=== PATIENT | female | born 1940 | race Caucasian/White ===

== ENCOUNTER 2019-05-15 09:34 | Outpatient (CLI) | payer MEDICARE, SELFPAY ==
[2019-05-15 10:51] LABS: Alanine Aminotransferase 31 U/L (4-35); Albumin Level 4.3 g/dL (3.5-5.1); Alkaline Phosphatase 85 U/L (38-126); Aspartate Amino Transferase 33 U/L (14-36); Blood Urea Nitrogen 16 mg/dL (7-17); Carbon Dioxide 28 mmol/L (22-30); Chloride 106 mmol/L (98-107); Cholesterol 105 mg/dL (0-200); Estimated Glomerular Filt Rate > 60; Glucose 110 mg/dL (65-105); HDL Direct 43 mg/dL; Sodium 141 mmol/L (137-145); Triglycerides 76 mg/dL (<150)
[2019-05-15 11:01] LABS: LDL Cholesterol Direct 61 mg/dL
[2019-05-15 11:15] LABS: Free T4 Free Thyroxine 1.18 ng/mL (0.78-2.19)
== END 2019-05-15 09:35 | disposition home or self-care (01) ==
PROVIDERS: PCP Internal Medicine; Visit Provider Nurse Practitioner
DX: E78.5 Hyperlipidemia, unspecified (principal); E03.9 Hypothyroidism, unspecified; I10 Essential (primary) hypertension
CPT/HCPCS: 36415; 80048; 80061; 80076; 84439; 84443

== ENCOUNTER 2019-07-09 12:51 | Emergency (ER) | payer MEDICARE, SELFPAY ==
[2019-07-09] VITALS (11 sets, daily range): BP systolic 158–187; BP diastolic 73–124; PULSE 56–75; RESP 12–19; TEMP 37.2; O2SAT 93–96
--- NOTE | ~2019-07-09 | XR_ITS ---
XR chest 2V 07/09/2019 14:10 Indication: Lower extremity edema. Procedure: AP and lateral views of the chest Comparison: Comparison to multiple prior studies sequentially, with oldest reviewed study dated 03/2015. Findings: Cardiomegaly. There are bibasilar atelectasis. No focal pneumonia, pleural effusion or pneu mothorax. No acute osseous abnormality. Impression: 1: Bibasilar atelectasis. 2: Cardiomegaly. Reviewed, dictated and finalized at location A. Impression: 1: Bibasilar atelectasis. 2: Cardiomegaly.
--- NOTE | 2019-07-09 13:45 | ECG_ITS ---
Measurements Intervals [place] Rate: 63 P: 43 KS: 217 QRS: 3 QRSD: 91 T: 52 QT: 394 QTc: 406 Interpretive Statements SINUS RHYTHM WITH FIRST DEGREE AV BLOCK EARLY PRECORDIAL R/S TRANSITION LOW QRS VOLTAGE IN PRECORDIAL LEADS ABNORMAL ECG Electronically Signed On 07-09-2019 14:10:30 CDT by Colt Escoto D.O.
[2019-07-09 14:07] LABS: Basophils Absolute Auto 0.1 K/mm3 (0.0-0.1); Eosinophils Absolute Auto 0.3 K/mm3 (0-0.3); Eosinophils Percent Auto 4.2 % (0-4.4); Hematocrit 43.5 % (37.0-47.0); Hemoglobin 14.6 g/dL (12.0-15.0); Immature Granulocyte Absolute 0.05 K/mm3 (0.00-0.031); Immature Granulocyte Percent A 0.8 % (0-0.5); Lymphocytes Percent Auto 27.7 % (18.3-44.2); Mean Corpuscular HGB Conc 33.6 g/dl (32-36); Mean Corpuscular Hemoglobin 31.5 pg (26-34); Mean Platelet Volume 11.4 fl (7.4-10.4); Monocytes Absolute Auto 0.6 K/mm3 (0.1-0.6); Monocytes Percent Auto 9.5 % (2.6-8.5); Neutrophils Absolute Auto 3.5 K/mm3 (1.3-6.7); Neutrophils Percent Auto 56.8 % (45.5-73.1); Platelet Count Result 191 k/mm3 (150-375); Red Blood Count 4.63 M/mm3 (4.2-5.4); Red Cell Distribution Width 13.6 % (11.5-14.5); White Blood Count 6.1 K/mm3 (4.5-10.0)
--- NOTE | 2019-07-09 14:12 | ED.GENADULT ---
HPI - General Adult General Chief complaint: Unspecified Stated complaint: LOWER LEG SWELLING Time Seen by Provider: 07/09/19 13:51 Source: patient Mode of arrival: ambulatory Limitations: no limitations History of Present Illness HPI narrative: This is a 78 year old female that presents to the ER for lower extremity edema x 2 weeks. Reports improvement after she sleeps and the legs are elevated at night. Also reports a rash to the bilateral ankles. Reports shortness of breath that is at baseline. Also reports intermittent sharp left sided chest pain for the last couple weeks. Denies fever, or cough. Related Data Home Medications Medication Instructions Recorded Confirmed Metamucil 2 tbsp PO HS 02/11/19 albuterol sulfate [ProAir HFA] 2 puff INHALATION Q4H PRN 02/11/19 02/11/19 aspirin 81 mg PO DAILY 02/11/19 budesonide-formoterol [Symbicort] 2 puff INHALATION BID 02/11/19 multivitamin DAILY 02/11/19 omeprazole magnesium [Prilosec OTC] 20 mg PO BID 02/11/19 potassium chloride 10 meq PO DAILY 02/11/19 vitamin E 400 unit PO DAILY 02/11/19 cholecalciferol (vitamin D3) 25 1,000 unit PO DAILY 02/17/19 mcg (1,000 unit) capsule Allergies Allergy/AdvReac Type Severity Reaction Status Date / Time adhesive tape Allergy Severe RASH Verified 07/09/19 13:15 levofloxacin AdvReac Mild Nausea and Verified 07/09/19 13:15 Vomiting Review of Systems Review of Systems: Narrative: CONSTITUTIONAL: Denies fever CARDIOVASCULAR: Reports chest pain and edema RESPIRATORY: Reports dyrpnea. Denies cough SKIN: Reports rash All systems reviewed & are unremarkable except as noted in HPI and below PMFSH Social History Social History (Updated 02/19/19 @ 21:37 by Oren Molina, UNDERTAKER HELPER) Smoking status: Never smoker Second hand tobacco smoke exposure: Yes (Many years of exposure. was heavy smoker. ) Alcohol intake: current Gender identity (if verbalized by the patient): Female Exam Narrative: Exam Narrative: GENERAL: Well-appearing, well-nourished, and in no acute distress. HEAD: Normocephalic, atraumatic. EYES: EOMI. NECK: Supple. No adenopathy or masses. No carotid bruits or JVD CHEST: Clear to auscultation. No respiratory distress. No wheezes rales or rhonchi HEART: Regular rate and rhythm. No murmur heard. Normal peripheral pulses. ABDOMEN: Soft, nontender, nondistended, normal active bowel sounds. EXTREMITIES: Normal range of motion. 2+ pitting edema to the bilateral lower extremities SKIN: Warm, dry. Bilateral ankles with red, papular rash consistent with stasis dermatitis NEURO: No focal deficits. Alert and oriented x3. PSYCH: Normal mood and affect Course Consultations Consultation #1: Spoke with Dr. Carter about patient and work-up. Would like Lasix to be increased to 40 in the morning and 20 in the afternoon. Will follow-up with patient. Date: 07/09/19 Time: 15:33 Vital Signs Vital signs: Vital Signs Temperature 99.0 F 07/09/19 13:09 Pulse Rate 75 07/09/19 13:09 Respiratory Rate 18 07/09/19 13:09 Blood Pressure 170/73 H 07/09/19 13:09 Pulse Oximetry 96 07/09/19 13:09 Temperature 99.0 F 07/09/19 13:09 Pulse Rate 60 07/09/19 15:03 Respiratory Rate 16 07/09/19 15:03 Blood Pressure 173/76 H 07/09/19 14:32 Pulse Oximetry 94 07/09/19 15:03 Medical Decision Making [facility] Narrative Medical decision making narrative: Patient presents the emergency department for increasing lower extremity edema over the last 2 weeks. Patient also has rash consistent with venous stasis dermatitis. No evidence of cellulitis. Also reports shortness of breath that is at her baseline. Patient is afebrile and nontoxic-appearing. Blood pressure elevated initially at 170/73, otherwise vitals are normal. CBC and metabolic panel without acute changes. Baseline troponin is negative. BNP is 466. Chest x-ray shows cardiomegaly, no vascular congestion. EKG is without concerning changes. Patient
[2019-07-09 14:18] LABS: Blood Urea Nitrogen 11 mg/dL (7-17); Calcium 9.4 mg/dL (8.4-10.2); Carbon Dioxide 25 mmol/L (22-30); Chloride 106 mmol/L (98-107); Estimated CRCL calculation 62 ml/min; Estimated Glomerular Filt Rate > 60; Glucose 121 mg/dL (65-105); Potassium 3.7 mmol/L (3.4-5.0); Sodium 140 mmol/L (137-145)
[2019-07-09 14:30] LABS: NT Pro B Type Natriuretic Pept 466 PG/ML (5-100); Troponin I < 0.012 ng/mL (0.000-0.034)
[2019-07-09] MEDS: FUROSEMIDE INJ 40 MG/4 ML VIAL IV PUSH (15:08)
== END 2019-07-09 15:55 | disposition home or self-care (01) ==
PROVIDERS: Physician Assistant; Emergency Provider Emergency Medicine; PCP Internal Medicine
DX: R60.0 Localized edema (principal); I87.2 Venous insufficiency (chronic) (peripheral); Z77.22 Contact with and (suspected) exposure to environmental tobacco smoke (acute) (chronic); R06.00 Dyspnea, unspecified; I44.0 Atrioventricular block, first degree; R94.31 Abnormal electrocardiogram [ECG] [EKG]
CPT/HCPCS: 36415; 71046; 80048; 83880; 84484; 85025; 93005; 96374; 99284; J1940

== ENCOUNTER 2019-07-17 08:11 | Outpatient (CLI) | payer MEDICARE, SELFPAY ==
[2019-07-17 09:02] LABS: Blood Urea Nitrogen 15 mg/dL (7-17); Calcium 9.4 mg/dL (8.4-10.2); Carbon Dioxide 25 mmol/L (22-30); Chloride 107 mmol/L (98-107); Estimated Glomerular Filt Rate > 60; Glucose 122 mg/dL (65-105); Potassium 3.6 mmol/L (3.4-5.0); Sodium 141 mmol/L (137-145)
== END 2019-07-17 08:12 | disposition home or self-care (01) ==
PROVIDERS: PCP Internal Medicine; Visit Provider Internal Medicine
DX: R60.0 Localized edema (principal)
CPT/HCPCS: 36415; 80048

== ENCOUNTER 2019-09-24 12:37 | Outpatient (CLI) | payer MEDICARE, SELFPAY ==
--- NOTE | 2019-09-24 13:12 | ECHO_ITS ---
Patient Info Name: Glenna Almendarez Age: 78 years : 1940 Gender: Female Ht: 62 in Wt: 227 lbs BSA: 2.18 m2 HR: 58 bpm BP: 163 / 85 mmHg Heart Rhythm: Sinus Rhythm Technical Quality: Good Exam Date: 09/24/2019 1:48 PM Exam Location: [facility] Patient Status: Outpatient Admit Date: 09/24/2019 Staff Ordering Physician: Gordy Flowers APRN Jewelry Setter: Jt Villalobos RDCS, RT Attending Provider: Gordy Flowers APRN Referring Physician: Lionel CASTRO; Exam Type: CA echo doppler color flow Study Info Indications R06.02 - Shortness of breath Complete two-dimensional, color flow and Doppler transthoracic echocardiogram is performed. Summary 1. Normal left ventricular size with moderate concentric left ventricular hypertrophy. Normal left ventricular systolic function with no segmental wall motion abnormalities. Measured ejection fraction is 70%. Global longitudinal strain is a-18.5%, normal, consistent with normal systolic function. Grade 2 diastolic dysfunction is present. 2. Trace aortic and tricuspid insufficiency. 3. Pulmonary pressures could not be evaluated on this study. 4. Mild aortic root calcification. 5. Normal sinus rhythm. Left Ventricle Left ventricular chamber dimension is normal. Left ventricular systolic function is normal, estimated at Empty. There is moderately increased left ventricular wall thickness. Left ventricular septal wall motion is normal. The left ventricular diastolic function is grade II diastolic dysfunction. Global longitudinal strain is normal at 19 %. Right Ventricle Right ventricular chamber dimension is normal. Right ventricular systolic function is normal. Left Atria Left atrial chamber dimension is mildly enlarged. Right Atria Right atrial chamber dimension is normal. Aortic Valve The aortic valve is trileaflet. There is moderate aortic valve sclerosis. There is no aortic valve stenosis. There is trace aortic valve regurgitation. Pulmonic Valve The pulmonic valve is normal. There is no pulmonic valve stenosis. There is no pulmonic regurgitation. Mitral Valve The mitral valve has normal leaflets. There is no mitral valve stenosis. There is no mitral valve regurgitation. Tricuspid Valve The tricuspid valve leaflets are normal. There is no significant tricuspid valve stenosis. There is trace tricuspid valve regurgitation. No pulmonary hypertension, estimated pulmonary arterial systolic pressure is Empty. Pericardium/Pleural The pericardium appears normal. There is no pericardial effusion. Inferior Vena Cava Normal inferior vena cava with >50% collapse upon inspiration consistent with Empty right atrial pressure, Empty. Aorta The aortic root size at the sinus of Valsalva is normal. The prox ascending aorta size is normal. Left Ventricular Outflow Tract Name Value Normal LVOT 2D LVOT Diameter 2.0 cm LVOT Doppler LVOT Peak Gradient 4 mmHg LVOT Mean Gradient 2 mmHg LVOT VTI 31 cm LVOT VTI/AV VTI Ratio
== END 2019-09-24 12:38 | disposition home or self-care (01) ==
PROVIDERS: PCP Internal Medicine; Visit Provider Nurse Practitioner Family
DX: R06.02 Shortness of breath (principal); R60.0 Localized edema
CPT/HCPCS: 93306

== ENCOUNTER 2019-11-19 09:09 | Outpatient (CLI) | payer MEDICARE, SELFPAY ==
[2019-11-19 09:34] LABS: Hemoglobin A1C 5.5 % (<5.7)
[2019-11-19 09:37] LABS: Alanine Aminotransferase 29 U/L (4-35); Albumin Level 4.1 g/dL (3.5-5.1); Alkaline Phosphatase 66 U/L (38-126); Anion Gap 10 mmol/L (8-16); Aspartate Amino Transferase 34 U/L (14-36); Bilirubin,Total 1.3 mg/dL (0.2-1.3); Blood Urea Nitrogen 18 mg/dL (7-17); Calcium 9.2 mg/dL (8.4-10.2); Carbon Dioxide 23 mmol/L (22-30); Chloride 107 mmol/L (98-107); Cholesterol 108 mg/dL (0-200); Estimated Glomerular Filt Rate > 60; Glucose 119 mg/dL (65-105); HDL Direct 33 mg/dL; Potassium 3.6 mmol/L (3.4-5.0); Sodium 140 mmol/L (137-145); Triglycerides 109 mg/dL (<150)
[2019-11-19 09:49] LABS: LDL Cholesterol Direct 57 mg/dL
== END 2019-11-19 09:10 | disposition home or self-care (01) ==
PROVIDERS: PCP Internal Medicine; Visit Provider Internal Medicine
DX: I10 Essential (primary) hypertension (principal); R73.02 Impaired glucose tolerance (oral); E78.5 Hyperlipidemia, unspecified; E03.9 Hypothyroidism, unspecified
CPT/HCPCS: 36415; 80053; 80061; 83036; 84443

== ENCOUNTER 2019-12-20 00:26 | Emergency (ER) | payer MEDICARE, SELFPAY ==
[2019-12-20] VITALS (7 sets, daily range): BP systolic 137–169; BP diastolic 67–99; PULSE 59–146; RESP 15–20; TEMP 36.2; O2SAT 63–100
--- NOTE | ~2019-12-20 | XR_ITS ---
XR chest 2V 12/20/2019 01:07 Indication: Chest pain. Hypertension. Procedure: PA and lateral views of the chest Comparison: Comparison to multiple prior studies sequentially, with oldest reviewed study dated 12/11. Findings: Heart size normal. Left basilar atelectasis. No focal pneumonia, edema, pleural effusion or pneumothorax. Impression: 1: Left basilar atelectasis. Reviewed, dictated and finalized at location A. Impression: 1: Left basilar atelectasis.
--- NOTE | 2019-12-20 00:36 | ECG_ITS ---
Measurements Intervals [place] Rate: 85 P: 81 [place]: 215 QRS: 4 QRSD: 93 T: 47 QT: 341 QTc: 406 Interpretive Statements SINUS RHYTHM WITH FIRST DEGREE AV BLOCK BASELINE ARTIFACT- I, II, III ABNORMAL ECG Electronically Signed On 12-20-2019 7:40:06 CDT by Colt Escoto D.O.
--- NOTE | 2019-12-20 00:41 | ED.CHESTPAIN ---
HPI - Chest Pain General Chief Complaint: Chest Pain Stated Complaint: chest pain Time Seen by Provider: 12/20/19 00:40 History of Present Illness HPI narrative: Tonight she went to let her dog inside and she suddenly got a funny feeling in her chest. It was not painful, but did not feel right. She also noted that her heart was racing. She went to check her BP and it was elevated and her heart rate was about 140. On my evaluation she reports her symptoms have mostly resolved, but she still has a funny feeling in her chest. Related Data Home Medications Medication Instructions Recorded Confirmed Metamucil 2 tbsp PO HS 02/11/19 11/25/19 albuterol sulfate [ProAir HFA] 2 puff INHALATION Q4H PRN 02/11/19 11/25/19 aspirin 81 mg PO DAILY 02/11/19 11/25/19 budesonide-formoterol [Symbicort] 2 puff INHALATION BID 02/11/19 11/25/19 multivitamin DAILY 02/11/19 11/25/19 omeprazole magnesium [Prilosec OTC] 20 mg PO BID 02/11/19 11/25/19 potassium chloride 10 meq PO DAILY 02/11/19 11/25/19 vitamin E 400 unit PO DAILY 02/11/19 11/25/19 cholecalciferol (vitamin D3) 25 1,000 unit PO DAILY 02/17/19 11/25/19 mcg (1,000 unit) capsule Allergies Allergy/AdvReac Type Severity Reaction Status Date / Time adhesive tape Allergy Severe RASH Verified 11/25/19 10:26 levofloxacin AdvReac Mild Nausea and Verified 11/25/19 10:26 Vomiting Review of Systems Review of Systems: All systems reviewed & are unremarkable except as noted in HPI and below Constitutional: Constitutional: Denies fever(s) Cardiovascular: Cardiovascular: Reports rapid heart rate Respiratory: Respiratory: Denies dyspnea Gastrointestinal: Gastrointestinal: Denies abdominal pain, Denies nausea and Denies vomiting Musculoskeletal: Musculoskeletal: Denies back pain Neurologic: Reports dizziness Psychiatric: Psychiatric: Reports anxiety [facility] Past Medical History Medical History (Updated 12/20/19 @ 04:20 by Dayday Pro MD) Anxiety Arthritis Cataract COPD (chronic obstructive pulmonary disease) CPAP (continuous positive airway pressure) dependence Diverticulosis Fatty liver GERD (gastroesophageal reflux disease) GI bleed Hiatal hernia HTN (hypertension) Hyperlipidemia Hypothyroid IBS (irritable bowel syndrome) Osteoporosis Pulmonary HTN Sarcoidosis Sinus problem Sleep apnea UTI (urinary tract infection) Surgical History Surgical History H/O arthroscopy of right knee H/O breast biopsy H/O cataract extraction H/O colonoscopy H/O dilation and curettage H/O sinus surgery H/O: hysterectomy History of appendectomy History of arthroplasty of left knee History of cardiac cath Hx of cholecystectomy Hx of tonsillectomy Family History Family History Mother Cerebrovascular accident, Onset Age: 86 Family history of cardiovascular disease, Onset Age: 86 Sibling Family history of cardiovascular disease Social History Social History Smoking status: Former smoker Second hand tobacco smoke exposure: Yes (Many years of exposure. was heavy smoker. ) Alcohol intake: current Gender identity (if verbalized by the patient): Female Exam Const: General: no acute distress and alert Nutritional Appearance: obese Orientation/consciousness: patient oriented x3 HENMT: Head: normal to inspection Neck: Neck: normal visual inspection Chest: Chest palpation & inspection: no tenderness Resp: Effort & Inspection: normal respiratory effort Auscultation: clear to auscultation bilaterally, no rales, no rhonchi and no wheezes Cardio: Jugular venous distension: no JVD Rate: regular rate Rhythm: regular rhythm Heart sounds: no murmurs GI: Inspection: non-distended GI Palp: Yes Soft to palpation and No Tenderness to palpation present (GI) Skin: General skin ex
--- NOTE | 2019-12-20 00:42 | PC.NURSE ---
Dr. Pro at bedside.
[2019-12-20 00:52] LABS: Basophils Absolute Auto 0.1 K/mm3 (0.0-0.1); Eosinophils Absolute Auto 0.3 K/mm3 (0-0.3); Eosinophils Percent Auto 3.3 % (0-4.4); Hematocrit 44.1 % (37.0-47.0); Hemoglobin 15.4 g/dL (12.0-15.0); Immature Granulocyte Absolute 0.02 K/mm3 (0.00-0.031); Immature Granulocyte Percent A 0.2 % (0-0.5); Lymphocytes Absolute Auto 3.78 K/mm3 (0.9-3.2); Lymphocytes Percent Auto 38.4 % (18.3-44.2); Mean Corpuscular HGB Conc 34.9 g/dl (32-36); Mean Corpuscular Volume 94.4 fl (80-100); Mean Platelet Volume 11.3 fl (7.4-10.4); Monocytes Absolute Auto 1.3 K/mm3 (0.1-0.6); Neutrophils Absolute Auto 4.3 K/mm3 (1.3-6.7); Neutrophils Percent Auto 44.1 % (45.5-73.1); Platelet Count Result 197 k/mm3 (150-375); Red Blood Count 4.67 M/mm3 (4.2-5.4); Red Cell Distribution Width 13.5 % (11.5-14.5); White Blood Count 9.8 K/mm3 (4.5-10.0)
[2019-12-20 01:03] LABS: Anion Gap 11 mmol/L (8-16); Blood Urea Nitrogen 12 mg/dL (7-17); Calcium 9.6 mg/dL (8.4-10.2); Carbon Dioxide 24 mmol/L (22-30); Chloride 107 mmol/L (98-107); Estimated CRCL calculation 61 ml/min; Estimated Glomerular Filt Rate > 60; Glucose 108 mg/dL (65-105); Potassium 3.5 mmol/L (3.4-5.0); Sodium 142 mmol/L (137-145)
[2019-12-20 01:11] LABS: INR 1.1; Prothrombin Time 13.5 Seconds (11.1-14.7)
[2019-12-20 01:12] LABS: Partial Thromboplastin Time 24.5 SECONDS (22.3-36.8)
[2019-12-20 01:14] LABS: Troponin I < 0.012 ng/mL (0.000-0.034)
[2019-12-20] MEDS: ASPIRIN 81 MG CHEWABLE TABLET 324 MG PO (02:06)
[2019-12-20 04:41] LABS: Troponin I < 0.012 ng/mL (0.000-0.034)
== END 2019-12-20 04:58 | disposition home or self-care (01) ==
PROVIDERS: Emergency Provider Emergency Medicine; PCP Internal Medicine
DX: R07.89 Other chest pain (principal); M19.90 Unspecified osteoarthritis, unspecified site; J44.9 Chronic obstructive pulmonary disease, unspecified; K21.9 Gastro-esophageal reflux disease without esophagitis; I10 Essential (primary) hypertension; E03.9 Hypothyroidism, unspecified; K58.9 Irritable bowel syndrome, unspecified; M81.0 Age-related osteoporosis without current pathological fracture; D86.9 Sarcoidosis, unspecified; Z87.440 Personal history of urinary (tract) infections; G47.30 Sleep apnea, unspecified; Z98.49 Cataract extraction status, unspecified eye; Z87.891 Personal history of nicotine dependence; Z79.82 Long term (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 of aspirin; I44.0 Atrioventricular block, first degree
CPT/HCPCS: 36415; 71046; 80048; 84484; 85025; 85610; 85730; 93005; 99284; A9270

== ENCOUNTER 2019-12-21 14:23 | Emergency (ER) | payer MEDICARE, SELFPAY ==
--- NOTE | ~2019-12-21 | XR_ITS ---
XR wrist LT min 3V DATE: 12/21/2019 15:54 INDICATION: Left wrist pain and swelling. IV taken one day ago TECHNIQUE: 4 views COMPARISON: 06/22/2009 left hand FINDINGS: There is severe osteoarthritic change at the first carpometacarpal joint. Moderately severe osteoarthritis at the first metacarpophalangeal joint. There is moderate osteopenia. No fracture or dislocation, periosteal reaction or bone destruction. IMPRESSION: Osteoarthritic changes at the first carpometacarpal and metacarpophalangeal joints Reviewed, dictated and finalized at location A. IMPRESSION: Osteoarthritic changes at the first carpometacarpal and metacarpoph alangeal joints
--- NOTE | ~2019-12-21 | US_ITS ---
US venous doppler UE LT DATE: 12/21/2019 15:51 INDICATION: Left arm pain and swelling TECHNIQUE: Real-time and color flow imaging and Doppler analysis COMPARISON: None FINDINGS: There is normal flow in left internal jugular, subclavian, axillary, brachial, basilic, cep halic, radial and ulnar veins. There is no evidence of deep venous thrombosis. IMPRESSION: Negative examination Reviewed, dictated and finalized at Location A. Reviewed, dictated and finalized at location A. IMPRESSION: Negative examination
[2019-12-21 14:38] VITALS: BP 180/75; PULSE 67; RESP 18; TEMP 36.1; O2SAT 100
--- NOTE | 2019-12-21 15:33 | ED.EXTPRO ---
HPI - Extremity Problem General Chief complaint: Extremity Problem,Nontraumatic Stated complaint: right arm pain Time Seen by Provider: 12/21/19 15:06 Source: patient Mode of arrival: ambulatory Limitations: no limitations History of Present Illness HPI Narrative: This is a 79 year old female that presents to the ER for left arm pain that started this morning. Reports swelling to the area as well. No known injury or trauma. Reports the pain starts in her wrist and radiates to the elbow. It is worse with movement and palpation and relieved with rest. Denies fever or erythema. Related Data Home Medications Medication Instructions Recorded Confirmed Metamucil 2 tbsp PO HS 02/11/19 11/25/19 albuterol sulfate [ProAir HFA] 2 puff INHALATION Q4H PRN 02/11/19 11/25/19 aspirin 81 mg PO DAILY 02/11/19 11/25/19 budesonide-formoterol [Symbicort] 2 puff INHALATION BID 02/11/19 11/25/19 multivitamin DAILY 02/11/19 11/25/19 omeprazole magnesium [Prilosec OTC] 20 mg PO BID 02/11/19 11/25/19 potassium chloride 10 meq PO DAILY 02/11/19 11/25/19 vitamin E 400 unit PO DAILY 02/11/19 11/25/19 cholecalciferol (vitamin D3) 25 1,000 unit PO DAILY 02/17/19 11/25/19 mcg (1,000 unit) capsule Allergies Allergy/AdvReac Type Severity Reaction Status Date / Time adhesive tape Allergy Severe RASH Verified 12/21/19 14:43 levofloxacin AdvReac Mild Nausea and Verified 12/21/19 14:43 Vomiting Review of Systems Review of Systems: Narrative: CONSTITUTIONAL: Denies fever SKIN: Denies rash MUSCULOSKELETAL: Reports joint pain, and myalgia. NEUROLOGIC: Denies numbness, or weakness. All systems reviewed & are unremarkable except as noted in HPI and below PMFSH Past Medical History Medical History (Updated 12/21/19 @ 17:05 by Nhi Austin PA-C) Anxiety Arthritis Cataract COPD (chronic obstructive pulmonary disease) CPAP (continuous positive airway pressure) dependence Diverticulosis Fatty liver GERD (gastroesophageal reflux disease) GI bleed Hiatal hernia HTN (hypertension) Hyperlipidemia Hypothyroid IBS (irritable bowel syndrome) Osteoporosis Pulmonary HTN Sarcoidosis Sinus problem Sleep apnea UTI (urinary tract infection) Surgical History Surgical History H/O arthroscopy of right knee H/O breast biopsy H/O cataract extraction H/O colonoscopy H/O dilation and curettage H/O sinus surgery H/O: hysterectomy History of appendectomy History of arthroplasty of left knee History of cardiac cath Hx of cholecystectomy Hx of tonsillectomy Family History Family History Mother Cerebrovascular accident, Onset Age: 86 Family history of cardiovascular disease, Onset Age: 86 Sibling Family history of cardiovascular disease Social History Social History Smoking status: Former smoker Second hand tobacco smoke exposure: Yes (Many years of exposure. was heavy smoker. ) Alcohol intake: current Gender identity (if verbalized by the patient): Female Exam Narrative: Exam Narrative: GENERAL: Well-appearing, obese, and in no acute distress. HEAD: Normocephalic, atraumatic. EYES: EOMI. CHEST: Clear to auscultation. No respiratory distress. No wheezes rales or rhonchi HEART: Regular rate and rhythm. No murmur heard. Normal peripheral pulses. ABDOMEN: Soft, nontender, nondistended, normal active bowel sounds. EXTREMITIES: Normal range of motion. Pain with active ROM in the left wrist. Mild edema to the left hand. Tender to palpation of the left wrist and hand around IV insertion site. Compartments are soft. Normal radial pulses. Normal sensation SKIN: Warm, dry, no rash. NEURO: No focal deficits. Alert and oriented x3. PSYCH: Normal mood and affect Course Vital Signs Vital signs: Vital Signs Temperature 96.9 F L 12/21/19 14:38 Pulse R
[2019-12-21] MEDS: HYDROcodone/acetaminophen (*CRX) 5-325 MG TABLET 1 TAB PO (16:08)
[2019-12-21 16:16] LABS: Basophils Absolute Auto 0.1 K/mm3 (0.0-0.1); Basophils Percent Auto 0.7 % (0.2-1.2); Eosinophils Absolute Auto 0.3 K/mm3 (0-0.3); Eosinophils Percent Auto 2.6 % (0-4.4); Hematocrit 42.7 % (37.0-47.0); Hemoglobin 14.6 g/dL (12.0-15.0); Immature Granulocyte Absolute 0.04 K/mm3 (0.00-0.031); Immature Granulocyte Percent A 0.3 % (0-0.5); Lymphocytes Absolute Auto 2.46 K/mm3 (0.9-3.2); Lymphocytes Percent Auto 20.3 % (18.3-44.2); Mean Corpuscular HGB Conc 34.2 g/dl (32-36); Mean Corpuscular Hemoglobin 32.7 pg (26-34); Mean Corpuscular Volume 95.7 fl (80-100); Mean Platelet Volume 11.3 fl (7.4-10.4); Monocytes Absolute Auto 1.2 K/mm3 (0.1-0.6); Monocytes Percent Auto 10.1 % (2.6-8.5); Platelet Count Result 194 k/mm3 (150-375); Red Blood Count 4.46 M/mm3 (4.2-5.4); Red Cell Distribution Width 13.5 % (11.5-14.5); White Blood Count 12.1 K/mm3 (4.5-10.0)
[2019-12-21 16:25] LABS: INR 1.1; Prothrombin Time 13.9 Seconds (11.1-14.7)
[2019-12-21 16:26] LABS: Anion Gap 11 mmol/L (8-16); Blood Urea Nitrogen 14 mg/dL (7-17); Calcium 9.6 mg/dL (8.4-10.2); Carbon Dioxide 25 mmol/L (22-30); Chloride 107 mmol/L (98-107); Estimated CRCL calculation 53 ml/min; Estimated Glomerular Filt Rate > 60; Glucose 103 mg/dL (65-105); Partial Thromboplastin Time 31.2 SECONDS (22.3-36.8); Potassium 3.8 mmol/L (3.4-5.0); Sodium 143 mmol/L (137-145)
[2019-12-21 17:19] VITALS: BP 165/70; PULSE 70; RESP 12; O2SAT 99
[2019-12-21] MEDS: IBUPROFEN 600 MG TABLET PO (17:19)
== END 2019-12-21 17:21 | disposition home or self-care (01) ==
PROVIDERS: Physician Assistant; Emergency Provider Family Medicine; PCP Internal Medicine
DX: I80.8 Phlebitis and thrombophlebitis of other sites (principal); J44.9 Chronic obstructive pulmonary disease, unspecified; K21.9 Gastro-esophageal reflux disease without esophagitis; I10 Essential (primary) hypertension; E78.5 Hyperlipidemia, unspecified; K58.9 Irritable bowel syndrome, unspecified; M81.0 Age-related osteoporosis without current pathological fracture; M19.90 Unspecified osteoarthritis, unspecified site; D86.9 Sarcoidosis, unspecified; Z87.440 Personal history of urinary (tract) infections; G47.30 Sleep apnea, unspecified; Z98.49 Cataract extraction status, unspecified eye; Z87.891 Personal history of nicotine dependence; Z79.82 Long term (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 of aspirin
CPT/HCPCS: 36415; 73110; 80048; 85025; 85610; 85730; 93971; 99284; A9270

== ENCOUNTER 2020-02-09 13:22 | Outpatient (CLI) | payer MEDICARE, SELFPAY ==
--- NOTE | 2020-02-13 15:24 | P.PCNHOL_ITS ---
Holter/Event Monitor Holter/Event Monitor Date of procedure: 02/13/20 Procedure Type: 48 hour Holter monitor Diagnosis: tachycardia, dizziness Indications: tachycardia, dizziness Image/Tracing Quality: acceptable Finding: this is a 48 hour Holter monitor which the underlying rhythm was sinus with an average heart rate is 60 beats per minute with a minimum of 47 beats per minute occurring at 5:59 a.m. and a maximum of 105 beats per minute occurring at 10:51 a.m.. There were rare premature ventricular contractions totaling 170 (0.1% burden). Rare supraventricular ectopy totaling 240 (0.1% burden) with one 4-beat atrial run, 35 atrial pairs, and 166 isolated premature atrial contracti ons. No atrial fibrillation and/or atrial flutter noted. No prolonged pauses and or high-grade AV blocks. There were no symptoms return in conjunction with this study. There was a first degree AV block and normal QRS duration during this study. Conclusion: Sinus rhythm with rare PVCs and PACs and 1 4 beat atrial run without atrial fibrillation, atrial flutter, prolonged pauses, or high-grade AV blocks. No symptoms returned in conjunction with this study.
== END 2020-02-09 13:23 | disposition home or self-care (01) ==
PROVIDERS: PCP Internal Medicine; Visit Provider Nurse Practitioner
DX: R00.0 Tachycardia, unspecified (principal)
CPT/HCPCS: 93225; 93226

== ENCOUNTER 2020-05-17 08:33 | Outpatient (CLI) | payer MEDICARE, SELFPAY ==
[2020-05-17 09:11] LABS: Hemoglobin A1C 5.8 % (<5.7)
[2020-05-17 09:24] LABS: Alanine Aminotransferase 28 U/L (4-35); Albumin Level 3.8 g/dL (3.5-5.1); Alkaline Phosphatase 95 U/L (38-126); Anion Gap 7 mmol/L (8-16); Aspartate Amino Transferase 32 U/L (14-36); Bilirubin,Total 0.7 mg/dL (0.2-1.3); Blood Urea Nitrogen 16 mg/dL (7-17); Calcium 9.3 mg/dL (8.4-10.2); Carbon Dioxide 27 mmol/L (22-30); Chloride 106 mmol/L (98-107); Cholesterol 102 mg/dL (0-200); Estimated Glomerular Filt Rate > 60; Glucose 125 mg/dL (65-105); HDL Direct 38 mg/dL; Potassium 3.8 mmol/L (3.4-5.0); Sodium 140 mmol/L (137-145); Triglycerides 109 mg/dL (<150)
[2020-05-17 09:35] LABS: LDL Cholesterol Direct 47 mg/dL
== END 2020-05-17 08:34 | disposition home or self-care (01) ==
PROVIDERS: PCP Internal Medicine; Referring Provider Internal Medicine Cardiovascular Disease; Visit Provider Nurse Practitioner
DX: E78.5 Hyperlipidemia, unspecified (principal); E03.9 Hypothyroidism, unspecified; R73.02 Impaired glucose tolerance (oral)
CPT/HCPCS: 36415; 80053; 80061; 83036; 84443

== ENCOUNTER 2020-06-02 13:06 | Outpatient (CLI) | payer MEDICARE, SELFPAY ==
--- NOTE | ~2020-06-02 | US_ITS ---
EXAMINATION:US venous doppler LE LT INDICATION:Left leg swelling TECHNIQUE: Multiple grayscale, color flow and Doppler images of the left lower extremity deep venous systems were obtained and reviewed. COMPARISON:01/08/2017 FINDINGS: The common femoral, superficial femoral and popliteal veins demonstrate normal respiratory variation, augmentation and compressibility. Color flow is also seen within the posterior tibial, pe roneal, greater saphenous and profunda veins. IMPRESSION: 1: No lower extremity deep venous thrombosis. Reviewed, dictated and finalized at location A.
--- NOTE | ~2020-06-02 | MR_ITS ---
EXAMINATION: MR humerus LT wo con DATE: 06/02/2020 14:18 INDICATION: Swelling and pain wrapping around from the anterior mid left upper arm. TECHNIQUE: Magnetic resonance imaging (MRI) of the left upper arm/humerus was performed without intra venous contrast. Sequences included axial, sagittal and coronal T1-weighted FSE and fluid sensitive F SE STIR . COMPARISON: None. FINDINGS: Bone alignment is normal with normal marrow signal throughout. No fracture or pathologic marrow repla cing process. Musculature at the left shoulder girdle and left upper arm appears normal with normal b ulk and signal. No abnormal masses identified. There is increased fluid in the long head biceps tendo n sheath which is disproportionate to the physiologic amount of fluid in the glenohumeral joint consi stent with bicipital tenosynovitis. The tendon appears grossly intact although assessment is more clements ited than on a standard smaller field of view MRI of the left shoulder. Neurovascular structures at t he left upper arm and axilla appear normal. No pathologically enlarged left axillary lymphadenopathy. IMPRESSION: 1. Bicipital tenosynovitis. Otherwise unremarkable MRI of the left upper arm. Reviewed, dictated and finalized at location A.
--- NOTE | ~2020-06-02 | US_ITS ---
EXAMINATION: US soft tissue head and neck DATE: 06/02/2020 14:38 INDICATION: Left parotid/facial swelling. TECHNIQUE: Multiple grayscale and Doppler ultrasound images of head and neck were obtained of the lef t side of the face centered at the parotid gland including the adjacent submandibular region and supe rior left neck. Corresponding contralateral right-sided images were also obtained for comparison. COMPARISON: None FINDINGS: The bilateral parotid and submandibular glands appear normal and symmetric. No abnormal masses, fluid collections or pathologically enlarged lymphadenopathy identified. IMPRESSION: 1. Normal study. Reviewed, dictated and finalized at location A. IMPRESSION: 1. Normal study.
== END 2020-06-02 13:07 | disposition home or self-care (01) ==
PROVIDERS: PCP Internal Medicine; Visit Provider Internal Medicine
DX: I87.302 Chronic venous hypertension (idiopathic) without complications of left lower extremity (principal); I10 Essential (primary) hypertension; R73.02 Impaired glucose tolerance (oral); R59.0 Localized enlarged lymph nodes; M75.22 Bicipital tendinitis, left shoulder
CPT/HCPCS: 73218; 76536; 93971

== ENCOUNTER 2020-07-06 09:45 | Outpatient (CLI) | payer MEDICARE, SELFPAY ==
--- NOTE | ~2020-07-06 | MM_ITS ---
EXAMINATION: MM screening jonathon BI w trey HISTORY: Screening mammogram TECHNIQUE: Craniocaudal and mediolateral oblique 3-D tomosynthesis images were obtained and synthetic 2-D images were generated. CAD analysis was submitted and interpreted. COMPARISON: 05/27/2018, 05/22/2017, 06/08/2016 bilateral digital screening mammogram examinations BREAST PARENCHYMAL COMPOSITION: There are scattered areas of fibroglandular density. FINDINGS: Biopsy markers on the right; history of prior benign bilateral breast biopsies. There is n o evidence of suspicious mass, calcification, or architectural distortion to suggest malignancy in ei ther breast. There has been no suspicious interval change. IMPRESSION: 1. No mammographic evidence of malignancy. 2. Recommend routine screening mammography in one year. BI-RADS Category 1: Negative Reviewed, dictated and finalized at location A.
== END 2020-07-06 09:46 | disposition home or self-care (01) ==
PROVIDERS: PCP Internal Medicine; Visit Provider Internal Medicine
DX: Z12.31 Encounter for screening mammogram for malignant neoplasm of breast (principal)
CPT/HCPCS: 77063; 77067

== ENCOUNTER 2020-07-14 13:59 | Outpatient (CLI) | payer MEDICARE, SELFPAY ==
--- NOTE | ~2020-07-14 | CT_ITS ---
EXAMINATION: CT soft tissue neck w con DATE: 07/14/2020 14:42 INDICATION: Sialoadenitis, unspecified. TECHNIQUE: Computed tomography (CT) of the neck was performed with 75 mL Omnipaque-350 intravenous co ntrast. Automated exposure control and iterative reconstruction technique were employed. The dose-carmen gth product was 534.07 mGy-cm. COMPARISON: None FINDINGS: There are changes of bilateral ocular lens replacement surgeries. A skin marker overlies th e left parotid gland, which is normal. There is no sialolith. Calcified mediastinal lymph nodes are c onsistent with old granulomatous disease. There is mild plaque in proximal left internal carotid soni ry with 0% stenosis relative to normal distal artery lumen diameter. There is severe cervical spondyl osis. IMPRESSION: 1. Normal major salivary glands. No sialolith. Reviewed, dictated and finalized at location A.
[2020-07-14 14:52] LABS: Estimated Glomerular Filt Rate > 60
== END 2020-07-14 14:00 | disposition home or self-care (01) ==
PROVIDERS: PCP Internal Medicine; Visit Provider Otolaryngology
DX: K11.20 Sialoadenitis, unspecified (principal); J32.9 Chronic sinusitis, unspecified; M26.609 Unspecified temporomandibular joint disorder, unspecified side; R44.8 Other symptoms and signs involving general sensations and perceptions
CPT/HCPCS: 70491; Q9967

== ENCOUNTER 2020-07-29 12:29 | Outpatient (CLI) | payer MEDICARE, SELFPAY ==
[2020-07-29 13:18] LABS: Rheumatoid Factor < 8.6 IU/ML (<12)
[2020-08-10 10:16] LABS: ANA Cascade Screen Negative (Negative)
== END 2020-07-29 12:30 | disposition home or self-care (01) ==
PROVIDERS: PCP Internal Medicine; Visit Provider Nurse Practitioner Family
DX: M25.40 Effusion, unspecified joint (principal); Z82.61 Family history of arthritis
CPT/HCPCS: 36415; 86038; 86430

== ENCOUNTER → 2020-11-04 03:30 | Outpatient (CLI) | payer MEDICARE, SELFPAY ==
[2020-11-04 20:01] LABS: SARS-CoV-2 RNA PCR Negative
== END ==
PROVIDERS: PCP Internal Medicine; Visit Provider Internal Medicine
DX: R68.89 Other general symptoms and signs (principal); Z20.822 Contact with and (suspected) exposure to COVID-19
CPT/HCPCS: C9803; U0003; U0005

== ENCOUNTER 2020-11-22 08:33 | Outpatient (CLI) | payer MEDICARE, SELFPAY ==
[2020-11-22 09:22] LABS: Alanine Aminotransferase 31 U/L (4-35); Albumin Level 4.2 g/dL (3.5-5.1); Alkaline Phosphatase 81 U/L (38-126); Anion Gap 11 mmol/L (8-16); Aspartate Amino Transferase 34 U/L (14-36); Bilirubin,Total 0.9 mg/dL (0.2-1.3); Blood Urea Nitrogen 11 mg/dL (7-17); Calcium 9.5 mg/dL (8.4-10.2); Carbon Dioxide 25 mmol/L (22-30); Chloride 106 mmol/L (98-107); Cholesterol 122 mg/dL (0-200); Estimated Glomerular Filt Rate > 60; Glucose 129 mg/dL (65-110); HDL Direct 41 mg/dL; Potassium 3.8 mmol/L (3.4-5.0); Sodium 142 mmol/L (137-145); Triglycerides 152 mg/dL (<150)
[2020-11-22 09:32] LABS: LDL Cholesterol Direct 62 mg/dL
[2020-11-22 10:16] LABS: Hemoglobin A1C 5.8 % (<5.7)
== END 2020-11-22 08:34 | disposition home or self-care (01) ==
LOC: ANHLAB 08:38
PROVIDERS: PCP Internal Medicine; Visit Provider Internal Medicine
DX: E03.9 Hypothyroidism, unspecified (principal); I10 Essential (primary) hypertension; R73.02 Impaired glucose tolerance (oral); E78.5 Hyperlipidemia, unspecified
CPT/HCPCS: 36415; 80053; 80061; 83036; 84443

== ENCOUNTER 2021-04-03 04:26 | Emergency (ER) | payer MEDICARE, SELFPAY ==
[2021-04-03] VITALS (14 sets, daily range): BP systolic 134–173; BP diastolic 52–75; PULSE 50–71; RESP 13–25; TEMP 36.1; O2SAT 91–99
--- NOTE | ~2021-04-03 | XR_ITS ---
XR chest 1V portable DATE: 04/03/2021 04:57 INDICATION: Mid chest pain TECHNIQUE: Portable AP chest on 04/03/2021 at 0454 hours COMPARISON: 12/20/2019 PA and lateral views FINDINGS: Heart size appears within normal limits. Is mild aortic calcification and tortuosity. There is pulmonary vascular redistribution which may indicate mild pulmonary venous hypertension. No pulmonary infiltrate or consolidation, pleural effusion or pneumothorax is noted otherwise. IMPRESSION: Pulmonary vascular redistribution which may indicate mild pulmonary venous hypertension Reviewed, dictated and finalized at location [facility]. B[employer]WER
--- NOTE | ~2021-04-03 | CT_ITS ---
EXAMINATION: CT brain wo con DATE: 04/03/2021 05:16 INDICATION: Left frontal headache, pain behind left thigh. TECHNIQUE: Computed tomography (CT) of the head was performed without intravenous contrast. The mA wa s adjusted according to patient size. Iterative reconstruction technique was employed. Exam dose: 60 5.33 mGy-cm total exam DLP. COMPARISON: 01/28/2017 CT brain FINDINGS: No intracranial mass lesion or hemorrhage or cerebrovascular accident. No midline shift or mass effect. Bilateral carotid siphon internal carotid artery calcification. No subdural or epidural hematoma. No orbital mass lesion. Included mastoid air cells and paranasal sinuses are unremarkable. No fracture or bone destruction of the cranial vault. Bilateral hyperostosis frontalis interna. IMPRESSION: Normal aging brain Reviewed, dictated and finalized at [facility]. Reviewed, dictated and finalized at location [facility]. Y RIDER IMPRESSION: Normal aging brain
--- NOTE | 2021-04-03 04:39 | ECG_ITS ---
Measurements Intervals [place] Rate: 61 P: 78 [place]: 209 QRS: 6 QRSD: 98 T: 37 QT: 419 QTc: 423 Interpretive Statements SINUS RHYTHM EARLY PRECORDIAL R/S TRANSITION CONSIDER INFERIOR INFARCT, AGE INDETERMINATE BASELINE ARTIFACT- I, II, III, AVR, AVL, AVF ABNORMAL ECG Electronically Signed On 04-03-2021 20:15:02 PROCEDURE ANALYST by Colt Escoto D.O.
[2021-04-03 05:04] LABS: Basophils Absolute Auto 0.1 K/mm3 (0.0-0.1); Basophils Percent Auto 1.2 % (0.2-1.2); Eosinophils Absolute Auto 0.2 K/mm3 (0-0.3); Eosinophils Percent Auto 3.4 % (0-4.4); Hematocrit 41.4 % (37.0-47.0); Hemoglobin 14.1 g/dL (12.0-15.0); Immature Granulocyte Absolute 0.01 K/mm3 (0.00-0.031); Immature Granulocyte Percent A 0.1 % (0-0.5); Lymphocytes Percent Auto 33.8 % (18.3-44.2); Mean Corpuscular HGB Conc 34.1 g/dl (32-36); Mean Corpuscular Hemoglobin 32.6 pg (26-34); Mean Corpuscular Volume 95.6 fl (80-100); Mean Platelet Volume 10.8 fl (7.4-10.4); Monocytes Absolute Auto 0.8 K/mm3 (0.1-0.6); Monocytes Percent Auto 12.1 % (2.6-8.5); Neutrophils Absolute Auto 3.4 K/mm3 (1.3-6.7); Neutrophils Percent Auto 49.4 % (45.5-73.1); Platelet Count Result 204 k/mm3 (150-375); Red Blood Count 4.33 M/mm3 (4.2-5.4); Red Cell Distribution Width 13.7 % (11.5-14.5); White Blood Count 6.8 K/mm3 (4.5-10.0)
[2021-04-03 05:10] LABS: INR 1.1
[2021-04-03 05:12] LABS: Alanine Aminotransferase 36 U/L (4-35); Albumin Level 4.3 g/dL (3.5-5.1); Alkaline Phosphatase 87 U/L (38-126); Anion Gap 8 mmol/L (8-16); Aspartate Amino Transferase 35 U/L (14-36); Blood Urea Nitrogen 15 mg/dL (7-17); Calcium 9.7 mg/dL (8.4-10.2); Carbon Dioxide 24 mmol/L (22-30); Chloride 106 mmol/L (98-107); Estimated CRCL calculation 51 ml/min; Estimated Glomerular Filt Rate > 60; Glucose 120 mg/dL (65-110); Lipase 181 U/L (23-300); Potassium 3.6 mmol/L (3.4-5.0); Sodium 138 mmol/L (137-145)
[2021-04-03] MEDS: MORPHINE SULFATE (*CRX) 4 MG/ML INJ IV PUSH (05:14)
[2021-04-03 05:23] LABS: Troponin I < 0.012 ng/mL (0.000-0.034)
--- NOTE | 2021-04-03 05:39 | ED.GENADULT ---
HPI - General Adult General Chief complaint: Headache Stated complaint: headache since 6pm Time Seen by Provider: 04/03/21 04:47 History of Present Illness HPI narrative: Patient is a 80-year-old female presents emergency department with chief complaint of chest pain and headache patient reports she was watching [employer] this evening and started having discomfort in her chest and reports that she then started having pain in her head patient reports she has history of pulmonary hypertension and has had issues before in the past patient reports that symptoms or not improved by anything or they worsened by anything. Related Data Home Medications Medication Instructions Recorded Confirmed aspirin 81 mg PO DAILY 02/11/19 03/31/21 multivitamin DAILY 02/11/19 03/31/21 omeprazole magnesium [Prilosec OTC] 20 mg PO BID 02/11/19 03/31/21 potassium chloride 10 meq PO DAILY 02/11/19 03/31/21 Allergies Allergy/AdvReac Type Severity Reaction Status Date / Time adhesive tape Allergy Severe RASH Verified 03/31/21 09:27 levofloxacin AdvReac Mild Nausea and Verified 03/31/21 09:27 Vomiting Review of Systems Review of Systems: A 10 system review of systems was completed on the patient and is negative except for what is stated in the HPI. Nursing and ancillary documentation was reviewed. [facility] Past Medical History Medical History Anxiety Arthritis Cataract COPD (chronic obstructive pulmonary disease) CPAP (continuous positive airway pressure) dependence Diverticulosis Fatty liver GERD (gastroesophageal reflux disease) GI bleed Hiatal hernia HTN (hypertension) Hyperlipidemia Hypothyroid IBS (irritable bowel syndrome) Left arm pain Osteoporosis Pulmonary HTN Racing heart beat Sarcoidosis Sarcoidosis Diagnosed 2002 after transbronchial biopsy, has never undergone tx. In remission. Sinus problem Sleep apnea UTI (urinary tract infection) Surgical History Surgical History H/O arthroscopy of right knee H/O breast biopsy H/O cataract extraction H/O colonoscopy H/O dilation and curettage H/O sinus surgery H/O: hysterectomy History of appendectomy History of arthroplasty of left knee History of cardiac cath Hx of cholecystectomy Hx of tonsillectomy Family History Family History Mother Cerebrovascular accident, Onset Age: 86 Family history of cardiovascular disease, Onset Age: 86 Sibling Family history of cardiovascular disease Social History Social History Smoking status: Never smoker Second hand tobacco smoke exposure: Yes (Many years of exposure. was heavy smoker. ) Alcohol intake: never Substance use: never Substance use type: does not use Gender identity (if verbalized by the patient): Female Exam Narrative: GENERAL: Well-appearing, well-nourished, and in no acute distress. HEAD: Normocephalic, atraumatic. EYES: PERRLA and EOMI. ENT: Nares clear, no rhinorrhea or epistaxis. Mucous membranes moist. NECK: Supple. CHEST: Clear to auscultation. No respiratory distress. HEART: Regular rate and rhythm. No murmur heard. Normal peripheral pulses. ABDOMEN: Soft, nontender, nondistended, normal active bowel sounds. EXTREMITIES: Normal range of motion. No edema. SKIN: Warm, dry, no rash. NEURO: No focal deficits. Alert and oriented x3. PSYCH: Normal mood and affect. Course Course Emergency Course: EKG is sinus rhythm rate of [address] elevation or ST depression CT head showed no acute abnormalities X-ray shows no focal abnormalities Vital Signs Vital signs: Vital Signs Temperature 36.1 C L 04/03/21 04:31 Pulse Rate 65 04/03/21 04:31 Respiratory Rate 18 04/03/21 04:31 Blood Pressure 171/66 H 04/03/21 04:31 Pulse Ox
[2021-04-03] MEDS: NITROGLYCERIN SL 0.4 MG TABLET SUBLINGUAL (06:14)
--- NOTE | 2021-04-03 06:15 | PC.NURSE ---
0615 first nitro given.
--- NOTE | 2021-04-03 06:24 | PC.NURSE ---
Patient states she does feel slightly better after the nitro tab. ERP notified.
[2021-04-03] MEDS: BELLADONNA ALK/PHENOB ELIX 10 ML, MAG HYDROX/ALUMINUM HYD/SIMETH 30 ML, LIDOCAINE HCL 2... PO (06:41)
--- NOTE | 2021-04-03 06:52 | PC.NURSE ---
Patient ambulated to the bathroom and back to the room with a steady unassisted gait.
[2021-04-03 09:29] LABS: Troponin I < 0.012 ng/mL (0.000-0.034)
== END 2021-04-03 10:25 | disposition home or self-care (01) ==
PROVIDERS: Emergency Provider Emergency Medicine; PCP Internal Medicine
DX: R07.89 Other chest pain (principal); J44.9 Chronic obstructive pulmonary disease, unspecified; I10 Essential (primary) hypertension; I27.20 Pulmonary hypertension, unspecified; E78.5 Hyperlipidemia, unspecified; E03.9 Hypothyroidism, unspecified; K58.9 Irritable bowel syndrome, unspecified; K21.9 Gastro-esophageal reflux disease without esophagitis; M19.90 Unspecified osteoarthritis, unspecified site; M81.0 Age-related osteoporosis without current pathological fracture; G47.30 Sleep apnea, unspecified; F41.9 Anxiety disorder, unspecified; Z87.440 Personal history of urinary (tract) infections; Z79.82 Long term (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 of aspirin; R94.31 Abnormal electrocardiogram [ECG] [EKG]
CPT/HCPCS: 36415; 70450; 71045; 80053; 83690; 84484; 85025; 85610; 85730; 93005; 96374; 99284; A9270; J2270

== ENCOUNTER → 2021-04-08 02:54 | Outpatient (CLI) | payer MEDICARE, SELFPAY ==
[2021-04-08 13:16] LABS: Influenza A QL RT-PCR Negative (Negative); Influenza B QL RT-PCR Negative (Negative); SARS-CoV-2 RNA PCR Negative
== END ==
PROVIDERS: PCP Internal Medicine; Visit Provider Internal Medicine
DX: R09.89 Other specified symptoms and signs involving the circulatory and respiratory systems (principal); Z20.822 Contact with and (suspected) exposure to COVID-19
CPT/HCPCS: 87502; C9803; U0003; U0005

== ENCOUNTER 2021-04-28 08:39 | Outpatient (CLI) | payer MEDICARE, SELFPAY ==
--- NOTE | 2021-04-28 08:47 | ECHO_ITS ---
Patient Info Name: Glenna Almendarez Age: 80 years : 1940 Gender: Female Ht: 63 in Wt: 220 lbs BSA: 2.16 m2 HR: 71 bpm BP: 118 / 78 mmHg Heart Rhythm: Sinus Rhythm Technical Quality: Fair Exam Date: 04/28/2021 9:07 AM Exam Location: [facility] Patient Status: Outpatient Admit Date: 04/28/2021 Staff Ordering Physician: Gordy Flowers APRN Grips: Sandra Oneill RDCS Attending Provider: Gordy Flowers APRN Referring Physician: Lionel CASTRO; Exam Type: CA echo doppler color flow Study Info Indications I27.2 - Other secondary pulmonary hypertension Complete two-dimensional, color flow and Doppler transthoracic echocardiogram is performed. Summary 1. Complete two-dimensional, color flow and Doppler transthoracic echocardiogram is performed. 2. Left ventricular chamber dimension is normal. 3. Left ventricular systolic function is normal, estimated at 65-70%. 4. There is mildly increased left ventricular wall thickness. 5. The left ventricular diastolic function is grade II diastolic dysfunction. 6. Global longitudinal strain is normal at -20 %. 7. Moderate pulmonary hypertension, estimated pulmonary arterial systolic pressure is 48 mmHg. 8. There is mild to moderate tricuspid valve regurgitation. Left Ventricle Left ventricular chamber dimension is normal. Left ventricular systolic function is normal, estimated at 65-70%. There is mildly increased left ventricular wall thickness. The left ventricular diastolic function is grade II diastolic dysfunction. Global longitudinal strain is normal at -20 %. Right Ventricle Right ventricular chamber dimension is normal. Right ventricular systolic function is normal. Left Atria Left atrial chamber dimension is mildly enlarged. Right Atria Right atrial chamber dimension is normal. Aortic Valve The aortic valve is probable trileaflet. There is mild aortic valve sclerosis. There is no aortic valve stenosis. There is no aortic valve regurgitation. Pulmonic Valve The pulmonic valve is not well visualized. There is trace pulmonic regurgitation. Mitral Valve The mitral valve has normal leaflets. There is mild mitral valve regurgitation. The mitral valve annulus is mildly calcified. Tricuspid Valve The tricuspid valve leaflets are normal. There is mild to moderate tricuspid valve regurgitation. Moderate pulmonary hypertension, estimated pulmonary arterial systolic pressure is 48 mmHg. Pericardium/Pleural The pericardium appears normal. There is trivial pericardial effusion. Inferior Vena Cava Normal inferior vena cava with >50% collapse upon inspiration consistent with normal right atrial pressure, 5 mmHg. Aorta The aortic root size at the sinus of Valsalva is normal. There is mild aortic atherosclerosis. Left Ventricular Outflow Tract Name Value Normal LVOT 2D LVOT Diameter 1.9 cm LVOT Doppler LVOT Peak Gradient 8 mmHg LVOT Mean Gradient 4 mmHg LVOT VTI 35 cm LVOT VTI/AV VTI Ratio 0.8
== END 2021-04-28 08:40 | disposition home or self-care (01) ==
LOC: ANHCARD 08:40
PROVIDERS: PCP Internal Medicine; Visit Provider Nurse Practitioner Family
DX: I27.20 Pulmonary hypertension, unspecified (principal)
CPT/HCPCS: 93306

== ENCOUNTER 2021-05-23 12:49 | Outpatient (CLI) | payer MEDICARE, SELFPAY ==
--- NOTE | ~2021-05-23 | DEXA_ITS ---
Bone Density Report Name: ERIKA WHITEHEAD Age: 80 Sex: Female Ethnicity: White Date of : 1940 Indication: osteopenia; hysterectomy; postmenopausal Referring Provider: Mera Brambila Study: Bone densitometry was performed. Exam Date: May 23, 2021 Accession number: [id number] Bone Density: Region BMD T-score Z-score Classification AP Spine (L1-L4) 0.950 -0.9 1.9 Normal Femoral Neck (Left) 0.542 -2.8 -0.4 Osteoporosis Total Hip (Left) 0.925 -0.1 2.1 Normal Total Hip Bilateral Avg 0.894 -0.4 1.8 Normal Femoral Neck (Right) 0.571 -2.5 -0.1 Osteoporosis Total Hip (Right) 0.861 -0.7 1.5 Normal World Health Organization criteria for BMD impression classify patients as: Normal (T-score at or above -1.0), Osteopenia (T-score between -1.0 and -2.5), or Osteoporosis (T-score at or below -2.5). 10-year Fracture Risk: FRAX not reported because: Some T-score for Spine Total or Hip Total or Femoral Neck at or below -2.5 Previous Exams: Region Exam Age BMD T-score BMD Change BMD Change Date g/cm2 vs Baseline vs Previous AP Spine(L1-L4) 05/23/2021 80 0.950 -0.9 0.109(13.0%)# 0.083(9.6%)# 08/19/2012 71 0.866 -1.6 0.026(3.1%)# 0.026(3.1%)# 11/23/2009 68 0.841 -1.9 Total Hip(Left) 05/23/2021 80 0.925 -0.1 -0.025(-2.6%)# 0.003(0.3%)# 08/19/2012 71 0.922 -0.2 -0.028(-2.9%)# -0.028(-2.9%)# 11/23/2009 68 0.950 0.1 Total Hip(Right) 05/23/2021 80 0.861 -0.7 -0.026(-2.9%)# -0.068(-7.3%)# 08/19/2012 71 0.929 -0.1 0.042(4.8%)# 0.042(4.8%)# 11/23/2009 68 0.886 -0.5 *Denotes significance at 95% confidence level, LSC for AP Spine = 0.022 g/cm2, LSC for Total Hip = 0.027 g/cm2 Clinical Information Provided by Patient: Has used the following medications: Vitamin D Has the following medical conditions: Hysterectomy Patient maximum height was 62 Menopause Age: 43 No regular weight bearing exercise Onset of menses at age 12 Number of children 4 Impression: The patient has osteoporosis, based on the Left Femoral Neck T-score. No significant bone loss was observed. Discussion: INCREASED RISK OF FRACTURE. BONE DENSITY IS UNDESIRABLY LOW AT ONE OR MORE SKELETAL SITES, CONSISTENT WITH POSTMENOPAUSAL OSTEOPOROSIS. This patient's lowest T-score meets the World Health Organization's (WHO) criteria for osteoporosis at one or more sites (T-score -2.5 or below). In untreated patients, the risk of osteoporotic fracture increas
== END 2021-05-23 12:50 | disposition home or self-care (01) ==
LOC: ANHIMG 12:50
PROVIDERS: PCP Internal Medicine; Visit Provider Nurse Practitioner
DX: Z78.0 Asymptomatic menopausal state (principal); M81.0 Age-related osteoporosis without current pathological fracture
CPT/HCPCS: 77080

== ENCOUNTER 2021-09-07 09:39 | Outpatient (CLI) | payer MEDICARE, SELFPAY ==
--- NOTE | ~2021-09-07 | MM_ITS ---
EXAMINATION: MM screening jonathon BI w trey HISTORY: Screening TECHNIQUE: Craniocaudal and mediolateral oblique 3-D tomosynthesis images were obtained and synthetic 2-D images were generated. CAD analysis was submitted and interpreted. COMPARISON: Comparison to multiple prior studies sequentially, with oldest reviewed study dated 06/02. BREAST PARENCHYMAL COMPOSITION: There are scattered areas of fibroglandular density. FINDINGS: There is no evidence of suspicious mass, calcification, or architectural distortion to sugg est malignancy in either breast. There has been no suspicious interval change. IMPRESSION: 1. No mammographic evidence of malignancy. 2. Recommend routine screening mammography in one year. BI-RADS Category 1: Negative Reviewed, dictated and finalized at location A.
== END 2021-09-07 09:40 | disposition home or self-care (01) ==
PROVIDERS: PCP Internal Medicine; Visit Provider Internal Medicine
DX: Z12.31 Encounter for screening mammogram for malignant neoplasm of breast (principal)
CPT/HCPCS: 77063; 77067

== ENCOUNTER 2021-11-02 10:01 | Outpatient (CLI) | payer MEDICARE, SELFPAY ==
--- NOTE | ~2021-11-02 | XR_ITS ---
EXAMINATION: XR chest 2V 11/02/2021 10:22 INDICATION: Cough. Chest pain. PROCEDURE: PA and lateral views of the chest COMPARISON: Comparison to multiple prior studies sequentially, with oldest reviewed study dated 05/2018. FINDINGS: The lungs are clear. The cardiomediastinal silhouette is within normal limits. There are no pleural effusions. There is no pneumothorax suspected. Prominent central pulmonary arteries, molly picious for pulmonary hypertension. IMPRESSION: 1: NO ACUTE CARDIOPULMONARY DISEASE. 2: Enlarged central pulmonary arteries, suspicious for pulmonary hypertension. Reviewed, dictated and finalized at location A.
== END 2021-11-02 10:02 | disposition home or self-care (01) ==
PROVIDERS: PCP Internal Medicine; Visit Provider Physician Assistant
DX: R05.9 Cough, unspecified (principal); R06.02 Shortness of breath
CPT/HCPCS: 71046

== ENCOUNTER 2022-06-28 13:03 | Emergency (ER) | payer MEDICARE, SELFPAY ==
[2022-06-28] VITALS (7 sets, daily range): BP systolic 138–176; BP diastolic 52–95; PULSE 52–63; RESP 16–22; TEMP 36.6; O2SAT 94–99
--- NOTE | ~2022-06-28 | XR_ITS ---
EXAMINATION: XR chest 2V DATE: 06/28/2022 13:37 INDICATION: Left-sided chest pain TECHNIQUE: PA and lateral views of the chest were obtained. COMPARISON: Chest radiograph dated 11/02/[address] dated 11/28/2016 FINDINGS: Mild linear discoid atelectasis/scarring at the posterior basilar right lower lobe best appreciated o n the lateral projection and unchanged when compared with CT dated 11/28/2016. No new airspace opaciti es, pulmonary edema, pleural effusion or pneumothorax. The cardiomediastinal silhouette is normal. Ch olecystectomy clips in right upper quadrant. Mild thoracic and moderate upper lumbar spondylosis. IMPRESSION: 1. Chronic mild discoid atelectasis/scarring at the right lung base. No acute cardiopulmonary disease . Reviewed, dictated and finalized at location [facility]. IMPRESSION: 1. Chronic mild discoid atelectasis/scarring at the right lung base. No acute c ardiopulmonary disease.
--- NOTE | ~2022-06-28 | CT_ITS ---
CT ANGIOGRAM NECK AND HEAD History: Left-sided headache. Technique: Axial noncontrast imaging of the brain was performed. Serial spiral axial images through t he head and neck were then obtained during arterial phase IV injection of 150 cc of Omnipaque 350. 3- D postprocessing and MIP images were then reconstructed on the remote workstation. Dose reduction radha hnique was used on this scan by utilizing automated exposure control and iterative reconstruction radha hnique. The dose-length product (DLP) was 1611.69 mGy-cm. COMPARISON: 04/03/2021 CTA neck findings: Bilateral vertebral arteries are patent. Bowel, carotid, internal carotid, and ex ternal carotid arteries are patent. There is probable focal motion artifact at the mid cervical inter nal carotid arteries bilaterally. No definite stenosis identified. No large vessel occlusion or aneur ysm evident. The proximal right internal carotid artery demonstrates 0% stenosis relative to the norm al distal artery lumen diameter. The proximal left internal carotid artery demonstrates 0% stenosis r elative to the normal distal artery lumen diameter. CTA head findings: Distal vertebral, basilar artery, and posterior cerebral arteries are patent. Dist al internal carotid arteries, middle cerebral arteries, and anterior cerebral arteries are patent. No large vessel occlusion. No stenosis. No aneurysm. Axial noncontrast imaging of the brain is unremarkable. Impression: No significant abnormality seen. Reviewed, dictated and finalized at [facility]. Impression: No significant abnormality seen.
--- NOTE | ~2022-06-28 | CT_ITS ---
EXAMINATION: CTA chest DATE: 06/28/2022 14:38 INDICATION: Left-sided chest pain, severe headache. History of hypertension. TECHNIQUE: Computed tomography (CT) of the chest was performed with 150 CC Omnipaque 350 intravenous contrast. Automated exposure control and iterative reconstruction technique were employed. Exam dose: 935.20 mGy-cm total exam DLP. COMPARISON: June 28, 2022 PA and lateral chest FINDINGS: No thoracic aortic aneurysm or dissection. There is aortic and great vessel and coronary ar heather calcification consistent with atherosclerosis. No hilar or mediastinal mass lesion or lymphadenopathy. There are calcified hilar and mediastinal nod es consistent with old pulmonary granulomatous disease. No pericardial or pleural effusion. There is mild discoid atelectasis or scarring in the middle lobe, lingula and right lower lobe. No pu lmonary consolidation. Status post cholecystectomy. Normal morphology of the adrenal glands. There is degenerative change of the cervical, thoracic and lumbar spine. No suspicious osteolytic or osteoblastic lesions are noted. IMPRESSION: No thoracic aortic aneurysm or dissection Reviewed, dictated and finalized at [facility]. Reviewed, dictated and finalized at location B.
--- NOTE | 2022-06-28 13:04 | ECG_ITS ---
Measurements Intervals [place] Rate: 59 P: 74 WV: 227 QRS: 3 QRSD: 89 T: 39 QT: 401 QTc: 398 Interpretive Statements SINUS BRADYCARDIA WITH FIRST DEGREE AV BLOCK LOW QRS VOLTAGE IN PRECORDIAL LEADS [QRS DEFLECTION < 1.0 mV IN CHEST LEADS] COMPARED TO ECG 04/03/2021 04:42:49 SINUS BRADYCARDIA NOW PRESENT FIRST DEGREE AV BLOCK NOW PRESENT Electronically Signed On 06-28-2022 15:59:01 CDT by Gunjan Campbell M.D.
--- NOTE | 2022-06-28 13:26 | ED.CHESTPAIN ---
HPI - Chest Pain General Chief Complaint: Chest Pain Stated Complaint: chest pain and headache Time Seen by Provider: 06/28/22 13:26 History of Present Illness HPI narrative: Patient is an 81-year-old female with a history of pulmonary hypertension, sarcoidosis, hypertension, hyperlipidemia, hypothyroidism presenting with headache and chest pain. Patient states that since last night she has had a severe left-sided headache. Denies vision changes, speech difficulties, numbness or weakness, nausea or vomiting. Patient states that around the same time she also developed left-sided chest pain. States that she is chronically short of breath but does not feel like it has worsened. She has not taken anything for pain. No fevers or chills, vertigo, lightheadedness, abdominal pain, diarrhea, dysuria, worsening leg swelling. Related Data Home Medications Medication Instructions Recorded Confirmed aspirin 81 mg chewable tablet 81 mg PO DAILY 02/11/19 05/10/22 multivitamin DAILY 02/11/19 05/10/22 omeprazole magnesium 20 mg 20 mg PO BID 02/11/19 05/10/22 tablet,delayed release (Prilosec OTC) cholecalciferol (vitamin D3) 125 125 mcg PO DAILY 05/29/22 mcg (5,000 unit) capsule cinnamon bark 500 mg capsule 500 mg PO DAILY 05/29/22 (Cinnamon) garlic 1,000 mg capsule 1,000 mg PO DAILY 05/29/22 hydralazine 50 mg tablet 50 mg PO TID 05/29/22 potassium chloride 10 mEq 10 meq PO BID 05/29/22 tablet,extended release quercetin 500 mg capsule 500 mg PO DAILY 05/29/22 selenium 200 mcg capsule 200 mcg PO DAILY 05/29/22 vitamin B complex (B 1 tablet PO DAILY 05/29/22 Complex-Vitamin B12 tablet) Allergies Allergy/AdvReac Type Severity Reaction Status Date / Time adhesive tape Allergy Severe RASH Verified 06/28/22 13:27 levofloxacin AdvReac Mild Nausea and Verified 06/28/22 13:27 Vomiting Review of Systems Review of Systems: All systems reviewed & are unremarkable except as noted in HPI and below PMFSH Past Medical History Medical History Anxiety Arthritis Cataract COPD (chronic obstructive pulmonary disease) CPAP (continuous positive airway pressure) dependence Diverticulosis Fatty liver GERD (gastroesophageal reflux disease) GI bleed Hiatal hernia HTN (hypertension) Hyperlipidemia Hypothyroid IBS (irritable bowel syndrome) Left arm pain Osteoporosis Pulmonary HTN Racing heart beat Sarcoidosis Sarcoidosis Diagnosed 2002 after transbronchial biopsy, has never undergone tx. In remission. Sinus problem Sleep apnea UTI (urinary tract infection) Surgical History Surgical History H/O arthroscopy of right knee H/O breast biopsy H/O cataract extraction H/O colonoscopy H/O dilation and curettage H/O sinus surgery H/O: hysterectomy History of appendectomy History of arthroplasty of left knee History of cardiac cath Hx of cholecystectomy Hx of tonsillectomy Family History Family History Mother Cerebrovascular accident, Onset Age: 86 Family history of cardiovascular disease, Onset Age: 86 Sibling Family history of cardiovascular disease Social History Social History Smoking status: Never smoker Second hand tobacco smoke exposure: Yes (Many years of exposure. was heavy smoker. ) Alcohol intake: never Substance use: never Substance use type: does not use Lack of Transportation: No Lack of Food: Never True Current Housing: I Have Housing Concerned About Future Housing: No Difficulty Paying Gas/Electric Bills: No Difficulty Paying for Meds: No Education: High School Diploma/GED Difficulty w/ Childcare or Family Care: No Gender identity (if verbalized by the patient): Female Exam Narrative: GENERAL: Well-appearing, well-nou
[2022-06-28 13:28] LABS: Basophils Absolute Auto 0.1 K/mm3 (0.0-0.1); Basophils Percent Auto 1.5 % (0.2-1.2); Eosinophils Absolute Auto 0.2 K/mm3 (0-0.3); Eosinophils Percent Auto 3.6 % (0-4.4); Hematocrit 42.1 % (37.0-47.0); Hemoglobin 13.8 g/dL (12.0-15.0); Immature Granulocyte Absolute 0.02 K/mm3 (0.00-0.031); Immature Granulocyte Percent A 0.3 % (0-0.5); Lymphocytes Absolute Auto 1.77 K/mm3 (0.9-3.2); Lymphocytes Percent Auto 29.3 % (18.3-44.2); Mean Corpuscular HGB Conc 32.8 g/dl (32-36); Mean Corpuscular Hemoglobin 32.6 pg (26-34); Mean Corpuscular Volume 99.5 fl (80-100); Mean Platelet Volume 10.9 fl (7.4-10.4); Monocytes Absolute Auto 0.7 K/mm3 (0.1-0.6); Monocytes Percent Auto 11.3 % (2.6-8.5); Neutrophils Absolute Auto 3.3 K/mm3 (1.3-6.7); Platelet Count Result 234 k/mm3 (150-375); Red Blood Count 4.23 M/mm3 (4.2-5.4); Red Cell Distribution Width 14.7 % (11.5-14.5)
[2022-06-28] MEDS: ASPIRIN 81 MG CHEWABLE TABLET 324 MG PO (13:28)
--- NOTE | 2022-06-28 13:36 | PC.NURSE ---
Pt to XRAY via stretcher at this time.
[2022-06-28 13:38] LABS: Alanine Aminotransferase 29 U/L (6-35); Albumin Level 4.4 g/dL (3.5-5.1); Alkaline Phosphatase 72 U/L (38-126); Anion Gap 7 mmol/L (8-16); Aspartate Amino Transferase 31 U/L (14-36); Bilirubin,Total 0.9 mg/dL (0.2-1.3); Blood Urea Nitrogen 13 mg/dL (7-17); Calcium 9.4 mg/dL (8.4-10.2); Carbon Dioxide 24 mmol/L (22-30); Chloride 108 mmol/L (98-107); Estimated CRCL calculation 57 ml/min; Estimated Glomerular Filt Rate > 60; Glucose 131 mg/dL (65-110); Lipase 56 U/L (23-300); Potassium 4.1 mmol/L (3.4-5.0); Sodium 139 mmol/L (137-145)
[2022-06-28 13:39] LABS: INR 1.2; Prothrombin Time 14.5 Seconds (11.1-14.7)
[2022-06-28 13:40] LABS: Partial Thromboplastin Time 28.4 SECONDS (22.3-36.8)
[2022-06-28 13:49] LABS: Troponin I < 0.012 ng/mL (0.000-0.034)
[2022-06-28] MEDS: KETOROLAC 15 MG/ML VIAL (*BKC) IV PUSH (15:43)
[2022-06-28] MEDS: SODIUM CHLORIDE 0.9% IV 500 ML 999 ML IV CONT (15:43)
[2022-06-28 16:47] LABS: Troponin I < 0.012 ng/mL (0.000-0.034)
== END 2022-06-28 18:40 | disposition home or self-care (01) ==
PROVIDERS: Emergency Provider Emergency Medicine; PCP Internal Medicine
DX: R51.9 Headache, unspecified (principal); R07.9 Chest pain, unspecified; I10 Essential (primary) hypertension; I27.20 Pulmonary hypertension, unspecified; E03.9 Hypothyroidism, unspecified; E78.5 Hyperlipidemia, unspecified; J44.9 Chronic obstructive pulmonary disease, unspecified; K58.9 Irritable bowel syndrome, unspecified; K21.9 Gastro-esophageal reflux disease without esophagitis; M19.90 Unspecified osteoarthritis, unspecified site; M81.0 Age-related osteoporosis without current pathological fracture; G47.30 Sleep apnea, unspecified; Z87.440 Personal history of urinary (tract) infections; Z79.82 Long term (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 of aspirin; Z98.49 Cataract extraction status, unspecified eye; Z90.710 Acquired absence of both cervix and uterus; Z96.652 Presence of left artificial knee joint; Z77.22 Contact with and (suspected) exposure to environmental tobacco smoke (acute) (chronic); R00.1 Bradycardia, unspecified; I44.0 Atrioventricular block, first degree
CPT/HCPCS: 36415; 70496; 70498; 71046; 71275; 80053; 83690; 84484; 85025; 85610; 85730; 93005; 96365; 96375; 99284; A9270; J0131; J1885; J7040; Q9967

== ENCOUNTER 2022-08-21 16:45 | Emergency (ER) | payer MEDICARE, SELFPAY ==
[2022-08-21] VITALS (18 sets, daily range): BP systolic 110–165; BP diastolic 50–107; PULSE 56–140; RESP 14–23; O2SAT 93–97
--- NOTE | ~2022-08-21 | XR_ITS ---
EXAMINATION: XR chest 2V Exam Date/Time: 08/21/2022 17:32 CDT HISTORY: cp SAYS SHE JUST HASN'T FELT RIGHT TODAY, FEELS PRESSURE ON Comparison: 06/28/2022. RESULT: Lines, tubes, and devices: Cholecystectomy clips. Lungs and pleura: Senescent changes. No focal consolidation. Bilateral lower lung scar/atelectasis. Cardiomediastinal silhouette: Stable. Dilated central pulmonary arteries as can be seen with pulmona ry arterial hypertension. Calcified hilar/stent lymph nodes. Other: No acute osseous or upper abdominal finding. IMPRESSION: No acute cardiopulmonary process. Reviewed, dictated and finalized at location K.
--- NOTE | 2022-08-21 16:47 | ECG_ITS ---
Measurements Intervals [place] Rate: 132 P: CT: 0 QRS: -13 QRSD: 92 T: 90 QT: 290 QTc: 431 Interpretive Statements ATRIAL FIBRILLATION WITH RAPID VENTRICULAR RESPONSE NONSPECIFIC ST ABNORMALITY ABNORMAL ECG COMPARED TO ECG 06/28/2022 13:09:03 ATRIAL FIBRILLATION NOW PRESENT Electronically Signed On 08-21-2022 17:22:06 CDT by Jerry Mckeon M.D.
[2022-08-21 17:11] LABS: Basophils Absolute Auto 0.1 K/mm3 (0.0-0.1); Basophils Percent Auto 1.3 % (0.2-1.2); Eosinophils Absolute Auto 0.3 K/mm3 (0-0.3); Eosinophils Percent Auto 3.5 % (0-4.4); Hematocrit 42.4 % (37.0-47.0); Hemoglobin 14.4 g/dL (12.0-15.0); Immature Granulocyte Absolute 0.03 K/mm3 (0.00-0.031); Immature Granulocyte Percent A 0.4 % (0-0.5); Lymphocytes Absolute Auto 2.54 K/mm3 (0.9-3.2); Lymphocytes Percent Auto 30.5 % (18.3-44.2); Mean Corpuscular Hemoglobin 32.6 pg (26-34); Mean Corpuscular Volume 95.9 fl (80-100); Mean Platelet Volume 10.5 fl (7.4-10.4); Monocytes Absolute Auto 0.9 K/mm3 (0.1-0.6); Monocytes Percent Auto 10.8 % (2.6-8.5); Neutrophils Absolute Auto 4.5 K/mm3 (1.3-6.7); Neutrophils Percent Auto 53.5 % (45.5-73.1); Platelet Count Result 222 k/mm3 (150-375); Red Blood Count 4.42 M/mm3 (4.2-5.4); Red Cell Distribution Width 13.5 % (11.5-14.5); White Blood Count 8.3 K/mm3 (4.5-10.0)
[2022-08-21] MEDS: ASPIRIN 81 MG CHEWABLE TABLET 324 MG PO (17:18)
[2022-08-21 17:21] LABS: INR 1.1; Prothrombin Time 14.6 Seconds (11.1-14.7)
[2022-08-21 17:22] LABS: Alanine Aminotransferase 33 U/L (6-35); Albumin Level 4.3 g/dL (3.5-5.1); Alkaline Phosphatase 84 U/L (38-126); Anion Gap 10 mmol/L (8-16); Aspartate Amino Transferase 35 U/L (14-36); Bilirubin,Total 0.7 mg/dL (0.2-1.3); Blood Urea Nitrogen 16 mg/dL (7-17); Calcium 9.3 mg/dL (8.4-10.2); Carbon Dioxide 22 mmol/L (22-30); Chloride 106 mmol/L (98-107); Estimated Glomerular Filt Rate > 60; Glucose 127 mg/dL (65-110); Lipase 96 U/L (23-300); Partial Thromboplastin Time 28.8 SECONDS (22.3-36.8); Potassium 3.5 mmol/L (3.4-5.0); Sodium 138 mmol/L (137-145)
[2022-08-21] MEDS: METOPROLOL TARTRATE INJ 5 MG/5 ML VIAL IV PUSH (17:24)
[2022-08-21 17:34] LABS: Troponin I < 0.012 ng/mL (0.000-0.034)
--- NOTE | 2022-08-21 17:53 | ECG_ITS ---
Measurements Intervals [place] Rate: 63 P: 63 [place]: 206 QRS: 12 QRSD: 82 T: 55 QT: 384 QTc: 395 Interpretive Statements SINUS RHYTHM LOW QRS VOLTAGE IN PRECORDIAL LEADS [QRS DEFLECTION < 1.0 mV IN CHEST LEADS] COMPARED TO ECG 08/21/2022 16:54:21 SINUS RHYTHM NOW PRESENT Electronically Signed On 08-22-2022 14:48:51 CDT by Gunjan Campbell M.D.
--- NOTE | 2022-08-21 17:59 | ED.ARRPALP ---
HPI - Arrhythmia/Palpitations General Chief Complaint: Arrhythmia/Palpitations Stated Complaint: chest pain Time Seen by Provider: 08/21/22 17:18 History of Present Illness HPI narrative: Patient is an 81-year-old female who presents ER with chest tightness and heart racing. It began after she ate a sandwich. No fevers chills or sweats. Has not had symptoms like this previously. She does see Dr. Mckeon for pulmonary hypertension. No aggravating or alleviating factors that she can tell. Related Data Home Medications Medication Instructions Recorded Confirmed aspirin 81 mg chewable tablet 81 mg PO DAILY 02/11/19 05/10/22 multivitamin DAILY 02/11/19 05/10/22 cholecalciferol (vitamin D3) 125 125 mcg PO DAILY 05/29/22 mcg (5,000 unit) capsule cinnamon bark 500 mg capsule 500 mg PO DAILY 05/29/22 (Cinnamon) garlic 1,000 mg capsule 1,000 mg PO DAILY 05/29/22 hydralazine 50 mg tablet 50 mg PO TID 05/29/22 potassium chloride 10 mEq 10 meq PO BID 05/29/22 tablet,extended release quercetin 500 mg capsule 500 mg PO DAILY 05/29/22 selenium 200 mcg capsule 200 mcg PO DAILY 05/29/22 vitamin B complex (B 1 tablet PO DAILY 05/29/22 Complex-Vitamin B12 tablet) omeprazole magnesium 20 mg 20 mg PO DAILY 07/04/22 tablet,delayed release (Prilosec OTC) Allergies Allergy/AdvReac Type Severity Reaction Status Date / Time adhesive tape Allergy Severe RASH Verified 07/04/22 12:28 levofloxacin AdvReac Mild Nausea and Verified 07/04/22 12:28 Vomiting Review of Systems Review of Systems: All systems reviewed & are unremarkable except as noted in HPI and below Constitutional: Constitutional: Denies chills, Denies fatigue and Denies fever(s) ENT: Denies nasal congestion and Denies sore throat Cardiovascular: Cardiovascular: Reports chest pain, Reports rapid heart rate and Denies radiating jaw, neck or arm pain Respiratory: Respiratory: Denies cough, Reports dyspnea and Denies wheezing Gastrointestinal: Gastrointestinal: Denies abdominal pain, Denies nausea and Denies vomiting Neurologic: Denies headache(s), Denies focal weakness and Denies numbness PMFSH Past Medical History Medical History Anxiety Arthritis Cataract COPD (chronic obstructive pulmonary disease) CPAP (continuous positive airway pressure) dependence Diverticulosis Fatty liver GERD (gastroesophageal reflux disease) GI bleed Hiatal hernia HTN (hypertension) Hyperlipidemia Hypothyroid IBS (irritable bowel syndrome) Left arm pain Osteoporosis Pulmonary HTN Racing heart beat Sarcoidosis Sarcoidosis Diagnosed 2002 after transbronchial biopsy, has never undergone tx. In remission. Sinus problem Sleep apnea UTI (urinary tract infection) Surgical History Surgical History H/O arthroscopy of right knee H/O breast biopsy H/O cataract extraction H/O colonoscopy H/O dilation and curettage H/O sinus surgery H/O: hysterectomy History of appendectomy History of arthroplasty of left knee History of cardiac cath Hx of cholecystectomy Hx of tonsillectomy Family History Family History Mother Cerebrovascular accident, Onset Age: 86 Family history of cardiovascular disease, Onset Age: 86 Sibling Family history of cardiovascular disease Social History Social History Smoking status: Never smoker Second hand tobacco smoke exposure: Yes (Many years of exposure. was heavy smoker. ) Alcohol intake: never Substance use: never Substance use type: does not use Lack of Transportation: No Lack of Food: Never True Current Housing: I Have Housing Concerned About Future Housing: No Difficulty Paying Gas/Electric Bills: No Difficulty Paying for Meds: No Education: High School Diploma/GED Difficult
== END 2022-08-21 19:20 | disposition home or self-care (01) ==
PROVIDERS: Emergency Provider Emergency Medicine; PCP Family Medicine
DX: I48.91 Unspecified atrial fibrillation (principal); I48.92 Unspecified atrial flutter; I27.20 Pulmonary hypertension, unspecified; J44.9 Chronic obstructive pulmonary disease, unspecified; E78.5 Hyperlipidemia, unspecified; I10 Essential (primary) hypertension; E03.9 Hypothyroidism, unspecified; Z87.440 Personal history of urinary (tract) infections; G47.30 Sleep apnea, unspecified; K58.9 Irritable bowel syndrome, unspecified; K21.9 Gastro-esophageal reflux disease without esophagitis; M81.0 Age-related osteoporosis without current pathological fracture; M19.90 Unspecified osteoarthritis, unspecified site; Z96.652 Presence of left artificial knee joint; Z98.49 Cataract extraction status, unspecified eye; Z90.710 Acquired absence of both cervix and uterus; Z90.49 Acquired absence of other specified parts of digestive tract; Z77.22 Contact with and (suspected) exposure to environmental tobacco smoke (acute) (chronic); Z79.82 Long term (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 of aspirin
CPT/HCPCS: 36415; 71046; 80053; 83690; 84484; 85025; 85610; 85730; 93005; 96374; 99284; A9270

== ENCOUNTER 2022-08-28 13:41 | Emergency (ER) | payer MEDICARE, SELFPAY ==
[2022-08-28 13:46] VITALS: BP 114/53; PULSE 73; RESP 22; TEMP 36.3; O2SAT 97
--- NOTE | 2022-08-28 13:48 | ECG_ITS ---
Measurements Intervals [place] Rate: 70 P: 69 [place]: 206 QRS: 4 QRSD: 93 T: 37 QT: 370 QTc: 402 Interpretive Statements SINUS RHYTHM LOW QRS VOLTAGE IN PRECORDIAL LEADS [QRS DEFLECTION < 1.0 mV IN CHEST LEADS] OTHERWISE UNREMARKABLE ECG COMPARED TO ECG 08/21/2022 17:55:00 NO SIGNIFICANT CHANGES Electronically Signed On 08-28-2022 16:08:16 CDT by Eddie Bennett M.D.
[2022-08-28 16:11] VITALS: BP 157/57; PULSE 65; RESP 14; O2SAT 98
[2022-08-28 17:03] LABS: Basophils Absolute Auto 0.1 K/mm3 (0.0-0.1); Eosinophils Absolute Auto 0.2 K/mm3 (0-0.3); Hematocrit 43.7 % (37.0-47.0); Hemoglobin 14.6 g/dL (12.0-15.0); Immature Granulocyte Absolute 0.02 K/mm3 (0.00-0.031); Immature Granulocyte Percent A 0.3 % (0-0.5); Lymphocytes Absolute Auto 2.09 K/mm3 (0.9-3.2); Mean Corpuscular HGB Conc 33.4 g/dl (32-36); Mean Corpuscular Hemoglobin 32.2 pg (26-34); Mean Corpuscular Volume 96.5 fl (80-100); Mean Platelet Volume 10.7 fl (7.4-10.4); Monocytes Absolute Auto 0.9 K/mm3 (0.1-0.6); Monocytes Percent Auto 11.8 % (2.6-8.5); Neutrophils Absolute Auto 4.4 K/mm3 (1.3-6.7); Neutrophils Percent Auto 56.9 % (45.5-73.1); Platelet Count Result 215 k/mm3 (150-375); Red Blood Count 4.53 M/mm3 (4.2-5.4); Red Cell Distribution Width 13.6 % (11.5-14.5); White Blood Count 7.7 K/mm3 (4.5-10.0)
[2022-08-28 17:23] LABS: Alanine Aminotransferase 38 U/L (6-35); Albumin Level 4.3 g/dL (3.5-5.1); Alkaline Phosphatase 82 U/L (38-126); Anion Gap 7 mmol/L (8-16); Aspartate Amino Transferase 42 U/L (14-36); Bilirubin,Total 0.8 mg/dL (0.2-1.3); Blood Urea Nitrogen 16 mg/dL (7-17); Calcium 9.4 mg/dL (8.4-10.2); Carbon Dioxide 26 mmol/L (22-30); Chloride 105 mmol/L (98-107); Estimated CRCL calculation 58 ml/min; Estimated Glomerular Filt Rate > 60; Glucose 90 mg/dL (65-110); Magnesium 2.2 mg/dL (1.6-2.3); Sodium 138 mmol/L (137-145)
[2022-08-28 17:44] VITALS: BP 106/57; PULSE 55; RESP 17; O2SAT 96
--- NOTE | 2022-08-28 18:03 | ED.GENADULT ---
HPI - General Adult General Chief complaint: Arrhythmia/Palpitations Stated complaint: Im in Afib Time Seen by Provider: 08/28/22 16:19 History of Present Illness HPI narrative: 81-year-old female presented to the emergency department for evaluation of an episode of atrial fibrillation. Patient was just diagnosed with A-fib last week, patient does take 200 mg of metoprolol twice a day in addition to hydralazine 50 mg 3 times a day. Patient had been started on Cardizem 30 mg p.o. but states she was unable to tolerate this so she stopped it. Patient had attempted to update her well puller, Dr. Minaya in order to have the medication change but she had not yet heard back from the office. Today patient had approximately 30-minute episode of A-fib. Since arrival to the emergency department patient states she has been symptom-free. Patient does have follow-up scheduled with cardiology next Sunday. Related Data Home Medications Medication Instructions Recorded Confirmed aspirin 81 mg chewable tablet 81 mg PO DAILY 02/11/19 05/10/22 multivitamin DAILY 02/11/19 05/10/22 cholecalciferol (vitamin D3) 125 125 mcg PO DAILY 05/29/22 mcg (5,000 unit) capsule cinnamon bark 500 mg capsule 500 mg PO DAILY 05/29/22 (Cinnamon) garlic 1,000 mg capsule 1,000 mg PO DAILY 05/29/22 hydralazine 50 mg tablet 50 mg PO TID 05/29/22 potassium chloride 10 mEq 10 meq PO BID 05/29/22 tablet,extended release quercetin 500 mg capsule 500 mg PO DAILY 05/29/22 selenium 200 mcg capsule 200 mcg PO DAILY 05/29/22 vitamin B complex (B 1 tablet PO DAILY 05/29/22 Complex-Vitamin B12 tablet) omeprazole magnesium 20 mg 20 mg PO DAILY 07/04/22 tablet,delayed release (Prilosec OTC) Allergies Allergy/AdvReac Type Severity Reaction Status Date / Time adhesive tape Allergy Severe RASH Verified 08/22/22 10:17 levofloxacin AdvReac Mild Nausea and Verified 08/22/22 10:17 Vomiting Review of Systems Review of Systems: All systems reviewed & are unremarkable except as noted in HPI and below PMFSH Past Medical History Medical History (Updated 08/28/22 @ 18:17 by Festus Dukes MD) Anxiety Arthritis Cataract COPD (chronic obstructive pulmonary disease) CPAP (continuous positive airway pressure) dependence Diverticulosis Fatty liver GERD (gastroesophageal reflux disease) GI bleed Hiatal hernia HTN (hypertension) Hyperlipidemia Hypothyroid IBS (irritable bowel syndrome) Left arm pain Osteoporosis Pulmonary HTN Racing heart beat Sarcoidosis Sarcoidosis Diagnosed 2002 after transbronchial biopsy, has never undergone tx. In remission. Sinus problem Sleep apnea UTI (urinary tract infection) Surgical History Surgical History H/O arthroscopy of right knee H/O breast biopsy H/O cataract extraction H/O colonoscopy H/O dilation and curettage H/O sinus surgery H/O: hysterectomy History of appendectomy History of arthroplasty of left knee History of cardiac cath Hx of cholecystectomy Hx of tonsillectomy Family History Family History Mother Cerebrovascular accident, Onset Age: 86 Family history of cardiovascular disease, Onset Age: 86 Sibling Family history of cardiovascular disease Social History Social History (Updated 08/22/22 @ 10:27 by Mariza Rivera [facility]) Smoking status: Never smoker Second hand tobacco smoke exposure: Yes (Many years of exposure. was heavy smoker. ) Alcohol intake: never Substance use: never Substance use type: does not use Lack of Transportation: No Lack of Food: Never True Current Housing: I Have Housing Concerned About Future Housing: No Difficulty Paying Gas/Electric Bills: No Difficulty Paying for Meds: No Currently Unemployed: No Education: High School Diploma/GED Difficulty w/ Childcare or Family Care: No Gender identity
[2022-08-28 18:48] VITALS: BP 151/93; PULSE 59; RESP 18; O2SAT 98
== END 2022-08-28 18:50 | disposition home or self-care (01) ==
PROVIDERS: Emergency Provider Emergency Medicine; PCP Family Medicine
DX: I48.91 Unspecified atrial fibrillation (principal); J44.9 Chronic obstructive pulmonary disease, unspecified; I10 Essential (primary) hypertension; E78.5 Hyperlipidemia, unspecified; E03.9 Hypothyroidism, unspecified; K21.9 Gastro-esophageal reflux disease without esophagitis; K58.9 Irritable bowel syndrome, unspecified; I27.20 Pulmonary hypertension, unspecified; D86.9 Sarcoidosis, unspecified; M19.90 Unspecified osteoarthritis, unspecified site; M81.0 Age-related osteoporosis without current pathological fracture; G47.30 Sleep apnea, unspecified; Z96.652 Presence of left artificial knee joint; Z87.440 Personal history of urinary (tract) infections; Z98.49 Cataract extraction status, unspecified eye; Z90.710 Acquired absence of both cervix and uterus; Z90.49 Acquired absence of other specified parts of digestive tract; Z79.82 Long term (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 of aspirin; Z77.22 Contact with and (suspected) exposure to environmental tobacco smoke (acute) (chronic)
CPT/HCPCS: 36415; 80053; 83735; 85025; 93005; 99283

== ENCOUNTER 2023-01-22 14:44 | Outpatient (CLI) | payer MEDICARE, SELFPAY ==
--- NOTE | ~2023-01-22 | MM_ITS ---
EXAMINATION: MM screening [facility] BI w trey HISTORY: Screening mammogram TECHNIQUE: Craniocaudal and mediolateral oblique 3-D tomosynthesis images were obtained and synthetic 2-D images were generated. CAD analysis was submitted and interpreted. COMPARISON: 09/07/2021, 07/06/2020, 05/27/2018 BREAST PARENCHYMAL COMPOSITION: There are scattered areas of fibroglandular density. FINDINGS: No suspicious mass, calcification, or architectural distortion are identified in either gabriel ast to suggest malignancy. There has been no suspicious interval change. IMPRESSION: 1. No mammographic evidence of malignancy. 2. Recommend routine screening mammography while the patient remains in good health. BI-RADS Category 1: Negative Reviewed, dictated and finalized at location A. LING TECH IMPRESSION: 1. No mammographic evidence of malignancy. 2. Recommend routine screening mammography while the patient remains in good he alth. BI-RADS Category 1: Negative
== END 2023-01-22 14:45 | disposition home or self-care (01) ==
LOC: ANHIMG 14:47
PROVIDERS: PCP Family Medicine; Visit Provider Obstetrics & Gynecology
DX: Z12.31 Encounter for screening mammogram for malignant neoplasm of breast (principal)
CPT/HCPCS: 77063; 77067

== ENCOUNTER 2023-10-24 12:27 | Emergency (ER) | payer MEDICARE, SELFPAY ==
--- NOTE | ~2023-10-24 | CT_ITS ---
CT abdomen pelvis wo con Ordering provider: Rodolfo Marin MD History: 82 years Female with . R FLank pain radiating to abdomen . Comparison: December 22, 2016 Technique: CT abdomen and pelvis with IV and without oral contrast. Automated exposure control and it erative reconstruction technique were employed. The dose-length product was 1408.16 mGy-cm. Findings: VISUALIZED LOWER CHEST: Dependent atelectatic changes. UPPER ABDOMINAL ORGANS: Liver: Hepatomegaly. Gallbladder: Status post cholecystectomy. Spleen: Normal. Stomach/duodenum: Normal. Pancreas: Normal. Adrenals: Normal. Kidneys: Normal. PELVIC ORGANS: The bladder is underfilled. BOWEL AND MESENTERY: Colon: Mild sigmoid diverticulosis without diverticulitis. Appendix is not demonstrated. Small Bowel: Normal. No obstruction. Peritoneum/mesentery: No free air or free fluid. No mesenteric lymphadenopathy. RETROPERITONEUM: Mild atheromatous disease of the abdominal aorta. Narrowing at the origin of the beck perior mesenteric artery. No retroperitoneal lymphadenopathy. MUSCULOSKELETAL: Superficial soft tissues: A fat-containing umbilical hernia. Fat-containing hernia is also seen above the umbilicus. Otherwise, The superficial soft tissues are normal. Bones: Minimal anterolisthesis at the level of L4-L5. Age appropriate degenerative changes of the spi ne. Pubic symphysitis. Bilateral sacroiliacs. IMPRESSION: 1. No evidence of appendicitis, diverticulitis or intestinal obstruction. 2. No kidney or ureteric stones. 3. Hepatomegaly 4. Diverticulosis of the colon. 5. Small fat-containing umbilical and supraumbilical hernias. 6. Narrowing of the origin of the superior mesenteric artery. Reviewed, dictated and finalized at location A.
[2023-10-24 12:31] VITALS: BP 147/75; PULSE 71; RESP 12; TEMP 36.4; O2SAT 98
--- NOTE | 2023-10-24 13:00 | ECG_ITS ---
Test Date: 2023-10-24 13:19:53 Measurements Intervals [place] Rate: 62 P: 76 [place]: 222 QRS: 13 QRSD: 95 T: 54 QT: 409 QTc: 418 Interpretive Statements SINUS RHYTHM WITH FIRST DEGREE AV BLOCK LOW QRS VOLTAGE IN PRECORDIAL LEADS [QRS DEFLECTION < 1.0 mV IN CHEST LEADS] No previous ECG available for comparison Electronically Signed On 10-25-2023 09:48:21 CDT by Gunjan Campbell M.D.
--- NOTE | 2023-10-24 13:02 | ED.GENADULT ---
HPI - General Adult General Chief complaint: Back Pain/Injury Stated complaint: back pain Time Seen by Provider: 10/24/23 12:39 History of Present Illness HPI narrative: This is an 82-year-old female presenting ED with chief complaint of back pain. She describes the pain as an achy pain in her right mid thoracic area. Pain started while she was watching TV on sofa. The pain is worse with movement. She does not have any pain at rest. Patient does not have any fevers chills nausea vomiting chest pain difficulty breathing abdominal pain or urinary symptoms. No lower extremity weakness. No overlying skin changes. Related Data Home Medications Medication Instructions Recorded Confirmed multivitamin DAILY 02/11/19 10/01/23 cholecalciferol (vitamin D3) 125 125 mcg PO DAILY 05/29/22 10/01/23 mcg (5,000 unit) capsule cinnamon bark 500 mg capsule 500 mg PO DAILY 05/29/22 10/01/23 (Cinnamon) garlic 1,000 mg capsule 1,000 mg PO DAILY 05/29/22 10/01/23 potassium chloride 10 mEq 10 meq PO BID 05/29/22 10/01/23 tablet,extended release quercetin 500 mg capsule 500 mg PO DAILY 05/29/22 10/01/23 selenium 200 mcg capsule 200 mcg PO DAILY 05/29/22 10/01/23 vitamin B complex (B 1 tablet PO DAILY 05/29/22 10/01/23 Complex-Vitamin B12 tablet) omeprazole magnesium 20 mg 20 mg PO DAILY 07/04/22 10/01/23 tablet,delayed release (Prilosec OTC) dronedarone 400 mg tablet (Multaq) 400 mg PO BID 02/22/23 10/01/23 hydralazine 50 mg tablet 50 mg PO TID 02/22/23 10/01/23 milk thistle 175 mg tablet 500 mg PO DAILY 07/11/23 10/01/23 Allergies Allergy/AdvReac Type Severity Reaction Status Date / Time adhesive tape Allergy Severe RASH Verified 10/01/23 11:34 levofloxacin AdvReac Mild Nausea and Verified 10/01/23 11:34 Vomiting PMFSH Past Medical History Medical History Anxiety Arthritis Cataract COPD (chronic obstructive pulmonary disease) CPAP (continuous positive airway pressure) dependence Diverticulosis Fatty liver GERD (gastroesophageal reflux disease) GI bleed Hiatal hernia HTN (hypertension) Hyperlipidemia Hypothyroid IBS (irritable bowel syndrome) Left arm pain Osteoporosis Pulmonary HTN Racing heart beat Sarcoidosis Sarcoidosis Diagnosed 2002 after transbronchial biopsy, has never undergone tx. In remission. Sinus problem Sleep apnea UTI (urinary tract infection) Surgical History Surgical History H/O arthroscopy of right knee H/O breast biopsy H/O cataract extraction H/O colonoscopy H/O dilation and curettage H/O sinus surgery H/O: hysterectomy History of appendectomy History of arthroplasty of left knee History of cardiac cath Hx of cholecystectomy Hx of tonsillectomy Family History Family History Mother Cerebrovascular accident, Onset Age: 86 Family history of cardiovascular disease, Onset Age: 86 Sibling Family history of cardiovascular disease Social History Social History Smoking status: Never smoker Second hand tobacco smoke exposure: Yes (Many years of exposure. was heavy smoker. ) Alcohol intake: never Substance use: never Substance use type: does not use Lack of Transportation: No Lack of Food: Never True Current Housing: I Have Housing Concerned About Future Housing: No Difficulty Paying Gas/Electric Bills: No Difficulty Paying for Meds: No Currently Unemployed: No Education: High School Diploma/GED Difficulty w/ Childcare or Family Care: No Gender identity (if verbalized by the patient): Female Exam Narrative: APPEARANCE: No apparent distress. Head: atraumatic. EYES: EOMI, NOSE: Atraumatic NECK: Trachea midline RESPIRATORY: No increased rate of breathing clear to auscultation CARDIOVASCULAR: RRR, no periphera
[2023-10-24] MEDS: SODIUM CHLORIDE 0.9% IV 1,000 ML 999 ML IV CONT (13:43)
[2023-10-24] MEDS: methocarbamoL 750 MG TABLET PO (13:44)
[2023-10-24] MEDS: ACETAMINOPHEN 500 MG TABLET 1000 MG PO (13:44)
--- NOTE | 2023-10-24 13:49 | PC.NURSE ---
Pt refuses dilaudid. States she does not feel comfortable taking it. Dilaudid not administered.
[2023-10-24 13:56] LABS: Basophils Absolute Auto 0.1 K/mm3 (0.0-0.1); Basophils Percent Auto 1.3 % (0.2-1.2); Eosinophils Absolute Auto 0.2 K/mm3 (0-0.3); Eosinophils Percent Auto 2.3 % (0-4.4); Hematocrit 41.7 % (37.0-47.0); Hemoglobin 13.7 g/dL (12.0-15.0); Immature Granulocyte Absolute 0.02 K/mm3 (0.00-0.031); Immature Granulocyte Percent A 0.2 % (0-0.5); Lymphocytes Percent Auto 26.7 % (18.3-44.2); Mean Corpuscular HGB Conc 32.9 g/dl (32-36); Mean Corpuscular Hemoglobin 31.3 pg (26-34); Mean Corpuscular Volume 95.2 fl (80-100); Mean Platelet Volume 10.4 fl (7.4-10.4); Neutrophils Absolute Auto 4.7 K/mm3 (1.3-6.7); Neutrophils Percent Auto 57.5 % (45.5-73.1); Platelet Count Result 235 k/mm3 (150-375); Red Blood Count 4.38 M/mm3 (4.2-5.4); Red Cell Distribution Width 14.5 % (11.5-14.5); White Blood Count 8.3 K/mm3 (4.5-10.0)
[2023-10-24 14:03] LABS: Add Urine Microscopic? YES; Appearance Urine Cloudy (Clear); Bacteria Urine None Seen /hpf; Bilirubin Urine Negative (Negative); Blood Urine Negative (Negative); Color Urine Dark Yellow (Yellow); Glucose Urine UA Negative (Negative); Ketones Urine Trace mg/dL (Negative); Leukocyte Esterase Ur Negative LEU/UL (Negative); Nitrate Urine Negative (Negative); Non Pathogenic Casts 0-2; Protein Urine Trace mg/dL (Negative); RBC Urine 0-2 /hpf (0-2); Squamous Epithelial Cell Urine Few /hpf (Few); WBC Urine 0-5 /hpf (0-3); pH Urine 7.5 (5.0-9.0)
[2023-10-24 14:08] LABS: Alanine Aminotransferase 28 U/L (6-35); Albumin Level 4.3 g/dL (3.5-5.1); Alkaline Phosphatase 53 U/L (38-126); Anion Gap 13 mmol/L (4-12); Aspartate Amino Transferase 36 U/L (14-36); Bilirubin,Total 0.9 mg/dL (0.2-1.3); Blood Urea Nitrogen 9 mg/dL (7-17); Calcium 9.7 mg/dL (8.4-10.2); Carbon Dioxide 21 mmol/L (22-30); Chloride 107 mmol/L (98-107); Estimated CRCL calculation 44 ml/min; Estimated Glomerular Filt Rate 60; Glucose 111 mg/dL (65-110); Lipase 51 U/L (23-300); Magnesium 1.9 mg/dL (1.6-2.3); Phosphorus 3.6 mg/dL (2.5-4.5); Sodium 141 mmol/L (137-145)
[2023-10-24 15:28] VITALS: BP 140/72; PULSE 78; RESP 20; TEMP 36.5; O2SAT 98
== END 2023-10-24 15:29 | disposition home or self-care (01) ==
PROVIDERS: Emergency Provider Emergency Medicine; PCP Family Medicine
DX: S29.012A Strain of muscle and tendon of back wall of thorax, initial encounter (principal); I10 Essential (primary) hypertension; I27.20 Pulmonary hypertension, unspecified; E78.5 Hyperlipidemia, unspecified; J44.9 Chronic obstructive pulmonary disease, unspecified; K21.9 Gastro-esophageal reflux disease without esophagitis; K44.9 Diaphragmatic hernia without obstruction or gangrene; K58.9 Irritable bowel syndrome, unspecified; M81.0 Age-related osteoporosis without current pathological fracture; M19.90 Unspecified osteoarthritis, unspecified site; G47.30 Sleep apnea, unspecified; Z96.652 Presence of left artificial knee joint; Z87.440 Personal history of urinary (tract) infections; Z98.49 Cataract extraction status, unspecified eye; Z90.710 Acquired absence of both cervix and uterus; Z90.49 Acquired absence of other specified parts of digestive tract; Z77.22 Contact with and (suspected) exposure to environmental tobacco smoke (acute) (chronic); I44.0 Atrioventricular block, first degree; X58.XXXA Exposure to other specified factors, initial encounter
CPT/HCPCS: 36415; 74176; 80053; 81001; 83690; 83735; 84100; 85025; 93005; 96360; 96361; 99284; A9270; J7030

== ENCOUNTER 2023-11-26 09:58 | Outpatient (CLI) | payer MEDICARE, SELFPAY ==
--- NOTE | ~2023-11-26 | DEXA_ITS ---
Bone Density Report Name: ERIKA WHITEHEAD Age: 82 Sex: Female Ethnicity: White Date of : 1940 Indication: postmenopausal; screening for osteoporosis; height loss; hysterectomy; Referring Provider: JAIME CORDOVA Study: Bone densitometry was performed. Exam Date: November 26, 2023 Accession number: [id number] Bone Density: Region BMD T-score Z-score Classification AP Spine(L1-L4) 0.971 -0.7 2.2 Normal Femoral Neck (Left) 0.684 -1.5 1.0 Osteopenia Total Hip (Left) 0.911 -0.3 2.1 Normal Femoral Neck (Right) 0.562 -2.6 -0.1 Osteoporosis Total Hip (Right) 0.843 -0.8 1.5 Normal Total Hip Mean 0.877 -0.6 1.8 Normal World Health Organization criteria for BMD impression classify patients as: Normal (T-score at or above -1.0), Osteopenia (T-score between -1.0 and -2.5), or Osteoporosis (T-score at or below -2.5). 10-year Fracture Risk: FRAX not reported because: Some T-score for Spine Total or Hip Total or Femoral Neck at or below -2.5 Previous Exams: Region Exam Age BMD T-score BMD Change BMD Change Date g/cm2 vs Baseline vs Previous AP Spine (L1-L4) 11/26/2023 82 0.971 -0.7 0.021 (2.2%)# 0.021 (2.2%)# 05/23/2021 80 0.950 -0.9 Total Hip(Left) 11/26/2023 82 0.911 -0.3 -0.013 (-1.4%) -0.013 (-1.4%) 05/23/2021 80 0.925 -0.1 Total Hip(Right) 11/26/2023 82 0.843 -0.8 -0.018 (-2.1%) -0.018 (-2.1%) 05/23/2021 80 0.861 -0.7 *Denotes significance at 95% confidence level, LSC for AP Spine = 0.022 g/cm2, LSC for Total Hip = 0.027 g/cm2 # Denotes dissimilar scan types or analysis methods Clinical Information Provided by Patient: Has used the following medications: Vitamin D Has the following medical conditions: Hysterectomy Patient maximum height was 62.0 Menopause Age: 43 No regular weight bearing exercise Onset of menses at age 12 Number of children 3 Impression: The patient has osteoporosis, based on the Right Femoral Neck T-score. No significant bone loss was observed. Discussion: INCREASED RISK OF FRACTURE. BONE DENSITY IS UNDESIRABLY LOW AT ONE OR MORE SKELETAL SITES, CONSISTENT WITH POSTMENOPAUSAL OSTEOPOROSIS. This patient's lowest T-score meets the World Health Organization's (WHO) criteria for osteoporosis at one or more sites (T-score -2.5 or below). In untreated patients, the risk of osteoporotic fracture increases approximately two-fold for each 1.0 SD decrease in T-score. Low bone density is not the
== END 2023-11-26 09:59 | disposition home or self-care (01) ==
LOC: ANHIMG 09:58
PROVIDERS: PCP Family Medicine; Visit Provider Family Medicine
DX: Z78.0 Asymptomatic menopausal state (principal); R05.9 Cough, unspecified; M85.852 Other specified disorders of bone density and structure, left thigh; M81.0 Age-related osteoporosis without current pathological fracture
CPT/HCPCS: 77080

== ENCOUNTER 2024-03-14 08:31 | Emergency (ER) | payer MEDICARE, SELFPAY ==
[2024-03-14] VITALS (9 sets, daily range): BP systolic 126–162; BP diastolic 63–88; PULSE 60–75; RESP 17–20; TEMP 36.4–36.9; O2SAT 94–100
--- NOTE | ~2024-03-14 | XR_ITS ---
EXAMINATION: XR chest 2V DATE: 03/14/2024 09:21 INDICATION: Chest pain. Shortness of breath. TECHNIQUE: Frontal and lateral views of the chest were obtained. COMPARISON: Chest 2 views 08/21/2022, 06/28/2022, chest CT 06/28/2022 FINDINGS: There are interstitial opacities in the mid and lower lung zones. No pleural effusion or pn eumothorax. The heart size is normal. Calcified mediastinal lymph nodes are consistent with old granu lomatous disease. IMPRESSION: 1. Worsened interstitial opacities in the mid and lower lung zones, consistent with mild pulmonary ed yvon versus chronic interstitial lung disease. Reviewed, dictated and finalized at location A. PREVENTION ENGINEER IMPRESSION: 1. Worsened interstitial opacities in the mid and lower lung zones, consistent with mild pulmonary edema versus chronic interstitial lung disease.
--- NOTE | 2024-03-14 08:35 | ECG_ITS ---
Test Date: 2024-03-14 08:41:39 Measurements Intervals [place] Rate: 65 P: 76 [place]: 221 QRS: 5 QRSD: 86 T: 68 QT: 404 QTc: 422 Interpretive Statements SINUS RHYTHM WITH FIRST DEGREE AV BLOCK Compared to ECG 10/24/2023 13:19:53 No significant changes Electronically Signed On 03-17-2024 15:00:47 RUG LAYER by Joel Griffin M.D.
[2024-03-14 08:54] LABS: Basophils Absolute Auto 0.1 K/mm3 (0.0-0.1); Basophils Percent Auto 1.2 % (0.2-1.2); Eosinophils Absolute Auto 0.3 K/mm3 (0-0.3); Eosinophils Percent Auto 3.9 % (0-4.4); Hematocrit 37.6 % (37.0-47.0); Hemoglobin 12.3 g/dL (12.0-15.0); Immature Granulocyte Absolute 0.05 K/mm3 (0.00-0.031); Immature Granulocyte Percent A 0.8 % (0-0.5); Lymphocytes Absolute Auto 1.85 K/mm3 (0.9-3.2); Lymphocytes Percent Auto 27.9 % (18.3-44.2); Mean Corpuscular HGB Conc 32.7 g/dl (32-36); Mean Corpuscular Hemoglobin 30.1 pg (26-34); Mean Corpuscular Volume 92.2 fl (80-100); Mean Platelet Volume 10.5 fl (7.4-10.4); Monocytes Absolute Auto 0.8 K/mm3 (0.1-0.6); Monocytes Percent Auto 12.5 % (2.6-8.5); Neutrophils Absolute Auto 3.6 K/mm3 (1.3-6.7); Neutrophils Percent Auto 53.7 % (45.5-73.1); Platelet Count Result 212 k/mm3 (150-375); Red Blood Count 4.08 M/mm3 (4.2-5.4); Red Cell Distribution Width 14.7 % (11.5-14.5); White Blood Count 6.6 K/mm3 (4.5-10.0)
[2024-03-14 09:12] LABS: INR 1.3; Prothrombin Time 17.1 Seconds (11.1-14.7)
[2024-03-14 09:16] LABS: Alanine Aminotransferase 27 U/L (6-35); Albumin Level 3.9 g/dL (3.5-5.1); Alkaline Phosphatase 75 U/L (38-126); Anion Gap 5 mmol/L (4-12); Aspartate Amino Transferase 32 U/L (14-36); Bilirubin,Total 0.8 mg/dL (0.2-1.3); Blood Urea Nitrogen 8 mg/dL (7-17); Calcium 8.8 mg/dL (8.4-10.2); Carbon Dioxide 23 mmol/L (22-30); Chloride 111 mmol/L (98-107); Estimated CRCL calculation 50 ml/min; Estimated Glomerular Filt Rate > 60; Glucose 111 mg/dL (65-110); Lipase 55 U/L (23-300); Potassium 3.7 mmol/L (3.4-5.0); Sodium 139 mmol/L (137-145)
[2024-03-14 09:28] LABS: Troponin I < 0.012 ng/mL (0.000-0.034)
--- NOTE | 2024-03-14 12:11 | ED.SOB ---
HPI - SOB/Dyspnea General Chief Complaint: Shortness of Breath/Dyspnea Stated Complaint: sob Time Seen by Provider: 03/14/24 11:34 Source: patient Mode of arrival: ambulatory Limitations: no limitations History of Present Illness HPI Narrative: Patient presents with dyspnea on exertion as well as upper chest pain described as a pressure w/o radiation. This was associated with bilateral ear pain. She is having sinus issues beginning yesterday. no cough or fever. Hx of pulmonary hypertension for which she sees Gordy Flowers in Dr Vasquez's office. Next appointment in May. Her engineer booster and exhauster is Dr Aguirre and she has an appointment with him at the end of march. On Symbicort and ProAir. Her BP was 190/90 this morning. Risk factors: HTN (on several medications), HLD. Not diabetic. + Obesity. No priro RI/TIA/CVA. No family history <65yo. Never smoker. Related Data Home Medications ?Medication ?Instructions ?Recorded ?Confirmed ?Last Taken ?Type multivitamin DAILY 02/11/19 01/23/24 Unknown History cholecalciferol (vitamin D3) 125 125 mcg PO DAILY 05/29/22 01/23/24 Unknown History mcg (5,000 unit) capsule cinnamon bark 500 mg capsule 500 mg PO DAILY 05/29/22 01/23/24 Unknown History (Cinnamon) garlic 1,000 mg capsule 1,000 mg PO DAILY 05/29/22 01/23/24 Unknown History potassium chloride 10 mEq 10 meq PO BID 05/29/22 01/23/24 Unknown History tablet,extended release quercetin 500 mg capsule 500 mg PO DAILY 05/29/22 01/23/24 Unknown History selenium 200 mcg capsule 200 mcg PO DAILY 05/29/22 01/23/24 Unknown History vitamin B complex (B 1 tablet PO DAILY 05/29/22 01/23/24 Unknown History Complex-Vitamin B12 tablet) omeprazole magnesium 20 mg 20 mg PO DAILY 07/04/22 01/23/24 Unknown History tablet,delayed release (Prilosec OTC) dronedarone 400 mg tablet (Multaq) 400 mg PO BID 02/22/23 01/23/24 Unknown History hydralazine 50 mg tablet 50 mg PO TID 02/22/23 01/23/24 Unknown History milk thistle 175 mg tablet 500 mg PO DAILY 07/11/23 01/23/24 Unknown History Allergies Allergy/AdvReac Type Severity Reaction Status Date / Time adhesive tape Allergy Severe RASH Verified 03/14/24 08:36 levofloxacin AdvReac Mild Nausea and Verified 03/14/24 08:36 Vomiting PMFSH Past Medical History Medical History (Updated 03/16/24 @ 05:27 by Danielle Morales MD) Wears hearing aid in both ears Left arm pain Racing heart beat Sarcoidosis Diagnosed 2002 after transbronchial biopsy, has never undergone tx. In remission. Pulmonary HTN CPAP (continuous positive airway pressure) dependence Sleep apnea Sarcoidosis Hiatal hernia Fatty liver COPD (chronic obstructive pulmonary disease) Anxiety Hypothyroid Osteoporosis Arthritis UTI (urinary tract infection) GI bleed GERD (gastroesophageal reflux disease) IBS (irritable bowel syndrome) Diverticulosis HTN (hypertension) Hyperlipidemia Sinus problem Cataract Surgical History Surgical History H/O colonoscopy H/O cataract extraction History of arthroplasty of left knee H/O arthroscopy of right knee H/O dilation and curettage H/O: hysterectomy H/O breast biopsy Hx of cholecystectomy History of appendectomy History of cardiac cath H/O sinus surgery Hx of tonsillectomy Family History Family History Mother Cerebrovascular accident, Onset Age: 86 Family history of cardiovascular disease, Onset Age: 86 Sibling Family history of cardiovascular disease History of heart bypass surgery, Onset Age: 75 Social History Social History (Updated 03/16/24 @ 05:30 by Danielle Morales MD) Social History: Has a son Smoking status: Never smoker Second hand tobacco smoke exposure: Yes (Many years of exposure. was heavy smoker. ) Alcohol intake: never Substance use: never Substance use type: does not use Lack of Transportation: No Lack of Food: Never True Current Housing: I Have Housing Concerned About Future Housing: No Difficulty Paying Gas/Electric Bills: No Difficulty Paying for Meds: No Currently Unemployed: No Education: High School Diploma/GED Difficulty w/ Childcare or Family Care: No Gender identity (if verbalized by the patient): Female Spiritual care concerns: No Agree to blood products: Yes Exam Narrative: GENERAL: Well-appearing, well-nourished, and in no acute distress. HEAD: Normocephalic, atraumatic. EYES: Non injected, non icteric ENT: Nares clear, no rhinorrhea or epistaxis. Hearing aids in both ears. Removed for exam which shows normal EACs and TMs. NECK: Supple. CHEST: Speaking in full sentences. No respiratory distress. Lungs CTAB. HEART: Regular rate and rhythm. . ABDOMEN: Soft, nondistended. EXTREMITIES: Normal range of motion. 1+ bilateral lower extremity edema. SKIN: Warm, dry, no rash. NEURO: No focal deficits. Alert and oriented x3. PSYCH: Normal mood and affect. Course Vital Signs Vital signs: Vital Signs Temperature 97.6 F 03/14/24 08:33 Pulse Rate 75 03/14/24 08:33 Respiratory Rate 20 03/14/24 08:33 Blood Pressure 153/64 H 03/14/24 08:33 Pulse Oximetry 97 03/14/24 08:33 Oxygen Delivery Room Air 03/14/24 08:33 Temperature 98.5 F 03/14/24 17:15 Pulse Rate 65 03/14/24 17:15 Respiratory Rate 18 03/14/24 17:15 Blood Pressure 137/78 03/14/24 17:15 Pulse Oximetry 99 03/14/24 17:15 Oxygen Delivery Room Air 03/14/24 11:53 MDM - SOB/Dyspnea MDM Narrative Medical decision making narrative: Patient presents with dyspnea on exertion as well as upper mid chest pain that started today and associated with bilateral ear pain. In the ED she is afebrile with acceptable VS though mild hypertension. HEART SCORE History 2 highly suspicious 1 moderately suspicious 0 slightly suspicious History score [address] depression/elevation not due to LBBB, LVH, or digoxin [address] depression but LBBB, LVH, nonspecific repolarization changes 0 normal ECG score 0 Age 2 >/= 65 1 45-64 0 <45 Age score 2 Risk factors (HTN, hypercholesterolemia, DM, obesity with BMI >30, current smoker or cessation </=3mo), positive fam hx with parent or sibling with CVD before age 65, atherosclerotic disease (prior RI, PCI/CABG, CVA/TIA, or peripheral arterial disease) 2 >/= 3 risk factors or history of atherosclerotic dz 1 - 1-2 risk factors 0 no known risk factors Risk factor score 2 (HTN, HLD, obese) Initial Troponin 2 >3 times normal limit 1 1-3 times normal limit 0 less than or equal to normal limit Troponin score 0 Total HEART Score 4 Patient has had 3 negative troponins. dimer normal. Patient has a slightly elevated BNP but not to a degree to suggest acute heart failure given her age. Patient has several reasons why she might have had chest pain including some recent congestion and coughing as well as history of pulmonary hypertension. However, she did appreciate relief of her pain and symptoms with the administration nitroglycerin. In addition, she has not had a stress test in while. She has appointment to see Dr. Mcconnell 04/10/24 but I do not believe it is vick to have her wait. She also was told that she was due to have a repeat echo around the time of her upcoming pulmonary appointment in May. We did discuss the work up thus far and the recommendation for continued monitoring/work up both based on her risk factors and her symptomatic relief of chest pain with NTG which suggests a possible coronary artery/cardiac component. SHe is amenable to staying and we discussed code status. Discussed with [employer] hospitalist Lisa ; admission to IMU Bed. I am subsequently informed that patient's son has arrived and wants to speak with me/updated. I went to bedside and discussed again with patient and her son. Patient is now adamantly saying that she doesn't want to stay. She states she will go home and follow up with her engineer booster and exhauster. I did discuss with her that her heart Score 412-65% risk of MACE and also that facilitating a work up such as this takes coordinated effort, especially in the outpatient setting and I did not know if Dr Aguirre was available to coordinate. Nevertheless, patient has capacity to make health care decisions for herself. Ultimately she chose to leave [place]. I did still provide her with DC instructions and encouraged her to return at any time. Differential Diagnosis Differential diagnosis: Likely congestive heart failure, community acquired pneumonia, pulmonary embolism and other (pulmonary hypertension; ACS; acute viral syndrome) Lab Data Attestation: I reviewed the patient's lab results. 03/14/24 08:46 03/14/24 08:46 Labs: Lab Results 03/14/24 03/14/24 03/14/24 Range/Units 08:46 11:54 12:53 WBC 6.6 (4.5-10.0) K/mm3 RBC 4.08 L (4.2-5.4) M/mm3 Hgb 12.3 (12.0-15.0) g/dL Hct 37.6 (37.0-47.0) % MCV 92.2 (80-100) fl MCH 30.1 (26-34) pg MCHC 32.7 (32-36) g/dl RDW 14.7 H (11.5-14.5) % Plt Count 212 (150-375) k/mm3 MPV 10.5 H (7.4-10.4) fl Immature Gran % (Auto) 0.8 H (0-0.5) % Neut % (Auto) 53.7 (45.5-73.1) % Lymph % (Auto) 27.9 (18.3-44.2) % [place] % (Auto) 12.5 H (2.6-8.5) % Eos % (Auto) 3.9 (0-4.4) % Baso % (Auto) 1.2 (0.2-1.2) % Lymph # (Auto) 1.85 (0.9-3.2) K/mm3 [place] # (Auto) 0.8 H (0.1-0.6) K/mm3 Eos # (Auto) 0.3 (0-0.3) K/mm3 Baso # (Auto) 0.1 (0.0-0.1) K/mm3 Abs Immat Gran (auto) 0.05 H (0.00-0.031) K/mm3 Absolute Neuts (auto) 3.6 (1.3-6.7) K/mm3 Absolute Nucleated RBC 0.000 (0.0-0.012) K/mm3 Nucleated RBC % 0.0 (0.0-0.2) % PT 17.1 H (11.1-14.7) Seconds INR 1.3 APTT 32.0 (22.3-36.8) Seconds D-Dimer (<0.48) ug/mL Sodium 139 (137-145) mmol/L Potassium 3.7 (3.4-5.0) mmol/L Chloride 111 H (98-107) mmol/L Carbon Dioxide 23 (22-30) mmol/L Anion Gap 5 (4-12) mmol/L BUN 8 (7-17) mg/dL Creatinine 0.80 (0.7-1.0) mg/dL Estim Creat Clear Calc 50 ml/min Estimated GFR > 60 (59 - ) Glucose 111 H (65-110) mg/dL Calcium 8.8 (8.4-10.2) mg/dL Total Bilirubin 0.8 (0.2-1.3) mg/dL AST 32 (14-36) U/L ALT 27 (6-35) U/L Alkaline Phosphatase 75 (38-126) U/L Troponin I < 0.012 < 0.012 (0.000-0.034) ng/mL NT-Pro-B Natriuret Pep 938 H (19.9-100) pg/mL Total Protein 7.0 (6.3-8.2) g/dL Albumin 3.9 (3.5-5.1) g/dL Lipase 55 (23-300) U/L Influenza A (RT-PCR) Negative (Negative) Influenza B (RT-PCR) Negative (Negative) RSV (RT-PCR) Negative (Negative) SARS-CoV-2 RNA (RT-PCR) Negative (Negative) 03/14/24 03/14/24 Range/Units 14:04 14:11 WBC (4.5-10.0) K/mm3 RBC (4.2-5.4) M/mm3 Hgb (12.0-15.0) g/dL Hct (37.0-47.0) % MCV (80-100) fl MCH (26-34) pg MCHC (32-36) g/dl RDW (11.5-14.5) % Plt Count (150-375) k/mm3 MPV (7.4-10.4) fl Immature Gran % (Auto) (0-0.5) % Neut % (Auto) (45.5-73.1) % Lymph % (Auto) (18.3-44.2) % [place] % (Auto) (2.6-8.5) % Eos % (Auto) (0-4.4) % Baso % (Auto) (0.2-1.2) % Lymph # (Auto) (0.9-3.2) K/mm3 [place] # (Auto) (0.1-0.6) K/mm3 Eos # (Auto) (0-0.3) K/mm3 Baso # (Auto) (0.0-0.1) K/mm3 Abs Immat Gran (auto) (0.00-0.031) K/mm3 Absolute Neuts (auto) (1.3-6.7) K/mm3 Absolute Nucleated RBC (0.0-0.012) K/mm3 Nucleated RBC % (0.0-0.2) % PT (11.1-14.7) Seconds INR APTT (22.3-36.8) Seconds D-Dimer 0.27 (<0.48) ug/mL Sodium (137-145) mmol/L Potassium (3.4-5.0) mmol/L Chloride (98-107) mmol/L Carbon Dioxide (22-30) mmol/L Anion Gap (4-12) mmol/L BUN (7-17) mg/dL Creatinine (0.7-1.0) mg/dL Estim Creat Clear Calc ml/min Estimated GFR (59 - ) Glucose (65-110) mg/dL Calcium (8.4-10.2) mg/dL Total Bilirubin (0.2-1.3) mg/dL AST (14-36) U/L ALT (6-35) U/L Alkaline Phosphatase (38-126) U/L Troponin I < 0.012 (0.000-0.034) ng/mL NT-Pro-B Natriuret Pep (19.9-100) pg/mL Total Protein (6.3-8.2) g/dL Albumin (3.5-5.1) g/dL Lipase (23-300) U/L Influenza A (RT-PCR) (Negative) Influenza B (RT-PCR) (Negative) RSV (RT-PCR) (Negative) SARS-CoV-2 RNA (RT-PCR) (Negative) Imaging Data Radiologist's impression: IMPRESSION: 1. Worsened interstitial opacities in the mid and lower lung zones, consistent with mild pulmonary edema versus chronic interstitial lung disease. ECG Data EKG #1: Attestation: I personally reviewed and interpreted this ECG as follows: ECG completion date: 03/14/24 ECG completion time: 08:41 Interpretation: Normal sinus rhythm at a rate of 65 beats per minute. Prolonged NJ interval at 220 milliseconds consistent with a first-degree block. QRS 86. QT/QTC 404/416. Good R-wave progression across the precordial leads. No T-wave inversion. EKG #2: Attestation: I personally reviewed and interpreted this ECG as follows: ECG completion date: 03/14/24 ECG completion time: 11:58 Interpretation: Normal sinus rhythm at a rate of 61 beats per minute. NJ interval 226. QRS 90. QT/QTC 439/443. Good R-wave progression across the precordial leads. No T-wave inversions. Discharge Plan Discharge Clinical Impression: Chest pain, Shortness of breath, First degree AV block, Head congestion, Pulmonary hypertension Patient Disposition: Left Against Medical Advice Condition: Stable Instructions: Chest Pain (ED), Pulmonary Arterial Hypertension (ED), Shortness of Breath (ED) Additional Instructions: As we discussed, you are leaving against medical advice given that the recommendation would be for you to be admitted as observation to undergo the rest of your cardiac workup. Follow-up with your primary care physician, engineer booster and exhauster, and bricklayer supervisor. Do not hesitate to return to the emergency department at any time for new, worsening, recurring symptoms. Patient Language: Malay Prescriptions: No Action Multaq 400 mg tablet 400 mg PO BID Rx Instructions: must administer with a meal/food hydralazine 50 mg tablet 50 mg PO TID milk thistle 175 mg tablet 500 mg PO DAILY Rx Instructions: give with meal/snack albuterol sulfate 2.5 mg /3 mL (0.083 %) solution for nebulization 2.5 mg inhalation Q4-6H PRN (Reason: shortness of breath or wheezing) Qty: 90 3RF cholecalciferol (vitamin D3) 125 mcg (5,000 unit) capsule 125 mcg PO DAILY vitamin B complex [B Complex-Vitamin B12] Tablet 1 tablet PO DAILY quercetin 500 mg capsule 500 mg PO DAILY selenium 200 mcg capsule 200 mcg PO DAILY garlic 1,000 mg capsule 1,000 mg PO DAILY cinnamon bark [Cinnamon] 500 mg capsule 500 mg PO DAILY amoxicillin 500 mg tablet 2,000 mg PO ONCE Qty: 4 0RF Rx Instructions: take 30-60 minutes before dental procedure multivitamin DAILY potassium chloride 10 mEq tablet extended release 10 meq PO BID Prilosec OTC 20 mg tablet,delayed release (DR/EC) 20 mg PO DAILY Eliquis 5 mg tablet 5 mg PO BID Qty: 30 0RF metoprolol tartrate 50 mg tablet See Rx Instructions .ROUTE .COMPLEX Qty: 60 0RF Dose Instruction: 50 MG ORALLY TWICE A DAY FOR 30 DAYS Rx Instructions: 50 MG ORALLY TWICE A DAY FOR 30 DAYS budesonide-formoterol 80-4.5 mcg/actuation HFA aerosol inhaler 2 puff inhalation Q12H Qty: 10.2 3RF Rx Instructions: Rinse mouth and spit furosemide 40 mg tablet See Rx Instructions .ROUTE .COMPLEX Qty: 180 1RF Dose Instruction: TAKE 2 TABLETS BY MOUTH DAILY Rx Instructions: TAKE 2 TABLETS BY MOUTH DAILY levothyroxine 88 mcg tablet 88 mcg PO DAILY Qty: 90 1RF irbesartan 300 mg tablet See Rx Instructions .ROUTE .COMPLEX Qty: 100 1RF Dose Instruction: TAKE 1 TABLET BY MOUTH EVERY DAY Rx Instructions: TAKE 1 TABLET BY MOUTH EVERY DAY fluticasone propionate 50 mcg/actuation spray,suspension See Rx Instructions .ROUTE .COMPLEX Qty: 48 3RF Dose Instruction: SHAKE THEN INSTILL 2 SPRAYS INTO EACH NOSTRIL TWICE A DAY Rx Instructions: SHAKE THEN INSTILL 2 SPRAYS INTO EACH NOSTRIL TWICE A DAY amlodipine 10 mg tablet See Rx Instructions .ROUTE .COMPLEX Qty: 90 1RF Dose Instruction: TAKE 1 TABLET BY MOUTH EVERY DAY Rx Instructions: TAKE 1 TABLET BY MOUTH EVERY DAY rosuvastatin 10 mg tablet See Rx Instructions .ROUTE .COMPLEX Qty: 100 1RF Dose Instruction: TAKE 1 TABLET BY MOUTH EVERY DAY Rx Instructions: TAKE 1 TABLET BY MOUTH EVERY DAY alendronate 70 mg tablet See Rx Instructions .ROUTE .COMPLEX Qty: 12 4RF Dose Instruction: TAKE 1 TABLET BY MOUTH ONCE WEEKLY Rx Instructions: TAKE 1 TABLET BY MOUTH ONCE WEEKLY albuterol sulfate 90 mcg/actuation HFA aerosol inhaler 1 - 2 puff INHALATION Q4-6H PRN (Reason: shortness of breath or wheezing) Qty: 8.5 2RF alprazolam 0.25 mg tablet 0.25 mg PO BID PRN (Reason: anxiety) Qty: 60 0RF Follow-up/Referrals: Tru Benites MD [Primary Care Provider] - Time of Disposition: 17:31
[2024-03-14 12:29] LABS: Troponin I < 0.012 ng/mL (0.000-0.034)
[2024-03-14 12:39] LABS: NT Pro B Type Natriuretic Pept 938 pg/mL (19.9-100)
[2024-03-14] MEDS: ASPIRIN 81 MG CHEWABLE TABLET 324 MG PO (12:48)
[2024-03-14 13:37] LABS: Influenza A QL RT-PCR Negative (Negative); Influenza B QL RT-PCR Negative (Negative); RSV RNA, RT-PCR Negative (Negative); SARS-CoV-2 RNA PCR Negative (Negative)
[2024-03-14] MEDS: NITROGLYCERIN SL 0.4 MG TABLET SUBLINGUAL (14:12)
--- NOTE | 2024-03-14 14:13 | ECG_ITS ---
Test Date: 2024-03-14 11:58:44 Measurements Intervals [place] Rate: 61 P: 78 FL: 226 QRS: 7 QRSD: 90 T: 54 QT: 439 QTc: 445 Interpretive Statements SINUS RHYTHM WITH FIRST DEGREE AV BLOCK Compared to ECG 03/14/2024 08:41:39 No significant changes Electronically Signed On 03-17-2024 15:04:11 BOTTLE BOOTH ATTENDANT by Joel Griffin M.D.
[2024-03-14 14:58] LABS: D Dimer 0.27 ug/mL (<0.48)
[2024-03-14 14:58] LABS: Troponin I < 0.012 ng/mL (0.000-0.034)
--- NOTE | 2024-03-14 15:17 | ECG_ITS ---
Test Date: 2024-03-14 15:17:54 Measurements Intervals [place] Rate: 63 P: 75 [place]: 214 QRS: 1 QRSD: 87 T: 48 QT: 420 QTc: 432 Interpretive Statements SINUS RHYTHM WITH FIRST DEGREE AV BLOCK Compared to ECG 03/14/2024 11:58:44 No significant changes Electronically Signed On 03-17-2024 15:07:27 WINDOW MAKER by Joel Griffin M.D.
--- NOTE | 2024-03-14 16:21 | PCRCNOTE ---
Pt refused to wear hospital SP CPAP , stated she would have her son bring her home unit in [place]
--- OUTSIDE RECORDS SUMMARY | 2024-03-21 19:04 | XMS_ITS | Data Portability ---
Author Organization [facility], [place] Address [address] [place] [address] Assessment No assessment recorded. Plan of Treatment Reminders Order Date Submit Date Provider Last Modified By Organization Details Last Modified Time Details Appointments None recorded. Lab None recorded. Referral None recorded. Procedures None recorded. Surgeries None recorded. Imaging None recorded. Medication Orders clotrimaz ole-betam ethasone 1 %-0.05 % topical cream T[facility] #[id number], [address], [id number], 14:37:55 Patient TargetsNo targets recorded. Patient InstructionsNo instructions recorded. Reason for Referral None Reported. Problems Name Problem SNOMED Code Status Onset Date Resolution Date Notes Provider Name and Address Organization Details Recorded Time Screenin g for malignan t neoplasm of rectum Completed 201212/07/2020 Screenin g for malignan t neoplasm s of the rectum;[id number] Rachel Forrester nona [facility] 1 14:22:04 Urinary tract infectio us disease 43302961 Completed 201612/07/2020 Urinary tract infectio n, site not specifie d;Practi ce ID: 0001 Rachel Forrester nona [facility] 1 14:22:10 Atrophic vaginiti s [id number] Active 2016 Postmeno pausal atrophic vaginiti s;Practi ce ID: 0001 Not Available formerly [facility] 0 21:23:44 Vaginola bial hernia Active 2017 Other specifie d noninfla mmatory disorder s of vagina;P ractice ID: 0001 Not Available [facility] 0 21:23:44 Blood leukocyt e number above referenc e range [id number] Completed 201712/07/2020 Elevated white blood cell count, unspecif ied;Prac darin ID: 0001 Rachelroberto Forrester [facility] 14:22:13 Acute vaginiti s [id number] Active 2017 Acute vaginiti s;Practi ce ID: 0001 Not Available [facility] 0 21:23:45 Speciali zed medical examinat ion Completed 201212/07/2020 Gynecolo gical Examinat ion;Jesus rded Elsewher e: No [facility] EHR Work Checker shay: N Practi ce ID: 0001 Coy lable Time: 12:30:00 PM Rachelroberto Forrester [facility] 14:22:08 Screenin g for malignan t neoplasm of cervix Completed 201212/07/2020 Pap Smear;Pr actice ID: 0001 Rachelroberto Forrester [facility] 14:22:02 Problem Notes None recorded. Procedures Surgical History Date Name Laterality Status Provider Name and Address Organization Details Recorded Time Colonoscopy completed [facility] 12/28/2020 14:46:23 Colonoscopy completed [facility] 12/28/2020 14:46:24 Dilation and Curettage completed [facility] 12/28/2020 14:46:34 Flexible Sigmoidoscopy completed [facility] 12/28/2020 14:46:45 Unlisted px accessory sinus completed [facility] 12/28/2020 14:46:55 biopsy of skin completed [facility] 12/28/2020 14:47:17 Removal of anal fissure completed [facility] 12/28/2020 14:47:42 hemorrhoidectomy completed [facility] 12/28/2020 14:48:05 hysterectomy completed [facility] 12/28/2020 14:51:44 biopsy of breast completed [facility] 12/28/2020 14:52:03 biopsy of lung completed [facility] 12/28/2020 14:52:19 endoscopy completed [facility] 12/28/2020 14:52:35 arthroplasty of knee completed [facility] 12/28/2020 14:53:18 Cholecystectomy completed [facility] 12/28/2020 14:53:26 cardiac catheterization completed [facility] 12/28/2020 14:53:58 needle biopsy completed [facility] 12/28/2020 14:54:10 Imaging Results None recorded. Procedure Notes None recorded. Medical Equipment None Reported. Allergies No known drug allergies Medications Name Sig Start Date Stop Date Status Note LastModified by Organization Details LastModified Time irbesarta n 150 mg-hydroc hlorothia zide 12.5 mg tablet take 1 tablet by oral route every day 2016 active Prescrib ed Elsewher e: Yes Loca tion: [facility] M odify By: shiraz virgen DateTime : 03/21/19 17 02:00:00 PM Not Available Not Available Not Available alprazola m 1 mg tablet take 1 tablet by oral route 3 times every day 2016 active Prescrib ed Elsewher e: Yes Loca tion: [facility] M odify By: shiraz Williste r DateTime : 03/21/19 17 02:00:00 PM Not Available Not Available Not Available vitamin E 600 unit capsule 2016 active Prescrib ed Elsewher e: Yes Loca tion: [facility] odify By: shiraz Wliliste r DateTime : 03/21/19 17 02:00:00 PM Not Available Not Available Not Available Synthroid 100 mcg tablet take 1 tablet by oral route every day 03/21 completed Prescrib ed Elsewher e: Yes Loca tion: [facility] odify By: shiraz Williste r DateTime : 06/18/19 13 12:30:00 PM Not Available Not Available Not Available Prilosec 20 mg capsule,d elayed release take 1 capsule by oral route every day before a meal active Prescrib ed Elsewher e: Yes Loca tion: [facility] odify By: [email or web address] trick En counter DateTime : 06/18/19 13 12:30:00 PM Not Available Not Available Not Available milk thistle 175 mg tablet 2016 active Prescrib ed Elsewher e: Yes Loca tion: [facility] odify By: shiraz Williste r DateTime : 03/21/19 17 02:00:00 PM Not Available Not Available Not Available clobetaso l 0.05 % topical cream apply by topical route every day a thin layer to the affected area(s) 2017 active Prescrib ed Elsewher e: No Locat ion: [facility] odify By: neeta ling DateTime : 10/17/19 18 03:45:00 PM Not Available Not Available Not Available nystatin 500,000 unit tablet take 1 tablet by oral route 3 times every day continui ng treatmen t for at least 2 days after symptoms have disappea red 2016 active Prescrib ed Elsewher e: Yes Loca tion: [facility] odify By: shiraz Encounte r DateTime : 03/21/19 17 02:00:00 PM Not Available Not Available Not Available triamcino lone acetonide 0.1 % topical cream apply by topical route 2 times every day a thin layer to the affected area(s) 2016 active Prescrib ed Elsewher e: Yes Loca tion: [facility] odify By: shiraz Williste r DateTime : 03/21/19 17 02:00:00 PM Not Available Not Available Not Available levothyro xine 25 mcg tablet take 1 tablet by oral route every day 2016 active Prescrib ed Elsewher e: Yes Loca tion: [facility] odify By: shiraz Encounte r DateTime : 03/21/19 17 02:00:00 PM Not Available Not Available Not Available aspirin 500 mg tablet take 2 tablet by oral route every 6 hours as needed active Prescrib ed Elsewher e: Yes Loca tion: [facility] odify By: [email or web address] trick En counter DateTime : 06/18/19 13 12:30:00 PM Not Available Not Available Not Available potassium 99 mg tablet active Prescrib ed Elsewher e: Yes Loca tion: [facility] odify By: [email or web address] trick En counter DateTime : 06/18/19 13 12:30:00 PM Not Available Not Available Not Available Metrogel Vaginal 0.75 % (37.5 mg/5 gram) insert 1 applicat orful by vaginal route every day at bedtime for 5 nights 10/22 completed Prescrib ed Elsewher e: No Locat ion: [facility] odify By: rj concepcion DateTime : 10/23/19 18 11:56:59 AM Not Available Not Available Not Available triamcino lone acetonide 0.025 % topical cream apply by topical route 2 times every day a thin layer to the affected area(s) 03/21 completed Prescrib ed Elsewher e: Yes Loca tion: [facility] odify By: shiraz Encounte r DateTime : 06/18/19 13 12:30:00 PM Not Available Not Available Not Available Flagyl 500 mg tablet take 1 tablet by oral route every 12 hours 10/30 completed Prescrib ed Elsewher e: No Locat ion: [facility] odify By: [email or web address] Encounte r DateTime : 10/23/19 18 11:56:59 AM Not Available Not Available Not Available clotrimaz ole-betam ethasone 1 %-0.05 % topical cream APPLY TO THE AFFECTED AND SURROUND ING AREAS OF SKIN BY TOPICAL ROUTE 2 TIMES PER DAY IN THE MORNING AND EVENING FOR 2 WEEKS 2020 active Not Available Not Available Not Avai lable Vitamin D2 1,250 mcg (50,000 unit) capsule take 1 capsule by oral route every week active Prescrib ed Elsewher e: Yes Loca tion: [facility] odify By: [email or web address] trick En counter DateTime : 06/18/19 13 12:30:00 PM Not Available Not Available Not Available Fish Oil 500 mg capsule active Prescrib ed Elsewher e: Yes Loca tion: [facility] odify By: [email or web address] trick En counter DateTime : 06/18/19 13 12:30:00 PM Not Available Not Available Not Available Restasis 0.05 % eye drops in a dropperet te instill 1 drop by ophthalm ic route every 12 hours into affected eye(s) 03/21 completed Prescrib ed Elsewher e: Yes Loca tion: [facility] odify By: shiraz Encounte r DateTime : 06/18/19 13 12:30:00 PM Not Available Not Available Not Available Premarin 0.625 mg/gram vaginal cream insert 1 (1G) by vaginal route every day for 2 weeks, then insert .5 gram by vaginal route two times a week prn 03/21 completed Prescrib ed Elsewher e: No Locat ion: [facility] odify By: shiraz Encounte r DateTime : 06/18/19 13 12:30:00 PM Not Available Not Available Not Available Benicar HCT 40 mg-12.5 mg tablet take 1 tablet by oral route every day 03/21 completed Prescrib ed Elsewher e: Yes Loca tion: [facility] odify By: shiraz Encounte r DateTime : 06/18/19 13 12:30:00 PM Not Available Not Available Not Available Crestor 20 mg tablet take 1 tablet by oral route every day 2016 active Prescrib ed Elsewher e: Yes Loca tion: [facility] odify By: shiraz Williste r DateTime : 03/21/19 17 02:00:00 PM Not Available Not Available Not Available metoprolo l tartrate 25 mg tablet take 1 tablet by oral route 2 times every day active Prescrib ed Elsewher e: Yes Loca tion: [facility] odify By: [email or web address] trick En counter DateTime : 06/18/19 13 12:30:00 PM Not Available Not Available Not Available biotin 5 mg tablet 2016 active Prescrib ed Elsewher e: Yes Loca tion: [facility] odify By: shiraz Williste r DateTime : 03/21/19 17 02:00:00 PM Not Available Not Available Not Available amlodipin e besylate (bulk) 100 % powder active Prescrib ed Elsewher e: Yes Loca tion: [facility] odify By: [email or web address] trick En counter DateTime : 06/18/19 13 12:30:00 PM Not Available Not Available Not Available Multi For Her 18 mg iron-600 mcg-40 mcg capsule active Prescrib ed Elsewher e: Yes [facility] By: [email or web address] trick En counter DateTime : 06/18/19 13 12:30:00 PM Not Available Not Available Not Available Vitals Date Recorded Body weight Body mass index (BMI) Body height Systolic blood pressure Diastolic blood pressure Provider Name and Address Organization Details Last Updated DateTime 12/07/2020 458289.5 1 g 40.6 kg/m2 157.48 cm 198 mm[Hg] 104 mm[Hg] Rachel Forrester [facility] 14:07:01 Social History None recorded. Functional Status None recorded. Mental Status None recorded. Family History Relationship Description Onset Age of this Age Resolved Age Notes LastModified by Organization Details LastModified Time Mother Congenital heart disease [email or web address] Not available 2020 14:26:27 Mother Hypertensive disorder [email or web address] Not available 2020 14:26:37 Mother Hyperlipidem ia [email or web address] Not available 2020 14:26:54 Brother Hyperlipidem ia [email or web address] Not available 2020 14:26:54 Brother Hypertensive disorder [email or web address] Not available 2020 14:27:07 Medical History Condition Response Other Y Thyroid Problems Y Hypertension Y High Cholesterol Y Gynecological History Statement/Question Response Date of Last Pap Smear Current Control Method Hysterectom y Obstetrics History GPAL:G 4 P 3 0 1 3 Type Value Full Term 3 Spontaneous 1 Living 3 Total 4 Past Encounters Encounter ID Performer Location Encounter Start Date Encounter Closed Date Diagnosis/Indication Diagnosis SNOMED-CT Code Diagnosis ICD10 Code Diagnosis Note [id number] Jae Gibbons MD [place] [address] [address] 12/07/2020 13:43:34 12/08/2020 14:19:08 Lesion of vulva [id number] N90.89 This patient is an 80-year-ol d female presents for vulvar lesion. She complains of a bump that projects from the inside of vagina. She was examined. There is a small cystic inclusion cyst on the vulva but her labia are the only thing that projects out from the inside. She was examined thoroughly and there was no evidence of any other lesion. She was given reassuranc e that the structures Of concern were part of her normal anatomy. Health Concerns Section Related Observation LastModified by Organization Detai ls LastModified Time None Recorded Concern Status LastModified by Organization Details LastModified Time None Recorded Advance Directives Directive None Recorded Payers Encounter Date Sequence Insurance Name Policy Number Policy Feliz Covered Member ID Feliz Member ID Guarantor Name 12/07/2020 2 [employer] - PL[employer] F (MEDICARE SUPPLEMENT) Glenna Almendarez [id number] Glenna Erickson 12/07/2020 1 MEDICARE B: [facility] MEDIC[facility] Glenna Almendarez [id number] Glenna Almendarez Notes Date Note Type Note Provider Name and Address Organization Details Recorded Time 12/07/2020 text/html This patient is an 80-year-old female presents for vulvar lesion. She complains of a bump that projects from the inside of vagina. She was examined. There is a small cystic inclusion cyst on the vulva but her labia are the only thing that projects out from the inside. She was examined thoroughly and there was no evidence of any other lesion. She was given reassurance that the structures Of concern were part of her normal anatomy. Jae Gibbons MD [address], [place], [address], [place] [facility] 12/07/2020 18:05:54 OBGyn Episode Ob Episode Information Episode Created Date Number of Fetuses Patient Bloodtype Patient rh Status Prepregnancy Weight lbs Domestic Partner Domestic Partner Phone Father Name Disk Recoater Status 12/08/19 21 1 CLOSED Fetus Data First Name Last Name Admitted to NICU Weight (g) Sex Living Outcome Pediatric Complications Fetus ID Race Codes Race Delivery Type , Spontane ous [id number] Abad Calculation Initial Abad Date Initial Exam Date Initial Exam Provider Initial Ultrasound Date Last Menstrual Period Date Ultra Sound Weeks Gestation 0 Eighteen To Twenty Week Abad Update Ultra Sound Date Fundal Height At Umbil Quickening Date Ultra Sound Latest Weeks Gestation Final Abad Confirmed By Final Abad Confirmed Date Final Abad Date Ultra Sound Latest Days Gestation 0 0 Menstrual History Last Menstrual Date Menses Monthly On Bcp Conception Prior Menses Frequency Hcg Plus Date Menarche Onset Age Delivery Information Delivery Date Delivery Type Labor Anesthesia Weeks Gestation Incision Type Labor Labor Length Hrs Delivered By Post Complications Tubal Sterilization Discharge Date Comments 1 Discharge Information Feeding Method Contraceptive Method Maternal HG B and HCT Levels Ob Episode Information Episode Created Date Number of Fetuses Patient Bloodtype Patient rh Status Prepregnancy Weight lbs Domestic Partner Domestic Partner Phone Father Name Disk Recoater Status 12/08/19 21 2 CLOSED Fetus Data First Name Last Name Admitted to NICU Weight (g) Sex Living Outcome Pediatric Complications Fetus ID Race Codes Race Delivery Type 2778.25 1 F [id number] Vaginal Delivery 2664.85 3 M [id number] Abad Calculation Initial Abad Date Initial Exam Date Initial Exam Provider Initial Ultrasound Date Last Menstrual Period Date Ultra Sound Weeks Gestation 0 Eighteen To Twenty Week Abad Update Ultra Sound Date Fundal Height At Umbil Quickening Date Ultra Sound Latest Weeks Gestation Final Abad Confirmed By Final Abad Confirmed Date Final Abad Date Ultra Sound Latest Days Gestation 0 0 Menstrual History Last Menstrual Date Menses Monthly On Bcp Conception Prior Menses Frequency Hcg Plus Date Menarche Onset Age Delivery Information Delivery Date Delivery Type Labor Anesthesia Weeks Gestation Incision Type Labor Labor Length Hrs Delivered By Post Complications Tubal Sterilization Discharge Date Comments 3 Dionne and Julio Cesar Discharge Information Feeding Method Contraceptive Method Maternal HG B and HCT Levels Ob Episode Information Episode Created Date Number of Fetuses Patient Bloodtype Patient rh Status Prepregnancy Weight lbs Domestic Partner Domestic Partner Phone Father Name Disk Recoater Status 12/08/19 21 1 CLOSED Fetus Data First Name Last Name Admitted to NICU Weight (g) Sex Living Outcome Pediatric Complications Fetus ID Race Codes Race Delivery Type 2664.85 3 M [id number] Vaginal Delivery Abad Calculation Initial Abad Date Initial Exam Date Initial Exam Provider Initial Ultrasound Date Last Menstrual Period Date Ultra Sound Weeks Gestation 0 Eighteen To Twenty Week Abad Update Ultra Sound Date Fundal Height At Umbil Quickening Date Ultra Sound Latest Weeks Gestation Final Abad Confirmed By Final Abad Confirmed Date Final Abad Date Ultra Sound Latest Days Gestation 0 0 Menstrual History Last Menstrual Date Menses Monthly On Bcp Conception Prior Menses Frequency Hcg Plus Date Menarche Onset Age Delivery Information Delivery Date Delivery Type Labor Anesthesia Weeks Gestation Incision Type Labor Labor Length Hrs Delivered By Post Complications Tubal Sterilization Discharge Date Comments 8 David Discharge Information Feeding Method Contraceptive Method Maternal HG B and HCT Levels
--- OUTSIDE RECORDS SUMMARY | 2024-03-21 19:04 | XMS_ITS | Clinical Summary ---
Author Organization [facility] Address [address] [place] [address]. [place], [place] [address] [place] [address] Care Team Providers Care Popped Corn Oven Attendant Name Role Phone Unavailable Primary Care Provider Unavailabl e Social History Tobacco Use Types Packs/Day Years Used Date Smoking Tobacco: Never Assessed Sex and Gender Information Value Date Recorded Sex Assigned at Not on file Legal Sex Male 7:59 PM CDT Gender Identity Not on file Sexual Orientation Not on file Plan of Treatment Health Maintenance Due Date Last Done Comments DTaP, Tdap and Td Vaccines ( 1 - Tdap) 1957 Zoster Vaccines (1 of 2) 1988 Pneumococcal Vaccine: 65+ Ye ars (1 of 1 - PCV) 11/29/2003 RSV Immunization or 60+ Years (1 - 1-dose 75+ series) 2013 COVID-19 Vaccine ( - 2023-2 5 season) 2023 Influenza Adult (#1) 2023 Meningococcal Vaccine Aged Out No magda james eligible based on patient's age to complete this topic RSV Immunizations Under 20 Months Aged Out No longer eligible based on patient's age to complete this topic
--- OUTSIDE RECORDS SUMMARY | 2024-03-21 19:04 | XMS_ITS | Encounter Summary ---
Author Organization [facility] Address [address] [place] [address]. [place], [place] [id number] [place] [address] Care Team Providers Care V Belt Skiver Name Role Phone Unavailable Primary Care Provider Unavailabl e Encounter Details Date Type Department Care Team (Late st Contact Info) Description 02/23/2003 Abstract [facility] [place] [address] , Lashae Leyva MD Social History Tobacco Use Types Packs/Day Years Used Date Smoking Tobacco: Never Assessed Sex and Gender Information Value Date Recorded Sex Assigned at Not on file Legal Sex Male 7:59 PM CDT Gender Identity Not on file Sexual Orientation Not on file documented as of this encounter Plan of Treatment Not on file documented as of this encounter Visit Diagnoses Not on filedocumented in this encounter
--- OUTSIDE RECORDS SUMMARY | 2024-03-21 19:04 | XMS_ITS | Encounter Summary ---
Author Organization [facility] Address [address] [place] [address]. [place], [place] [address] [place] [address] Care Team Providers Care Mixologist Name Role Phone Unavailable Primary Care Provider Unavailabl e Encounter Details Date Type Department Care Team (Late st Contact Info) Description 09/02/1997 Abstract [facility] CONVERSION [address] [place] [address] , Generic Conversion, Social History Tobacco Use Types Packs/Day Years [...]
--- OUTSIDE RECORDS SUMMARY | 2024-03-21 19:04 | XMS_ITS | Encounter Summary ---
Author Organization [facility] Address [address] [place] [address]. [place], [place] [address] [place] [address] Care Team Providers Care Welder Apprentice Combination Name Role Phone Unavailable Primary Care Provider Unavailabl e Encounter Details Date Type Department Care Team (Late st Contact Info) Description 11/05/1993 Abstract [facility] CONVERSION [address] [place] [address] , Generic Conversion, Social History [...]
--- OUTSIDE RECORDS SUMMARY | 2024-03-21 19:04 | XMS_ITS | Encounter Summary ---
Author Organization [facility] Address [address] [place] [address]. [place], [place] [address] [place] [address] Care Team Providers Care Commodity Director Name Role Phone Unavailable Primary Care Provider Unavailabl e Encounter Details Date Type Department Care Team (Late st Contact Info) Description 01/14/2003 Abstract [facility] [place] [address] , Lashae Leyva MD Social History Tobacco [...]
--- OUTSIDE RECORDS SUMMARY | 2024-03-21 19:04 | XMS_ITS | Data Portability ---
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 it has been over 3 months since her last cortisone injection into the right knee. She has severe bicompartmental osteoarthritis. She does get some relief from her symptoms. She is 81 and has a history of pulmonary hypertension is not a surgical candidate. She has had her left knee replaced in the past by us and is doing very well. She came in today wanting another cortisone injection. Physical exam: 81-year-old female she walks well without limp or assistance. She has a yanh-rj-zuezfvrb effusion in the right knee. Range of motion is from 3-130 degrees. She has ulmp-ub-hbbrbtpt tenderness over both medial and lateral joint lines. She has mild edema in both lower extremities. No redness noted. ChloraPrep used on skin 20 mg Kenalog and 3 cc of 0.5% ropivacaine was injected into the right knee. Risk infection discussed. Impression: 81-year-old female who has severe bicompartmental osteoarthritis the knee. She does get some benefit from the injections and wishes to continue with them. I will see her back in 3 months repeat injection. 20 minutes was spent in treatment the patient more than half of this mcmw-sc-hfpi conversation shyla Not available 06/02/2022 16:18:45 Plan of Treatment Reminders Order Date Submit Date Provider Last Modified By Organization Details Last Modified Time Details Appointments None recorded. Lab None recorded. Referral None recorded. Procedures injection/a spiration joint/bursa (PROC) - in office procedure, administere d by provider 2022 023 [email or web address] In-Office Order, Internal Use Only DO Not Attach Compendium DO Not Attach Compendium, Do Not Delete/merge, [id number] 14:54:28 Surgeries None recorded. Imaging None recorded. Medication Orders Kenalog 10 mg/mL suspension for injection [id number], [address] [place], [address], 3 16:32:38 ropivacaine (PF) 5 mg/mL (0.5 %) injection solution [id number], [address] [place], [address], 16:32:38 Patient TargetsNo targets recorded. Patient InstructionsNo instructions recorded. Reason for Referral None Reported. Results Created Date Observation Date Name Description Value Unit Range Abnormal Flag Note LastModifiedBy Organization Detail LastModifiedTime 02/26/20 21 XR, knee No observ ation record ed. [id number] [id number] [address], [place], [address], 05/10/2022 13:55:15 Result Notes None recorded. Problems Name Problem SNOMED Code Status Onset Date Resolution Date Notes Provider Name and Address Organization Details Recorded Time Knee pain Active Not Available [facility] 13:52:17 Enthesopathy of knee 14580800 Active Not Available [facility] 13:52:17 Osteoarthriti s 866675078 Active 2021 Not Available [facility] 13:52:17 Problem Notes None recorded. Procedures Surgical History Date Name Laterality Status Provider Name and Address Organization Details Recorded Time biopsy of breast completed Not Available [facility] 05/10/2022 13:51:47 cardiac catheterization completed Not Available [facility] 05/10/2022 13:51:47 repair of meniscus completed Not Available [facility] 05/10/2022 13:51:47 hysterectomy completed Not Available [facility] 05/10/2022 13:51:47 Sinus Surgery completed Not Available [facility] 05/10/2022 13:51:47 total knee replacement completed Not Available [facility] 05/10/2022 13:51:47 biopsy of lung completed Andrzej Christianson [facility] 06/02/2022 15:20:06 Cataract Surgery completed Andrzej Christianson [facility] 06/02/2022 15:20:16 anal fissurectomy completed Andrzej Christianson [facility] 06/02/2022 15:20:29 Hemorrhoidectomy completed Andrzej Christianson [facility] 06/02/2022 15:20:36 Cholecystectomy completed Andrzej Christianson [facility] 06/02/2022 15:20:52 Imaging Results Imaging Date Name Status LastModified by Organiz ation Details LastModified Time 02/25/2021 XR, knee completed [id number] [id number] [address], [place], [address], 05/10/2022 13:55:15 Procedure Notes None recorded. Medical Equipment None Reported. Allergies Allergen ID Allergen Name Allergen Category Reaction Reaction Severity Criticality Documentation Date Start Date Code Code System Note Provider Name and Address Organization Details Recorded Time 95387 adhesive tape environme nt,medica tion Not available Not available Not available 05/10/2022 surgi andrey tape Not Available [facility] 13:55:14 Medications Name Sig Start Date Stop Date Status Note LastModified by Organization Details LastModified Time amoxicillin 500 mg capsule TAKE 4 CAPSULES BY MOUTH 1 HOUR PRIOR TO APPOINTME NT 06/02 completed Not Available Not Available Not Available furosemide 40 mg tablet TAKE 2 TABLETS BY MOUTH DAILY active Not Available Not Available No t Available prednisone 10 mg tablet TAKE 4 TABLETS BY MOUTH EVERY DAY FOR 5 DAYS 06/02 completed Not Available Not Available Not Available ipratropium 0.5 mg-albutero l 3 mg (2.5 mg base)/3 mL nebulizatio n soln USE 3 ML VIA NEBULIZER TWICE DAILY NEEDED FOR SHORTNESS OF BREATH OR WHEEZING 02/25 completed Not Available Not Available Not Available albuterol sulfate 2.5 mg/3 mL (0.083 %) solution for nebulizatio n USE 1 VIAL PER NEBULIZER EVERY 4 - 6 HOURS NEEDED FOR SHORTNESS OF BREATH OR WHEEZING 06/02 completed Not Available Not Available Not Available azithromyci n 250 mg tablet TAKE 2 TABLETS BY MOUTH TODAY, THEN TAKE 1 TABLET DAILY FOR 4 DAYS 06/02 completed Not Available Not Available Not Available metoprolol tartrate 100 mg tablet TAKE 2 TABLETS BY MOUTH TWICE A DAY active Not Available Not Available No t Available bupivacaine HCl 0.5 % (5 mg/mL) injection solution Take 3.5 mg by injection route. 06/02 completed Not Available Not Available Not Available prednisone 20 mg tablet TAKE 2 TABLETS BY MOUTH DAILY FOR 5 DAYS 06/02 completed Not Available Not Available Not Available alendronate 70 mg tablet PLEASE SEE ATTACHED FOR DETAILED DIRECTION S 06/02 completed Not Available Not Available Not Available levothyroxi ne 75 mcg tablet TAKE 1 TABLET BY MOUTH DAILY 02/25 completed Not Available Not Available Not Available levothyroxi ne 88 mcg tablet TAKE 1 TABLET BY MOUTH EVERY DAY active Not Available Not Available No t Available alprazolam 0.25 mg tablet TAKE 1 TABLET BY MOUTH TWICE A DAY NEEDED FOR ANXIETY active Not Available Not Available No t Available Kenalog 10 mg/mL suspension for injection Take 2 mL by injection route. 2022 active [facility]: 0003- 0494- 20 Not Available Not Available Not Available amlodipine 10 mg tablet TAKE 1 TABLET BY MOUTH EVERY DAY active Not Available Not Available No t Available clotrimazol e-betametha sone 1 %-0.05 % topical cream APPLY TO AFFECTED AREA TWICE A DAY (AM&PM)FO R 2 WEEKS 06/02 completed Not Available Not Available Not Available irbesartan 300 mg-hydrochl orothiazide 12.5 mg tablet 05/02 completed Not Available Not Available Not Available guanfacine 1 mg tablet TAKE 1 TABLET BY MOUTH AT BEDTIME 06/02 completed Not Available Not Available Not Available Xylocaine 20 mg/mL (2 %) injection solution In office injection administe red by the provider 06/02 completed Not Available Not Available Not Available hydralazine 50 mg tablet TAKE 1 TABLET BY MOUTH 3 TIMES A DAY 06/02 completed Not Available Not Available Not Available loteprednol etabonate 0.5 % eye drops,suspe nsion PLEASE SEE ATTACHED FOR DETAILED DIRECTION S 06/02 completed Not Available Not Available Not Available albuterol sulfate HFA 90 mcg/actuati on aerosol inhaler INHALE 2 PUFFS BY MOUTH EVERY 4 - 6 HOURS NEEDED FOR SHORTNESS OF BREATH 06/02 completed Not Available Not Available Not Available cefdinir 300 mg capsule TAKE 1 CAP BY MOUTH EVERY 12 HOURS FOR 10 DAYS 06/02 completed Not Available Not Available Not Available fluticasone propionate 50 mcg/actuati on nasal spray,suspe nsion SHAKE THEN INSTILL 2 SPRAYS INTO EACH NOSTRIL TWICE A DAY active Not Available Not Available No t Available irbesartan 300 mg tablet TAKE 1 TABLET BY MOUTH EVERY DAY active Not Available Not Available No t Available amoxicillin 875 mg-potassiu m clavulanate 125 mg tablet TAKE 1 TABLET ORALLY TWICE A DAY FOR 7 DAYS 06/02 completed Not Available Not Available Not Available Restasis 0.05 % eye drops in a dropperette INSTILL 1 DROP INTO BOTH EYES TWICE A DAY active Not Available Not Available No t Available rosuvastati n 10 mg tablet TAKE 1 TABLET BY MOUTH EVERY DAY active Not Available Not Available No t Available Prilosec OTC 20 mg tablet,kory yed release Take by oral route. 2019 active Not Available Not Available Not Avai lable milk thistle 2020 active Not Available Not Available Not Avai lable potassium acetate 2019 active Not Available Not Available Not Avai lable zinc take one tablet by mouth everyday 2020 active Not Available Not Available Not Avai lable Aspir-81 2019 active Not Available Not Available Not Avai lable cholecalcif rosa m (vitamin D3) active Not Available Not Available Not Available Metamucil 06/02 completed Not Available Not Available Not Available multivitami n 2019 active Not Available Not Available Not Avai lable lidocaine (PF) 10 mg/mL (1 %) injection solution In office injection administe red by the provider 02/25 completed [facility]: 0409- 4276- 17 Not Available Not Available Not Available lidocaine (PF) 5 mg/mL (0.5 %) injection solution In office injection administe red by the provider 06/02 completed Not Available Not Available Not Available hydrochloro thiazide 12.5 mg tablet TK 1 T PO QD 05/02 completed Not Available Not Available Not Available Symbicort 80 mcg-4.5 mcg/actuati on HFA aerosol inhaler INHALE 2 PUFFS BY MOUTH EVERY 12 HOURS, RINSE AND SPIT active Not Available Not Available No t Available ropivacaine (PF) 5 mg/mL (0.5 %) injection solution Take 3 mL by injection route. 2022 active Not Available Not Available Not Avai lable Fluzone High-Dose 2019-20 (PF) 180 mcg/0.5 mL intramuscul ar syringe ADM 0.5ML IM UTD 05/02 completed Not Available Not Available Not Available Vitals Date Recorded Body mass index (BMI) Body height Body weight Provider Name and Address Organization Details Last Updated DateTime 02/25/2021 41.8 kg/m2 154.94 cm 312240.91 g Not Available [facility] 05/10/2022 13:52:03 Date Recorded Body height Provider Name an d Address Organization Details Last Updated DateTime 06/01/2021 154.94 cm Not Available [facility] 13:52:03 Date Recorded Body height Provider Name an d Address Organization Details Last Updated DateTime 09/09/2021 154.94 cm Not Available [facility] 13:52:03 Date Recorded Body height Body mass index (BMI) Body weight Provider Name and Address Organization Details Last Updated DateTime 06/02/2022 154.94 cm 42.3 kg/m2 775824.69 g [facility] [place] [facility] 06/02/2022 15:16:40 Social History Question Answer Notes LastModified by Organizat ion Details LastModified Time Tobacco Smoking Status Never Smoker Not Available [facility] 05/10/2022 13:51:44 What Is Your Level Of Alcohol Consumption? None [id number] Information not available 05/10/2022 Sex: Unknown Functional Status None recorded. Mental Status None recorded. Family History Relationship Description Onset Age of this Age Resolved Age Notes LastModified by Organization Details LastModified Time Unspecified Relation Hypertensive disorder [id number] Not available 05/10/2022 13:51:47 Unspecified Relation Sleep apnea MIGRATION.[id number] Not available 05/10/2022 13:51:47 Unspecified Relation Sarcoidosis [id number].110 [id number] Not available 05/10/2022 13:51:47 Unspecified Relation Pulmonary hypertension [id number] Not available 05/10/2022 13:51:48 Mother Cerebrovascu lar accident [email or web address] Not available 15:19:11 Medical History Condition Response LUNG DISEASE/DISORDER Y COPD Y OSTEOPOROSIS Y CORONARY ARTERY DISEASE (CAD) Y ARTHRITIS Y HYPERTENSION Y Gynecological HistoryNo gynecological history recorded. Obstetrics History GPAL:G 0 P 0 0 0 0 Past Encounters Encounter ID Performer Location Encounter Start Date Encounter Closed Date Diagnosis/Indication Diagnosis SNOMED-CT Code Diagnosis ICD10 Code Diagnosis Note [id number] [facility] [address] [place] [address] 02/25/2021 00:00:00 02/25/2021 15:40:28 [id number] [facility] [address] [place] [address] 06/01/2021 00:00:00 06/01/2021 14:59:08 [id number] [facility] [address] [place] [address] 09/09/2021 00:00:00 09/09/2021 11:09:16 [id number] FRIEDA Clinton [facility] [address] [place] [address] 06/02/2022 14:48:50 06/02/2022 16:35:34 Osteoarthritis 054019020 M17.11 Health Concerns Section Related Observation LastModified by Organization Detai ls LastModified Time None Recorded Concern Status LastModified by Organization Details LastModified Time None Recorded Advance Directives Directive None Recorded Payers Encounter Date Sequence Insurance Name Policy Number Policy Feliz Covered Member ID Feliz Member ID Guarantor Name 06/02/2022 1 [employer] - PRIME (MEDICARE REPLACEMENT/ ADVANTAGE - HMO) [id number] Glenna Almendarez [id number] Glenna Almendarez OBGyn Episode No OBEpisode recorded.
--- OUTSIDE RECORDS SUMMARY | 2024-03-21 19:05 | XMS_ITS | Continuity of Care Document ---
Author Organization [facility] Address [address] [place] [address] [address] [place] [address] Phone Care Team Providers Care Ear Nose Throat Physician Name Role Phone Brinda Carlson Unavailable Unavailable Procedures Procedure Date Eye Exam Established Pt Eye Exam Established Pt Advance Directives Directive Yes / No Effective Date File Name No Information Encounters Encounter Description Practice Location Reason(s) For Visit Diagnoses Date Provider Providers Copied on Encounter [facility], [address] [place] [address] [address], [place], [place], [id number], tel:[phone] [facility] No Information May-3 0-201 [address] , [address], [place], [place], [facility], . tel:[phone] [facility], [address] [place] [address] [address], [place], [place], [id number], tel:[phone] [facility] No Information 2-200 9 Robyn Matson [address], [place], [place], [facility], [place]. tel:[phone] Family History Family Member Type Diagnosis Age At Onset No Information Payers Payer name Insurance type Covered libertarian ID Authoriza tion(s) Medicare RR MB [id number] [facility] Commercial [id number] Social History Type Description Quantity Date Captured Comments Sex Female Smoking Status No Information Chief Complaint And Reason For Visit No Information Reason For Referral Reason For Referral No Information History Of Present Illness Encounter Date Complaint History Of Prese nt Illness No Information Functional Status Date Functional Assessmen t No Information Instructions Date Instruction Additional Infor mation No Information Assessments Type Assessment Date No Information Patient Care Teams Name Effective Dates (start - stop) Status Members No Information
== END 2024-03-14 17:51 | disposition left against medical advice (07) ==
PROVIDERS: Emergency Provider Student in an Organized Health Care Education/Training Program; PCP Family Medicine
DX: R07.9 Chest pain, unspecified (principal); R06.02 Shortness of breath; I44.0 Atrioventricular block, first degree; I27.20 Pulmonary hypertension, unspecified; R09.81 Nasal congestion; G47.30 Sleep apnea, unspecified; J44.9 Chronic obstructive pulmonary disease, unspecified; F41.9 Anxiety disorder, unspecified; M19.90 Unspecified osteoarthritis, unspecified site; Z87.440 Personal history of urinary (tract) infections; K21.9 Gastro-esophageal reflux disease without esophagitis; I10 Essential (primary) hypertension; E78.5 Hyperlipidemia, unspecified
CPT/HCPCS: 36415; 71046; 80053; 83690; 83880; 84484; 85025; 85380; 85610; 85730; 87637; 93005; 96374; 99284; A9270

== ENCOUNTER 2024-04-03 10:08 | Outpatient (CLI) | payer MEDICARE, SELFPAY ==
--- NOTE | ~2024-04-03 | MM_ITS ---
EXAMINATION: MM screening jonathon BI w trey HISTORY: Screening TECHNIQUE: Craniocaudal and mediolateral oblique 3-D tomosynthesis images were obtained and synthetic 2-D images were generated. CAD analysis was submitted and interpreted. COMPARISON: Comparison to multiple prior studies sequentially, with oldest reviewed study dated 05/22. BREAST PARENCHYMAL COMPOSITION: Not dense: There are scattered areas of fibroglandular density. FINDINGS: There is no evidence of suspicious mass, calcification, or architectural distortion to sugg est malignancy in either breast. There has been no suspicious interval change. IMPRESSION: 1. No mammographic evidence of malignancy. 2. Recommend routine screening mammography in one year. BI-RADS Category 1: Negative Reviewed, dictated and finalized at location [facility]. [facility]
--- OUTSIDE RECORDS SUMMARY | 2024-04-04 04:15 | XMS_ITS | Data Portability ---
Author Organization [place] - [facility] [email or web address], Main Office Address [address] [place] [address] Care Team Providers Care Circulation Sales Representative Name Role Phone TIERRA CARUSO Primary Care Provider TIERRA CARUSO Referring Provider Assessment Encounter Date Assessment Date Assessment LastModified [...] without limp or assistance. She has a xdxs-hd-ugwgxcxv effusion in the right knee. Range of motion is from 3-130 degrees. She has qbim-ci-ybvlsbjb tenderness over both medial and lateral joint [...] the patient more than half of this lmhh-ni-axxb conversation shyla Not available 06/02/2022 16:18:45 Plan [...] DO Not Attach Compendium, Do Not Delete/merge, [id number] 14:54:28 Surgeries None recorded. Imaging None recorded. Medication Orders Kenalog 10 mg/mL suspension for injection [id number], [address] [place], [address], 3 16:32:38 ropivacaine (PF) 5 mg/mL (0.5 %) injection solution [address], [address] [place], [address], 16:32:38 Patient TargetsNo targets recorded. Patient InstructionsNo instructions recorded. Reason for Referral None Reported. Results Created Date Observation Date Name Description Value Unit Range Abnormal Flag Note LastModifiedBy Organization Detail LastModifiedTime 02/26/20 21 XR, knee No observ ation record ed. [id number] [facility] [address], [place], [address], 05/10/2022 13:55:15 Result Notes None recorded. Problems Name Problem SNOMED Code Status Onset Date Resolution Date Notes Provider Name and Address Organization Details Recorded Time Knee pain Active Not Available [facility] 13:52:17 Enthesopathy of knee 82148826 Active Not Available [facility] 13:52:17 Osteoarthriti s 467694319 Active 2021 Not Available [facility] 13:52:17 Problem Notes None recorded. Procedures Surgical History Date Name Laterality Status Provider Name and Address Organization Details Recorded Time biopsy of breast completed Not Available [facility] 05/10/2022 13:51:47 cardiac catheterization completed Not Available [facility] 05/10/2022 13:51:47 repair of meniscus completed Not Available [facility] 05/10/2022 13:51:47 hysterectomy completed Not Available [facility] 05/10/2022 13:51:47 Sinus Surgery completed Not Available [facility] 05/10/2022 13:51:47 total knee replacement completed Not Available [facility] 05/10/2022 13:51:47 biopsy of lung completed Andrzej Christianson [facility] 06/02/2022 15:20:06 Cataract Surgery completed Andrzej Christianson [facility] 06/02/2022 15:20:16 anal fissurectomy completed Andrzej Christianson [facility] 06/02/2022 15:20:29 Hemorrhoidectomy completed Andrzej Christianson [facility] 06/02/2022 15:20:36 Cholecystectomy completed Andrzej Christianson [facility] 06/02/2022 15:20:52 Imaging Results Imaging Date Name Status LastModified by Organiz ation Details LastModified Time 02/25/2021 XR, knee completed [id number] [facility] [place] [address], [place], [address], 05/10/2022 13:55:15 Procedure Notes None recorded. Medical Equipment None Reported. Allergies Allergen ID Allergen Name Allergen Category Reaction Reaction Severity Criticality Documentation Date Start Date Code Code System Note Provider Name and Address Organization Details Recorded Time 01990 adhesive tape environme nt,medica tion Not available Not available Not available 05/10/2022 41536 UNK surgi andrey tape Not Available [facility] 13:55:14 Medications Name Sig Start Date Stop [...] 2 mL by injection route. 2022 active [facility]: 0003- 0494- 20 Not Available Not Available [...] administe red by the provider 02/25 completed [facility]: 0409- 4276- 17 Not Available Not Available [...] Updated DateTime 02/25/2021 41.8 kg/m2 154.94 cm 095069.91 g Not Available [facility] 05/10/2022 13:52:03 Date Recorded Body height Provider Name an d Address Organization Details Last Updated DateTime 06/01/2021 154.94 cm Not Available [facility] 13:52:03 Date Recorded Body height Provider Name an d Address Organization Details Last Updated DateTime 09/09/2021 154.94 cm Not Available [facility] 13:52:03 Date Recorded Body height Body mass index (BMI) Body weight Provider Name and Address Organization Details Last Updated DateTime 06/02/2022 154.94 cm 42.3 kg/m2 009782.69 g [facility] [place] [facility] [employer] [facility] 06/02/2022 15:16:40 Social History Question Answer Notes LastModified by Organizat ion Details LastModified Time Tobacco Smoking Status Never Smoker Not Available [facility] 05/10/2022 13:51:44 What Is Your Level Of Alcohol Consumption? None [id number] Information not available 05/10/2022 Sex: Unknown Functional Status None recorded. Mental Status None recorded. Family History Relationship Description Onset Age of this Age Resolved Age Notes LastModified by Organization Details LastModified Time Unspecified Relation Hypertensive disorder [id number] Not available 05/10/2022 13:51:47 Unspecified Relation Sleep apnea MIGRATION.202 [id number] Not available 05/10/2022 13:51:47 Unspecified Relation Sarcoidosis MIGRATION.719 [id number] Not available 05/10/2022 13:51:47 Unspecified Relation Pulmonary hypertension MIGRATION.986 [id number] Not available 05/10/2022 13:51:48 Mother Cerebrovascu lar accident [email or web address] Not available 15:19:11 Medical History Condition Response LUNG DISEASE/DISORDER Y COPD Y CORONARY ARTERY DISEASE (CAD) Y HYPERTENSION Y OSTEOPOROSIS Y ARTHRITIS Y Gynecological HistoryNo gynecological history recorded. Obstetrics History GPAL:G 0 P 0 0 0 0 Past Encounters Encounter ID Performer Location Encounter Start Date Encounter Closed Date Diagnosis/Indication Diagnosis SNOMED-CT Code Diagnosis ICD10 Code Diagnosis Note [id number] [facility] [address] [place] [address] 02/25/2021 00:00:00 02/25/2021 15:40:28 [id number] [facility] [place] [address] [place] [address] 06/01/2021 00:00:00 06/01/2021 14:59:08 [id number] [facility] [place] [address] [place] [address] 09/09/2021 00:00:00 09/09/2021 11:09:16 [id number] FRIEDA Clinton [facility] [address] [place] [address] 06/02/2022 14:48:50 06/02/2022 16:35:34 Osteoarthritis 627369089 M17.11 Health Concerns Section Related Observation LastModified by Organization Detai ls LastModified Time None Recorded Concern Status LastModified by Organization Details LastModified Time None Recorded Advance Directives Directive None Recorded Payers Encounter Date Sequence Insurance Name Policy Number Policy Feliz Covered Member ID Feliz Member ID Guarantor Name 06/02/2022 1 [employer] - PRIME (MEDICARE REPLACEMENT/ ADVANTAGE - HMO) [id number] Glenna Almendarez [id number] Glenna Almendarez OBGyn Episode No OBEpisode recorded.
--- OUTSIDE RECORDS SUMMARY | 2024-04-04 04:15 | XMS_ITS | Data Portability ---
Author Organization [facility] [place] Address [address] [place] [address] Assessment No assessment recorded. Plan of Treatment Reminders Order Date Submit Date Provider Last Modified By Organization Details Last Modified Time Details Appointments None recorded. Lab None recorded. Referral None recorded. Procedures None recorded. Surgeries None recorded. Imaging None recorded. Medication Orders clotrimaz ole-betam ethasone 1 %-0.05 % topical cream RAYMOND [id number], [address], [id number], 14:37:55 Patient TargetsNo targets recorded. Patient InstructionsNo instructions recorded. Reason for Referral None Reported. Problems Name Problem SNOMED Code Status Onset Date Resolution Date Notes Provider Name and Address Organization Details Recorded Time Screenin g for malignan t neoplasm of rectum Completed 201212/07/2020 Screenin g for malignan t neoplasm s of the rectum;[facility] [id number] Rachel Forrester nona [facility] 1 14:22:04 Urinary tract infectio us disease 53908192 Completed 201612/07/2020 Urinary tract infectio n, site not specifie d;Practi ce ID: 0001 Rachel Forrester nona [facility] 1 14:22:10 Atrophic vaginiti s 86887132 Active 2016 Postmeno pausal atrophic vaginiti s;Practi ce ID: 0001 Not Available [facility] 0 21:23:44 Vaginola bial hernia Active 2017 Other specifie d noninfla mmatory disorder s of vagina;P ractice ID: 0001 Not Available [facility] 0 21:23:44 Blood leukocyt e number above referenc e range 297944204 Completed 201712/07/2020 Elevated white blood cell count, unspecif ied;Prac darin ID: 0001 Rachelroberto Forrester [facility] 14:22:13 Acute vaginiti s 63982159 Active 2017 Acute vaginiti s;Practi ce ID: 0001 Not Available [facility] 0 21:23:45 Speciali zed medical examinat ion Completed 201212/07/2020 Gynecolo gical Examinat ion;Jesus rded Elsewher e: No [facility]: [employer] shay: N Practi ce ID: 0001 Coy lable Time: 12:30:00 PM Rachelroberto Forrester [facility] 14:22:08 Screenin g for malignan t neoplasm of cervix Completed 201212/07/2020 Pap Smear;Pr actice ID: 0001 Rachelroberto Forrester [facility] 14:22:02 Problem Notes None recorded. Procedures Surgical History Date Name Laterality Status Provider Name and Address Organization Details Recorded Time Colonoscopy completed [facility] 12/28/2020 14:46:23 Colonoscopy completed [facility] 12/28/2020 14:46:24 Dilation and Curettage completed [facility] 12/28/2020 14:46:34 Flexible Sigmoidoscopy completed [facility] 12/28/2020 14:46:45 Unlisted px accessory sinus completed [facility] 12/28/2020 14:46:55 biopsy of skin completed [facility] 12/28/2020 14:47:17 Removal of anal fissure completed [facility] 12/28/2020 14:47:42 hemorrhoidectomy completed [facility] 12/28/2020 14:48:05 hysterectomy completed [facility] 12/28/2020 14:51:44 biopsy of breast completed [facility] 12/28/2020 14:52:03 biopsy of lung completed [facility] 12/28/2020 14:52:19 endoscopy completed [facility] 12/28/2020 14:52:35 arthroplasty of knee completed [facility] 12/28/2020 14:53:18 Cholecystectomy completed [facility] 12/28/2020 14:53:26 cardiac catheterization completed [facility] 12/28/2020 14:53:58 needle biopsy completed [facility] 12/28/2020 14:54:10 Imaging Results None recorded. Procedure Notes None recorded. Medical Equipment None Reported. Allergies No known drug allergies Medications Name Sig Start Date Stop Date Status Note LastModified by Organization Details LastModified Time irbesarta n 150 mg-hydroc hlorothia zide 12.5 mg tablet take 1 tablet by oral route every day 2016 active Prescrib ed Elsewher e: Yes Loca tion: [facility] M odify By: shiraz virgen DateTime : 03/21/19 17 02:00:00 PM Not Available Not Available Not Available alprazola m 1 mg tablet take 1 tablet by oral route 3 times every day 2016 active Prescrib ed Elsewher e: Yes Loca tion: [facility] M odify By: shiraz Williste r DateTime : 03/21/19 17 02:00:00 PM Not Available Not Available Not Available vitamin E 600 unit capsule 2016 active Prescrib ed Elsewher e: Yes Loca tion: [facility]o [facility] odify By: shiraz Williste r DateTime : 03/21/19 17 02:00:00 PM Not Available Not Available Not Available Synthroid 100 mcg tablet take 1 tablet by oral route every day 03/21 completed Prescrib ed Elsewher e: Yes Loca tion: [facility] odify By: shiraz Williste r DateTime : 06/18/19 13 12:30:00 PM Not Available Not Available Not Available Prilosec 20 mg capsule,d elayed release take 1 capsule by oral route every day before a meal active Prescrib ed Elsewher e: Yes Loca tion: [facility] odify By: [email or web address] trick En counter DateTime : 06/18/19 13 12:30:00 PM Not Available Not Available Not Available milk thistle 175 mg tablet 2016 active Prescrib ed Elsewher e: Yes Loca tion: [facility]o [facility] odify By: shiraz Williste r DateTime : 03/21/19 17 02:00:00 PM Not Available Not Available Not Available clobetaso l 0.05 % topical cream apply by topical route every day a thin layer to the affected area(s) 2017 active Prescrib ed Elsewher e: No Locat ion: [facility] odify By: neeta ling DateTime : 10/17/19 18 03:45:00 PM Not Available Not Available Not Available nystatin 500,000 unit tablet take 1 tablet by oral route 3 times every day continui ng treatmen t for at least 2 days after symptoms have disappea red 2016 active Prescrib ed Elsewher e: Yes Loca tion: [facility] odify By: shiraz Encounte r DateTime : 03/21/19 17 02:00:00 PM Not Available Not Available Not Available triamcino lone acetonide 0.1 % topical cream apply by topical route 2 times every day a thin layer to the affected area(s) 2016 active Prescrib ed Elsewher e: Yes Loca tion: [facility] odify By: shiraz Williste r DateTime : 03/21/19 17 02:00:00 PM Not Available Not Available Not Available levothyro xine 25 mcg tablet take 1 tablet by oral route every day 2016 active Prescrib ed Elsewher e: Yes Loca tion: [facility] odify By: shiraz Encounte r DateTime : 03/21/19 17 02:00:00 PM Not Available Not Available Not Available aspirin 500 mg tablet take 2 tablet by oral route every 6 hours as needed active Prescrib ed Elsewher e: Yes Loca tion: [facility] odify By: [email or web address] trick En counter DateTime : 06/18/19 13 12:30:00 PM Not Available Not Available Not Available potassium 99 mg tablet active Prescrib ed Elsewher e: Yes Loca tion: [facility] odify By: [email or web address] trick En counter DateTime : 06/18/19 13 12:30:00 PM Not Available Not Available Not Available Metrogel Vaginal 0.75 % (37.5 mg/5 gram) insert 1 applicat orful by vaginal route every day at bedtime for 5 nights 10/22 completed Prescrib ed Elsewher e: No Locat ion: [facility] odify By: rj concepcion DateTime : 10/23/19 18 11:56:59 AM Not Available Not Available Not Available triamcino lone acetonide 0.025 % topical cream apply by topical route 2 times every day a thin layer to the affected area(s) 03/21 completed Prescrib ed Elsewher e: Yes Loca tion: [facility] odify By: shiraz Encounte r DateTime : 06/18/19 13 12:30:00 PM Not Available Not Available Not Available Flagyl 500 mg tablet take 1 tablet by oral route every 12 hours 10/30 completed Prescrib ed Elsewher e: No Locat ion: [facility] odify By: [email or web address] Encounte r DateTime [...] Yes Loca tion: [facility] odify By: [email or web address] trick En counter DateTime : 06/18/19 13 12:30:00 PM Not Available Not Available Not Available Fish Oil 500 mg capsule active Prescrib ed Elsewher e: Yes Loca tion: [facility] odify By: [email or web address] trick En counter DateTime : 06/18/19 13 12:30:00 PM Not Available Not Available Not Available Restasis 0.05 % eye drops in a dropperet te instill 1 drop by ophthalm ic route every 12 hours into affected eye(s) 03/21 completed Prescrib ed Elsewher e: Yes Loca tion: [facility] odify By: shiraz Encounte r DateTime : 06/18/19 13 12:30:00 PM Not Available Not Available Not Available Premarin 0.625 mg/gram vaginal cream insert 1 (1G) by vaginal route every day for 2 weeks, then insert .5 gram by vaginal route two times a week prn 03/21 completed Prescrib ed Elsewher e: No Locat ion: [facility] odify By: shiraz Encounte r DateTime : 06/18/19 13 12:30:00 PM Not Available Not Available Not Available Benicar HCT 40 mg-12.5 mg tablet take 1 tablet by oral route every day 03/21 completed Prescrib ed Elsewher e: Yes Loca tion: [facility] odify By: shiraz Encounte r DateTime : 06/18/19 13 12:30:00 PM Not Available Not Available Not Available Crestor 20 mg tablet take 1 tablet by oral route every day 2016 active Prescrib ed Elsewher e: Yes Loca tion: [facility] odify By: shiraz Williste r DateTime : 03/21/19 17 02:00:00 PM Not Available Not Available Not Available metoprolo l tartrate 25 mg tablet take 1 tablet by oral route 2 times every day active Prescrib ed Elsewher e: Yes Loca tion: [facility] odify By: [email or web address] trick En counter DateTime : 06/18/19 13 12:30:00 PM Not Available Not Available Not Available biotin 5 mg tablet 2016 active Prescrib ed Elsewher e: Yes Loca tion: [facility] odify By: shiraz Williste r DateTime : 03/21/19 17 02:00:00 PM Not Available Not Available Not Available amlodipin e besylate (bulk) 100 % powder active Prescrib ed Elsewher e: Yes Loca tion: [facility] odify By: [email or web address] trick En counter DateTime : 06/18/19 13 12:30:00 PM Not Available Not Available Not Available Multi For Her 18 mg iron-600 mcg-40 mcg capsule active Prescrib ed Elsewher e: Yes [facility] By: [email or web address] trick En counter DateTime : 06/18/19 13 12:30:00 PM Not Available Not Available Not Available Vitals Date Recorded Body weight Body mass index (BMI) Body height Systolic blood pressure Diastolic blood pressure Provider Name and Address Organization Details Last Updated DateTime 12/07/2020 792493.5 1 g 40.6 kg/m2 157.48 cm 198 mm[Hg] 104 mm[Hg] Rachel Forrester [facility] 14:07:01 Social History None recorded. Functional [...] SNOMED-CT Code Diagnosis ICD10 Code Diagnosis Note [id number] Jae Gibbons MD [place] [address] [address] 12/07/2020 13:43:34 12/08/2020 14:19:08 Lesion of vulva 562113264 N90.89 This patient is an 80-year-ol d [...] Feliz Member ID Guarantor Name 12/07/2020 2 [employer] - PLAN F (MEDICARE SUPPLEMENT) Glenna Almendarez [id number] Glenna Erickson 12/07/2020 1 MEDICARE B: [facility] Glenna Almendarez [id number] Glenna Almendarez Notes Date Note Type [...] anatomy. Jae Gibbons MD [address], [place], [address], [place] [facility] 12/07/2020 18:05:54 OBGyn Episode Ob Episode Information Episode Created Date Number of Fetuses Patient Bloodtype Patient rh Status Prepregnancy Weight lbs Domestic Partner Domestic Partner Phone Father Name Drum Sander Status 12/08/19 21 1 CLOSED Fetus Data First Name Last Name Admitted to NICU Weight (g) Sex Living Outcome Pediatric Complications Fetus ID Race Codes Race Delivery Type , Spontane ous [id number] Abad Calculation Initial Abad Date Initial Exam [...] Domestic Partner Domestic Partner Phone Father Name Drum Sander Status 12/08/19 21 2 CLOSED Fetus Data First Name Last Name Admitted to NICU Weight (g) Sex Living Outcome Pediatric Complications Fetus ID Race Codes Race Delivery Type 2778.25 1 F [id number] Vaginal Delivery 2664.85 3 M [id number] Abad Calculation Initial Abad Date Initial Exam [...] Domestic Partner Domestic Partner Phone Father Name Drum Sander Status 12/08/19 21 1 CLOSED Fetus Data First Name Last Name Admitted to NICU Weight (g) Sex Living Outcome Pediatric Complications Fetus ID Race Codes Race Delivery Type 2664.85 3 M [id number] Vaginal Delivery Abad Calculation Initial Abad Date [...]
== END 2024-04-03 10:09 | disposition home or self-care (01) ==
PROVIDERS: PCP Family Medicine; Visit Provider Family Medicine
DX: Z12.31 Encounter for screening mammogram for malignant neoplasm of breast (principal)
CPT/HCPCS: 77063; 77067

== ENCOUNTER 2024-07-18 00:46 | Day surgery (SDC) | payer MEDICARE, SELFPAY ==
[2024-07-07 14:07] VITALS: BMI 39.9
--- NOTE | 2024-07-07 14:31 | PC.NURSE ---
Spoke with patient regarding medication Warfarin. Patient verbalizes understanding that the last dose is to be taken on 07/13/24 and the Endoscopist will instruct them when to restart after the procedure.
--- OUTSIDE RECORDS SUMMARY | 2024-07-18 00:49 | XMS_ITS | Referral Summary ---
Author Organization [place] [address] [place] [address] [address] [place] [address] Care Team Providers Care Spinner Continuous Name Role Phone Tru Benites MD Primary Care Provider [phone] Encounters Date Type Department Care Team Description 07/14/2024 Telephone [facility] Cardiology [address] [place] [address] [address] [place] [address] Avril Almeida MA [employer] 07/11/2024 Anticoagulation Visit [facility] Cardiology [address] [place] [address] [address] [place] [address] Kelly Garber RN Atrial fibrillation, unspecified type (HCC) (Primary Dx); terminologist (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 07/11/2024 11:00 AM CDT Office Visit [address] [place] [address] Yaima Rossi NP Sarcoidosis; Paroxysmal atrial fibrillation (HCC); terminologist (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 07/04/2024 Anticoagulation Visit [facility] Cardiology [address] [place] [address] [address] [place] [address] Yaw Montanez RN Atrial fibrillation, unspecified type (HCC) (Primary Dx); terminologist (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 06/30/2024 Telephone [facility] Cardiology [address] [place] [address] [address] [place] [address] Eddie Bennett MD [employer] 06/27/2024 Telephone [facility] Cardiology [address] [place] [address] [place] [phone] Eddie Bennett MD 06/20/2024 Anticoagulation Visit [facility] Cardiology [address] [place] [address] [place] [phone] Kelly Garber RN Atrial fibrillation, unspecified type (HCC) (Primary Dx); intermediate (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 06/13/2024 Anticoagulation Visit [place] [address] [place] [phone] Nancy Vergara RN Atrial fibrillation, unspecified type (HCC) (Primary Dx); intermediate (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 06/10/2024 Telephone [place] [address] [place] [phone] Eddie Bennett MD [facility] Pt Assistance 06/04/2024 Anticoagulation Visit [place] [address] [place] [phone] Avril Luciano RN Atrial fibrillation, unspecified type (HCC) (Primary Dx); intermediate (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 06/02/2024 Telephone [place] [address] [place] [phone] Eddie Bennett MD 05/20/2024 Telephone [facility] Cardiology [address] [place] [address] [place] [phone] Eddie Bennett MD 05/19/2024 Telephone [facility] Cardiology [address] [place] [address] [place] [phone] Eddie Bennett MD 04/22/2024 Telephone [facility] Cardiology [address] [place] [address] [place] [phone] Avril Almeida MA [employer] 04/22/2024 2:00 PM CLARIFIER OPERATOR Ancillary Procedure [place] [address] [place] [phone] Pulmonary HTN (HCC) from Last 3 Months Allergies Active Allergy Reactions Criticality Noted Date Comments Adhesive Unknown 04/03/2023 Medications irbesartan (AVAPRO) 300 mg tablet Take 1 tablet (300 mg total) by mouth daily Active rosuvastatin (CRESTOR) 10 mg tablet Take 1 tablet (10 mg total) by mouth daily Active omeprazole OTC (PriLOSEC OTC) 20 mg EC tablet Take 1 tablet (20 mg total) by mouth 2 (two) times a day Active ALPRAZolam (XANAX) 0.25 mg tablet Take 1 tablet (0.25 mg total) by mouth 3 (three) times a day as needed Active furosemide (LASIX) 40 mg tablet Take 2 tablets (80 mg total) by mouth daily Active psyllium 0.52 gram capsule Take 1 capsule (0.52 g total) by mouth daily Active multivitamin capsule Take 1 capsule by mouth daily Active vitamin E (AQUASOL E) 400 unit capsule 1 capsule (400 Units total) Active cholecalciferol (VITAMIN D-3) 5,000 unit capsule Take 1 capsule (5,000 Units total) by mouth daily Active vitamin B complex capsule Take 1 capsule by mouth daily Active milk thistle 500 mg capsule Take by mouth Activ e ProAir HFA 90 mcg/actuation inhaler Inhale 2 puffs 021 Active Symbicort 80-4.5 mcg/actuation inhaler INHALE 2 PUFFS BY MOUTH EVERY MORNING AND EVERY EVENING. RINSE MOUTH AFTER USE 021 Active levothyroxine (SYNTHROID) 88 mcg tablet Take 1 tablet (88 mcg total) by mouth daily 022 Active alendronate (FOSAMAX) 70 mg tablet TAKE 1 TABLET BY MOUTH ONCE WEEKLY 023 Active cycloSPORINE (Restasis) 0.05 % ophthalmic emulsion Restasis 0.05 % eye drops in a dropperette INSTILL 1 DROP INTO BOTH EYES TWICE A DAY Active amLODIPine (NORVASC) 10 mg tablet Take 1 tablet (10 mg total) by mouth daily 90 tablet 023 Active ROOT BEER FLAVOR, BULK, MISC Active potassium gluconate 600 mg (99 mg) tablet Take 2 tablets by mouth daily Active metoprolol tartrate (LOPRESSOR) 50 mg immediate release tabletIndication s:Paroxysmal atrial fibrillation (HCC) Take 1 tablet (50 mg total) by mouth 2 (two) times a day In addition, take 100 mg tablet at night (total daily dose 200 mg) 025 Active metoprolol (LOPRESSOR) 100 mg tabletIndication s:Paroxysmal atrial fibrillation (HCC) Take 1 tablet (100 mg total) by mouth nightly In addition to taking 50 mg bid (total daily dose 200 mg) 90 tablet 3 025 Active dronedarone (MULTAQ) 400 mg tabletIndication s:Paroxysmal atrial fibrillation (HCC) Take 1 tablet (400 mg total) by mouth 2 (two) times a day with meals 180 tablet 3 025 Active hydrALAZINE (APRESOLINE) 50 mg tablet TAKE 1 TABLET BY MOUTH THREE TIMES A DAY 270 tablet 1 025 Active warfarin (COUMADIN) 2 mg tabletIndication s:Paroxysmal atrial fibrillation (HCC),terminologist current use of 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 therapy Take 6 mg (2 mg x 3) every Mon, Fri; 4 mg (2 mg x 2) all other days, Or as instructed. 64 tablet 025 Active fluticasone propionate (FLONASE) 50 mcg/actuation nasal spray Administer 2 sprays into each nostril daily 025 Active hydrALAZINE (APRESOLINE) 50 mg tablet TAKE 1 TABLET BY MOUTH THREE TIMES A DAY 270 tablet 1 024 2024 Discontinued warfarin (COUMADIN) 2 mg tabletIndication s:Paroxysmal atrial fibrillation (HCC),intermediate current use of 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 therapy Take 2 tablets (4 mg total) by mouth daily Or as instructed. 60 tablet 1 025 2024 Discontinued(R eorder) Active Problems Problem Noted Date Diagnosed Date Atrial fibrillation 06/04/2024 intermediate (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 2024 LVH (left ventricular hypertrophy) 12/20/2022 Paroxysmal atrial fibrillation 11/30/2022 terminologist current use of 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 therapy 0 11/30/2022 High risk medication use 11/30/2022 Lymphedema 05/03/2022 PVC's (premature ventricular contractions) 01/26 Premature atrial contractions 01/26/2021 Other chest pain 01/26/2021 HTN (hypertension), benign 11/13/2019 Sarcoidosis 11/13/2019 Morbid obesity with BMI of 40.0-44.9, adult 05/2019 Pulmonary HTN (CMS/HCC) 11/13/2019 Localized edema 11/13/2019 Palpitations 11/13/2019 NICOLE on CPAP 11/13/2019 Shortness of breath 11/13/2019 Social History Tobacco Use Types Packs/Day Years Used Date Smoking Tobacco: Never Smokeless Tobacco: Never Tobacco Cessation:Counseling Given: Not Answered Alcohol Use Standard Drinks/Week Comments Not Currently 0 (1 standard drink = 0.6 oz pur e alcohol) Comments Unknown Sex and Gender Information Value Date Recorded Sex Assigned at Not on file Legal Sex Female 2:35 AM CLARIFIER OPERATOR Gender Identity Not on file Sexual Orientation Not on file Last Filed Vital Signs Vital Sign Reading Time Taken Comments Blood Pressure 134/64 07/11/2024 11:01 AM CDT Pulse 63 07/11/2024 11:01 AM CDT Temperature - - Respiratory Rate - - Oxygen Saturation 95% 07/11/2024 11:01 AM CDT Inhaled Oxygen Concentration - - Weight 98.9 kg (218 lb) 07/11/2024 11:01 AM CDT Height 157.5 cm (5' 2 ) 07/11/2024 11:01 AM CDT Body Mass Index 39.87 07/11/2024 11:01 AM CDT Plan of Treatment Not on file Procedures Procedure Name Priority Date/Time Associated Diagnosis Comments PROTIME-INR Routine 07/10/2024 10:46 AM CDT Paroxysmal atrial fibrillation (HCC) intermediate current use of 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 therapy PROTIME-INR Routine 07/03/2024 10:50 AM CDT Paroxysmal atrial fibrillation (HCC) terminologist current use of 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 therapy PROTIME-INR Routine 06/19/2024 10:40 AM CDT Paroxysmal atrial fibrillation (HCC) intermediate current use of 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 therapy PROTIME-INR Routine 06/12/2024 10:43 AM CDT Paroxysmal atrial fibrillation (HCC) intermediate current use of 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 therapy TRANSTHORACIC ECHO (TTE) COMPLETE W DOPPLER/CF WO CONTRAST Routine 04/22/2024 2:14 PM CLARIFIER OPERATOR Pulmonary HTN (HCC) from Last 3 Months Results * (ABNORMAL) Protime-INR (07/10/2024 10:46 AM CDT) INR 1.7(H) [facility] Comment: Reference Range 0.9-1.1 Moderate-intensity Warfarin Therapy 2.0-3.0 Higher-intensity Warfarin Therapy 3.0-4.0 PT 17.5(H) 9.0 - 11.5 sec [facility] Comment: For additional information, please refer to http://[employer]/faq/VAG400 (This link is being provided for informational/ educational purposes only.) Blood 07/10/2024 10:4 6 AM CDT 07/10/2024 10:46 AM CDT Yaima Rossi NP LAB BLOOD ORDERABLES Meg l Result [facility] [address] [place] [address] * (ABNORMAL) Protime-INR (07/03/2024 10:50 AM CDT) INR 1.8(H) [facility] Comment: Reference Range 0.9-1.1 Moderate-intensity Warfarin Therapy 2.0-3.0 Higher-intensity Warfarin Therapy 3.0-4.0 PT 18.4(H) 9.0 - 11.5 sec [facility] Comment: For additional information, please refer to http://[employer]/faq/KWH818 (This link is being provided for informational/ educational purposes only.) Blood 07/03/2024 10:5 0 AM CDT 07/03/2024 10:50 AM CDT Yaima Pallavi Enid TORCH STRAIGHTENER LAB BLOOD ORDERABLES Meg l Result Performing Organization Address [facility] de Phone Number [facility] [address] [place] [address] * (ABNORMAL) Protime-INR (06/19/2024 10:40 AM CDT) INR 1.8(H) [facility] Comment: Reference Range 0.9-1.1 Moderate-intensity Warfarin Therapy 2.0-3.0 Higher-intensity Warfarin Therapy 3.0-4.0 PT 18.8(H) 9.0 - 11.5 sec [facility] Comment: For additional information, please refer to http://[employer]/faq/WDA751 (This link is being provided for informational/ educational purposes only.) Blood 06/19/2024 10:4 0 AM CDT 06/19/2024 10:41 AM CDT Yaima Rossi TORCH STRAIGHTENER LAB BLOOD ORDERABLES Meg l Result Performing Organization Address [facility] de Phone Number [facility] [address] [place] [address] * (ABNORMAL) Protime-INR (06/12/2024 10:43 AM CDT) INR 1.7(H) [facility] Comment: Reference Range 0.9-1.1 Moderate-intensity Warfarin Therapy 2.0-3.0 Higher-intensity Warfarin Therapy 3.0-4.0 PT 17.6(H) 9.0 - 11.5 sec [facility] Comment: For additional information, please refer to http://[employer]/faq/PGK141 (This link is being provided for informational/ educational purposes only.) Blood 06/12/2024 10:4 3 AM CDT 06/12/2024 10:44 AM CDT Yaima Olivo Enid TORCH STRAIGHTENER LAB BLOOD ORDERABLES Meg l Result Performing Organization Address [facility] Co de Phone Number [facility] [address] [place] [address] * TRANSTHORACIC ECHO (TTE) COMPLETE W DOPPLER/CF WO CONTRAST (04/22/2024 2:14 PM CLARIFIER OPERATOR) LV EF % CONS SCIMAGE Anatomical Region Laterality Modality Ultrasound 04/22/2024 1:38 PM CLARIFIER OPERATOR Narrative 04/23/2024 8:[address] [facility] Cardiology [address] [facility] [address], [place] [address] [address] [facility] [address], [place] [address] P:[phone] P:[phone] Echocardiographic Report Patient Name: ERIKA WHITEHEAD M : 1940 Study Date: 04/22/2024 1:38:44 PM Gender: F Tech: Location: [place] Ref Provider: YAIMA ROSSI Height(Cm): 157 BSA: 2.08 Weight(Kg): 99.3 Heart Rate: 63 BP: 120 / 56 Quality: Good Order Provider: YAIMA ROSSI PROCEDURES: Echocardiographic Report: Transthoracic echocardiogram with complete 2D, M-Mode, and color Doppler examination. With Strain Analysis. INDICATIONS: Dyspnea on Exertion and I27.20 Pulmonary hypertension, unspecified. MEASUREMENTS: 2D/MM Value Range Doppler Value Range EF Mod BP 59 % [ 54 - 74 ] AV Mean PG 6 mmHg EF Teich MM 56 % [ 54 - 74 ] AV Peak Aiden 1.66 m/s [ 1.00 - 1.70 ] LVIDd 2D 5.39 cm [ 3.80 - 5.20 ] AV Peak PG 11 mmHg LVIDd MM 5.64 cm [ 3.80 - 5.20 ] AV VTI 38.96 cm LVIDs 2D 3.50 cm [ 2.20 - 3.50 ] LVOT Peak Aiden 1.46 m/s [ 0.70 - 1.10 ] LVIDs MM 3.98 cm [ 2.20 - 3.50 ] LVOT VTI 32.51 cm LVPWd 2D 1.10 cm [ 0.60 - 0.90 ] MV E Peak Aiden 0.97 m/s [ 0.60 - 1.30 ] LVPWd MM 1.04 cm [ 0.60 - 0.90 ] MV A Peak Aiden 0.82 m/s [ 1.00 - 1.20 ] IVSd 2D 1.18 cm [ 0.60 - 0.90 ] MV Decel Time 244 msec [ 104 - 258 ] IVSd MM 1.20 cm [ 0.60 - 0.90 ] PV Peak Aiden 1.30 m/s [ 0.40 - 0.80 ] LA Dimension MM 3.61 cm [ 2.70 - 3.80 ] TR Peak Aiden 2.97 m/s [ 1.00 - 2.80 ] AoR Diam MM 3.40 cm [ 2.70 - 3.70 ] TR Peak PG 35 mmHg LA Volume Index 32 cc/m2 [ 16 - 34 ] RVSP 43.00 mmHg [ 10.00 - 36.00 ] ACS MM 2.02 cm Lateral E` 0.10 m/s [ 0.10 - 0.15 ] E` 0.06 m/s E/E` 10 2D/MM Value Range Doppler Value Range - FINDINGS: Interpretation Site: Exam was interpreted at [facility]. Left Ventricle: Ejection fraction is measured at 59 %. Global Longitudinal Strain is -18 %. The left ventricle is normal in size and systolic function. Grade 1 diastolic dysfunction is present. Right Ventricle: The right ventricle is normal in size and systolic function. Left Atrium: The left atrium is normal in size. Right Atrium: The right atrium is normal in size. Atrial Septum: The atrial septum visually appears intact. Mitral Valve: The mitral valve opens well. There is no significant mitral regurgitation. Aortic Valve: The aortic valve is probably trileaflet and opens well. There is no aortic regurgitation. Tricuspid Valve: The tricuspid valve is normal. There is mild tricuspid regurgitation. There is insufficient tricuspid regurgitation to estimate the pulmonary pressures. Pulmonic Valve: The pulmonic valve is grossly normal. There is trace pulmonic valve regurgitation. Pericardium: Normal pericardium with no significant pericardial effusion. Aorta: The aortic root at the level of the sinus of Valsalva measures 2.9 cm in diameter. IVC: Normal size and normal respiratory collapse consistent with normal right atrial pressure (<5 mmHg). CONCLUSIONS: There is normal biventricular size and systolic function. The left ventricle has grade 1 diastolic dysfunction. The GLS is normal measuring at -18%. There is insufficient tricuspid regurgitation to estimate the pulmonary pressures. The right atrial pressure is estimated to be less than 5 mm Hg. Electronically Signed By: Dr. Joel Griffin 04/23/2024 8:24:44 AM CLARIFIER OPERATOR Procedure Note Joel Griffin MD - 04/23/2024 [facility] [address] [facility] [address] [id number] [address] [facility] [address], [place] [address] P:[phone] P:[phone] Echocardiographic Report Patient Name: ERIKA WHITEHEAD M : 1940 Study Date: 04/22/2024 1:38:44 PM Gender: F Tech: Location: [facility] Provider: YAIMA ROSSI Height(Cm): 157 BSA: 2.08 Weight(Kg): 99.3 Heart Rate: 63 BP: 120 / 56 Quality: Good Order Provider: YAIMA ROSSI PROCEDURES: Echocardiographic Report: Transthoracic echocardiogram with complete 2D, M-Mode, and color Dopplerexamination. With Strain Analysis. INDICATIONS: Dyspnea on Exertion and I27.20 Pulmonary hypertension, unspecified. MEASUREMENTS: 2D/MM Value Range Doppler ValueRange EF Mod BP 59 % [ 54 - 74 ] AV Mean PG 6mmHg EF Teich MM 56 % [ 54 - 74 ] AV Peak Aiden 1.66m/s [ 1.00 - 1.70 ] LVIDd 2D 5.39 cm [ 3.80 - 5.20 ] AV Peak PG 11mmHg LVIDd MM 5.64 cm [ 3.80 - 5.20 ] AV VTI 38.96cm LVIDs 2D 3.50 cm [ 2.20 - 3.50 ] LVOT Peak Aiden 1.46m/s [ 0.70 - 1.10 ] LVIDs MM 3.98 cm [ 2.20 - 3.50 ] LVOT VTI 32.51cm LVPWd 2D 1.10 cm [ 0.60 - 0.90 ] MV E Peak Aiden 0.97m/s [ 0.60 - 1.30 ] LVPWd MM 1.04 cm [ 0.60 - 0.90 ] MV A Peak Aiden 0.82m/s [ 1.00 - 1.20 ] IVSd 2D 1.18 cm [ 0.60 - 0.90 ] MV Decel Time 244msec [ 104 - 258 ] IVSd MM 1.20 cm [ 0.60 - 0.90 ] PV Peak Aiden 1.30m/s [ 0.40 - 0.80 ] LA Dimension MM 3.61 cm [ 2.70 - 3.80 ] TR Peak Aiden 2.97m/s [ 1.00 - 2.80 ] AoR Diam MM 3.40 cm [ 2.70 - 3.70 ] TR Peak PG 35mmHg LA Volume Index 32 cc/m2 [ 16 - 34 ] RVSP 43.00mmHg [ 10.00 - 36.00 ] ACS MM 2.02 cm Lateral E` 0.10m/s [ 0.10 - 0.15 ] E` 0.06 m/s E/E` 10 2D/MM Value Range Doppler ValueRange - FINDINGS: Interpretation Site: Exam was interpreted at [facility] [place]. Left Ventricle: Ejection fraction is measured at 59 %. Global Longitudinal Strain is -18%. The left ventricle is normal in size and systolic function. Grade 1 diastolicdysfunction is present. Right Ventricle: The right ventricle is normal in size and systolic function. Left Atrium: The left atrium is normal in size. Right Atrium: The right atrium is normal in size. Atrial Septum: The atrial septum visually appears intact. Mitral Valve: The mitral valve opens well. There is no significant mitralregurgitation. Aortic Valve: The aortic valve is probably trileaflet and opens well. There is no aorticregurgitation. Tricuspid Valve: The tricuspid valve is normal. There is mild tricuspid regurgitation.There is insufficient tricuspid regurgitation to estimate the pulmonarypressures. Pulmonic Valve: The pulmonic valve is grossly normal. There is trace pulmonic valveregurgitation. Pericardium: Normal pericardium with no significant pericardial effusion. Aorta: The aortic root at the level of the sinus of Valsalva measures 2.9 cm indiameter. IVC: Normal size and normal respiratory collapse consistent with normal rightatrial pressure (<5 mmHg). CONCLUSIONS: There is normal biventricular size and systolic function. The left ventricle has grade 1 diastolic dysfunction. The GLS is normalmeasuring at -18%. There is insufficient tricuspid regurgitation to estimate the pulmonarypressures. The right atrial pressure is estimated to be less than 5 mm Hg. Electronically Signed By: Dr. Joel Griffin 04/23/2024 8:24:44 AM CLARIFIER OPERATOR Yaima Rosis NP CV ECHO PROCEDURES Final Result from Last 3 Months Insurance AETNA MEDICARE GOLD AETNA MEDICARE GOLD T MEDICARE [facility] Care Teams Spinner Continuous Relationship Specialty Start Date End Date Tru Benites MD PCP - General Family Practice 09/05/22
--- OUTSIDE RECORDS SUMMARY | 2024-07-18 00:49 | XMS_ITS | Continuity of Care Document ---
Author Organization [facility] Address [address] [place] [address] [address] [place] [address] Phone Care Team Providers Care Intellectual Property Lawyer Name Role Phone Brinda Carlson Unavailable Unavailable Procedures Procedure Date Eye Exam Established Pt Eye Exam Established Pt Advance Directives Directive Yes / No Effective Date File Name No Information Encounters Encounter Description Practice Location Reason(s) For Visit Diagnoses Date Provider Providers Copied on Encounter [facility], [address] [place] [address] [address], [place], [place], [id number], tel:[phone] [facility] No Information May-3 0-201 0 Robyn Parry. [address] , [address], [place], [place], [facility], . tel:[phone] [facility], [address] [place] [address] [address], [place], [place], [id number], tel:[phone] [facility] No Information 2-200 9 Robyn Matson [address] , [address], [place], [place], [facility], [place]. tel:[phone] Family History Family Member Type Diagnosis Age At Onset No Information Payers Payer name Insurance type Covered constitution party ID Authoriza tion(s) Medicare RR MB [id number] [facility] Commercial [id number] Social History Type Description Quantity Date Captured [...]
--- OUTSIDE RECORDS SUMMARY | 2024-07-18 00:49 | XMS_ITS | Clinical Summary ---
Author Organization [facility] Address [address] [place] [address] Care Team Providers Care Notereader Name Role Phone Unavailable Primary Care Provider [...] Td Vaccines ( 1 - Tdap) 1957 Pneumococcal Vaccine: 50+ Ye ars (1 of 1 - PCV) 1988 Zoster Vaccines (1 of 2) 1988 RSV Immunization or 60+ Years (1 - 1-dose 75+ series) 2013 COVID-19 Vaccine ( - 2023-2 5 season) 2023 Meningococcal B Vaccine Aged Out No l onger eligible based on patient's age to complete this topic Meningococcal Vaccine Aged Out No magda james eligible based on patient's age to complete this topic RSV Immunizations Under 20 Months Aged Out No longer eligible based on patient's age to complete this topic
--- OUTSIDE RECORDS SUMMARY | 2024-07-18 00:49 | XMS_ITS | Clinical Summary ---
Author Organization [facility] [address] [facility] [address] [place] [address] Care Team Providers Care Welding Machine Operator Helper Gas Name Role Phone Tru Benites MD Primary Care Provider [phone] Allergies Active Allergy Reactions Criticality Noted Date [...] HFA 90 mcg/actuation inhaler Inhale 2 puffs 01/03/2 021 Active Symbicort 80-4.5 mcg/actuation inhaler INHALE 2 PUFFS BY MOUTH EVERY MORNING AND EVERY EVENING. 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 2024 LVH (left ventricular hypertrophy) 12/20/2022 Paroxysmal atrial fibrillation 11/30/2022 FDC current use of 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 therapy 0 11/30/2022 High risk medication use 11/30/2022 Lymphedema 05/03/2022 PVC's (premature ventricular contractions) 01/26 Premature atrial contractions 01/26/2021 Other chest pain 01/26/2021 HTN (hypertension), benign 11/13/2019 Sarcoidosis 11/13/2019 Morbid obesity with BMI of 40.0-44.9, adult 05/2019 Pulmonary HTN (CMS/HCC) 11/13/2019 Localized edema 11/13/2019 Palpitations 11/13/2019 NICOLE on CPAP 11/13/2019 Shortness of breath 11/13/2019 Encounters Date Type Department Care Team Description 07/14/2024 Telephone [facility] Medical [facility] Cardiology [address] [place] [phone] Avril Almeida MA Mul[employer] Shipped 07/11/2024 11:00 AM CDT Office Visit 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 Cardiology [address] [place] [phone] Kelly Garber RN Atrial fibrillation, unspecified type (HCC) (Primary Dx); FDC (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 07/04/[address] 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 Pt Assistance 06/04/2024 Anticoagulation Visit [place] [address] [place] [phone] Avril Luciano RN Atrial fibrillation, unspecified type (HCC) (Primary Dx); FDC (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 06/02/[address] [facility] Cardiology [address] [place] [address] [place] [phone] Eddie Bennett MD 05/20/[address] [facility] Cardiology [address] [place] [address] [place] [phone] Eddie Bennett MD 05/19/[address] [facility] Cardiology [address] [place] [address] [place] [phone] Eddie Bennett MD 04/22/2024 2:00 PM DECKHAND ENGINEER Ancillary Procedure [facility] Cardiology [address] [place] [address] Pulmonary HTN (HCC) 04/22/2024 Telephone [facility]iology [address] [place] [address] Avril Almeida MA [place] from Last 3 Months Surgical History Surgery Date Site/Laterality Comments HYSTERECTOMY REPLACEMENT TOTAL KNEE BREAST BIOPSY CATARACT EXTRACTION, BILATERAL CHOLECYSTECTOMY Medical History Medical History Date Comments Hypertension Thyroid disease Hyperlipidemia Acid indigestion Pneumonia Cataracts, bilateral Sleep apnea COPD (chronic obstructive pulmonary disease) (HC C) Arthritis Family History Medical History Relation Name Comments Hyperlipidemia Brother Hypertension Brother Hyperlipidemia Mother Hypertension Mother Stroke Mother Relation Name Status Comments Brother Alive Father (Age 49) Mother (Age 86) Social History Tobacco Use Types Packs/Day Years Used Date Smoking Tobacco: Never Smokeless Tobacco: Never Tobacco Cessation:Counseling Given: Not Answered Alcohol Use Standard Drinks/Week Comments Not Currently 0 (1 standard drink = 0.6 oz pur e alcohol) Comments Unknown Sex and Gender Information Value Date Recorded Sex Assigned at Not on file Legal Sex Female 2:35 AM DECKHAND ENGINEER Gender Identity Not on file Sexual Orientation Not on file Obstetrics History Last Filed Vital Signs Vital Sign Reading [...] 07/11/2024 11:01 AM CDT Plan of Treatment Health Maintenance Due Date Last Done Comments Depression Screening 1940 Fall Risk Assessment 1940 Osteoporosis Screening-Bone Density Scan 1940 DTaP/Tdap/Td Vaccine (1 - Tdap) 1949 Hepatitis B Screening 1956 Zoster Vaccine (1 of 2) 1988 Well Visit 65+ 11/29/2003 Pneumococcal vaccine 65+ (2 of 2 - PPSV23) 05/13/2015 05/12/2014 Influenza Vaccine (Season Ended) 2024 2018, 12/17/2017, 12/18/2016, Additional history exists Procedures Procedure Name Priority Date/Time Associated Diagnosis Comments PROTIME-INR Routine 07/10/2024 10:46 AM CDT Paroxysmal atrial fibrillation (HCC) 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 PROTIME-INR Routine 07/03/2024 10:50 AM CDT Paroxysmal atrial fibrillation (HCC) 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 PROTIME-INR Routine 06/19/2024 10:40 AM CDT Paroxysmal atrial fibrillation (HCC) 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 PROTIME-INR Routine 06/12/2024 10:43 AM CDT Paroxysmal atrial fibrillation (HCC) FDC current use of 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 therapy TRANSTHORACIC ECHO (TTE) COMPLETE W DOPPLER/CF WO CONTRAST Routine 04/22/2024 2:14 PM DECKHAND ENGINEER Pulmonary HTN (HCC) from Last 3 Months Results * (ABNORMAL) Protime-INR (07/10/2024 10:46 AM CDT) INR 1.7(H) [facility] Julian Comment: Reference Range 0.9-1.1 Moderate-intensity Warfarin Therapy 2.0-3.0 Higher-intensity Warfarin Therapy 3.0-4.0 PT 17.5(H) 9.0 - 11.5 sec [facility] Comment: For additional information, please refer to http://education.Jianjian.[employer]/faq/DNR889 (This link is being provided for informational/ educational purposes only.) Blood 07/10/2024 10:4 6 AM CDT 07/10/2024 10:46 AM CDT Yaima Rossi NP LAB BLOOD ORDERABLES Meg l Result Performing Organization Address City/State/[facility] de Phone Number [facility] [address] [place] [address] * (ABNORMAL) Protime-INR (07/03/2024 10:50 AM CDT) INR 1.8(H) [facility]S [facility] Eliel Comment: Reference Range 0.9-1.1 Moderate-intensity Warfarin Therapy 2.0-3.0 Higher-intensity Warfarin Therapy 3.0-4.0 PT 18.4(H) 9.0 - 11.5 sec [facility] Comment: For additional information, please refer to http://Repeatit.C[employer]iSens/faq/PEV600 (This link is being provided for informational/ educational purposes only.) Blood 07/03/2024 10:5 0 AM CDT 07/03/2024 10:50 AM CDT Yaima Rossi CRUDE OIL DRIVER LAB BLOOD ORDERABLES Meg l Result Performing Organization Address [facility] de Phone Number [facility] [address] [place] [address] * (ABNORMAL) Protime-INR (06/19/2024 10:40 AM CDT) INR 1.8(H) [facility] Eilel Comment: Reference Range 0.9-1.1 Moderate-intensity Warfarin Therapy 2.0-3.0 Higher-intensity Warfarin Therapy 3.0-4.0 PT 18.8(H) 9.0 - 11.5 sec [facility] Comment: For additional information, please refer to http://Repeatit.Cogni[employer]/faq/ABL443 (This link is being provided for informational/ educational purposes only.) Blood 06/19/2024 10:4 0 AM CDT 06/19/2024 10:41 AM CDT Yaima Olivo Enid CRUDE OIL DRIVER LAB BLOOD ORDERABLES Meg l Result Performing Organization Address [facility] Co de Phone Number [facility] [address] [place] [address] * (ABNORMAL) Protime-INR (06/12/2024 10:43 AM CDT) INR 1.7(H) [employer] [facility] Julian Comment: Reference Range 0.9-1.1 Moderate-intensity Warfarin Therapy 2.0-3.0 Higher-intensity Warfarin Therapy 3.0-4.0 PT 17.6(H) 9.0 - 11.5 sec [employer] [facility] Julian Comment: For additional information, please refer to http://education.CogniSens/faq/WFF287 (This link is being provided for informational/ educational purposes only.) Blood 06/12/2024 10:4 3 AM CDT 06/12/2024 10:44 AM CDT Yaima Rossi NP LAB BLOOD ORDERABLES Meg l Result [facility] [address] [place] [address] * TRANSTHORACIC ECHO (TTE) COMPLETE W DOPPLER/CF WO CONTRAST (04/22/2024 2:14 PM DECKHAND ENGINEER) Pathologist [facility] EF % CONS SCIMAGE Anatomical Region Laterality Modality Ultrasound 04/22/2024 1:38 PM DECKHAND ENGINEER Narrative 04/23/2024 8:25 AM DECKHAND ENGINEER [facility] Card[facility] [address] [facility] [address], [place] [address] [address] [facility] [address], [place] [address] P:[phone] P:[phone] Echocardiographic Report Patient Name: ERIKA WHITEHEAD M : 1940 Study Date: 04/22/2024 1:38:44 PM Gender: F Tech: Location: [place] Ref Provider: YAIMA ROSSI Height(Cm): 157 BSA: [...] FINDINGS: Interpretation Site: Exam was interpreted at [facility]. Left Ventricle: Ejection fraction is measured [...] By: Dr. Joel Griffin 04/23/2024 8:24:44 AM DECKHAND ENGINEER Procedure Note Joel Griffin MD - 04/23/2024 [facility] [address] [facility] [address], [place] [address] [address] [facility] [address], [place] [address] P:[phone] P:[phone] Echocardiographic Report Patient Name: ERIKA WHITEHEAD M : 1940 Study Date: 04/22/2024 1:38:44 PM Gender: F Tech: Location: [facility] Provider: YAIMA ROSSI Height(Cm): 157 BSA: 2.08 [...] FINDINGS: Interpretation Site: Exam was interpreted at [facility]. Left Ventricle: Ejection fraction is measured [...] By: Dr. Joel Griffin 04/23/2024 8:24:44 AM DECKHAND ENGINEER Yaima Rossi CRUDE OIL DRIVER CV ECHO PROCEDURES Final Result from Last 3 Months Insurance [facility]ICARE [facility] MEDIC[facility] AET [facility] Care Teams Welding Machine Operator Helper Gas Relationship Specialty Start Date End Date Tru Benites MD PCP - General Family Practice 09/05/22
--- OUTSIDE RECORDS SUMMARY | 2024-07-18 00:49 | XMS_ITS | Data Portability ---
Author Organization MD - [facility] [employer], Main Office Address [address] [place] [address] Care Team Providers Care Design Engineer Agricultural Equipment Name Role Phone TIERRA CARUSO Primary Care Provider [phone] TIERRA CARUSO Referring Provider [phone] Assessment Encounter Date Assessment Date Assessment LastModified [...] without limp or assistance. She has a kvxb-rx-zhpxsmku effusion in the right knee. Range of motion is from 3-130 degrees. She has noup-aj-qznjkoiq tenderness over both medial and lateral joint [...] the patient more than half of this egfr-ea-xjek conversation shyla Not available 06/02/2022 16:18:45 Plan [...] DO Not Attach Compendium, Do Not Delete/merge, [id number] 14:54:28 Surgeries None recorded. Imaging None recorded. Medication Orders Kenalog 10 mg/mL suspension for injection [address], [address] [place], [address], 3 16:32:38 ropivacaine (PF) 5 mg/mL (0.5 %) injection solution [address], [address] [place], [address], 16:32:38 Patient TargetsNo targets recorded. Patient InstructionsNo instructions recorded. Reason for Referral None Reported. Results Created Date Observation Date Name Description Value Unit Range Abnormal Flag Note LastModifiedBy Organization Detail LastModifiedTime 02/26/20 21 XR, knee No observ ation record ed. [id number] [facility] [place] [address] [facility] [address], [place], [address], 05/10/2022 13:55:15 Result Notes None recorded. Problems Name Problem SNOMED Code Status Onset Date Resolution Date Notes Provider Name and Address Organization Details Recorded Time Knee pain Active Not Available [facility] 13:52:17 Enthesopathy of knee 79266178 Active Not Available [facility] 13:52:17 Osteoarthriti s 560447858 Active 2021 Not Available [facility] 13:52:17 Problem Notes None recorded. Procedures Surgical History Date Name Laterality Status Provider Name and Address Organization Details Recorded Time biopsy of breast completed Not Available [facility] 05/10/2022 13:51:47 cardiac catheterization completed Not Available [facility] 05/10/2022 13:51:47 repair of meniscus completed Not Available [facility] 05/10/2022 13:51:47 hysterectomy completed Not Available [facility] 05/10/2022 13:51:47 Sinus Surgery completed Not Available [facility] 05/10/2022 13:51:47 total knee replacement completed Not Available [facility] 05/10/2022 13:51:47 biopsy of lung completed Andrzej Christianson [facility] 06/02/2022 15:20:06 Cataract Surgery completed Andrzej Christianson [facility] 06/02/2022 15:20:16 anal fissurectomy completed Andrzej Christianson [facility] 06/02/2022 15:20:29 Hemorrhoidectomy completed Andrzej Christianson [facility] 06/02/2022 15:20:36 Cholecystectomy completed Andrzej Christianson [facility] 06/02/2022 15:20:52 Imaging Results Imaging Date Name Status LastModified by Organiz ation Details LastModified Time 02/25/2021 XR, knee completed [id number] [facility] [place] [address] [facility], [place], [address], 05/10/2022 13:55:15 Procedure Notes None recorded. Medical Equipment None Reported. Allergies Allergen ID Allergen Name Allergen Category Reaction Reaction Severity Criticality Documentation Date Start Date Code Code System Note Provider Name and Address Organization Details Recorded Time 33208 adhesive tape environme nt,medica tion Not available Not available Not available 05/10/2022 19419 UNK surgi andrey tape Not Available [facility] 13:55:14 Medications Name Sig Start Date Stop [...] 2 mL by injection route. 2022 active [facility]: 0003- 0494- 20 Not Available Not Available [...] administe red by the provider 02/25 completed [facility]: 0409- 4276- 17 Not Available Not Available [...] Updated DateTime 02/25/2021 41.8 kg/m2 154.94 cm 196837.91 g Not Available [facility] 05/10/2022 13:52:03 Date Recorded Body height Provider Name an d Address Organization Details Last Updated DateTime 06/01/2021 154.94 cm Not Available [facility] 13:52:03 Date Recorded Body height Provider Name an d Address Organization Details Last Updated DateTime 09/09/2021 154.94 cm Not Available [facility] 13:52:03 Date Recorded Body height Body mass index (BMI) Body weight Provider Name and Address Organization Details Last Updated DateTime 06/02/2022 154.94 cm 42.3 kg/m2 165482.69 g [facility] [place] [facility] [place] [employer] [facility] 06/02/2022 15:16:40 Social History Question Answer Notes LastModified by Organizat ion Details LastModified Time Tobacco Smoking Status Never Smoker Not Available [facility] 05/10/2022 13:51:44 What Is Your Level Of Alcohol Consumption? None [id number] Information not available 05/10/2022 Sex: Unknown Functional Status None recorded. Mental Status None recorded. Family History Relationship Description Onset Age of this Age Resolved Age Notes LastModified by Organization Details LastModified Time Unspecified Relation Hypertensive disorder [id number] Not available 05/10/2022 13:51:47 Unspecified Relation Sleep apnea [id number] Not available 05/10/2022 13:51:47 Unspecified Relation Sarcoidosis [id number] Not available 05/10/2022 13:51:47 Unspecified Relation Pulmonary hypertension [id number] Not available 05/10/2022 13:51:48 Mother Cerebrovascu lar accident [email or web address] Not available 15:19:11 Medical History Condition Response ARTHRITIS Y OSTEOPOROSIS Y CORONARY ARTERY DISEASE (CAD) Y LUNG DISEASE/DISORDER Y HYPERTENSION Y COPD Y Gynecological HistoryNo gynecological history recorded. Obstetrics History GPAL:G 0 P 0 0 0 0 Past Encounters Encounter ID Performer Location Encounter Start Date Encounter Closed Date Diagnosis/Indication Diagnosis SNOMED-CT Code Diagnosis ICD10 Code Diagnosis Note [id number] Travis Mercedes MD [facility] [place] [address] [place] [address] 02/25/2021 00:00:00 02/25/2021 15:40:28 [id number] Travis Mercedes MD [facility] [place] [address] [facility] [address] [place] [address] 06/01/2021 00:00:00 06/01/2021 14:59:08 [id number] Travis Mercedes MD [facility] [place] [address] [place] [address] 09/09/2021 00:00:00 09/09/2021 11:09:16 [id number] Travis Mercedes MD [facility] [place] [address] [place] [address] 06/02/2022 14:48:50 06/02/2022 16:35:34 Osteoarthritis 364619765 M17.11 Health Concerns Section Related Observation LastModified by Organization Detai ls LastModified Time None Recorded Concern Status LastModified by Organization Details LastModified Time None Recorded Advance Directives Directive None Recorded Payers Encounter Date Sequence Insurance Name Policy Number Policy Feliz Covered Member ID Feliz Member ID Guarantor Name 06/02/2022 1 [employer] - PRIME (MEDICARE REPLACEMENT/ ADVANTAGE - HMO) [id number] Glenna Almendarez [id number] Glenna Almendarez OBGyn Episode No OBEpisode recorded.
--- OUTSIDE RECORDS SUMMARY | 2024-07-18 00:49 | XMS_ITS | Clinical Summary ---
Author Organization [facility] Care Team Providers Care Pump Stitcher Name Role Phone Unavailable Primary Care Provider Unavailabl e Social History Tobacco Use Types Packs/Day Years Used Date Smoking Tobacco: Never Assessed Comments Unknown Sex and Gender Information Value Date Recorded Sex Assigned at Not on file Legal Sex Female 11:41 PM CDT Gender Identity Not on file Sexual Orientation Not on file Plan of Treatment Not on file
--- OUTSIDE RECORDS SUMMARY | 2024-07-18 00:50 | XMS_ITS | Data Portability ---
Author Organization [facility], [place] Address [address] [place] [address] Assessment No assessment recorded. Plan of Treatment Reminders Order Date Submit Date Provider Last Modified By Organization Details Last Modified Time Details Appointments None recorded. Lab None recorded. Referral None recorded. Procedures None recorded. Surgeries None recorded. Imaging None recorded. Medication Orders clotrimaz ole-betam ethasone 1 %-0.05 % topical cream [place] [id number], [address], [id number], 14:37:55 Patient TargetsNo targets recorded. Patient InstructionsNo instructions recorded. Reason for Referral None Reported. Problems Name Problem SNOMED Code Status Onset Date Resolution Date Notes Provider Name and Address Organization Details Recorded Time Screenin g for malignan t neoplasm of rectum Completed 201212/07/2020 Screenin g for malignan t neoplasm s of the rectum[id number] Rachel Forrseter nona [facility] 1 14:22:04 Urinary tract infectio us disease [id number] Completed 201612/07/2020 Urinary tract infectio n, site not specifie d;Practi ce ID: 0001 Rachel Forrester nona [facility] 1 14:22:10 Atrophic vaginiti s [id number] Active 2016 Postmeno pausal atrophic vaginiti s;Practi ce ID: 0001 Not Available [facility] 0 21:23:44 Vaginola bial hernia Active 2017 Other specifie d noninfla mmatory disorder s of vagina;P ractice ID: 0001 Not Available [facility] 0 21:23:44 Blood leukocyt e number above referenc e range [id number] Completed 201712/07/2020 Elevated white blood cell count, unspecif ied;Prac darin ID: 0001 Rachelroberto Forrester [facility] 14:22:13 Acute vaginiti s 15290862 Active 2017 Acute vaginiti s;Practi ce ID: 0001 Not Available [facility] 0 21:23:45 Speciali zed medical examinat ion Completed 201212/07/2020 Gynecolo gical Examinat ion;Jesus rded Elsewher e: No [facility] EHR Tankerman shay: N Practi ce ID: 0001 Coy lable Time: 12:30:00 PM Rachelroberto Forrester [facility] 14:22:08 Screenin g for malignan t neoplasm of cervix Completed 201212/07/2020 Pap Smear;Pr actice ID: 0001 Rachelroberto Forrester [facility] 14:22:02 Problem Notes None recorded. Procedures Surgical History Date Name Laterality Status Provider Name and Address Organization Details Recorded Time Colonoscopy completed [facility] 12/28/2020 14:46:[address] [facility] 12/28/2020 14:46:24 Dilation and Curettage completed [facility] 12/28/2020 14:46:34 Flexible Sigmoidoscopy completed [facility] 12/28/2020 14:46:45 Unlisted px accessory sinus completed [facility] 12/28/2020 14:46:55 biopsy of skin completed [facility] 12/28/2020 14:47:17 Removal of anal fissure completed [facility] 12/28/2020 14:47:[address] [facility] 12/28/2020 14:48:[address] [facility] 12/28/2020 14:51:44 biopsy of breast completed [facility] 12/28/2020 14:52:03 biopsy of lung completed [facility] 12/28/2020 14:52:[address] [facility] 12/28/2020 14:52:35 arthroplasty of knee completed [facility] 12/28/2020 14:53:[address] [facility] 12/28/2020 14:53:26 cardiac catheterization completed [facility] 12/28/2020 14:53:58 needle biopsy completed [facility] 12/28/2020 14:54:10 Imaging Results None recorded. Procedure Notes None recorded. Medical Equipment None Reported. Allergies No known drug allergies Medications Name Sig Start Date Stop Date Status Note LastModified by Organization Details LastModified Time irbesarta n 150 mg-hydroc hlorothia zide 12.5 mg tablet take 1 tablet by oral route every day 2016 active Prescrib ed Elsewher e: Yes Loca tion: [facility] M odify By: shiraz virgen DateTime : 03/21/19 17 02:00:00 PM Not Available Not Available Not Available alprazola m 1 mg tablet take 1 tablet by oral route 3 times every day 2016 active Prescrib ed Elsewher e: Yes Loca tion: [facility] M odify By: shiraz Williste r DateTime : 03/21/19 17 02:00:00 PM Not Available Not Available Not Available vitamin E 600 unit capsule 2016 active Prescrib ed Elsewher e: Yes Loca tion: [facility] odify By: shiraz Williste r DateTime : 03/21/19 17 02:00:00 PM Not Available Not Available Not Available Synthroid 100 mcg tablet take 1 tablet by oral route every day 03/21 completed Prescrib ed Elsewher e: Yes Loca tion: [facility] odify By: shiraz Williste r DateTime : 06/18/19 13 12:30:00 PM Not Available Not Available Not Available Prilosec 20 mg capsule,d elayed release take 1 capsule by oral route every day before a meal active Prescrib ed Elsewher e: Yes Loca tion: [facility] odify By: [email or web address] trick En counter DateTime : 06/18/19 13 12:30:00 PM Not Available Not Available Not Available milk thistle 175 mg tablet 2016 active Prescrib ed Elsewher e: Yes Loca tion: [facility] odify By: shiraz Williste r DateTime : 03/21/19 17 02:00:00 PM Not Available Not Available Not Available clobetaso l 0.05 % topical cream apply by topical route every day a thin layer to the affected area(s) 2017 active Prescrib ed Elsewher e: No Locat ion: [facility] odify By: neeta ling DateTime : 10/17/19 18 03:45:00 PM Not Available Not Available Not Available nystatin 500,000 unit tablet take 1 tablet by oral route 3 times every day continui ng treatmen t for at least 2 days after symptoms have disappea red 2016 active Prescrib ed Elsewher e: Yes Loca tion: [facility] odify By: shiraz Encounte r DateTime : 03/21/19 17 02:00:00 PM Not Available Not Available Not Available triamcino lone acetonide 0.1 % topical cream apply by topical route 2 times every day a thin layer to the affected area(s) 2016 active Prescrib ed Elsewher e: Yes Loca tion: [facility] odify By: shiraz Williste r DateTime : 03/21/19 17 02:00:00 PM Not Available Not Available Not Available levothyro xine 25 mcg tablet take 1 tablet by oral route every day 2016 active Prescrib ed Elsewher e: Yes Loca tion: [facility] odify By: shiraz Encounte r DateTime : 03/21/19 17 02:00:00 PM Not Available Not Available Not Available aspirin 500 mg tablet take 2 tablet by oral route every 6 hours as needed active Prescrib ed Elsewher e: Yes Loca tion: [facility] odify By: [email or web address] trick En counter DateTime : 06/18/19 13 12:30:00 PM Not Available Not Available Not Available potassium 99 mg tablet active Prescrib ed Elsewher e: Yes Loca tion: [facility] odify By: [email or web address] trick En counter DateTime : 06/18/19 13 12:30:00 PM Not Available Not Available Not Available Metrogel Vaginal 0.75 % (37.5 mg/5 gram) insert 1 applicat orful by vaginal route every day at bedtime for 5 nights 10/22 completed Prescrib ed Elsewher e: No Locat ion: [facility] odify By: rj concepcion DateTime : 10/23/19 18 11:56:59 AM Not Available Not Available Not Available triamcino lone acetonide 0.025 % topical cream apply by topical route 2 times every day a thin layer to the affected area(s) 03/21 completed Prescrib ed Elsewher e: Yes Loca tion: [facility] odify By: shiraz Encounte r DateTime : 06/18/19 13 12:30:00 PM Not Available Not Available Not Available Flagyl 500 mg tablet take 1 tablet by oral route every 12 hours 10/30 completed Prescrib ed Elsewher e: No Locat ion: [facility] odify By: [email or web address] Encounte r DateTime [...] Elsewher e: Yes Loca tion: [facility] odify By: [email or web address] trick En counter DateTime : 06/18/19 13 12:30:00 PM Not Available Not Available Not Available Fish Oil 500 mg capsule active Prescrib ed Elsewher e: Yes Loca tion: [facility] odify By: [email or web address] trick En counter DateTime : 06/18/19 13 12:30:00 PM Not Available Not Available Not Available Restasis 0.05 % eye drops in a dropperet te instill 1 drop by ophthalm ic route every 12 hours into affected eye(s) 03/21 completed Prescrib ed Elsewher e: Yes Loca tion: [facility] odify By: shiraz Encounte r DateTime : 06/18/19 13 12:30:00 PM Not Available Not Available Not Available Premarin 0.625 mg/gram vaginal cream insert 1 (1G) by vaginal route every day for 2 weeks, then insert .5 gram by vaginal route two times a week prn 03/21 completed Prescrib ed Elsewher e: No Locat ion: [facility] odify By: shiraz Encounte r DateTime : 06/18/19 13 12:30:00 PM Not Available Not Available Not Available Benicar HCT 40 mg-12.5 mg tablet take 1 tablet by oral route every day 03/21 completed Prescrib ed Elsewher e: Yes Loca tion: [facility] odify By: shiraz Encounte r DateTime : 06/18/19 13 12:30:00 PM Not Available Not Available Not Available Crestor 20 mg tablet take 1 tablet by oral route every day 2016 active Prescrib ed Elsewher e: Yes Loca tion: [facility] odify By: shiraz Williste r DateTime : 03/21/19 17 02:00:00 PM Not Available Not Available Not Available metoprolo l tartrate 25 mg tablet take 1 tablet by oral route 2 times every day active Prescrib ed Elsewher e: Yes Loca tion: [facility] odify By: [email or web address] trick En counter DateTime : 06/18/19 13 12:30:00 PM Not Available Not Available Not Available biotin 5 mg tablet 2016 active Prescrib ed Elsewher e: Yes Loca tion: [facility] odify By: shiraz Williste r DateTime : 03/21/19 17 02:00:00 PM Not Available Not Available Not Available amlodipin e besylate (bulk) 100 % powder active Prescrib ed Elsewher e: Yes Loca tion: [facility] odify By: [email or web address] trick En counter DateTime : 06/18/19 13 12:30:00 PM Not Available Not Available Not Available Multi For Her 18 mg iron-600 mcg-40 mcg capsule active Prescrib ed Elsewher e: Yes [facility] By: [email or web address] trick En counter DateTime : 06/18/19 13 12:30:00 PM Not Available Not Available Not Available Vitals Date Recorded Body weight Body mass index (BMI) Body height Systolic blood pressure Diastolic blood pressure Provider Name and Address Organization Details Last Updated DateTime 12/07/2020 320294.5 1 g 40.6 kg/m2 157.48 cm 198 mm[Hg] 104 mm[Hg] Rachel Forrester [facility] 14:07:01 Social History None recorded. Functional [...] SNOMED-CT Code Diagnosis ICD10 Code Diagnosis Note [id number] Jae Gibbons MD [place] [address] [address] 12/07/2020 13:43:34 12/08/2020 14:19:08 Lesion of vulva [id number] N90.89 This patient is an 80-year-ol d [...] Feliz Member ID Guarantor Name 12/07/2020 2 [employer] PL[employer] F (MEDICARE SUPPLEMENT) Glenna Almendarez [id number] Glenna Erickson 12/07/2020 1 MEDICARE B: [facility] MEDIC[facility] Glenna Almendarez [id number] Glenna Almendarez Notes Date Note Type [...] anatomy. Jae Gibbons MD [address], [place], [address], [place] [facility] 12/07/2020 18:05:54 OBGyn Episode Ob Episode Information Episode Created Date Number of Fetuses Patient Bloodtype Patient rh Status Prepregnancy Weight lbs Domestic Partner Domestic Partner Phone Father Name Dairy Tester Status 12/08/19 21 1 CLOSED Fetus Data First Name Last Name Admitted to NICU Weight (g) Sex Living Outcome Pediatric Complications Fetus ID Race Codes Race Delivery Type , Spontane ous [id number] Abad Calculation Initial Abad Date Initial Exam Date Initial Exam Provider Initial Ultrasound Date Last Menstrual Period Date Ultra Sound Weeks Gestation 0 Eighteen To Twenty Week Abad Update Ultra Sound Date Fundal Height At Umbil Quickening Date Ultra Sound Latest Weeks Gestation Final Abad Confirmed By Final Abad Confirmed Date Final Abda Date Ultra Sound Latest Days Gestation 0 [...] Domestic Partner Domestic Partner Phone Father Name Dairy Tester Status 12/08/19 21 2 CLOSED Fetus Data First Name Last Name Admitted to NICU Weight (g) Sex Living Outcome Pediatric Complications Fetus ID Race Codes Race Delivery Type 2778.25 1 F [id number] Vaginal Delivery 2664.85 3 M [id number] Abad Calculation Initial Abad Date Initial Exam [...] Domestic Partner Domestic Partner Phone Father Name Dairy Tester Status 12/08/19 21 1 CLOSED Fetus Data First Name Last Name Admitted to NICU Weight (g) Sex Living Outcome Pediatric Complications Fetus ID Race Codes Race Delivery Type 2664.85 3 M [id number] Vaginal Delivery Abad Calculation Initial Abad Date [...]
[2024-07-18 12:52] VITALS: BP 173/76; PULSE 68; RESP 20; TEMP 36.4; O2SAT 95
[2024-07-18] MEDS: LACTATED RINGERS 1,000 ML 150 ML IV CONT (13:01)
--- NOTE | 2024-07-18 13:13 | PM.HPGS ---
History of Present Illness History of Present Illness Consent: Risks, benefits, and alternatives have been discussed and questions answered. Patient agrees to proceed with procedure. Chief complaint: Encounter for screening for malignant neoplasm of Narrative: Glenna Almendarez is a 83 year old female with intermittent abdominal pain, had egd and colonoscopy in 2016, h/o IBS Review of Systems Review of Systems: All systems reviewed & are unremarkable except as noted in HPI and below PMFSH Past Medical History Medical History (Updated 07/18/24 @ 13:15 by Augustin Cottrell MD) Abdominal pain Wears hearing aid in both ears Left arm pain Racing heart beat Sarcoidosis Diagnosed 2002 after transbronchial biopsy, has never undergone tx. In remission. Pulmonary HTN CPAP (continuous positive airway pressure) dependence Sleep apnea Sarcoidosis Hiatal hernia Fatty liver COPD (chronic obstructive pulmonary disease) Anxiety Hypothyroid Osteoporosis Arthritis UTI (urinary tract infection) GI bleed GERD (gastroesophageal reflux disease) IBS (irritable bowel syndrome) Diverticulosis HTN (hypertension) Hyperlipidemia Sinus problem Cataract Surgical History Surgical History H/O colonoscopy H/O cataract extraction History of arthroplasty of left knee H/O arthroscopy of right knee H/O dilation and curettage H/O: hysterectomy H/O breast biopsy Hx of cholecystectomy History of appendectomy History of cardiac cath H/O sinus surgery Hx of tonsillectomy Family History Family History Mother Cerebrovascular accident, Onset Age: 86 Family history of cardiovascular disease, Onset Age: 86 Sibling Family history of cardiovascular disease History of heart bypass surgery, Onset Age: 75 Social History Social History Social History: Has a son Smoking status: Never smoker Second hand tobacco smoke exposure: Yes (Many years of exposure. was heavy smoker. ) Alcohol intake: never Substance use: never Substance use type: does not use Lack of Transportation: No Lack of Food: Never True Current Housing: I Have Housing Concerned About Future Housing: No Difficulty Paying Gas/Electric Bills: No Difficulty Paying for Meds: No Currently Unemployed: No Education: High School Diploma/GED Difficulty w/ Childcare or Family Care: No Gender identity (if verbalized by the patient): Female Spiritual care concerns: No Agree to blood products: Yes Meds Home Medications and Allergies Home Medications ?Medication ?Instructions ?Recorded ?Confirmed ?Type multivitamin 1 tablet BYMOUTH DAILY 02/11/19 07/18/24 History albuterol sulfate 2.5 mg/3 mL 2.5 mg (3 mL) inhalation Q4-6H PRN 11/02/21 07/07/24 Rx (0.083 %) solution for nebulization shortness of breath or wheezing #90 mL cholecalciferol (vitamin D3) 125 125 mcg PO DAILY 05/29/22 07/18/24 History mcg (5,000 unit) capsule cinnamon bark 500 mg capsule 500 mg PO DAILY 05/29/22 07/18/24 History (Cinnamon) garlic 1,000 mg capsule 1,000 mg PO DAILY 05/29/22 07/18/24 History potassium chloride 10 mEq 10 meq PO BID 05/29/22 07/18/24 History tablet,extended release quercetin 500 mg capsule 500 mg PO DAILY 05/29/22 07/18/24 History selenium 200 mcg capsule 200 mcg PO DAILY 05/29/22 07/18/24 History vitamin B complex (B 1 tablet PO DAILY 05/29/22 07/18/24 History Complex-Vitamin B12 tablet) omeprazole magnesium 20 mg 20 mg PO DAILY 07/04/22 07/18/24 History tablet,delayed release (Prilosec OTC) dronedarone 400 mg tablet (Multaq) 400 mg PO BID 02/22/23 07/18/24 History hydralazine 50 mg tablet 50 mg PO TID 02/22/23 07/18/24 History metoprolol tartrate 50 mg tablet See Rx Instructions .Route 03/21/23 07/18/24 Rx .COMPLEX #60 tabs furosemide 40 mg tablet See Rx Instructions .Route 06/04/23 07/18/24 Rx .COMPLEX #180 tabs milk thistle 175 mg tablet 500 mg PO DAILY 07/11/23 07/18/24 History fluticasone propionate 50 See Rx Instructions .Route 01/21/24 07/18/24 Rx mcg/actuation nasal .COMPLEX #48 mL spray,suspension amlodipine 10 mg tablet See Rx Instructions .Route 01/23/24 07/18/24 Rx .COMPLEX #90 tabs albuterol sulfate 90 mcg/actuation 1 - 2 puff inhalation Q4-6H PRN 02/11/24 07/07/24 Rx aerosol inhaler shortness of breath or wheezing #8.5 grams alendronate 70 mg tablet See Rx Instructions .Route 02/11/24 07/18/24 Rx .COMPLEX #12 tabs rosuvastatin 10 mg tablet See Rx Instructions .Route 02/11/24 07/18/24 Rx .COMPLEX #100 tabs levothyroxine 88 mcg tablet 88 mcg PO DAILY #90 tabs 03/24/24 07/18/24 Rx budesonide-formoterol HFA 80 2 puff inhalation Q12H #30.6 grams 04/15/24 07/18/24 Rx mcg-4.5 mcg/actuation aerosol inhaler alprazolam 0.25 mg tablet 0.25 mg PO BID PRN anxiety #60 tabs 06/23/24 07/07/24 Rx irbesartan 300 mg tablet See Rx Instructions .Route 07/02/24 07/18/24 Rx .COMPLEX #100 tabs warfarin 2 mg tablet 6 mg PO .COMPLEX 07/07/24 07/18/24 History acetaminophen 500 mg tablet mg 07/18/24 History Allergies Allergy/AdvReac Type Severity Reaction Status Date / Time adhesive tape Allergy Severe RASH Verified 07/18/24 12:46 levofloxacin AdvReac Mild Nausea and Verified 07/18/24 12:46 Vomiting Vital Signs Vital Signs - 24 hr 07/18/24 12:52 Temperature 97.5 F L Pulse Rate 68 Respiratory Rate 20 Blood Pressure 173/76 H Pulse Oximetry 95 Oxygen Delivery Room Air Exam Const: General: comfortable and no acute distress HENMT: Face/Nose/Sinus: Normal nares present Eyes: General: appearance normal, both eyes and all related structures Neck: Neck: no JVD Resp: Auscultation: clear to auscultation bilaterally Cardio: Rate: regular rate Rhythm: regular rhythm GI: Inspection: non-distended GI Palp: Yes Soft to palpation Skin: General skin exam: normal color Neuro: Speech: normal speech Extrem: General: normal to inspection Psych: Mental Status: mental status grossly normal Assessment and Plan Assessment and plan (1) Colon cancer screening: Code(s): Z12.11 - Encounter for screening for malignant neoplasm of colon Status: Acute Assessment and Plan: colonoscopy (2) Abdominal pain: Code(s): R10.9 - Unspecified abdominal pain Status: Acute
--- NOTE | 2024-07-18 13:17 | WPDANESEPPF ---
Anes - Initial Pre Proc Eval Procedure: Operation Date: 07/18/24 13:45 Proposed Procedures p Screening Colonoscopy - Augustin Cottrell MD Date/Time: 07/18/24 13:17 Surgeon: Augustin Cottrell MD Pre Op Diagnosis: Encounter for screening for malignant neoplasm of Patient Data Age: 83 Gender: F Height: 1.57 m Weight: 97.2 kg Last Vital Signs Temp 36.4 C L 07/18/24 12:52 Pulse 68 07/18/24 12:52 Resp 20 07/18/24 12:52 BP 173/76 H 07/18/24 12:52 Pulse Ox 95 07/18/24 12:52 O2 Del Method Room Air 07/18/24 12:52 Allergies Allergy/AdvReac Type Severity Reaction Status Date / Time adhesive tape Allergy Severe RASH Verified 07/18/24 12:46 levofloxacin AdvReac Mild Nausea and Verified 07/18/24 12:46 Vomiting Home Medications ?Medication ?Instructions ?Recorded ?Confirmed ?Type multivitamin 1 tablet BYMOUTH DAILY 02/11/19 07/18/24 History albuterol sulfate 2.5 mg/3 mL 2.5 mg (3 mL) inhalation Q4-6H PRN 11/02/21 07/07/24 Rx (0.083 %) solution for nebulization shortness of breath or wheezing #90 mL cholecalciferol (vitamin D3) 125 125 mcg PO DAILY 05/29/22 07/18/24 History mcg (5,000 unit) capsule cinnamon bark 500 mg capsule 500 mg PO DAILY 05/29/22 07/18/24 History (Cinnamon) garlic 1,000 mg capsule 1,000 mg PO DAILY 05/29/22 07/18/24 History potassium chloride 10 mEq 10 meq PO BID 05/29/22 07/18/24 History tablet,extended release quercetin 500 mg capsule 500 mg PO DAILY 05/29/22 07/18/24 History selenium 200 mcg capsule 200 mcg PO DAILY 05/29/22 07/18/24 History vitamin B complex (B 1 tablet PO DAILY 05/29/22 07/18/24 History Complex-Vitamin B12 tablet) omeprazole magnesium 20 mg 20 mg PO DAILY 07/04/22 07/18/24 History tablet,delayed release (Prilosec OTC) dronedarone 400 mg tablet (Multaq) 400 mg PO BID 02/22/23 07/18/24 History hydralazine 50 mg tablet 50 mg PO TID 02/22/23 07/18/24 History metoprolol tartrate 50 mg tablet See Rx Instructions .Route 03/21/23 07/18/24 Rx .COMPLEX #60 tabs furosemide 40 mg tablet See Rx Instructions .Route 06/04/23 07/18/24 Rx .COMPLEX #180 tabs milk thistle 175 mg tablet 500 mg PO DAILY 07/11/23 07/18/24 History fluticasone propionate 50 See Rx Instructions .Route 01/21/24 07/18/24 Rx mcg/actuation nasal .COMPLEX #48 mL spray,suspension amlodipine 10 mg tablet See Rx Instructions .Route 01/23/24 07/18/24 Rx .COMPLEX #90 tabs albuterol sulfate 90 mcg/actuation 1 - 2 puff inhalation Q4-6H PRN 02/11/24 07/07/24 Rx aerosol inhaler shortness of breath or wheezing #8.5 grams alendronate 70 mg tablet See Rx Instructions .Route 02/11/24 07/18/24 Rx .COMPLEX #12 tabs rosuvastatin 10 mg tablet See Rx Instructions .Route 02/11/24 07/18/24 Rx .COMPLEX #100 tabs levothyroxine 88 mcg tablet 88 mcg PO DAILY #90 tabs 03/24/24 07/18/24 Rx budesonide-formoterol HFA 80 2 puff inhalation Q12H #30.6 grams 04/15/24 07/18/24 Rx mcg-4.5 mcg/actuation aerosol inhaler alprazolam 0.25 mg tablet 0.25 mg PO BID PRN anxiety #60 tabs 06/23/24 07/07/24 Rx irbesartan 300 mg tablet See Rx Instructions .Route 07/02/24 07/18/24 Rx .COMPLEX #100 tabs warfarin 2 mg tablet 6 mg PO .COMPLEX 07/07/24 07/18/24 History acetaminophen 500 mg tablet mg 07/18/24 History Patient hx anesthesia problems: none Family hx anesthesia problems: none Results Review: All pre-operative results and documents have been reviewed as part of the pre-operative evaluation. [facility] Past Medical History Medical History Abdominal pain Wears hearing aid in both ears Left arm pain Racing heart beat Sarcoidosis Diagnosed 2002 after transbronchial biopsy, has never undergone tx. In remission. Pulmonary HTN CPAP (continuous positive airway pressure) dependence Sleep apnea Sarcoidosis Hiatal hernia Fatty liver COPD (chronic obstructive pulmonary disease) Anxiety Hypothyroid Osteoporosis Arthritis UTI (urinary tract infection) GI bleed GERD (gastroesophageal reflux disease) IBS (irritable bowel syndrome) Diverticulosis HTN (hypertension) Hyperlipidemia Sinus problem Cataract Surgical History Surgical History H/O colonoscopy H/O cataract extraction History of arthroplasty of left knee H/O arthroscopy of right knee H/O dilation and curettage H/O: hysterectomy H/O breast biopsy Hx of cholecystectomy History of appendectomy History of cardiac cath H/O sinus surgery Hx of tonsillectomy Family History Family History Mother Cerebrovascular accident, Onset Age: 86 Family history of cardiovascular disease, Onset Age: 86 Sibling Family history of cardiovascular disease History of heart bypass surgery, Onset Age: 75 Social History Social History Social History: Has a son Smoking status: Never smoker Second hand tobacco smoke exposure: Yes (Many years of exposure. was heavy smoker. ) Alcohol intake: never Substance use: never Substance use type: does not use Lack of Transportation: No Lack of Food: Never True Current Housing: I Have Housing Concerned About Future Housing: No Difficulty Paying Gas/Electric Bills: No Difficulty Paying for Meds: No Currently Unemployed: No Education: High School Diploma/GED Difficulty w/ Childcare or Family Care: No Gender identity (if verbalized by the patient): Female Spiritual care concerns: No Agree to blood products: Yes Anes - Eval Final PreProcedure Day of Procedure 07/18/24 13:17 Patient weight: obese Heart: irregular rhythm Lungs: decreased breath sounds Airway: Mallampati scale class II Neurological: alert and oriented Last oral intake: >/= 8 hours ASA classification: IV Emergent: no Anesthetic plan: proceed Anesthesia type and monitoring: general GIVS and standard monitoring Results Review: All pre-operative results and documents have been reviewed as part of the pre-operative evaluation. Informed Consent: The patient's anesthetic plan and its attendant risks and benefits were discussed with the patient/family/POA. Questions were solicited and answers provided to the satisfaction of the patient/family/POA.
[2024-07-18 13:45] VITALS: BP 101/47; PULSE 52; RESP 14; O2SAT 95
[2024-07-18 13:55] VITALS: BP 90/55; PULSE 54; RESP 15; O2SAT 96
[2024-07-18 14:05] VITALS: BP 109/67; PULSE 53; RESP 21; O2SAT 96
== END 2024-07-18 14:22 | disposition home or self-care (01) ==
PROVIDERS: PCP Family Medicine; Referring Provider Family Medicine; Visit Provider Internal Medicine Gastroenterology
PROC: 0DJD8ZZ Inspection of Lower Intestinal Tract, Via Natural or Artificial Opening Endoscopic (ICD-10-PCS; CPT 45378; principal; 2024-07-18 13:45)
DX: Z12.11 Encounter for screening for malignant neoplasm of colon (principal); D12.0 Benign neoplasm of cecum; D12.2 Benign neoplasm of ascending colon; D12.3 Benign neoplasm of transverse colon; D12.4 Benign neoplasm of descending colon; K64.8 Other hemorrhoids; K57.30 Diverticulosis of large intestine without perforation or abscess without bleeding; I10 Essential (primary) hypertension; E78.5 Hyperlipidemia, unspecified; E03.9 Hypothyroidism, unspecified; K21.9 Gastro-esophageal reflux disease without esophagitis; J44.9 Chronic obstructive pulmonary disease, unspecified; M81.0 Age-related osteoporosis without current pathological fracture; K58.9 Irritable bowel syndrome, unspecified; G47.30 Sleep apnea, unspecified; F41.9 Anxiety disorder, unspecified; D86.9 Sarcoidosis, unspecified; I27.20 Pulmonary hypertension, unspecified; M19.90 Unspecified osteoarthritis, unspecified site; E66.9 Obesity, unspecified; Z68.39 Body mass index [BMI] 39.0-39.9, adult; Z79.51 Long term (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 of inhaled steroids; Z79.83 Long term (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 of bisphosphonates; Z79.01 Long term (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; Z99.89 Dependence on other enabling machines and devices; Z98.890 Other specified postprocedural states; Z90.49 Acquired absence of other specified parts of digestive tract; Z98.61 Coronary angioplasty status; Z87.19 Personal history of other diseases of the digestive system; Z82.49 Family history of ischemic heart disease and other diseases of the circulatory system
CPT/HCPCS: 45380; 45385; 88305; J2003; J2704; J7120

== ENCOUNTER 2024-10-02 16:36 | Inpatient (IN) | payer MEDICARE, SELFPAY ==
[2024-10-02] VITALS (18 sets, daily range): BP systolic 122–149; BP diastolic 70–105; PULSE 101–148; RESP 14–25; TEMP 36.7; O2SAT 94–98
--- NOTE | ~2024-10-02 | XR_ITS ---
EXAMINATION: XR chest 1V portable DATE: 10/02/2024 17:53 INDICATION: Chest pain TECHNIQUE: frontal view of the chest was obtained. COMPARISON: Chest radiograph dated 03/14/2024 FINDINGS: Pulmonary vascular congestion and increased, interstitial opacities in the bilateral lower lung zones which could represent atelectasis, mild pulmonary edema or pneumonia. No pleural effusion or pneumot horax. Heart size is normal. IMPRESSION: 1. Opacities in the bilateral lower lung zones which could represent atelectasis, mild pulmonary paul a, pneumonia or some combination thereof. Reviewed, dictated and finalized at location A. IMPRESSION: 1. Opacities in the bilateral lower lung zones which could represent atelectasi s, mild pulmonary edema, pneumonia or some combination thereof.
--- NOTE | ~2024-10-02 | CT_ITS ---
EXAMINATION: CTA chest abdomen pelvis DATE: 10/02/2024 20:50 INDICATION: Chest and abdominal pain TECHNIQUE: Computed tomographic angiography (CTA) of the chest, abdomen, and pelvis was performed wit hout and with 100 mL Omnipaque-350 intravenous contrast. Volume-rendered 3D-reconstructions of the ao rta and large arteries were constructed by the technologist on a separate workstation. Automated expo sure control and iterative reconstruction technique were employed. The dose-length product was 1217.1 6 mGy-cm. COMPARISON: CT abdomen and pelvis dated 10/24/2023 FINDINGS: Chest: Mild dependent atelectasis in the bilateral lower lobes. Additional unchanged linear bands of discoid atelectasis/scarring in the lingula and right lower lobe. No pneumonia, pulmonary edema, pleural eff usion or pneumothorax. Heart size is normal. Small amount of atherosclerotic coronary artery calcific ation. There is enlargement of the central pulmonary arteries consistent with pulmonary arterial hype rtension. Although not performed as a dedicated pulmonary embolism protocol there is good contrast op acification of the pulmonary arteries demonstrating no pulmonary embolism. Sensitivity is however dec reased in some of the smaller subsegmental pulmonary arteries at the lung bases due to some respirato ry motion. Thoracic aorta is normal in caliber with no dissection. Calcified left hilar and mediastin al lymph nodes consistent with old granulomatous disease. Mild thoracic dextrocurvature. Moderate tho racic and severe lower cervical spondylosis. Abdomen and pelvis: Cholecystectomy clips the gallbladder fossa. Liver, spleen, pancreas, bilateral adrenal glands and ki dneys are normal. There is moderate colonic diverticulosis with a descending and sigmoid colon predom inance without adjacent inflammatory change to suggest diverticulitis. No bowel obstruction. The appe ndix is not visualized. No pericecal inflammatory change to suggest acute appendicitis.. Small fat-c ontaining umbilical and supraumbilical ventral hernias. There is calcified atherosclerosis of the nor mal caliber abdominal aorta and many of the other arteries. The bladder is normal. The uterus is not identified and has likely been surgically resected. No free intraperitoneal gas or fluid. No patholog ically enlarged abdominal or pelvic lymphadenopathy. Mild lumbar levocurvature with moderate to sever e spondylosis moderate osteoarthritis at the bilateral hip and sacroiliac joints. IMPRESSION: 1. Chronic atelectasis/scarring at the bilateral lung bases. 2. Enlargement of the central pulmonary arteries consistent with pulmonary arterial hypertension with out evident pulmonary embolism. 3. No acute intra-abdominal/pelvic process. 4. Small fat-containing umbilical and supraumbilical ventral hernias. 5. Diverticulosis. Reviewed, dictated and finalized at location A. IMPRESSION: 1. Chronic atelectasis/scarring at the bilateral lung bases. 2. Enlargement of the central pulmonary arteries consistent with pulmonary soni rial hypertension without evident pulmonary embolism. 3. No acute intra-abdominal/pelvic process. 4. Small fat-containing umbilical and supraumbilical ventral hernias. 5. Diverticulosis.
--- NOTE | 2024-10-02 16:37 | ECG_ITS ---
Test Date: 2024-10-02 18:46:48 Measurements Intervals [place] Rate: 123 P: -75 CT: 214 QRS: -21 QRSD: 98 T: 124 QT: 303 QTc: 435 Interpretive Statements ATRIAL FIBRILLATION WITH RAPID VENTRICULAR RATES LEFT AXIS DEVIATION NONSPECIFIC ST & T-WAVE ABNORMALITY Compared to ECG 10/02/2024 16:42:16 ATRIAL FIBRILLATION Electronically Signed On 10-03-2024 16:08:47 CDT by Joel Griffin M.D.
--- OUTSIDE RECORDS SUMMARY | 2024-10-02 16:38 | XMS_ITS | Encounter Summary ---
Author Organization [facility] Healthcare Address [address] [place] [address] Care Team Providers Care Regulatory Affairs Internship Name Role Phone Tru Benites MD Primary Care Provider [phone] Encounter Details Date Type Department Care Team (Late st Contact Info) Description 03/14/2024 Orders Only [facility] Health Information Management [address] [place] [address] Scanning, Provider Social History Tobacco Use Types Packs/Day Years Used Date Smoking Tobacco: Never Smokeless Tobacco: Never Alcohol Use Standard Drinks/Week Comments Not Currently 0 (1 standard drink = 0.6 oz pur e alcohol) Comments Unknown Sex and Gender Information Value Date Recorded Sex Assigned at Not on file 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 Gender Identity Not on file Sexual Orientation Not on file documented as of this encounter Plan of Treatment Not on file documented as of this encounter Procedures Procedure Name Priority Date/Time Associated Diagnosis Comments SCAN - RADIOLOGY/IMAGING 03/14/2024 documented in this encounter Results * SCAN - RADIOLOGY/IMAGING (03/14/2024) Anatomical Region Laterality Modality Other us Provider Scanning Final Result documented in this encounter Visit Diagnoses Not on filedocumented in this encounter Care Teams Regulatory Affairs Internship Relationship Specialty Start Date End Date Tru Benites MD PCP - General Family Practice 09/05/22 documented as of this encounter
--- OUTSIDE RECORDS SUMMARY | 2024-10-02 16:38 | XMS_ITS | Clinical Summary ---
Author Organization [facility] Address [address] [place] [address] Care Team Providers Care Office Services Associate Name Role Phone Unavailable Primary Care Provider [...]
--- OUTSIDE RECORDS SUMMARY | 2024-10-02 16:38 | XMS_ITS | Continuity of Care Document ---
Author Organization [facility] Address [address] [place] [address] [address] [place] [address] Phone Care Team Providers Care Oracle Adf Consultant Name Role Phone Brinda Carlson Unavailable Unavailable Procedures Procedure Date Eye Exam Established Pt Eye Exam Established Pt Advance Directives Directive Yes / No Effective Date File Name No Information Encounters Encounter Description Practice Location Reason(s) For Visit Diagnoses Date Provider Providers Copied on Encounter [facility], [address] [place] [address] [address], [place], [place], [id number], tel:[phone] [facility] No Information May-3 0-201 0 Robyn Parry. [address] , [address], [place], [place], [facility], . tel:[phone] [facility], [address] [place] [address] [address], [place], [place], [id number], tel:[phone] [facility] No Information 2-200 9 Robyn Matson [address] , [address], [place], [place], [facility], [place]. tel:[phone] Family History Family Member Type Diagnosis Age At Onset No Information Payers Payer name Insurance type Covered democrat ID Authoriza tion(s) Medicare RR MB [id number] [facility] Commercial [id number] Social History Type Description Quantity Date Captured [...]
--- OUTSIDE RECORDS SUMMARY | 2024-10-02 16:38 | XMS_ITS | Clinical Summary ---
Author Organization [facility] Care Team Providers Care Wheelchair Van Operator First Responder Name Role Phone Unavailable Primary Care Provider [...]
--- OUTSIDE RECORDS SUMMARY | 2024-10-02 16:38 | XMS_ITS | Referral Summary ---
Author Organization [facility] [address] [address] [place] [address] Care Team Providers Care Aviation Safety Inspector Name Role Phone Tru Benites MD Primary Care Provider [phone] Encounters Date Type Department Care Team Description 09/29/2024 Telephone [facility] [address] [place] [address] [address] [place] [address] Avril Almeida MA Multaq 09/05/2024 Anticoagulation Visit [facility] [address] [place] [address] [address] [place] [address] Avril Luciano RN Atrial fibrillation, unspecified type (HCC) (Primary Dx); skilled nursing (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 08/22/2024 Anticoagulation Visit [facility] [address] [place] [phone] Nancy Vergara RN Atrial fibrillation, unspecified type (HCC) (Primary Dx); 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 08/11/2024 Anticoagulation Visit [facility] [address] [place] [address] [address] [place] [address] Avril Luciano RN Atrial fibrillation, unspecified type (HCC) (Primary Dx); 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 07/31/2024 Anticoagulation Visit [facility] [address] [place] [address] [address] [place] [phone] Avril Luciano RN Atrial fibrillation, unspecified type (HCC) (Primary Dx); 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 07/29/2024 Telephone [facility] [address] [place] [phone] Eddie Bennett MD 07/21/[address] [address] Eddie Bennett MD 07/14/[address] [phone] Avril Almeida MA Multaq Shipped 07/11/2024 Anticoagulation Visit [address] [address] Kelly Garber RN Atrial fibrillation, unspecified type (HCC) (Primary Dx); skilled nursing (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 07/11/2024 11:00 AM CDT Office Visit [address] [phone] Yaima Rossi NP Sarcoidosis; Paroxysmal atrial fibrillation (HCC); 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 07/04/2024 Anticoagulation Visit [address] [address] Yaw Montanez RN Atrial fibrillation, unspecified type (HCC) (Primary Dx); skilled nursing (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 from Last 3 Months Allergies Active Allergy Reactions Criticality Noted Date Comments Adhesive Unknown 04/03/2023 Medications irbesartan (AVAPRO) 300 mg tablet Take 1 tablet (300 mg total) by mouth daily 10/13/19 20 Active rosuvastatin (CRESTOR) 10 mg tablet Take 1 tablet (10 mg total) by mouth daily 09/08/19 20 Active omeprazole OTC (PriLOSEC OTC) 20 mg EC tablet Take 1 tablet (20 mg total) by mouth 2 (two) times a day Active ALPRAZolam (XANAX) 0.25 mg tablet Take 1 tablet (0.25 mg total) by mouth 3 (three) times a day as needed 08/18/19 20 Active furosemide (LASIX) 40 mg tablet Take [...] HFA 90 mcg/actuation inhaler Inhale 2 puffs 03/14/19 21 Active Symbicort 80-4.5 mcg/actuation inhaler INHALE 2 PUFFS BY MOUTH EVERY MORNING AND EVERY EVENING. RINSE MOUTH AFTER USE 05/14/19 21 Active levothyroxine (SYNTHROID) 88 mcg tablet Take 1 tablet (88 mcg total) by mouth daily 04/02/19 22 Active alendronate (FOSAMAX) 70 mg tablet TAKE 1 TABLET BY MOUTH ONCE WEEKLY 08/23/19 23 Active cycloSPORINE (Restasis) 0.05 % ophthalmic emulsion Restasis 0.05 % eye drops in a dropperette INSTILL 1 DROP INTO BOTH EYES TWICE A DAY Active amLODIPine (NORVASC) 10 mg tablet Take 1 tablet (10 mg total) by mouth daily 90 tablet 12/01/19 23 Active ROOT BEER FLAVOR, BULK, MISC Active potassium gluconate 600 mg (99 mg) tablet Take 2 tablets by mouth daily Active metoprolol (LOPRESSOR) 100 mg tabletIndication s:Paroxysmal atrial fibrillation (HCC) Take 1 tablet (100 mg total) by mouth nightly In addition to taking 50 mg bid (total daily dose 200 mg) 90 tablet 3 03/28/19 25 Active dronedarone (MULTAQ) 400 mg tabletIndication s:Paroxysmal atrial fibrillation (HCC) Take 1 tablet (400 mg total) by mouth 2 (two) times a day with meals 180 tablet 3 05/07/19 25 Active hydrALAZINE (APRESOLINE) 50 mg tablet TAKE 1 TABLET BY MOUTH THREE TIMES A DAY 270 tablet 1 06/28/19 25 Active fluticasone propionate (FLONASE) 50 mcg/actuation nasal spray Administer 2 sprays into each nostril daily 05/11/19 25 Active warfarin (COUMADIN) 2 mg tabletIndication s:Paroxysmal atrial fibrillation (HCC),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 TAKE 3 TABLETS BY MOUTH EVERY SUNDAY/SUNDAY, AND 2 TABLETS OTHER DAYS OR INSTRUCTED 192 tablet 1 07/22/19 25 Active metoprolol tartrate (LOPRESSOR) 50 mg immediate release tabletIndication s:Paroxysmal atrial fibrillation (HCC) TAKE 1 TABLET BY MOUTH THREE TIMES A DAY 270 tablet 2 09/19/19 25 Active metoprolol tartrate (LOPRESSOR) 50 mg immediate release tabletIndication s:Paroxysmal atrial fibrillation (HCC) Take 1 tablet (50 mg total) by mouth 2 (two) times a day In addition, take 100 mg tablet at night (total daily dose 200 mg) 03/28/19 25 2024 Discontinued Active Problems Problem Noted Date Diagnosed Date Atrial fibrillation 06/04/2024 skilled nursing (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 2024 LVH (left ventricular hypertrophy) 12/20/2022 Paroxysmal atrial fibrillation 11/30/2022 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 0 11/30/2022 [...] on file 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 Gender Identity Not on file Sexual Orientation [...] 11:01 AM CDT Height 157.5 cm (5' 2) 07/11/2024 11:01 AM CDT Body Mass Index 39.87 07/11/2024 11:01 AM CDT Plan of Treatment Not on file Procedures Procedure Name Priority Date/Time Associated Diagnosis Comments PROTIME-INR Routine 09/04/2024 11:50 AM CDT Paroxysmal atrial fibrillation (HCC) 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 PROTIME-INR Routine 08/21/2024 11:43 AM CDT Paroxysmal atrial fibrillation (HCC) skilled nursing current use of 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 therapy PROTIME-INR Routine 08/08/2024 10:48 AM CDT Paroxysmal atrial fibrillation (HCC) 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 PROTIME-INR Routine 07/30/2024 10:45 AM CDT Paroxysmal atrial fibrillation (HCC) 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 PROTIME-INR Routine 07/10/2024 10:46 AM CDT Paroxysmal atrial fibrillation (HCC) 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 PROTIME-INR Routine 07/03/2024 10:50 AM CDT Paroxysmal atrial fibrillation (HCC) skilled nursing current use of 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 therapy from Last 3 Months Results * (ABNORMAL) Protime-INR (09/04/2024 11:50 AM CDT) INR 2.0(H) [employer] Comment: Reference Range 0.9-1.1 Moderate-intensity Warfarin Therapy 2.0-3.0 Higher-intensity Warfarin Therapy 3.0-4.0 PT 20.4(H) 9.0 - 11.5 sec [employer] Renuka Julian Comment: For additional information, please refer to http://education.[employer].com/faq/OTF752 (This link is being provided for informational/ educational purposes only.) Blood 09/04/2024 11:5 0 AM CDT 09/04/2024 11:50 AM CDT Yaima Rossi TITLE CURATIVE SPECIALIST LAB BLOOD ORDERABLES Meg l Result Performing Organization Address [facility] Co de Phone Number [facility] [address] [place] [address] * (ABNORMAL) Protime-INR (08/21/2024 11:43 AM CDT) INR 2.4(H) [facility] Comment: Reference Range 0.9-1.1 Moderate-intensity Warfarin Therapy 2.0-3.0 Higher-intensity Warfarin Therapy 3.0-4.0 PT 24.7(H) 9.0 - 11.5 sec [facility] Comment: For additional information, please refer to http://[employer]/faq/NEF862 (This link is being provided for informational/ educational purposes only.) Blood 08/21/2024 11:4 3 AM CDT 08/21/2024 11:44 AM CDT Yaima Rossi NP LAB BLOOD ORDERABLES Meg l Result Performing Organization Address [facility] Co de Phone Number [facility] [address] [place] [address] * (ABNORMAL) Protime-INR (08/08/2024 10:48 AM CDT) INR 2.0(H) [facility] Comment: Reference Range 0.9-1.1 Moderate-intensity Warfarin Therapy 2.0-3.0 Higher-intensity Warfarin Therapy 3.0-4.0 PT 20.3(H) 9.0 - 11.5 sec [facility] Comment: For additional information, please refer to http://[employer]/faq/SSK436 (This link is being provided for informational/ educational purposes only.) Blood 08/08/2024 10:4 8 AM CDT 08/08/2024 10:49 AM CDT Yaima Rossi NP LAB BLOOD ORDERABLES Meg l Result Performing Organization Address [facility] Co de Phone Number [facility] [address] [place] [address] * (ABNORMAL) Protime-INR (07/30/2024 10:45 AM CDT) INR 1.5(H) [facility] Comment: Reference Range 0.9-1.1 Moderate-intensity Warfarin Therapy 2.0-3.0 Higher-intensity Warfarin Therapy 3.0-4.0 PT 15.3(H) 9.0 - 11.5 sec [facility] Comment: For additional information, please refer to http://[employer]/faq/CSC715 (This link is being provided for informational/ educational purposes only.) Blood 07/30/2024 10:4 5 AM CDT 07/30/2024 10:46 AM CDT Yaima Rossi NP LAB BLOOD ORDERABLES Meg l Result Performing Organization Address [facility] Co de Phone Number [facility] [address] [place] [address] * (ABNORMAL) Protime-INR (07/10/2024 10:46 AM CDT) INR 1.7(H) [facility] Comment: Reference Range 0.9-1.1 Moderate-intensity Warfarin Therapy 2.0-3.0 Higher-intensity Warfarin Therapy 3.0-4.0 PT 17.5(H) 9.0 - 11.5 sec [facility] Comment: For additional information, please refer to http://[employer]/faq/VGG189 (This link is being provided for informational/ educational purposes only.) Blood 07/10/2024 10:4 6 AM CDT 07/10/2024 10:46 AM CDT Yaima Rossi TITLE CURATIVE SPECIALIST LAB BLOOD ORDERABLES Meg l Result Performing Organization Address [facility] Co de Phone Number [facility] [address] [place] [address] * (ABNORMAL) Protime-INR (07/03/2024 10:50 AM CDT) INR 1.8(H) [facility] Comment: Reference Range 0.9-1.1 Moderate-intensity Warfarin Therapy 2.0-3.0 Higher-intensity Warfarin Therapy 3.0-4.0 PT 18.4(H) 9.0 - 11.5 sec [employer] Comment: For additional information, please refer to http://[employer]/faq/LCL558 (This link is being provided for informational/ educational purposes only.) Blood 07/03/2024 10:5 0 AM CDT 07/03/2024 10:50 AM CDT Yaima Rossi NP LAB BLOOD ORDERABLES Meg l Result Performing Organization Address [facility] Co de Phone Number [facility] [address] [place] [address] from Last 3 Months Insurance AETNA MEDICARE GOLD AETNA MEDICARE GOLD AETNA MEDICARE GOLD Care Teams Aviation Safety Inspector Relationship Specialty Start Date End Date Tru Benites MD PCP - General Family Practice 09/05/22
--- OUTSIDE RECORDS SUMMARY | 2024-10-02 16:38 | XMS_ITS | Encounter Summary ---
Author Organization [facility] Healthcare Address [address] [place] [address] Care Team Providers Care Stripper Preliminary Name Role Phone Clovis Carter DO Primary Care Provider [phone] Tru Benites MD Primary Care Provider [phone] Encounter Details Date Type Department Care Team (Late st Contact Info) Description 06/28/2022 Orders Only [facility] Health Information Management [address] [place] [address] Scanning, Provider Social History Tobacco Use Types Packs/Day Years Used Date Smoking Tobacco: Never Smokeless Tobacco: Never Alcohol Use Standard Drinks/Week Comments Not Currently 0 (1 standard drink = 0.6 oz pur e alcohol) Comments Unknown Sex and Gender Information Value Date Recorded Sex Assigned at Not on file 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 Gender Identity Not on file Sexual Orientation Not on file documented as of this encounter Plan of Treatment Not on file documented as of this encounter Procedures Procedure Name Priority Date/Time Associated Diagnosis Comments SCAN - RADIOLOGY/IMAGING 06/28/2022 documented in this encounter Results * SCAN - RADIOLOGY/IMAGING (06/28/2022) Anatomical Region Laterality Modality Other us Provider Scanning Edited Result - Final documented in this encounter Visit Diagnoses Not on filedocumented in this encounter Care Teams Stripper Preliminary Relationship Specialty Start Date End Date Clovis Carter DO PCP - General Internal Medicine 09/25/19 09/04/22 Tru Benites MD PCP - General Family Practice 09/05/22 documented as of this encounter
--- OUTSIDE RECORDS SUMMARY | 2024-10-02 16:39 | XMS_ITS | Data Portability ---
Author Organization [facility], [place] Address [address] [place] [address] Assessment No assessment recorded. Plan of Treatment Reminders Order Date Submit Date Provider Last Modified By Organization Details Last Modified Time Details Appointments None recorded. Lab None recorded. Referral None recorded. Procedures None recorded. Surgeries None recorded. Imaging None recorded. Medication Orders clotrimaz ole-betam ethasone 1 %-0.05 % topical cream 021 021 [employer] [facility] [employer] [id number], [address], [place], [id number], 14:37:55 Patient TargetsNo targets recorded. Patient InstructionsNo instructions recorded. Reason for Referral None Reported. Problems Name Problem SNOMED Code Status Onset Date Resolution Date Notes Provider Name and Address Organization Details Recorded Time Screenin g for malignan t neoplasm of rectum Completed 201212/07/2020 Screenin g for malignan t neoplasm s of the rectum;P racheltice ID: 0001 [facility] 14:22:04 Speciali zed medical examinat ion Completed 201212/07/2020 Gynecolo gical Examinat ion;Jesus rded Elsewher e: No Locat ion: [facility]o [facility]ier 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 14:22:08 Screenin g for malignan t neoplasm of cervix Completed 201212/07/2020 Pap Smear;Pr actice ID: 0001 Rachel Forrester [facility] 14:22:02 Urinary tract infectio us disease [id number] Completed 201612/07/2020 Urinary tract infectio n, site not specifie d;Practi ce ID: 0001 Rachel Forrester [facility] 14:22:10 Atrophic vaginiti s [id number] Active 2016 Postmeno pausal atrophic vaginiti s;Practi ce ID: 0001 Not Available [facility] 0 21:23:44 Vaginola bial hernia Active 2017 Other specifie d noninfla mmatory disorder s of vagina;P ractice ID: 0001 Not Available [facility] 0 21:23:44 Blood leukocyt e number above referenc e range [id number] Completed 201712/07/2020 Elevated white blood cell count, unspecif ied;Prac darin ID: 0001 Rachel Forrester [facility] 14:22:13 Acute vaginiti s [id number] Active 2017 Acute vaginiti s;Practi ce ID: 0001 Not Available [facility] 0 21:23:45 Problem Notes None recorded. Procedures Surgical History Date Name Laterality Status Provider Name and Address Organization Details Recorded Time Colonoscopy completed [facility] 12/28/2020 14:46:23 Colonoscopy completed [facility] 12/28/2020 14:46:24 Dilation and Curettage completed [facility] 12/28/2020 14:46:34 Flexible Sigmoidoscopy completed [facility] 12/28/2020 14:46:45 Unlisted px accessory sinus completed [facility] 12/28/2020 14:46:55 biopsy of skin completed [facility] 12/28/2020 14:47:17 Removal of anal fissure completed [facility] 12/28/2020 14:47:42 hemorrhoidectomy completed [facility] 12/28/2020 14:48:05 hysterectomy completed [facility] 12/28/2020 14:51:44 biopsy of breast completed [facility] 12/28/2020 14:52:03 biopsy of lung completed [facility] 12/28/2020 14:52:19 endoscopy completed [facility] 12/28/2020 14:52:35 arthroplasty of knee completed [facility] 12/28/2020 14:53:18 Cholecystectomy completed [facility] 12/28/2020 14:53:26 cardiac catheterization completed [facility] 12/28/2020 14:53:58 needle biopsy completed [facility] 12/28/2020 14:54:10 Imaging Results None recorded. Procedure Notes None recorded. Medical Equipment None Reported. Allergies No known drug allergies Medications Name Sig Start Date Stop Date Status Note LastModified by Organization Details LastModified Time irbesarta n 150 mg-hydroc hlorothia zide 12.5 mg tablet take 1 tablet by oral route every day 2016 active Prescrib ed Elsewher e: Yes Loca tion: [facility] M odify By: shiraz virgen DateTime : 03/21/19 17 02:00:00 PM Not Available Not Available Not Available alprazola m 1 mg tablet take 1 tablet by oral route 3 times every day 2016 active Prescrib ed Elsewher e: Yes Loca tion: [facility] M odify By: shiraz Pimentel r DateTime : 03/21/19 17 02:00:00 PM Not Available Not Available Not Available vitamin E 600 unit capsule 2016 active Prescrib ed Elsewher e: Yes Loca tion: [facility] odify By: shiraz Pimentel r DateTime : 03/21/19 17 02:00:00 PM Not Available Not Available Not Available Synthroid 100 mcg tablet take 1 tablet by oral route every day 03/21 completed Prescrib ed Elsewher e: Yes Loca tion: [facility] odify By: shiraz Williste r DateTime : 06/18/19 13 12:30:00 PM Not Available Not Available Not Available Prilosec 20 mg capsule,d elayed release take 1 capsule by oral route every day before a meal active Prescrib ed Elsewher e: Yes Loca tion: [facility] odify By: [email or web address] trick En counter DateTime : 06/18/19 13 12:30:00 PM Not Available Not Available Not Available milk thistle 175 mg tablet 2016 active Prescrib ed Elsewher e: Yes Loca tion: [facility] odify By: shiraz Pimentel r DateTime : 03/21/19 17 02:00:00 PM Not Available Not Available Not Available clobetaso l 0.05 % topical cream apply by topical route every day a thin layer to the affected area(s) 2017 active Prescrib ed Elsewher e: No Locat ion: [facility] odify By: neeta ling DateTime : 10/17/19 18 03:45:00 PM Not Available Not Available Not Available nystatin 500,000 unit tablet take 1 tablet by oral route 3 times every day continui ng treatmen t for at least 2 days after symptoms have disappea red 2016 active Prescrib ed Elsewher e: Yes Loca tion: [facility] odify By: shiraz Williste r DateTime : 03/21/19 17 02:00:00 PM Not Available Not Available Not Available triamcino lone acetonide 0.1 % topical cream apply by topical route 2 times every day a thin layer to the affected area(s) 2016 active Prescrib ed Elsewher e: Yes Loca tion: [facility] odify By: shiraz Encounte r DateTime : 03/21/19 17 02:00:00 PM Not Available Not Available Not Available levothyro xine 25 mcg tablet take 1 tablet by oral route every day 2016 active Prescrib ed Elsewher e: Yes Loca tion: [facility] odify By: shiraz Encounte r DateTime : 03/21/19 17 02:00:00 PM Not Available Not Available Not Available aspirin 500 mg tablet take 2 tablet by oral route every 6 hours as needed active Prescrib ed Elsewher e: Yes Loca tion: [facility] odify By: [email or web address] trick En counter DateTime : 06/18/19 13 12:30:00 PM Not Available Not Available Not Available potassium 99 mg tablet active Prescrib ed Elsewher e: Yes Loca tion: [facility] odify By: [email or web address] trick En counter DateTime : 06/18/19 13 12:30:00 PM Not Available Not Available Not Available Metrogel Vaginal 0.75 % (37.5 mg/5 gram) insert 1 applicat orful by vaginal route every day at bedtime for 5 nights 10/22 completed Prescrib ed Elsewher e: No Locat ion: [facility] odify By: rj concepcion DateTime : 10/23/19 18 11:56:59 AM Not Available Not Available Not Available triamcino lone acetonide 0.025 % topical cream apply by topical route 2 times every day a thin layer to the affected area(s) 03/21 completed Prescrib ed Elsewher e: Yes Loca tion: [facility] odify By: shiraz Encounte r DateTime : 06/18/19 13 12:30:00 PM Not Available Not Available Not Available Flagyl 500 mg tablet take 1 tablet by oral route every 12 hours 10/30 completed Prescrib ed Elsewher e: No Locat ion: [facility] odify By: oliver Williste r DateTime : 10/23/19 18 11:56:59 AM [...] Elsewher e: Yes Loca tion: [facility] odify By: [email or web address] trick En counter DateTime : 06/18/19 13 12:30:00 PM Not Available Not Available Not Available Fish Oil 500 mg capsule active Prescrib ed Elsewher e: Yes Loca tion: [facility] odify By: [email or web address] trick En counter DateTime : 06/18/19 13 12:30:00 PM Not Available Not Available Not Available Restasis 0.05 % eye drops in a dropperet te instill 1 drop by ophthalm ic route every 12 hours into affected eye(s) 03/21 completed Prescrib ed Elsewher e: Yes Loca tion: [facility] odify By: shiraz Encounte r DateTime : 06/18/19 13 12:30:00 PM Not Available Not Available Not Available Premarin 0.625 mg/gram vaginal cream insert 1 (1G) by vaginal route every day for 2 weeks, then insert .5 gram by vaginal route two times a week prn 03/21 completed Prescrib ed Elsewher e: No Locat ion: [facility] odify By: shiraz Encounte r DateTime : 06/18/19 13 12:30:00 PM Not Available Not Available Not Available Benicar HCT 40 mg-12.5 mg tablet take 1 tablet by oral route every day 03/21 completed Prescrib ed Elsewher e: Yes Loca tion: [facility] odify By: shiraz Encounte r DateTime : 06/18/19 13 12:30:00 PM Not Available Not Available Not Available Crestor 20 mg tablet take 1 tablet by oral route every day 2016 active Prescrib ed Elsewher e: Yes Loca tion: [facility] odify By: shiraz Pimentel r DateTime : 03/21/19 17 02:00:00 PM Not Available Not Available Not Available metoprolo l tartrate 25 mg tablet take 1 tablet by oral route 2 times every day active Prescrib ed Elsewher e: Yes Loca tion: [facility] odify By: [email or web address] trick En counter DateTime : 06/18/19 13 12:30:00 PM Not Available Not Available Not Available biotin 5 mg tablet 2016 active Prescrib ed Elsewher e: Yes Loca tion: [facility] odify By: shiraz Pimentel r DateTime : 03/21/19 17 02:00:00 PM Not Available Not Available Not Available amlodipin e besylate (bulk) 100 % powder active Prescrib ed Elsewher e: Yes Loca [facility]ion: [facility] odify By: [email or web address] trick En counter DateTime : 06/18/19 13 12:30:00 PM Not Available Not Available Not Available Multi For Her 18 mg iron-600 mcg-40 mcg capsule active Prescrib ed Elsewher e: Yes Loca tion: [facility] odify By: [email or web address] trick En counter DateTime : 06/18/19 13 12:30:00 PM Not Available Not Available Not Available Vitals Date Recorded Body weight Body mass index (BMI) Body height Systolic And Diastolic Provider Name and Address Organization Details Last Updated DateTime 12/07/2020 856537.51 g 40.6 kg/m2 157.48 cm 198/104 mm[Hg] Rachel Forrester [facility] 12/07/2020 14:07:01 Social History None recorded. Functional Status None recorded. Mental Status None recorded. Family History Relationship Description Onset Age of this Age Resolved Age Notes LastModified by Organization Details LastModified Time Mother Congenital heart disease [email or web address] Not available 2020 14:26:27 Mother Hypertensive disorder [email or web address] Not available 2020 14:26:37 Mother Hyperlipidem ia [email or web address] Not available 2020 14:26:54 Brother Hyperlipidem ia [email or web address] Not available 2020 14:26:54 Brother Hypertensive disorder [email or web address] Not available 2020 14:27:07 Medical History Condition Response Other Y High Cholesterol Y Thyroid Problems Y Hypertension Y Gynecological History Statement/Question Response Date of Last Pap Smear Current Control Method Hysterectom y Obstetrics History GPAL:G 4 P 3 0 1 3 Type Value Full Term 3 Spontaneous 1 Living 3 Total 4 Past Encounters Encounter ID Performer Location Encounter Start Date Encounter Closed Date Diagnosis/Indication Diagnosis SNOMED-CT Code Diagnosis ICD10 Code Diagnosis Note [id number] Jae Gibbons MD [place] [address] [address] 12/07/2020 13:43:34 12/08/2020 14:19:08 Lesion of vulva [id number] N90.89 This patient is an 80-year-ol d [...] Recorded Advance Directives Directive None Recorded Payers Insurance Date Sequence Insurance Name Policy Number Policy Feliz Covered Member ID Feliz Member ID Guarantor Name 12/08/2020 2 [employer] - PLAN F (MEDICARE SUPPLEMENT) Glenna Almendarez [id number] Glenna Almendarez 12/02/2020 1 [facility] - MEDICARE-RAILR OAD [employer] BOARD (MEDICARE) Glenna Almendarez [id number] Glenna Almendarez Notes Date Note Type [...] anatomy. Jae Gibbons MD [address], [place], [address], [place] [facility] 12/07/2020 18:05:54 OBGyn Episode Ob Episode Information Episode Created Date Number of Fetuses Patient Bloodtype Patient rh Status Prepregnancy Weight lbs Domestic Partner Domestic Partner Phone Father Name Distribution Transformer Assembler Status 12/08/19 21 1 CLOSED Fetus Data First Name Last Name Admitted to NICU Weight (g) Sex Living Outcome Pediatric Complications Fetus ID Race Codes Race Delivery Type , Spontane ous [id number] Abad Calculation Initial Abad Date Initial Exam [...] Domestic Partner Domestic Partner Phone Father Name Distribution Transformer Assembler Status 12/08/19 21 2 CLOSED Fetus Data First Name Last Name Admitted to NICU Weight (g) Sex Living Outcome Pediatric Complications Fetus ID Race Codes Race Delivery Type 2778.25 1 F [id number] Vaginal Delivery 2664.85 3 M [id number] Abad Calculation Initial Abad Date Initial Exam [...] Domestic Partner Domestic Partner Phone Father Name Distribution Transformer Assembler Status 12/08/19 21 1 CLOSED Fetus Data First Name Last Name Admitted to NICU Weight (g) Sex Living Outcome Pediatric Complications Fetus ID Race Codes Race Delivery Type 2664.85 3 M [id number] Vaginal Delivery Abad Calculation Initial Abad Date [...]
--- OUTSIDE RECORDS SUMMARY | 2024-10-02 16:39 | XMS_ITS | Clinical Summary ---
Author Organization [facility] [address] [facility] [address] [place] [address] Care Team Providers Care Steamer Tender Name Role Phone Tru Benites MD Primary Care Provider [phone] Allergies Active Allergy Reactions Criticality Noted Date [...] (COUMADIN) 2 mg tabletIndication s:Paroxysmal atrial fibrillation (HCC),[facility] current use of 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 therapy TAKE 3 [...] Noted Date Diagnosed Date Atrial fibrillation 06/04/2024 [facility] (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 2024 LVH (left ventricular hypertrophy) 12/20/2022 Paroxysmal atrial fibrillation 11/30/2022 [facility] current use of 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 therapy 0 11/30/2022 [...] Type Department Care Team Description 09/29/2024 Telephone [facility] Cardiology [address] [place] [phone] Avril Almeida MA Multaq 09/05/2024 Anticoagulation Visit [facility] Cardiology [address] [place] [address] [place] [phone] Avril Luciano RN Atrial fibrillation, unspecified type (HCC) (Primary Dx); [facility] (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 08/22/2024 Anticoagulation Visit [facility] Cardiology [facility] [address] [place] [phone] Nancy Vergara RN Atrial fibrillation, unspecified type (HCC) (Primary Dx); [facility] (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 08/11/2024 Anticoagulation Visit [facility] Cardiology [address] [place] [address] [place] [phone] Avril Luciano RN Atrial fibrillation, unspecified type (HCC) (Primary Dx); intermission coordinator (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 07/31/2024 Anticoagulation Visit [facility] Cardiology [address] [place] [address] [place] [phone] Avril Luciano RN Atrial fibrillation, unspecified type (HCC) (Primary Dx); [facility] (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 07/29/2024 Telephone [facility] Cardiology [address] [place] [address] [place] [phone] Eddie Bennett MD 07/21/2024 Telephone [place] [address] [place] [phone] Eddie Bennett MD 07/14/2024 Telephone [place] [address] [place] [phone] Avril Almeida MA Multaq Shipped 07/11/2024 11:00 AM CDT Office Visit [facility] Cardiology [address] [place] [address] [place] [phone] Yaima Rossi NP Sarcoidosis; Paroxysmal atrial fibrillation (HCC); intermission coordinator (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 07/11/2024 Anticoagulation Visit [facility] Cardiology [address] [place] [address] [place] [phone] Kelly Garber RN Atrial fibrillation, unspecified type (HCC) (Primary Dx); intermission coordinator (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 07/04/2024 Anticoagulation Visit [facility] Cardiology [address] [place] [address] [place] [phone] Yaw Montanez RN Atrial fibrillation, unspecified type (HCC) (Primary Dx); intermission coordinator (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 from Last 3 Months Surgical History Surgery [...] on file Legal Sex Female 2:35 AM [employer] Gender Identity Not on file Sexual Orientation [...] 2 - PPSV23) 05/13/2015 05/12/2014 Influenza Vaccine (#1) 2024 9, 12/17/2017, 12/18/2016, Additional history exists Procedures Procedure Name Priority Date/Time Associated Diagnosis Comments PROTIME-INR Routine 09/04/2024 11:50 AM CDT Paroxysmal atrial fibrillation (HCC) [facility] current use of 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 therapy PROTIME-INR Routine 08/21/2024 11:43 AM CDT Paroxysmal atrial fibrillation (HCC) [facility] current use of 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 therapy PROTIME-INR Routine 08/08/2024 10:48 AM CDT Paroxysmal atrial fibrillation (HCC) [facility] current use of 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 therapy PROTIME-INR Routine 07/30/2024 10:45 AM CDT Paroxysmal atrial fibrillation (HCC) intermission coordinator current use of 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 therapy PROTIME-INR Routine 07/10/2024 10:46 AM CDT Paroxysmal atrial fibrillation (HCC) intermission coordinator current use of 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 therapy PROTIME-INR Routine 07/03/2024 10:50 AM CDT Paroxysmal atrial fibrillation (HCC) intermission coordinator current use of 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 therapy from Last 3 Months Results * (ABNORMAL) Protime-INR (09/04/2024 11:50 AM CDT) INR 2.0(H) [facility] Comment: Reference Range 0.9-1.1 Moderate-intensity Warfarin Therapy 2.0-3.0 Higher-intensity Warfarin Therapy 3.0-4.0 PT 20.4(H) 9.0 - 11.5 sec [facility] Comment: For additional information, please refer to http://Insurity.PromoRepublic/faq/IDU498 (This link is being provided for informational/ educational purposes only.) Blood 09/04/2024 11:5 0 AM CDT 09/04/2024 11:50 AM CDT Yaima Rossi NP LAB BLOOD ORDERABLES Meg l Result [facility] [address] [place] [address] * (ABNORMAL) Protime-INR (08/21/2024 11:43 AM CDT) INR 2.4(H) [facility] Comment: Reference Range 0.9-1.1 Moderate-intensity Warfarin Therapy 2.0-3.0 Higher-intensity Warfarin Therapy 3.0-4.0 PT 24.7(H) 9.0 - 11.5 sec [facility] Comment: For additional information, please refer to http://Insurity.PromoRepublic/faq/PVU007 (This link is being provided for informational/ educational purposes only.) Blood 08/21/2024 11:4 3 AM CDT 08/21/2024 11:44 AM CDT Yaima Rossi DIET CONSULTANT LAB BLOOD ORDERABLES Meg l Result Performing Organization Address [facility] de Phone Number [facility] [address] [place] [address] * (ABNORMAL) Protime-INR (08/08/2024 10:48 AM CDT) INR 2.0(H) [facility] Comment: Reference Range 0.9-1.1 Moderate-intensity Warfarin Therapy 2.0-3.0 Higher-intensity Warfarin Therapy 3.0-4.0 PT 20.3(H) 9.0 - 11.5 sec [facility] Comment: For additional information, please refer to http://Insurity.PromoRepublic/faq/XOQ696 (This link is being provided for informational/ educational purposes only.) Blood 08/08/2024 10:4 8 AM CDT 08/08/2024 10:49 AM CDT Yaima Rossi NP LAB BLOOD ORDERABLES Meg l Result Performing Organization Address [facility] de Phone Number [facility] [address] [place] [address] * (ABNORMAL) Protime-INR (07/30/2024 10:45 AM CDT) INR 1.5(H) [facility] Comment: Reference Range 0.9-1.1 Moderate-intensity Warfarin Therapy 2.0-3.0 Higher-intensity Warfarin Therapy 3.0-4.0 PT 15.3(H) 9.0 - 11.5 sec [facility] Comment: For additional information, please refer to http://[employer]/faq/NKB374 (This link is being provided for informational/ educational purposes only.) Blood 07/30/2024 10:4 5 AM CDT 07/30/2024 10:46 AM CDT Yaima Rossi NP LAB BLOOD ORDERABLES Meg l Result Performing Organization Address [facility] de Phone Number [facility] [address] [place] [address] * (ABNORMAL) Protime-INR (07/10/2024 10:46 AM CDT) INR 1.7(H) [facility] Comment: Reference Range 0.9-1.1 Moderate-intensity Warfarin Therapy 2.0-3.0 Higher-intensity Warfarin Therapy 3.0-4.0 PT 17.5(H) 9.0 - 11.5 sec [facility] Comment: For additional information, please refer to http://Insurity.PromoRepublic/faq/ARL085 (This link is being provided for informational/ educational purposes only.) Blood 07/10/2024 10:4 6 AM CDT 07/10/2024 10:46 AM CDT Yaima Rossi NP LAB BLOOD ORDERABLES Meg l Result Performing Organization Address [facility] de Phone Number [facility] [address] [place] [address] * (ABNORMAL) Protime-INR (07/03/2024 10:50 AM CDT) INR 1.8(H) [facility] Comment: Reference Range 0.9-1.1 Moderate-intensity Warfarin Therapy 2.0-3.0 Higher-intensity Warfarin Therapy 3.0-4.0 PT 18.4(H) 9.0 - 11.5 sec [facility] Comment: For additional information, please refer to http://Insurity.PromoRepublic/faq/UCX042 (This link is being provided for informational/ educational purposes only.) Blood 07/03/2024 10:5 0 AM CDT 07/03/2024 10:50 AM CDT us Yaima Rossi NP LAB BLOOD ORDERABLES Meg l Result [facility] [address] [place] [address] from Last 3 Months Insurance AET MEDICARE [facility] AET MEDICARE [facility] AET MEDICARE [facility] Care Teams Steamer Tender Relationship Specialty Start Date End Date Tru Benites MD PCP - General Family Practice 09/05/22
--- OUTSIDE RECORDS SUMMARY | 2024-10-02 16:39 | XMS_ITS | Data Portability ---
Author Organization [place] [employer] [place] [employer], Main Office Address [address] [place] [address] Care Team Providers Care Morgue Attendant Name Role Phone TIERRA CARUSO Primary Care Provider [phone] TIERRA CARUSO Referring Provider Assessment Encounter Date [...] without limp or assistance. She has a xtwo-oe-trvbhulz effusion in the right knee. Range of motion is from 3-130 degrees. She has qukt-pk-bspvegrk tenderness over both medial and lateral joint [...] the patient more than half of this gtaz-so-lwkw conversation [email or web address] Not available 06/02/2022 16:18:45 Plan of Treatment Reminders Order Date Submit Date Provider Last Modified By Organization Details Last Modified Time Details Appointments None recorded. Lab None recorded. Referral None recorded. Procedures injection/a spiration joint/bursa (PROC) - in office procedure, administere d by provider 2022 023 [email or web address] In-Office Order, Internal Use Only DO Not Attach Compendium DO Not Attach Compendium, Do Not Delete/merge, [address]1986 14:54:28 Surgeries None recorded. Imaging None recorded. Medication Orders Kenalog 10 mg/mL suspension for injection [address] [id number], [address] [place], [address], 3 16:32:38 ropivacaine (PF) 5 mg/mL (0.5 %) injection [facility] 2022 [facility]23 [id number], [address] [place], [address], 16:32:38 Patient TargetsNo targets recorded. Patient InstructionsNo instructions recorded. Reason for Referral None Reported. Results Created Date Observation Date Name Description Value Unit Range Abnormal Flag Note LastModifiedBy Organization Detail LastModifiedTime 02/26/20 21 XR, knee No observ ation record ed. [id number] [address], [place], [address], 05/10/2022 13:55:15 Result Notes None recorded. Problems Name Problem SNOMED Code Status Onset Date Resolution Date Notes Provider Name and Address Organization Details Recorded Time Knee pain Active Not Available [facility] 13:52:17 Enthesopathy of knee 70776605 Active Not Available [facility] 13:52:17 Osteoarthriti s 764556204 Active 2021 Not Available [facility] 3 13:52:17 Problem Notes None recorded. Procedures Surgical History Date Name Laterality Status Provider Name and Address Organization Details Recorded Time biopsy of breast completed Not Available [facility] 05/10/2022 13:51:47 cardiac catheterization completed Not Available [facility] 05/10/2022 13:51:47 repair of meniscus completed Not Available [facility] 05/10[facility]2022 13:51:47 hysterectomy completed Not Available [facility] 05/10/2022 13:51:47 Sinus Surgery completed Not Available [facility] 05/10/2022 13:51:47 total knee replacement completed Not Available [facility] 05/10/2022 13:51:47 biopsy of lung completed Andrzej Christianson [facility] 06/02/2022 15:20:06 Cataract Surgery completed Andrzej Christianson [facility] 06/02/2022 15:20:16 anal fissurectomy completed Andrzej Christianson [facility] 06/02/2022 15:20:29 Hemorrhoidectomy completed Andrzej Christianson [facility] 06/02/2022 15:20:36 Cholecystectomy completed Andrzej Christianson [facility] 06/02/2022 15:20:52 Imaging Results None recorded. Procedure Notes None recorded. Medical Equipment None Reported. Allergies Allergen ID Allergen Name Allergen Category Reaction Reaction Severity Criticality Documentation Date Start Date Code Code System Note Provider Name and Address Organization Details Recorded Time 67978 adhesive tape environme nt,medica tion Not available Not available Not available 05/10/2022 15722 UNK surgi andrey tape Not Available [facility] 13:55:14 Medications Name Sig Start [...] by injection route. 2022 active [facility]: 0003- 0494- 20 Not Available Not Available [...] by the provider 02/25 completed [facility]: 0409- 4276- 17 Not Available Not Available [...] Available Not Available Vitals Date Recorded Body height Provider Name an d Address Organization Details Last Updated DateTime 06/01/2021 154.94 cm Not Available [facility] 3 13:52:03 Date Recorded Body height Body mass index (BMI) Body weight Provider Name and Address Organization Details Last Updated DateTime 06/02/2022 154.94 cm 42.3 kg/m2 767886.69 g [facility] [place] [employer] [facility] 06/02/2022 15:16:40 Date Recorded Body height Provider Name an d Address Organization Details Last Updated DateTime 09/09/2021 154.94 cm Not Available [facility] 3 13:52:03 Date Recorded Body mass index (BMI) Body height Body weight Provider Name and Address Organization Details Last Updated DateTime 02/25/2021 41.8 kg/m2 154.94 cm 532337.91 g Not Available [facility] 05/10/2022 13:52:03 Social History None recorded. Functional Status Question Answer Note LastModified by Organizat ion Details LastModified Time What is your level of alcohol consumption? None [id number] Information not available 05/10/2022 Mental Status None recorded. Family History Relationship Description Onset Age of this Age Resolved Age Notes LastModified by Organization Details LastModified Time Unspecified Relation Hypertensive disorder [id number] Not available 05/10/2022 13:51:47 Unspecified Relation Sleep apnea [id number] Not available 05/10/2022 13:51:47 Unspecified Relation Sarcoidosis [id number] Not available 05/10/2022 13:51:47 Unspecified Relation Pulmonary hypertension [id number] Not available 05/10/2022 13:51:48 Mother Cerebrovascu lar accident [email or web address] Not available 15:19:11 Medical History Condition Response ARTHRITIS Y OSTEOPOROSIS Y CORONARY ARTERY DISEASE (CAD) Y LUNG DISEASE/DISORDER Y COPD Y HYPERTENSION Y Gynecological HistoryNo gynecological history recorded. Obstetrics History GPAL:G 0 P 0 0 0 0 Past Encounters Encounter ID Performer Location Encounter Start Date Encounter Closed Date Diagnosis/Indication Diagnosis SNOMED-CT Code Diagnosis ICD10 Code Diagnosis Note [id number] Travis Mercedes MD [facility] [place] [facility] [address] [place] [address] 02/25/2021 00:00:00 02/25/2021 15:40:28 [id number] Travis Mercedes MD [facility] [place] [facility] [address] [place] [address] 06/01/2021 00:00:00 06/01/2021 14:59:08 [id number] Travis Mercedes MD [facility] [place] [facility] [address] [place] [address] 09/09/2021 00:00:00 09/09/2021 11:09:16 [id number] Travis Mercedes MD [facility] [place] [facility] [address] [place] [address] 06/02/2022 14:48:50 06/02/2022 16:35:34 Osteoarthritis 477828391 M17.11 Health Concerns Section Related Observation LastModified by Organization Detai ls LastModified Time None Recorded Concern Status LastModified by Organization Details LastModified Time None Recorded Advance Directives Directive None Recorded Payers Insurance Date Sequence Insurance Name Policy Number Policy Feliz Covered Member ID Feliz Member ID Guarantor Name 09/03/2022 1 [employer] - [employer] (MEDICARE REPLACEMENT/ ADVANTAGE - HMO) [id number] Glenna Almendarez [id number] Glenna Myers Episode No OBEpisode recorded.
--- NOTE | 2024-10-02 16:42 | ECG_ITS ---
Test Date: 2024-10-02 16:42:16 Measurements Intervals [place] Rate: 128 P: 255 CT: 149 QRS: -35 QRSD: 101 T: 101 QT: 302 QTc: 442 Interpretive Statements SINUS TACHYCARDIA MARKED LEFT AXIS DEVIATION [QRS AXIS < -30] Compared to ECG 03/14/2024 15:17:54 Left-axis deviation now present Electronically Signed On 10-03-2024 16:04:04 CDT by Joel Griffin M.D.
--- NOTE | 2024-10-02 16:42 | ED.ARRPALP ---
HPI - Arrhythmia/Palpitations General Chief Complaint: Arrhythmia/Palpitations <Nhi Austin PA-C - Last Filed: 10/03/24 17:41> Stated Complaint: I think I have a-fib <Nhi Austin PA-C - Last Filed: 10/03/24 17:41> Time Seen by Provider: 10/02/24 16:42 <Nhi Austin PA-C - Last Filed: 10/03/24 17:41> Focused HPI: This is a 83 year old female that presents to the ER for elevated heart rate ongoing today. She feels like she is in Afib. Reports she feels hot in her chest and abdomen. Reports history of Afib. She takes Dronedarone and warfarin. She has taken both doses of her Dronedarone today. GENERAL: Elderly, well-nourished, and in no acute distress. HEAD: Normocephalic, atraumatic. CHEST: Clear to auscultation. ?No respiratory distress. HEART: Tachycardic, regular rhythm.? NEURO: ?Alert and oriented x3. Patient screened in triage and initial orders placed.? ?Additional care and disposition to be based upon?diagnostic testing and treatment. <Nhi Austin PA-C - Last Filed: 10/03/24 17:41> History of Present Illness HPI narrative: 83-year-old female with history of GERD, COPD, pulmonary hypertension, NICOLE, hypothyroidism, sarcoidosis, cardiomyopathy, paroxysmal AFib on warfarin presents to the emergency department for chest pain and palpitations and she woke up this morning. Patient states she went to bed last night and her normal state of health. She woke up this morning with palpitations with a sensation that her heart was racing with associated ?burning? in her chest. She cannot identify any aggravating or alleviating factors. She states last time she had similar symptoms once when she had an ?AFib attack? in 2022. She does report associated shortness of breath with exertion but states this is unchanged from her baseline. Also endorsing lower extremity edema that is unchanged from baseline. She is also reporting intermittent mid to left-sided abdominal pain which is reportedly being ongoing for the past month. She denies cough, congestion, fever, N/V/D, dysuria or hematuria. She is on Multaq b.i.d. and metoprolol 50mg in the morning, 50mg in the evening and 100mg before bed for rate control. States she took her 2 doses of Multaq today and 1 dose of her metoprolol this morning. Her strip machine tender is Dr. Bennett. She denies known history of CAD or stent placement. She states she had a cardiac catheterization performed in 2011 which was reportedly unremarkable. She had her INR checked today at outpatient lab but does not know her results. <Kortney Dumas PA-C - Last Filed: 10/02/24 22:59> Related Data Home Medications: Home Medications ?Medication ?Instructions ?Recorded ?Confirmed ?Last Taken ?Type multivitamin 1 tablet BYMOUTH DAILY 02/11/19 10/03/24 10/01/24 08:00 History 1 cholecalciferol (vitamin D3) 125 125 mcg PO DAILY 05/29/22 10/03/24 10/02/24 08:00 History mcg (5,000 unit) capsule 125 mcg cinnamon bark 500 mg capsule 500 mg PO DAILY 05/29/22 10/03/24 10/01/24 08:00 History (Cinnamon) 500 mg garlic 1,000 mg capsule 1,000 mg PO DAILY 05/29/22 10/03/24 10/02/24 08:00 History 1,000 mg potassium chloride 10 mEq 10 meq PO BID 05/29/22 10/03/24 10/01/24 08:00 History tablet,extended release 10 mEq quercetin 500 mg capsule 500 mg PO DAILY 05/29/22 10/03/24 10/01/24 08:00 History 500 mg selenium 200 mcg capsule 200 mcg PO DAILY 05/29/22 10/03/24 10/02/24 08:00 History 200 mcg vitamin B complex (B 1 tablet PO DAILY 05/29/22 10/03/24 10/01/24 08:00 History Complex-Vitamin B12 tablet) 1 tablet omeprazole magnesium 20 mg 20 mg PO DAILY 07/04/22 10/03/24 10/02/24 08:00 History tablet,delayed release (Prilosec 20 mg OTC) dronedarone 400 mg tablet (Multaq) 400 mg PO BID 02/22/23 10/03/24 10/02/24 08:00 History 400 mg hydralazine 50 mg tablet 50 mg PO TID 02/22/23 10/03/24 10/02/24 08:00 History 50 mg milk thistle 175 mg tablet 500 mg PO DAILY 07/11/23 10/03/24 10/02/24 08:00 History 175 mg acetaminophen 500 mg tablet 500 mg PO .am PRN pain (scale 07/18/24 10/03/24 10/02/24 09:00 History score 1-3) 500 mg dronedarone 400 mg tablet (Multaq) 400 mg PO BID 10/01/24 10/03/24 10/02/24 08:00 History 400 mg warfarin 2 mg tablet 6 mg PO .COMPLEX 10/01/24 10/03/24 09/28/24 08:00 History 2 mg warfarin 4 mg tablet 4 mg PO .COMPLEX 10/01/24 10/03/24 10/02/24 08:00 History 4 mg <Nhi Austin PA-C - Last Filed: 10/03/24 17:41> Allergies/Adverse Reactions: Allergies Allergy/AdvReac Type Severity Reaction Status Date / Time adhesive tape Allergy Severe RASH Verified 10/01/24 12:46 levofloxacin AdvReac Mild Nausea and Verified 10/01/24 12:46 Vomiting <Nhi Austin PA-C - Last Filed: 10/03/24 17:41> Review of Systems Review of Systems: All systems reviewed & are unremarkable except as noted in HPI and below <Kortney Dumas PA-C - Last Filed: 10/02/24 22:59> [facility] Past Medical History Medical History: Medical History Abdominal pain Wears hearing aid in both ears Left arm pain Racing heart beat Sarcoidosis Diagnosed 2002 after transbronchial biopsy, has never undergone tx. In remission. Pulmonary HTN CPAP (continuous positive airway pressure) dependence Sleep apnea Sarcoidosis Hiatal hernia Fatty liver COPD (chronic obstructive pulmonary disease) Anxiety Hypothyroid Osteoporosis Arthritis UTI (urinary tract infection) GI bleed GERD (gastroesophageal reflux disease) IBS (irritable bowel syndrome) Diverticulosis HTN (hypertension) Hyperlipidemia Sinus problem Cataract <Nhi Austin PA-C - Last Filed: 10/03/24 17:41> Surgical History Surgical History: Surgical History H/O colonoscopy H/O cataract extraction History of arthroplasty of left knee H/O arthroscopy of right knee H/O dilation and curettage H/O: hysterectomy H/O breast biopsy Hx of cholecystectomy History of appendectomy History of cardiac cath H/O sinus surgery Hx of tonsillectomy <Nhi Austin PA-C - Last Filed: 10/03/24 17:41> Family History Family History: Family History Mother Cerebrovascular accident, Onset Age: 86 Family history of cardiovascular disease, Onset Age: 86 Sibling Family history of cardiovascular disease History of heart bypass surgery, Onset Age: 75 <Nhi Austin PA-C - Last Filed: 10/03/24 17:41> Social History Social History: Social History Social History: Has a son Smoking status: Never smoker Second hand tobacco smoke exposure: Yes Alcohol intake: never Substance use: never Substance use type: does not use Do You Feel Safe in your Home?: Yes Lack of Transportation: YES Lack of Food: Never True Current Housing: I Have Housing Concerned About Future Housing: No Difficulty Paying Gas/Electric Bills: No Difficulty Paying for Meds: No Currently Unemployed: No Education: High School Diploma/GED Difficulty w/ Childcare or Family Care: No Living arrangements: with family Gender identity (if verbalized by the patient): Female Spiritual care concerns: No Agree to blood products: Yes <Nhi Austin PA-C - Last Filed: 10/03/24 17:41> Exam Narrative: GENERAL: Well-appearing, well-nourished, and in no acute distress. HEAD: Normocephalic, atraumatic. EYES: PERRLA and EOMI. ENT: Nares clear, no rhinorrhea or epistaxis. Mucous membranes moist. NECK: Supple. CHEST: Clear to auscultation. No respiratory distress. HEART: Tachycardic, regular rhythm ABDOMEN: Normoactive bowel sounds. Abdomen soft with tenderness left to the periumbilical region. No rebound, guarding or rigidity EXTREMITIES: Normal range of motion. Pain edema to bilateral lower extremities SKIN: Warm, dry, no rash. NEURO: No focal deficits. Alert and oriented x3 <Kortney Dumas PA-C - Last Filed: 10/02/24 22:59> Course MEDICAL AND SCIENTIFIC ILLUSTRATOR/PA Physician Supervision I am informed this patient was being admitted. They have demonstrated variable heart rates. It was stated that this patient has atrial fibrillation but there was also notion of occasional sinus tachycardia. Varoius rate controlling medications have been use. Patient has otherwise remained hemodynamically stable despite variable HR. Differential should also include sick sinus syndrome. In this way was involved in discussion about the patient and reviewed EKGs and was intermittently reviewing registered nurse cardiac but did not personally examine them. <Danielle Morales MD - Last Filed: 10/03/24 04:36> Vital Signs Vital signs: Vital Signs Temperature 98.1 F 10/02/24 16:49 Pulse Rate 130 H 10/02/24 16:49 Respiratory Rate 20 10/02/24 16:49 Blood Pressure 146/99 H 10/02/24 16:49 Pulse Oximetry 98 10/02/24 16:49 Oxygen Delivery Room Air 10/02/24 16:49 Temperature 98.5 F 10/03/24 15:31 Pulse Rate 120 H 10/03/24 16:23 Respiratory Rate 20 10/03/24 15:31 Blood Pressure 119/64 10/03/24 16:23 Pulse Oximetry 95 10/03/24 15:31 Oxygen Delivery Room Air 10/03/24 15:35 <Nhi Austin PA-C - Last Filed: 10/03/24 17:41> Vital Signs Temperature 98.1 F 10/02/24 16:49 Pulse Rate 130 H 10/02/24 16:49 Respiratory Rate 20 10/02/24 16:49 Blood Pressure 146/99 H 10/02/24 16:49 Pulse Oximetry 98 10/02/24 16:49 Oxygen Delivery Room Air 10/02/24 16:49 Temperature 98.5 F 10/03/24 15:31 Pulse Rate 120 H 10/03/24 16:23 Respiratory Rate 20 10/03/24 15:31 Blood Pressure 119/64 10/03/24 16:23 Pulse Oximetry 95 10/03/24 15:31 Oxygen Delivery Room Air 10/03/24 15:35 <Kortney Dumas PA-C - Last Filed: 10/02/24 22:59> Vital Signs Temperature 98.1 F 10/02/24 16:49 Pulse Rate 130 H 10/02/24 16:49 Respiratory Rate 20 10/02/24 16:49 Blood Pressure 146/99 H 10/02/24 16:49 Pulse Oximetry 98 10/02/24 16:49 Oxygen Delivery Room Air 10/02/24 16:49 Temperature 98.5 F 10/03/24 15:31 Pulse Rate 120 H 10/03/24 16:23 Respiratory Rate 20 10/03/24 15:31 Blood Pressure 119/64 10/03/24 16:23 Pulse Oximetry 95 10/03/24 15:31 Oxygen Delivery Room Air 10/03/24 15:35 <Danielle Morales MD - Last Filed: 10/03/24 04:36> MDM - Arrhythmia/Palpitations MDM Narrative Medical decision making narrative: 83-year-old female with history of paroxysmal AFib, cardiomyopathy and sarcoidosis presents to emergency department for palpitations and chest ?burning? since she woke up this morning. Also endorsing intermittent periumbilical/left-sided abdominal pain for the past month. On arrival patient found to be tachycardic in the 130s with a stable blood pressure 146/99. She is afebrile and nontoxic appearing. EKG shows sinus tachycardia verses a flutter with a rate of 128 bpm, normal AL interval, normal QRS duration, low QTC, slightly ST depressions in the inferior and lateral leads however this may be due to rate. No ST elevations. Troponin is undetectable x2. CBC without leukocytosis or anemia. Chemistries with a bicarb of 14 and normal anion gap, no significant electrolyte derangements. Magnesium normal at 2. Lipase is normal. UA with trace leuk esterase and trace ketones, no white blood cells or bacteria. TSH within normal limits. Lactic acid normal 1.6. INR is 1.7. CTA chest, abdomen pelvis obtained given reported chest pain and abdominal pain to rule out dissection which shows IMPRESSION: 1. Chronic atelectasis/scarring at the bilateral lung bases. 2. Enlargement of the central pulmonary arteries consistent with pulmonary arterial hypertension without evident pulmonary embolism. 3. No acute intra-abdominal/pelvic process. 4. Small fat-containing umbilical and supraumbilical ventral hernias. 5. Diverticulosis. Patient re-evaluated and updated on results. She states her chest pain is resolved and she feels much better. Repeat EKGs show improvement in depressions, no further ischemic changes. She is talking on the phone with her friend. She initially received 5 mg of metoprolol without improvement, then 10 mg of diltiazem was started on diltiazem drip. She has up titrated to 7 mg of diltiazem and rate remains in the 120s. Blood pressure remains stable at 130/84. Patient appears to be going in and out of sinus tachycardia and AFib. Discussed with strip machine tender, Dr. Bennett, who advises to discontinue patient's metoprolol and Multaq into start sotalol 80 mg p.o. now and q.12 hours. Also advises to advanced warfarin to 6 mg daily as INR is subtherapeutic. Discussed case with hospitalist, Dr. Barnes, who agrees to admission. Advises IMU. <Kortney Dumas PA-C - Last Filed: 10/02/24 22:59> Lab Data Result diagrams: 10/03/24 04:19 10/03/24 04:19 <Nhi Austin PA-C - Last Filed: 10/03/24 17:41> Labs: Lab Results 10/02/24 10/02/24 10/02/24 Range/Units 17:33 17:33 17:33 WBC 7.5 (4.5-10.0) K/mm3 RBC 4.49 (4.2-5.4) M/mm3 Hgb 12.8 (12.0-15.0) g/dL Hct 39.4 (37.0-47.0) % MCV 87.8 (80-100) fl MCH 28.5 (26-34) pg MCHC 32.5 (32-36) g/dl RDW 15.9 H (11.5-14.5) % Plt Count 256 (150-375) k/mm3 MPV 10.9 H (7.4-10.4) fl Immature Gran % (Auto) 0.4 (0-0.5) % Neut % (Auto) 54.8 (45.5-73.1) % Lymph % (Auto) 31.1 (18.3-44.2) % Stevens % (Auto) 10.9 H (2.6-8.5) % Eos % (Auto) 1.7 (0-4.4) % Baso % (Auto) 1.1 (0.2-1.2) % Lymph # (Auto) 2.33 (0.9-3.2) K/mm3 Stevens # (Auto) 0.8 H (0.1-0.6) K/mm3 Eos # (Auto) 0.1 (0-0.3) K/mm3 Baso # (Auto) 0.1 (0.0-0.1) K/mm3 Abs Immat Gran (auto) 0.03 (0.00-0.031) K/mm3 Absolute Neuts (auto) 4.1 (1.3-6.7) K/mm3 Absolute Nucleated RBC 0.000 (0.0-0.012) K/mm3 Nucleated RBC % 0.0 (0.0-0.2) % PT 19.9 H (11.1-14.7) Seconds INR 1.7 APTT 31.1 (22.3-36.8) Seconds Sodium Cancelled 136 L Potassium Cancelled 4.5 Chloride Cancelled Carbon Dioxide Anion Gap BUN Creatinine Estim Creat Clear Calc Estimated GFR Glucose Lactic Acid (0.7-2.0) mmol/L Calcium Magnesium (1.6-2.3) mg/dL Total Bilirubin AST ALT Alkaline Phosphatase Troponin I (0.000-0.034) ng/mL NT-Pro-B Natriuret Pep (19.9-100) pg/mL Total Protein Albumin Lipase TSH (Reflex) (0.465-4.68) uIU/mL Urine Color (Yellow) Urine Appearance (Clear) Urine pH (5.0-9.0) Ur Specific [place] (1.001-1.035) Urine Protein (Negative) mg/dL Urine Glucose (UA) (Negative) mg/dL Urine Ketones (Negative) mg/dL Ur Blood (Man) (Negative) Urine Nitrate (Negative) Urine Bilirubin (Negative) Urine Urobilinogen (<2.0) mg/dL Leukocyte Esterase Rfl (Negative) NORA/UL Urine RBC (0-2) /hpf Urine WBC (0-3) /hpf Ur Squamous Epith Cells (Few) /hpf Urine Bacteria /hpf Urine Casts 10/02/24 10/02/24 10/02/24 Range/Units 17:33 17:33 17:33 WBC (4.5-10.0) K/mm3 RBC (4.2-5.4) M/mm3 Hgb (12.0-15.0) g/dL Hct (37.0-47.0) % MCV (80-100) fl MCH (26-34) pg MCHC (32-36) g/dl RDW (11.5-14.5) % Plt Count (150-375) k/mm3 MPV (7.4-10.4) fl Immature Gran % (Auto) (0-0.5) % Neut % (Auto) (45.5-73.1) % Lymph % (Auto) (18.3-44.2) % Stevens % (Auto) (2.6-8.5) % Eos % (Auto) (0-4.4) % Baso % (Auto) (0.2-1.2) % Lymph # (Auto) (0.9-3.2) K/mm3 Stevens # (Auto) (0.1-0.6) K/mm3 Eos # (Auto) (0-0.3) K/mm3 Baso # (Auto) (0.0-0.1) K/mm3 Abs Immat Gran (auto) (0.00-0.031) K/mm3 Absolute Neuts (auto) (1.3-6.7) K/mm3 Absolute Nucleated RBC (0.0-0.012) K/mm3 Nucleated RBC % (0.0-0.2) % PT (11.1-14.7) Seconds INR APTT (22.3-36.8) Seconds Sodium Potassium Chloride 110 H Carbon Dioxide Cancelled 14 L Anion Gap Cancelled 12 BUN Cancelled Creatinine Estim Creat Clear Calc Estimated GFR Glucose Lactic Acid (0.7-2.0) mmol/L Calcium Magnesium (1.6-2.3) mg/dL Total Bilirubin AST ALT Alkaline Phosphatase Troponin I (0.000-0.034) ng/mL NT-Pro-B Natriuret Pep (19.9-100) pg/mL Total Protein Albumin Lipase TSH (Reflex) (0.465-4.68) uIU/mL Urine Color (Yellow) Urine Appearance (Clear) Urine pH (5.0-9.0) Ur Specific [place] (1.001-1.035) Urine Protein (Negative) mg/dL Urine Glucose (UA) (Negative) mg/dL Urine Ketones (Negative) mg/dL Ur Blood (Man) (Negative) Urine Nitrate (Negative) Urine Bilirubin (Negative) Urine Urobilinogen (<2.0) mg/dL Leukocyte Esterase Rfl (Negative) NORA/UL Urine RBC (0-2) /hpf Urine WBC (0-3) /hpf Ur Squamous Epith Cells (Few) /hpf Urine Bacteria /hpf Urine Casts 10/02/24 10/02/24 10/02/24 Range/Units 17:33 17:33 17:33 WBC (4.5-10.0) K/mm3 RBC (4.2-5.4) M/mm3 Hgb (12.0-15.0) g/dL Hct (37.0-47.0) % MCV (80-100) fl MCH (26-34) pg MCHC (32-36) g/dl RDW (11.5-14.5) % Plt Count (150-375) k/mm3 MPV (7.4-10.4) fl Immature Gran % (Auto) (0-0.5) % Neut % (Auto) (45.5-73.1) % Lymph % (Auto) (18.3-44.2) % Stevens % (Auto) (2.6-8.5) % Eos % (Auto) (0-4.4) % Baso % (Auto) (0.2-1.2) % Lymph # (Auto) (0.9-3.2) K/mm3 Stevens # (Auto) (0.1-0.6) K/mm3 Eos # (Auto) (0-0.3) K/mm3 Baso # (Auto) (0.0-0.1) K/mm3 Abs Immat Gran (auto) (0.00-0.031) K/mm3 Absolute Neuts (auto) (1.3-6.7) K/mm3 Absolute Nucleated RBC (0.0-0.012) K/mm3 Nucleated RBC % (0.0-0.2) % PT (11.1-14.7) Seconds INR APTT (22.3-36.8) Seconds Sodium Potassium Chloride Carbon Dioxide Anion Gap BUN 16 Creatinine Cancelled 0.87 Estim Creat Clear Calc Cancelled 44 Estimated GFR Cancelled Glucose Lactic Acid (0.7-2.0) mmol/L Calcium Magnesium (1.6-2.3) mg/dL Total Bilirubin AST ALT Alkaline Phosphatase Troponin I (0.000-0.034) ng/mL NT-Pro-B Natriuret Pep (19.9-100) pg/mL Total Protein Albumin Lipase TSH (Reflex) (0.465-4.68) uIU/mL Urine Color (Yellow) Urine Appearance (Clear) Urine pH (5.0-9.0) Ur Specific [place] (1.001-1.035) Urine Protein (Negative) mg/dL Urine Glucose (UA) (Negative) mg/dL Urine Ketones (Negative) mg/dL Ur Blood (Man) (Negative) Urine Nitrate (Negative) Urine Bilirubin (Negative) Urine Urobilinogen (<2.0) mg/dL Leukocyte Esterase Rfl (Negative) NORA/UL Urine RBC (0-2) /hpf Urine WBC (0-3) /hpf Ur Squamous Epith Cells (Few) /hpf Urine Bacteria /hpf Urine Casts 10/02/24 10/02/24 10/02/24 Range/Units 17:33 17:33 17:33 WBC (4.5-10.0) K/mm3 RBC (4.2-5.4) M/mm3 Hgb (12.0-15.0) g/dL Hct (37.0-47.0) % MCV (80-100) fl MCH (26-34) pg MCHC (32-36) g/dl RDW (11.5-14.5) % Plt Count (150-375) k/mm3 MPV (7.4-10.4) fl Immature Gran % (Auto) (0-0.5) % Neut % (Auto) (45.5-73.1) % Lymph % (Auto) (18.3-44.2) % Stevens % (Auto) (2.6-8.5) % Eos % (Auto) (0-4.4) % Baso % (Auto) (0.2-1.2) % Lymph # (Auto) (0.9-3.2) K/mm3 Stevens # (Auto) (0.1-0.6) K/mm3 Eos # (Auto) (0-0.3) K/mm3 Baso # (Auto) (0.0-0.1) K/mm3 Abs Immat Gran (auto) (0.00-0.031) K/mm3 Absolute Neuts (auto) (1.3-6.7) K/mm3 Absolute Nucleated RBC (0.0-0.012) K/mm3 Nucleated RBC % (0.0-0.2) % PT (11.1-14.7) Seconds INR APTT (22.3-36.8) Seconds Sodium Potassium Chloride Carbon Dioxide Anion Gap BUN Creatinine Estim Creat Clear Calc Estimated GFR > 60 Glucose Cancelled 113 H Lactic Acid (0.7-2.0) mmol/L Calcium Cancelled 9.6 Magnesium 2.0 (1.6-2.3) mg/dL Total Bilirubin Cancelled AST ALT Alkaline Phosphatase Troponin I (0.000-0.034) ng/mL NT-Pro-B Natriuret Pep (19.9-100) pg/mL Total Protein Albumin Lipase TSH (Reflex) (0.465-4.68) uIU/mL Urine Color (Yellow) Urine Appearance (Clear) Urine pH (5.0-9.0) Ur Specific [place] (1.001-1.035) Urine Protein (Negative) mg/dL Urine Glucose (UA) (Negative) mg/dL Urine Ketones (Negative) mg/dL Ur Blood (Man) (Negative) Urine Nitrate (Negative) Urine Bilirubin (Negative) Urine Urobilinogen (<2.0) mg/dL Leukocyte Esterase Rfl (Negative) NORA/UL Urine RBC (0-2) /hpf Urine WBC (0-3) /hpf Ur Squamous Epith Cells (Few) /hpf Urine Bacteria /hpf Urine Casts 10/02/24 10/02/24 10/02/24 Range/Units 17:33 17:33 17:33 WBC (4.5-10.0) K/mm3 RBC (4.2-5.4) M/mm3 Hgb (12.0-15.0) g/dL Hct (37.0-47.0) % MCV (80-100) fl MCH (26-34) pg MCHC (32-36) g/dl RDW (11.5-14.5) % Plt Count (150-375) k/mm3 MPV (7.4-10.4) fl Immature Gran % (Auto) (0-0.5) % Neut % (Auto) (45.5-73.1) % Lymph % (Auto) (18.3-44.2) % Stevens % (Auto) (2.6-8.5) % Eos % (Auto) (0-4.4) % Baso % (Auto) (0.2-1.2) % Lymph # (Auto) (0.9-3.2) K/mm3 Stevens # (Auto) (0.1-0.6) K/mm3 Eos # (Auto) (0-0.3) K/mm3 Baso # (Auto) (0.0-0.1) K/mm3 Abs Immat Gran (auto) (0.00-0.031) K/mm3 Absolute Neuts (auto) (1.3-6.7) K/mm3 Absolute Nucleated RBC (0.0-0.012) K/mm3 Nucleated RBC % (0.0-0.2) % PT (11.1-14.7) Seconds INR APTT (22.3-36.8) Seconds Sodium Potassium Chloride Carbon Dioxide Anion Gap BUN Creatinine Estim Creat Clear Calc Estimated GFR Glucose Lactic Acid (0.7-2.0) mmol/L Calcium Magnesium (1.6-2.3) mg/dL Total Bilirubin 0.8 AST Cancelled 38 H ALT Cancelled 31 Alkaline Phosphatase Cancelled Troponin I (0.000-0.034) ng/mL NT-Pro-B Natriuret Pep (19.9-100) pg/mL Total Protein Albumin Lipase TSH (Reflex) (0.465-4.68) uIU/mL Urine Color (Yellow) Urine Appearance (Clear) Urine pH (5.0-9.0) Ur Specific [place] (1.001-1.035) Urine Protein (Negative) mg/dL Urine Glucose (UA) (Negative) mg/dL Urine Ketones (Negative) mg/dL Ur Blood (Man) (Negative) Urine Nitrate (Negative) Urine Bilirubin (Negative) Urine Urobilinogen (<2.0) mg/dL Leukocyte Esterase Rfl (Negative) NORA/UL Urine RBC (0-2) /hpf Urine WBC (0-3) /hpf Ur Squamous Epith Cells (Few) /hpf Urine Bacteria /hpf Urine Casts 10/02/24 10/02/24 10/02/24 Range/Units 17:33 17:33 17:33 WBC (4.5-10.0) K/mm3 RBC (4.2-5.4) M/mm3 Hgb (12.0-15.0) g/dL Hct (37.0-47.0) % MCV (80-100) fl MCH (26-34) pg MCHC (32-36) g/dl RDW (11.5-14.5) % Plt Count (150-375) k/mm3 MPV (7.4-10.4) fl Immature Gran % (Auto) (0-0.5) % Neut % (Auto) (45.5-73.1) % Lymph % (Auto) (18.3-44.2) % Stevens % (Auto) (2.6-8.5) % Eos % (Auto) (0-4.4) % Baso % (Auto) (0.2-1.2) % Lymph # (Auto) (0.9-3.2) K/mm3 Stevens # (Auto) (0.1-0.6) K/mm3 Eos # (Auto) (0-0.3) K/mm3 Baso # (Auto) (0.0-0.1) K/mm3 Abs Immat Gran (auto) (0.00-0.031) K/mm3 Absolute Neuts (auto) (1.3-6.7) K/mm3 Absolute Nucleated RBC (0.0-0.012) K/mm3 Nucleated RBC % (0.0-0.2) % PT (11.1-14.7) Seconds INR APTT (22.3-36.8) Seconds Sodium Potassium Chloride Carbon Dioxide Anion Gap BUN Creatinine Estim Creat Clear Calc Estimated GFR Glucose Lactic Acid (0.7-2.0) mmol/L Calcium Magnesium (1.6-2.3) mg/dL Total Bilirubin AST ALT Alkaline Phosphatase 74 Troponin I < 0.012 (0.000-0.034) ng/mL NT-Pro-B Natriuret Pep 2810 H (19.9-100) pg/mL Total Protein Cancelled 7.1 Albumin Cancelled 4.1 Lipase Cancelled TSH (Reflex) (0.465-4.68) uIU/mL Urine Color (Yellow) Urine Appearance (Clear) Urine pH (5.0-9.0) Ur Specific [place] (1.001-1.035) Urine Protein (Negative) mg/dL Urine Glucose (UA) (Negative) mg/dL Urine Ketones (Negative) mg/dL Ur Blood (Man) (Negative) Urine Nitrate (Negative) Urine Bilirubin (Negative) Urine Urobilinogen (<2.0) mg/dL Leukocyte Esterase Rfl (Negative) NROA/UL Urine RBC (0-2) /hpf Urine WBC (0-3) /hpf Ur Squamous Epith Cells (Few) /hpf Urine Bacteria /hpf Urine Casts 10/02/24 10/02/24 10/02/24 Range/Units 17:33 17:40 19:34 WBC (4.5-10.0) K/mm3 RBC (4.2-5.4) M/mm3 Hgb (12.0-15.0) g/dL Hct (37.0-47.0) % MCV (80-100) fl MCH (26-34) pg MCHC (32-36) g/dl RDW (11.5-14.5) % Plt Count (150-375) k/mm3 MPV (7.4-10.4) fl Immature Gran % (Auto) (0-0.5) % Neut % (Auto) (45.5-73.1) % Lymph % (Auto) (18.3-44.2) % Stevens % (Auto) (2.6-8.5) % Eos % (Auto) (0-4.4) % Baso % (Auto) (0.2-1.2) % Lymph # (Auto) (0.9-3.2) K/mm3 Stevens # (Auto) (0.1-0.6) K/mm3 Eos # (Auto) (0-0.3) K/mm3 Baso # (Auto) (0.0-0.1) K/mm3 Abs Immat Gran (auto) (0.00-0.031) K/mm3 Absolute Neuts (auto) (1.3-6.7) K/mm3 Absolute Nucleated RBC (0.0-0.012) K/mm3 Nucleated RBC % (0.0-0.2) % PT (11.1-14.7) Seconds INR APTT (22.3-36.8) Seconds Sodium Potassium Chloride Carbon Dioxide Anion Gap BUN Creatinine Estim Creat Clear Calc Estimated GFR Glucose Lactic Acid 1.6 (0.7-2.0) mmol/L Calcium Magnesium (1.6-2.3) mg/dL Total Bilirubin AST ALT Alkaline Phosphatase Troponin I < 0.012 (0.000-0.034) ng/mL NT-Pro-B Natriuret Pep (19.9-100) pg/mL Total Protein Albumin Lipase 52 TSH (Reflex) 2.560 (0.465-4.68) uIU/mL Urine Color Yellow (Yellow) Urine Appearance Clear (Clear) Urine pH 6.5 (5.0-9.0) Ur Specific [place] 1.017 (1.001-1.035) Urine Protein 1+ H (Negative) mg/dL Urine Glucose (UA) Negative (Negative) mg/dL Urine Ketones Trace H (Negative) mg/dL Ur Blood (Man) Negative (Negative) Urine Nitrate Negative (Negative) Urine Bilirubin Negative (Negative) Urine Urobilinogen 0.2 (<2.0) mg/dL Leukocyte Esterase Rfl Trace H (Negative) NORA/UL Urine RBC 0-2 (0-2) /hpf Urine WBC 0-5 (0-3) /hpf Ur Squamous Epith Cells Occasional (Few) /hpf Urine Bacteria None seen /hpf Urine Casts 0-2 07/24/ Range/Units 20:37 WBC (4.5-10.0) K/mm3 RBC (4.2-5.4) M/mm3 Hgb (12.0-15.0) g/dL Hct (37.0-47.0) % MCV (80-100) fl MCH (26-34) pg MCHC (32-36) g/dl RDW (11.5-14.5) % Plt Count (150-375) k/mm3 MPV (7.4-10.4) fl Immature Gran % (Auto) (0-0.5) % Neut % (Auto) (45.5-73.1) % Lymph % (Auto) (18.3-44.2) % Stevens % (Auto) (2.6-8.5) % Eos % (Auto) (0-4.4) % Baso % (Auto) (0.2-1.2) % Lymph # (Auto) (0.9-3.2) K/mm3 Stevens # (Auto) (0.1-0.6) K/mm3 Eos # (Auto) (0-0.3) K/mm3 Baso # (Auto) (0.0-0.1) K/mm3 Abs Immat Gran (auto) (0.00-0.031) K/mm3 Absolute Neuts (auto) (1.3-6.7) K/mm3 Absolute Nucleated RBC (0.0-0.012) K/mm3 Nucleated RBC % (0.0-0.2) % PT (11.1-14.7) Seconds INR APTT (22.3-36.8) Seconds Sodium Potassium Chloride Carbon Dioxide Anion Gap BUN Creatinine 0.90 Estim Creat Clear Calc 43 Estimated GFR 60 Glucose Lactic Acid (0.7-2.0) mmol/L Calcium Magnesium (1.6-2.3) mg/dL Total Bilirubin AST ALT Alkaline Phosphatase Troponin I (0.000-0.034) ng/mL NT-Pro-B Natriuret Pep (19.9-100) pg/mL Total Protein Albumin Lipase TSH (Reflex) (0.465-4.68) uIU/mL Urine Color (Yellow) Urine Appearance (Clear) Urine pH (5.0-9.0) Ur Specific [place] (1.001-1.035) Urine Protein (Negative) mg/dL Urine Glucose (UA) (Negative) mg/dL Urine Ketones (Negative) mg/dL Ur Blood (Man) (Negative) Urine Nitrate (Negative) Urine Bilirubin (Negative) Urine Urobilinogen (<2.0) mg/dL Leukocyte Esterase Rfl (Negative) NORA/UL Urine RBC (0-2) /hpf Urine WBC (0-3) /hpf Ur Squamous Epith Cells (Few) /hpf Urine Bacteria /hpf Urine Casts <Nhi Austin PA-C - Last Filed: 10/03/24 17:41> Lab Results 10/02/24 10/02/24 10/02/24 Range/Units 17:33 17:33 17:33 WBC 7.5 (4.5-10.0) K/mm3 RBC 4.49 (4.2-5.4) M/mm3 Hgb 12.8 (12.0-15.0) g/dL Hct 39.4 (37.0-47.0) % MCV 87.8 (80-100) fl MCH 28.5 (26-34) pg MCHC 32.5 (32-36) g/dl RDW 15.9 H (11.5-14.5) % Plt Count 256 (150-375) k/mm3 MPV 10.9 H (7.4-10.4) fl Immature Gran % (Auto) 0.4 (0-0.5) % Neut % (Auto) 54.8 (45.5-73.1) % Lymph % (Auto) 31.1 (18.3-44.2) % Stevens % (Auto) 10.9 H (2.6-8.5) % Eos % (Auto) 1.7 (0-4.4) % Baso % (Auto) 1.1 (0.2-1.2) % Lymph # (Auto) 2.33 (0.9-3.2) K/mm3 Stevens # (Auto) 0.8 H (0.1-0.6) K/mm3 Eos # (Auto) 0.1 (0-0.3) K/mm3 Baso # (Auto) 0.1 (0.0-0.1) K/mm3 Abs Immat Gran (auto) 0.03 (0.00-0.031) K/mm3 Absolute Neuts (auto) 4.1 (1.3-6.7) K/mm3 Absolute Nucleated RBC 0.000 (0.0-0.012) K/mm3 Nucleated RBC % 0.0 (0.0-0.2) % PT 19.9 H (11.1-14.7) Seconds INR 1.7 APTT 31.1 (22.3-36.8) Seconds Sodium Cancelled 136 L Potassium Cancelled 4.5 Chloride Cancelled Carbon Dioxide Anion Gap BUN Creatinine Estim Creat Clear Calc Estimated GFR Glucose Lactic Acid (0.7-2.0) mmol/L Calcium Magnesium (1.6-2.3) mg/dL Total Bilirubin AST ALT Alkaline Phosphatase Troponin I (0.000-0.034) ng/mL NT-Pro-B Natriuret Pep (19.9-100) pg/mL Total Protein Albumin Lipase TSH (Reflex) (0.465-4.68) uIU/mL Urine Color (Yellow) Urine Appearance (Clear) Urine pH (5.0-9.0) Ur Specific [place] (1.001-1.035) Urine Protein (Negative) mg/dL Urine Glucose (UA) (Negative) mg/dL Urine Ketones (Negative) mg/dL Ur Blood (Man) (Negative) Urine Nitrate (Negative) Urine Bilirubin (Negative) Urine Urobilinogen (<2.0) mg/dL Leukocyte Esterase Rfl (Negative) NORA/UL Urine RBC (0-2) /hpf Urine WBC (0-3) /hpf Ur Squamous Epith Cells (Few) /hpf Urine Bacteria /hpf Urine Casts 10/02/24 10/02/24 10/02/24 Range/Units 17:33 17:33 17:33 WBC (4.5-10.0) K/mm3 RBC (4.2-5.4) M/mm3 Hgb (12.0-15.0) g/dL Hct (37.0-47.0) % MCV (80-100) fl MCH (26-34) pg MCHC (32-36) g/dl RDW (11.5-14.5) % Plt Count (150-375) k/mm3 MPV (7.4-10.4) fl Immature Gran % (Auto) (0-0.5) % Neut % (Auto) (45.5-73.1) % Lymph % (Auto) (18.3-44.2) % Stevens % (Auto) (2.6-8.5) % Eos % (Auto) (0-4.4) % Baso % (Auto) (0.2-1.2) % Lymph # (Auto) (0.9-3.2) K/mm3 Stevens # (Auto) (0.1-0.6) K/mm3 Eos # (Auto) (0-0.3) K/mm3 Baso # (Auto) (0.0-0.1) K/mm3 Abs Immat Gran (auto) (0.00-0.031) K/mm3 Absolute Neuts (auto) (1.3-6.7) K/mm3 Absolute Nucleated RBC (0.0-0.012) K/mm3 Nucleated RBC % (0.0-0.2) % PT (11.1-14.7) Seconds INR APTT (22.3-36.8) Seconds Sodium Potassium Chloride 110 H Carbon Dioxide Cancelled 14 L Anion Gap Cancelled 12 BUN Cancelled Creatinine Estim Creat Clear Calc Estimated GFR Glucose Lactic Acid (0.7-2.0) mmol/L Calcium Magnesium (1.6-2.3) mg/dL Total Bilirubin AST ALT Alkaline Phosphatase Troponin I (0.000-0.034) ng/mL NT-Pro-B Natriuret Pep (19.9-100) pg/mL Total Protein Albumin Lipase TSH (Reflex) (0.465-4.68) uIU/mL Urine Color (Yellow) Urine Appearance (Clear) Urine pH (5.0-9.0) Ur Specific [place] (1.001-1.035) Urine Protein (Negative) mg/dL Urine Glucose (UA) (Negative) mg/dL Urine Ketones (Negative) mg/dL Ur Blood (Man) (Negative) Urine Nitrate (Negative) Urine Bilirubin (Negative) Urine Urobilinogen (<2.0) mg/dL Leukocyte Esterase Rfl (Negative) NORA/UL Urine RBC (0-2) /hpf Urine WBC (0-3) /hpf Ur Squamous Epith Cells (Few) /hpf Urine Bacteria /hpf Urine Casts 10/02/24 10/02/24 10/02/24 Range/Units 17:33 17:33 17:33 WBC (4.5-10.0) K/mm3 RBC (4.2-5.4) M/mm3 Hgb (12.0-15.0) g/dL Hct (37.0-47.0) % MCV (80-100) fl MCH (26-34) pg MCHC (32-36) g/dl RDW (11.5-14.5) % Plt Count (150-375) k/mm3 MPV (7.4-10.4) fl Immature Gran % (Auto) (0-0.5) % Neut % (Auto) (45.5-73.1) % Lymph % (Auto) (18.3-44.2) % Stevens % (Auto) (2.6-8.5) % Eos % (Auto) (0-4.4) % Baso % (Auto) (0.2-1.2) % Lymph # (Auto) (0.9-3.2) K/mm3 [place] # (Auto) (0.1-0.6) K/mm3 Eos # (Auto) (0-0.3) K/mm3 Baso # (Auto) (0.0-0.1) K/mm3 Abs Immat Gran (auto) (0.00-0.031) K/mm3 Absolute Neuts (auto) (1.3-6.7) K/mm3 Absolute Nucleated RBC (0.0-0.012) K/mm3 Nucleated RBC % (0.0-0.2) % PT (11.1-14.7) Seconds INR APTT (22.3-36.8) Seconds Sodium Potassium Chloride Carbon Dioxide Anion Gap BUN 16 Creatinine Cancelled 0.87 Estim Creat Clear Calc Cancelled 44 Estimated GFR Cancelled Glucose Lactic Acid (0.7-2.0) mmol/L Calcium Magnesium (1.6-2.3) mg/dL Total Bilirubin AST ALT Alkaline Phosphatase Troponin I (0.000-0.034) ng/mL NT-Pro-B Natriuret Pep (19.9-100) pg/mL Total Protein Albumin Lipase TSH (Reflex) (0.465-4.68) uIU/mL Urine Color (Yellow) Urine Appearance (Clear) Urine pH (5.0-9.0) Ur Specific [place] (1.001-1.035) Urine Protein (Negative) mg/dL Urine Glucose (UA) (Negative) mg/dL Urine Ketones (Negative) mg/dL Ur Blood (Man) (Negative) Urine Nitrate (Negative) Urine Bilirubin (Negative) Urine Urobilinogen (<2.0) mg/dL Leukocyte Esterase Rfl (Negative) NORA/UL Urine RBC (0-2) /hpf Urine WBC (0-3) /hpf Ur Squamous Epith Cells (Few) /hpf Urine Bacteria /hpf Urine Casts 10/02/24 10/02/2425 Range/Units 17:33 17:33 17:33 WBC (4.5-10.0) K/mm3 RBC (4.2-5.4) M/mm3 Hgb (12.0-15.0) g/dL Hct (37.0-47.0) % MCV (80-100) fl MCH (26-34) pg MCHC (32-36) g/dl RDW (11.5-14.5) % Plt Count (150-375) k/mm3 MPV (7.4-10.4) fl Immature Gran % (Auto) (0-0.5) % Neut % (Auto) (45.5-73.1) % Lymph % (Auto) (18.3-44.2) % Stevens % (Auto) (2.6-8.5) % Eos % (Auto) (0-4.4) % Baso % (Auto) (0.2-1.2) % Lymph # (Auto) (0.9-3.2) K/mm3 [place] # (Auto) (0.1-0.6) K/mm3 Eos # (Auto) (0-0.3) K/mm3 Baso # (Auto) (0.0-0.1) K/mm3 Abs Immat Gran (auto) (0.00-0.031) K/mm3 Absolute Neuts (auto) (1.3-6.7) K/mm3 Absolute Nucleated RBC (0.0-0.012) K/mm3 Nucleated RBC % (0.0-0.2) % PT (11.1-14.7) Seconds INR APTT (22.3-36.8) Seconds Sodium Potassium Chloride Carbon Dioxide Anion Gap BUN Creatinine Estim Creat Clear Calc Estimated GFR > 60 Glucose Cancelled 113 H Lactic Acid (0.7-2.0) mmol/L Calcium Cancelled 9.6 Magnesium 2.0 (1.6-2.3) mg/dL Total Bilirubin Cancelled AST ALT Alkaline Phosphatase Troponin I (0.000-0.034) ng/mL NT-Pro-B Natriuret Pep (19.9-100) pg/mL Total Protein Albumin Lipase TSH (Reflex) (0.465-4.68) uIU/mL Urine Color (Yellow) Urine Appearance (Clear) Urine pH (5.0-9.0) Ur Specific [place] (1.001-1.035) Urine Protein (Negative) mg/dL Urine Glucose (UA) (Negative) mg/dL Urine Ketones (Negative) mg/dL Ur Blood (Man) (Negative) Urine Nitrate (Negative) Urine Bilirubin (Negative) Urine Urobilinogen (<2.0) mg/dL Leukocyte Esterase Rfl (Negative) NORA/UL Urine RBC (0-2) /hpf Urine WBC (0-3) /hpf Ur Squamous Epith Cells (Few) /hpf Urine Bacteria /hpf Urine Casts 10/02/24 10/02/24 10/02/24 Range/Units 17:33 17:33 17:33 WBC (4.5-10.0) K/mm3 RBC (4.2-5.4) M/mm3 Hgb (12.0-15.0) g/dL Hct (37.0-47.0) % MCV (80-100) fl MCH (26-34) pg MCHC (32-36) g/dl RDW (11.5-14.5) % Plt Count (150-375) k/mm3 MPV (7.4-10.4) fl Immature Gran % (Auto) (0-0.5) % Neut % (Auto) (45.5-73.1) % Lymph % (Auto) (18.3-44.2) % Stevens % (Auto) (2.6-8.5) % Eos % (Auto) (0-4.4) % Baso % (Auto) (0.2-1.2) % Lymph # (Auto) (0.9-3.2) K/mm3 [place] # (Auto) (0.1-0.6) K/mm3 Eos # (Auto) (0-0.3) K/mm3 Baso # (Auto) (0.0-0.1) K/mm3 Abs Immat Gran (auto) (0.00-0.031) K/mm3 Absolute Neuts (auto) (1.3-6.7) K/mm3 Absolute Nucleated RBC (0.0-0.012) K/mm3 Nucleated RBC % (0.0-0.2) % PT (11.1-14.7) Seconds INR APTT (22.3-36.8) Seconds Sodium Potassium Chloride Carbon Dioxide Anion Gap BUN Creatinine Estim Creat Clear Calc Estimated GFR Glucose Lactic Acid (0.7-2.0) mmol/L Calcium Magnesium (1.6-2.3) mg/dL Total Bilirubin 0.8 AST Cancelled 38 H ALT Cancelled 31 Alkaline Phosphatase Cancelled Troponin I (0.000-0.034) ng/mL NT-Pro-B Natriuret Pep (19.9-100) pg/mL Total Protein Albumin Lipase TSH (Reflex) (0.465-4.68) uIU/mL Urine Color (Yellow) Urine Appearance (Clear) Urine pH (5.0-9.0) Ur Specific [place] (1.001-1.035) Urine Protein (Negative) mg/dL Urine Glucose (UA) (Negative) mg/dL Urine Ketones (Negative) mg/dL Ur Blood (Man) (Negative) Urine Nitrate (Negative) Urine Bilirubin (Negative) Urine Urobilinogen (<2.0) mg/dL Leukocyte Esterase Rfl (Negative) NORA/UL Urine RBC (0-2) /hpf Urine WBC (0-3) /hpf Ur Squamous Epith Cells (Few) /hpf Urine Bacteria /hpf Urine Casts 10/02/24 10/02/24 10/02/24 Range/Units 17:33 17:33 17:33 WBC (4.5-10.0) K/mm3 RBC (4.2-5.4) M/mm3 Hgb (12.0-15.0) g/dL Hct (37.0-47.0) % MCV (80-100) fl MCH (26-34) pg MCHC (32-36) g/dl RDW (11.5-14.5) % Plt Count (150-375) k/mm3 MPV (7.4-10.4) fl Immature Gran % (Auto) (0-0.5) % Neut % (Auto) (45.5-73.1) % Lymph % (Auto) (18.3-44.2) % Stevens % (Auto) (2.6-8.5) % Eos % (Auto) (0-4.4) % Baso % (Auto) (0.2-1.2) % Lymph # (Auto) (0.9-3.2) K/mm3 [place] # (Auto) (0.1-0.6) K/mm3 Eos # (Auto) (0-0.3) K/mm3 Baso # (Auto) (0.0-0.1) K/mm3 Abs Immat Gran (auto) (0.00-0.031) K/mm3 Absolute Neuts (auto) (1.3-6.7) K/mm3 Absolute Nucleated RBC (0.0-0.012) K/mm3 Nucleated RBC % (0.0-0.2) % PT (11.1-14.7) Seconds INR APTT (22.3-36.8) Seconds Sodium Potassium Chloride Carbon Dioxide Anion Gap BUN Creatinine Estim Creat Clear Calc Estimated GFR Glucose Lactic Acid (0.7-2.0) mmol/L Calcium Magnesium (1.6-2.3) mg/dL Total Bilirubin AST ALT Alkaline Phosphatase 74 Troponin I < 0.012 (0.000-0.034) ng/mL NT-Pro-B Natriuret Pep 2810 H (19.9-100) pg/mL Total Protein Cancelled 7.1 Albumin Cancelled 4.1 Lipase Cancelled TSH (Reflex) (0.465-4.68) uIU/mL Urine Color (Yellow) Urine Appearance (Clear) Urine pH (5.0-9.0) Ur Specific [place] (1.001-1.035) Urine Protein (Negative) mg/dL Urine Glucose (UA) (Negative) mg/dL Urine Ketones (Negative) mg/dL Ur Blood (Man) (Negative) Urine Nitrate (Negative) Urine Bilirubin (Negative) Urine Urobilinogen (<2.0) mg/dL Leukocyte Esterase Rfl (Negative) NORA/UL Urine RBC (0-2) /hpf Urine WBC (0-3) /hpf Ur Squamous Epith Cells (Few) /hpf Urine Bacteria /hpf Urine Casts 10/02/24 10/02/24 10/02/24 Range/Units 17:33 17:40 19:34 WBC (4.5-10.0) K/mm3 RBC (4.2-5.4) M/mm3 Hgb (12.0-15.0) g/dL Hct (37.0-47.0) % MCV (80-100) fl MCH (26-34) pg MCHC (32-36) g/dl RDW (11.5-14.5) % Plt Count (150-375) k/mm3 MPV (7.4-10.4) fl Immature Gran % (Auto) (0-0.5) % Neut % (Auto) (45.5-73.1) % Lymph % (Auto) (18.3-44.2) % Stevens % (Auto) (2.6-8.5) % Eos % (Auto) (0-4.4) % Baso % (Auto) (0.2-1.2) % Lymph # (Auto) (0.9-3.2) K/mm3 [place] # (Auto) (0.1-0.6) K/mm3 Eos # (Auto) (0-0.3) K/mm3 Baso # (Auto) (0.0-0.1) K/mm3 Abs Immat Gran (auto) (0.00-0.031) K/mm3 Absolute Neuts (auto) (1.3-6.7) K/mm3 Absolute Nucleated RBC (0.0-0.012) K/mm3 Nucleated RBC % (0.0-0.2) % PT (11.1-14.7) Seconds INR APTT (22.3-36.8) Seconds Sodium Potassium Chloride Carbon Dioxide Anion Gap BUN Creatinine Estim Creat Clear Calc Estimated GFR Glucose Lactic Acid 1.6 (0.7-2.0) mmol/L Calcium Magnesium (1.6-2.3) mg/dL Total Bilirubin AST ALT Alkaline Phosphatase Troponin I < 0.012 (0.000-0.034) ng/mL NT-Pro-B Natriuret Pep (19.9-100) pg/mL Total Protein Albumin Lipase 52 TSH (Reflex) 2.560 (0.465-4.68) uIU/mL Urine Color Yellow (Yellow) Urine Appearance Clear (Clear) Urine pH 6.5 (5.0-9.0) Ur Specific [place] 1.017 (1.001-1.035) Urine Protein 1+ H (Negative) mg/dL Urine Glucose (UA) Negative (Negative) mg/dL Urine Ketones Trace H (Negative) mg/dL Ur Blood (Man) Negative (Negative) Urine Nitrate Negative (Negative) Urine Bilirubin Negative (Negative) Urine Urobilinogen 0.2 (<2.0) mg/dL Leukocyte Esterase Rfl Trace H (Negative) NORA/UL Urine RBC 0-2 (0-2) /hpf Urine WBC 0-5 (0-3) /hpf Ur Squamous Epith Cells Occasional (Few) /hpf Urine Bacteria None seen /hpf Urine Casts 0-2 07/24/25 Range/Units 20:37 WBC (4.5-10.0) K/mm3 RBC (4.2-5.4) M/mm3 Hgb (12.0-15.0) g/dL Hct (37.0-47.0) % MCV (80-100) fl MCH (26-34) pg MCHC (32-36) g/dl RDW (11.5-14.5) % Plt Count (150-375) k/mm3 MPV (7.4-10.4) fl Immature Gran % (Auto) (0-0.5) % Neut % (Auto) (45.5-73.1) % Lymph % (Auto) (18.3-44.2) % Stevens % (Auto) (2.6-8.5) % Eos % (Auto) (0-4.4) % Baso % (Auto) (0.2-1.2) % Lymph # (Auto) (0.9-3.2) K/mm3 [place] # (Auto) (0.1-0.6) K/mm3 Eos # (Auto) (0-0.3) K/mm3 Baso # (Auto) (0.0-0.1) K/mm3 Abs Immat Gran (auto) (0.00-0.031) K/mm3 Absolute Neuts (auto) (1.3-6.7) K/mm3 Absolute Nucleated RBC (0.0-0.012) K/mm3 Nucleated RBC % (0.0-0.2) % PT (11.1-14.7) Seconds INR APTT (22.3-36.8) Seconds Sodium Potassium Chloride Carbon Dioxide Anion Gap BUN Creatinine 0.90 Estim Creat Clear Calc 43 Estimated GFR 60 Glucose Lactic Acid (0.7-2.0) mmol/L Calcium Magnesium (1.6-2.3) mg/dL Total Bilirubin AST ALT Alkaline Phosphatase Troponin I (0.000-0.034) ng/mL NT-Pro-B Natriuret Pep (19.9-100) pg/mL Total Protein Albumin Lipase TSH (Reflex) (0.465-4.68) uIU/mL Urine Color (Yellow) Urine Appearance (Clear) Urine pH (5.0-9.0) Ur Specific [place] (1.001-1.035) Urine Protein (Negative) mg/dL Urine Glucose (UA) (Negative) mg/dL Urine Ketones (Negative) mg/dL Ur Blood (Man) (Negative) Urine Nitrate (Negative) Urine Bilirubin (Negative) Urine Urobilinogen (<2.0) mg/dL Leukocyte Esterase Rfl (Negative) NORA/UL Urine RBC (0-2) /hpf Urine WBC (0-3) /hpf Ur Squamous Epith Cells (Few) /hpf Urine Bacteria /hpf Urine Casts <Kortney Dumas PA-C - Last Filed: 10/02/24 22:59> Lab Results 10/02/24 10/02/24 10/02/24 Range/Units 17:33 17:33 17:33 WBC 7.5 (4.5-10.0) K/mm3 RBC 4.49 (4.2-5.4) M/mm3 Hgb 12.8 (12.0-15.0) g/dL Hct 39.4 (37.0-47.0) % MCV 87.8 (80-100) fl MCH 28.5 (26-34) pg MCHC 32.5 (32-36) g/dl RDW 15.9 H (11.5-14.5) % Plt Count 256 (150-375) k/mm3 MPV 10.9 H (7.4-10.4) fl Immature Gran % (Auto) 0.4 (0-0.5) % Neut % (Auto) 54.8 (45.5-73.1) % Lymph % (Auto) 31.1 (18.3-44.2) % Stevens % (Auto) 10.9 H (2.6-8.5) % Eos % (Auto) 1.7 (0-4.4) % Baso % (Auto) 1.1 (0.2-1.2) % Lymph # (Auto) 2.33 (0.9-3.2) K/mm3 [place] # (Auto) 0.8 H (0.1-0.6) K/mm3 Eos # (Auto) 0.1 (0-0.3) K/mm3 Baso # (Auto) 0.1 (0.0-0.1) K/mm3 Abs Immat Gran (auto) 0.03 (0.00-0.031) K/mm3 Absolute Neuts (auto) 4.1 (1.3-6.7) K/mm3 Absolute Nucleated RBC 0.000 (0.0-0.012) K/mm3 Nucleated RBC % 0.0 (0.0-0.2) % PT 19.9 H (11.1-14.7) Seconds INR 1.7 APTT 31.1 (22.3-36.8) Seconds Sodium Cancelled 136 L Potassium Cancelled 4.5 Chloride Cancelled Carbon Dioxide Anion Gap BUN Creatinine Estim Creat Clear Calc Estimated GFR Glucose Lactic Acid (0.7-2.0) mmol/L Calcium Magnesium (1.6-2.3) mg/dL Total Bilirubin AST ALT Alkaline Phosphatase Troponin I (0.000-0.034) ng/mL NT-Pro-B Natriuret Pep (19.9-100) pg/mL Total Protein Albumin Lipase TSH (Reflex) (0.465-4.68) uIU/mL Urine Color (Yellow) Urine Appearance (Clear) Urine pH (5.0-9.0) Ur Specific [place] (1.001-1.035) Urine Protein (Negative) mg/dL Urine Glucose (UA) (Negative) mg/dL Urine Ketones (Negative) mg/dL Ur Blood (Man) (Negative) Urine Nitrate (Negative) Urine Bilirubin (Negative) Urine Urobilinogen (<2.0) mg/dL Leukocyte Esterase Rfl (Negative) NORA/UL Urine RBC (0-2) /hpf Urine WBC (0-3) /hpf Ur Squamous Epith Cells (Few) /hpf Urine Bacteria /hpf Urine Casts 10/02/24 10/02/24 10/02/24 Range/Units 17:33 17:33 17:33 WBC (4.5-10.0) K/mm3 RBC (4.2-5.4) M/mm3 Hgb (12.0-15.0) g/dL Hct (37.0-47.0) % MCV (80-100) fl MCH (26-34) pg MCHC (32-36) g/dl RDW (11.5-14.5) % Plt Count (150-375) k/mm3 MPV (7.4-10.4) fl Immature Gran % (Auto) (0-0.5) % Neut % (Auto) (45.5-73.1) % Lymph % (Auto) (18.3-44.2) % Stevens % (Auto) (2.6-8.5) % Eos % (Auto) (0-4.4) % Baso % (Auto) (0.2-1.2) % Lymph # (Auto) (0.9-3.2) K/mm3 Stevens # (Auto) (0.1-0.6) K/mm3 Eos # (Auto) (0-0.3) K/mm3 Baso # (Auto) (0.0-0.1) K/mm3 Abs Immat Gran (auto) (0.00-0.031) K/mm3 Absolute Neuts (auto) (1.3-6.7) K/mm3 Absolute Nucleated RBC (0.0-0.012) K/mm3 Nucleated RBC % (0.0-0.2) % PT (11.1-14.7) Seconds INR APTT (22.3-36.8) Seconds Sodium Potassium Chloride 110 H Carbon Dioxide Cancelled 14 L Anion Gap Cancelled 12 BUN Cancelled Creatinine Estim Creat Clear Calc Estimated GFR Glucose Lactic Acid (0.7-2.0) mmol/L Calcium Magnesium (1.6-2.3) mg/dL Total Bilirubin AST ALT Alkaline Phosphatase Troponin I (0.000-0.034) ng/mL NT-Pro-B Natriuret Pep (19.9-100) pg/mL Total Protein Albumin Lipase TSH (Reflex) (0.465-4.68) uIU/mL Urine Color (Yellow) Urine Appearance (Clear) Urine pH (5.0-9.0) Ur Specific [place] (1.001-1.035) Urine Protein (Negative) mg/dL Urine Glucose (UA) (Negative) mg/dL Urine Ketones (Negative) mg/dL Ur Blood (Man) (Negative) Urine Nitrate (Negative) Urine Bilirubin (Negative) Urine Urobilinogen (<2.0) mg/dL Leukocyte Esterase Rfl (Negative) NORA/UL Urine RBC (0-2) /hpf Urine WBC (0-3) /hpf Ur Squamous Epith Cells (Few) /hpf Urine Bacteria /hpf Urine Casts 10/02/24 10/02/24 10/02/24 Range/Units 17:33 17:33 17:33 WBC (4.5-10.0) K/mm3 RBC (4.2-5.4) M/mm3 Hgb (12.0-15.0) g/dL Hct (37.0-47.0) % MCV (80-100) fl MCH (26-34) pg MCHC (32-36) g/dl RDW (11.5-14.5) % Plt Count (150-375) k/mm3 MPV (7.4-10.4) fl Immature Gran % (Auto) (0-0.5) % Neut % (Auto) (45.5-73.1) % Lymph % (Auto) (18.3-44.2) % Stevens % (Auto) (2.6-8.5) % Eos % (Auto) (0-4.4) % Baso % (Auto) (0.2-1.2) % Lymph # (Auto) (0.9-3.2) K/mm3 Stevens # (Auto) (0.1-0.6) K/mm3 Eos # (Auto) (0-0.3) K/mm3 Baso # (Auto) (0.0-0.1) K/mm3 Abs Immat Gran (auto) (0.00-0.031) K/mm3 Absolute Neuts (auto) (1.3-6.7) K/mm3 Absolute Nucleated RBC (0.0-0.012) K/mm3 Nucleated RBC % (0.0-0.2) % PT (11.1-14.7) Seconds INR APTT (22.3-36.8) Seconds Sodium Potassium Chloride Carbon Dioxide Anion Gap BUN 16 Creatinine Cancelled 0.87 Estim Creat Clear Calc Cancelled 44 Estimated GFR Cancelled Glucose Lactic Acid (0.7-2.0) mmol/L Calcium Magnesium (1.6-2.3) mg/dL Total Bilirubin AST ALT Alkaline Phosphatase Troponin I (0.000-0.034) ng/mL NT-Pro-B Natriuret Pep (19.9-100) pg/mL Total Protein Albumin Lipase TSH (Reflex) (0.465-4.68) uIU/mL Urine Color (Yellow) Urine Appearance (Clear) Urine pH (5.0-9.0) Ur Specific [place] (1.001-1.035) Urine Protein (Negative) mg/dL Urine Glucose (UA) (Negative) mg/dL Urine Ketones (Negative) mg/dL Ur Blood (Man) (Negative) Urine Nitrate (Negative) Urine Bilirubin (Negative) Urine Urobilinogen (<2.0) mg/dL Leukocyte Esterase Rfl (Negative) NORA/UL Urine RBC (0-2) /hpf Urine WBC (0-3) /hpf Ur Squamous Epith Cells (Few) /hpf Urine Bacteria /hpf Urine Casts 10/02/24 10/02/24 10/02/24 Range/Units 17:33 17:33 17:33 WBC (4.5-10.0) K/mm3 RBC (4.2-5.4) M/mm3 Hgb (12.0-15.0) g/dL Hct (37.0-47.0) % MCV (80-100) fl MCH (26-34) pg MCHC (32-36) g/dl RDW (11.5-14.5) % Plt Count (150-375) k/mm3 MPV (7.4-10.4) fl Immature Gran % (Auto) (0-0.5) % Neut % (Auto) (45.5-73.1) % Lymph % (Auto) (18.3-44.2) % Stevens % (Auto) (2.6-8.5) % Eos % (Auto) (0-4.4) % Baso % (Auto) (0.2-1.2) % Lymph # (Auto) (0.9-3.2) K/mm3 Stevens # (Auto) (0.1-0.6) K/mm3 Eos # (Auto) (0-0.3) K/mm3 Baso # (Auto) (0.0-0.1) K/mm3 Abs Immat Gran (auto) (0.00-0.031) K/mm3 Absolute Neuts (auto) (1.3-6.7) K/mm3 Absolute Nucleated RBC (0.0-0.012) K/mm3 Nucleated RBC % (0.0-0.2) % PT (11.1-14.7) Seconds INR APTT (22.3-36.8) Seconds Sodium Potassium Chloride Carbon Dioxide Anion Gap BUN Creatinine Estim Creat Clear Calc Estimated GFR > 60 Glucose Cancelled 113 H Lactic Acid (0.7-2.0) mmol/L Calcium Cancelled 9.6 Magnesium 2.0 (1.6-2.3) mg/dL Total Bilirubin Cancelled AST ALT Alkaline Phosphatase Troponin I (0.000-0.034) ng/mL NT-Pro-B Natriuret Pep (19.9-100) pg/mL Total Protein Albumin Lipase TSH (Reflex) (0.465-4.68) uIU/mL Urine Color (Yellow) Urine Appearance (Clear) Urine pH (5.0-9.0) Ur Specific [place] (1.001-1.035) Urine Protein (Negative) mg/dL Urine Glucose (UA) (Negative) mg/dL Urine Ketones (Negative) mg/dL Ur Blood (Man) (Negative) Urine Nitrate (Negative) Urine Bilirubin (Negative) Urine Urobilinogen (<2.0) mg/dL Leukocyte Esterase Rfl (Negative) NORA/UL Urine RBC (0-2) /hpf Urine WBC (0-3) /hpf Ur Squamous Epith Cells (Few) /hpf Urine Bacteria /hpf Urine Casts 10/02/24 10/02/24 10/02/24 Range/Units 17:33 17:33 17:33 WBC (4.5-10.0) K/mm3 RBC (4.2-5.4) M/mm3 Hgb (12.0-15.0) g/dL Hct (37.0-47.0) % MCV (80-100) fl MCH (26-34) pg MCHC (32-36) g/dl RDW (11.5-14.5) % Plt Count (150-375) k/mm3 MPV (7.4-10.4) fl Immature Gran % (Auto) (0-0.5) % Neut % (Auto) (45.5-73.1) % Lymph % (Auto) (18.3-44.2) % Stevens % (Auto) (2.6-8.5) % Eos % (Auto) (0-4.4) % Baso % (Auto) (0.2-1.2) % Lymph # (Auto) (0.9-3.2) K/mm3 Stevens # (Auto) (0.1-0.6) K/mm3 Eos # (Auto) (0-0.3) K/mm3 Baso # (Auto) (0.0-0.1) K/mm3 Abs Immat Gran (auto) (0.00-0.031) K/mm3 Absolute Neuts (auto) (1.3-6.7) K/mm3 Absolute Nucleated RBC (0.0-0.012) K/mm3 Nucleated RBC % (0.0-0.2) % PT (11.1-14.7) Seconds INR APTT (22.3-36.8) Seconds Sodium Potassium Chloride Carbon Dioxide Anion Gap BUN Creatinine Estim Creat Clear Calc Estimated GFR Glucose Lactic Acid (0.7-2.0) mmol/L Calcium Magnesium (1.6-2.3) mg/dL Total Bilirubin 0.8 AST Cancelled 38 H ALT Cancelled 31 Alkaline Phosphatase Cancelled Troponin I (0.000-0.034) ng/mL NT-Pro-B Natriuret Pep (19.9-100) pg/mL Total Protein Albumin Lipase TSH (Reflex) (0.465-4.68) uIU/mL Urine Color (Yellow) Urine Appearance (Clear) Urine pH (5.0-9.0) Ur Specific [place] (1.001-1.035) Urine Protein (Negative) mg/dL Urine Glucose (UA) (Negative) mg/dL Urine Ketones (Negative) mg/dL Ur Blood (Man) (Negative) Urine Nitrate (Negative) Urine Bilirubin (Negative) Urine Urobilinogen (<2.0) mg/dL Leukocyte Esterase Rfl (Negative) NORA/UL Urine RBC (0-2) /hpf Urine WBC (0-3) /hpf Ur Squamous Epith Cells (Few) /hpf Urine Bacteria /hpf Urine Casts 10/02/24 10/02/24 10/02/24 Range/Units 17:33 17:33 17:33 WBC (4.5-10.0) K/mm3 RBC (4.2-5.4) M/mm3 Hgb (12.0-15.0) g/dL Hct (37.0-47.0) % MCV (80-100) fl MCH (26-34) pg MCHC (32-36) g/dl RDW (11.5-14.5) % Plt Count (150-375) k/mm3 MPV (7.4-10.4) fl Immature Gran % (Auto) (0-0.5) % Neut % (Auto) (45.5-73.1) % Lymph % (Auto) (18.3-44.2) % Stevens % (Auto) (2.6-8.5) % Eos % (Auto) (0-4.4) % Baso % (Auto) (0.2-1.2) % Lymph # (Auto) (0.9-3.2) K/mm3 [place] # (Auto) (0.1-0.6) K/mm3 Eos # (Auto) (0-0.3) K/mm3 Baso # (Auto) (0.0-0.1) K/mm3 Abs Immat Gran (auto) (0.00-0.031) K/mm3 Absolute Neuts (auto) (1.3-6.7) K/mm3 Absolute Nucleated RBC (0.0-0.012) K/mm3 Nucleated RBC % (0.0-0.2) % PT (11.1-14.7) Seconds INR APTT (22.3-36.8) Seconds Sodium Potassium Chloride Carbon Dioxide Anion Gap BUN Creatinine Estim Creat Clear Calc Estimated GFR Glucose Lactic Acid (0.7-2.0) mmol/L Calcium Magnesium (1.6-2.3) mg/dL Total Bilirubin AST ALT Alkaline Phosphatase 74 Troponin I < 0.012 (0.000-0.034) ng/mL NT-Pro-B Natriuret Pep 2810 H (19.9-100) pg/mL Total Protein Cancelled 7.1 Albumin Cancelled 4.1 Lipase Cancelled TSH (Reflex) (0.465-4.68) uIU/mL Urine Color (Yellow) Urine Appearance (Clear) Urine pH (5.0-9.0) Ur Specific [place] (1.001-1.035) Urine Protein (Negative) mg/dL Urine Glucose (UA) (Negative) mg/dL Urine Ketones (Negative) mg/dL Ur Blood (Man) (Negative) Urine Nitrate (Negative) Urine Bilirubin (Negative) Urine Urobilinogen (<2.0) mg/dL Leukocyte Esterase Rfl (Negative) NORA/UL Urine RBC (0-2) /hpf Urine WBC (0-3) /hpf Ur Squamous Epith Cells (Few) /hpf Urine Bacteria /hpf Urine Casts 10/02/24 10/02/24 10/02/24 Range/Units 17:33 17:40 19:34 WBC (4.5-10.0) K/mm3 RBC (4.2-5.4) M/mm3 Hgb (12.0-15.0) g/dL Hct (37.0-47.0) % MCV (80-100) fl MCH (26-34) pg MCHC (32-36) g/dl RDW (11.5-14.5) % Plt Count (150-375) k/mm3 MPV (7.4-10.4) fl Immature Gran % (Auto) (0-0.5) % Neut % (Auto) (45.5-73.1) % Lymph % (Auto) (18.3-44.2) % Stevens % (Auto) (2.6-8.5) % Eos % (Auto) (0-4.4) % Baso % (Auto) (0.2-1.2) % Lymph # (Auto) (0.9-3.2) K/mm3 Stevens # (Auto) (0.1-0.6) K/mm3 Eos # (Auto) (0-0.3) K/mm3 Baso # (Auto) (0.0-0.1) K/mm3 Abs Immat Gran (auto) (0.00-0.031) K/mm3 Absolute Neuts (auto) (1.3-6.7) K/mm3 Absolute Nucleated RBC (0.0-0.012) K/mm3 Nucleated RBC % (0.0-0.2) % PT (11.1-14.7) Seconds INR APTT (22.3-36.8) Seconds Sodium Potassium Chloride Carbon Dioxide Anion Gap BUN Creatinine Estim Creat Clear Calc Estimated GFR Glucose Lactic Acid 1.6 (0.7-2.0) mmol/L Calcium Magnesium (1.6-2.3) mg/dL Total Bilirubin AST ALT Alkaline Phosphatase Troponin I < 0.012 (0.000-0.034) ng/mL NT-Pro-B Natriuret Pep (19.9-100) pg/mL Total Protein Albumin Lipase 52 TSH (Reflex) 2.560 (0.465-4.68) uIU/mL Urine Color Yellow (Yellow) Urine Appearance Clear (Clear) Urine pH 6.5 (5.0-9.0) Ur Specific [place] 1.017 (1.001-1.035) Urine Protein 1+ H (Negative) mg/dL Urine Glucose (UA) Negative (Negative) mg/dL Urine Ketones Trace H (Negative) mg/dL Ur Blood (Man) Negative (Negative) Urine Nitrate Negative (Negative) Urine Bilirubin Negative (Negative) Urine Urobilinogen 0.2 (<2.0) mg/dL Leukocyte Esterase Rfl Trace H (Negative) NORA/UL Urine RBC 0-2 (0-2) /hpf Urine WBC 0-5 (0-3) /hpf Ur Squamous Epith Cells Occasional (Few) /hpf Urine Bacteria None seen /hpf Urine Casts 0-2 07/24/25 Range/Units 20:37 WBC (4.5-10.0) K/mm3 RBC (4.2-5.4) M/mm3 Hgb (12.0-15.0) g/dL Hct (37.0-47.0) % MCV (80-100) fl MCH (26-34) pg MCHC (32-36) g/dl RDW (11.5-14.5) % Plt Count (150-375) k/mm3 MPV (7.4-10.4) fl Immature Gran % (Auto) (0-0.5) % Neut % (Auto) (45.5-73.1) % Lymph % (Auto) (18.3-44.2) % Stevens % (Auto) (2.6-8.5) % Eos % (Auto) (0-4.4) % Baso % (Auto) (0.2-1.2) % Lymph # (Auto) (0.9-3.2) K/mm3 Stevens # (Auto) (0.1-0.6) K/mm3 Eos # (Auto) (0-0.3) K/mm3 Baso # (Auto) (0.0-0.1) K/mm3 Abs Immat Gran (auto) (0.00-0.031) K/mm3 Absolute Neuts (auto) (1.3-6.7) K/mm3 Absolute Nucleated RBC (0.0-0.012) K/mm3 Nucleated RBC % (0.0-0.2) % PT (11.1-14.7) Seconds INR APTT (22.3-36.8) Seconds Sodium Potassium Chloride Carbon Dioxide Anion Gap BUN Creatinine 0.90 Estim Creat Clear Calc 43 Estimated GFR 60 Glucose Lactic Acid (0.7-2.0) mmol/L Calcium Magnesium (1.6-2.3) mg/dL Total Bilirubin AST ALT Alkaline Phosphatase Troponin I (0.000-0.034) ng/mL NT-Pro-B Natriuret Pep (19.9-100) pg/mL Total Protein Albumin Lipase TSH (Reflex) (0.465-4.68) uIU/mL Urine Color (Yellow) Urine Appearance (Clear) Urine pH (5.0-9.0) Ur Specific [place] (1.001-1.035) Urine Protein (Negative) mg/dL Urine Glucose (UA) (Negative) mg/dL Urine Ketones (Negative) mg/dL Ur Blood (Man) (Negative) Urine Nitrate (Negative) Urine Bilirubin (Negative) Urine Urobilinogen (<2.0) mg/dL Leukocyte Esterase Rfl (Negative) NORA/UL Urine RBC (0-2) /hpf Urine WBC (0-3) /hpf Ur Squamous Epith Cells (Few) /hpf Urine Bacteria /hpf Urine Casts <Danielle Morales MD - Last Filed: 10/03/24 04:36> Critical Care Time Critical Care Time Critical Care Time: Yes <Nhi Austin PA-C - Last Filed: 10/03/24 17:41> Total Critical Care Time: 35 <Nhi Austin PA-C - Last Filed: 10/03/24 17:41> Discharge Plan Discharge Clinical Impression: Atrial fibrillation with RVR <Nhi Austin PA-C - Last Filed: 10/03/24 17:41> Patient Disposition: Still a Patient <Nhi Austin PA-C - Last Filed: 10/03/24 17:41> Condition: Serious <Nhi Austin PA-C - Last Filed: 10/03/24 17:41>
--- OUTSIDE RECORDS SUMMARY | 2024-10-02 17:15 | XMS_ITS | Encounter Summary ---
Author Organization [facility] Healthcare Address [address] [place] [address] Care Team Providers Care Can Reforming Machine Operator Name Role Phone Tru Benites MD Primary Care Provider [phone] Encounter Details Date Type Department Care Team (Late st Contact Info) Description 03/14/2024 Orders Only [facility] [place] Management [address] [place] [address] Scanning, Provider Social History Tobacco Use Types Packs/Day Years Used Date Smoking Tobacco: Never Smokeless Tobacco: Never Alcohol Use Standard Drinks/Week Comments Not Currently 0 (1 standard drink = 0.6 oz pur e alcohol) Comments Unknown Sex and Gender Information Value Date Recorded Sex Assigned at Not on file 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
--- OUTSIDE RECORDS SUMMARY | 2024-10-02 17:15 | XMS_ITS | Clinical Summary ---
Author Organization [facility] Address [address] [place] [address] Care Team Providers Care Fabric Designer Name Role Phone Unavailable Primary Care Provider [...]
--- OUTSIDE RECORDS SUMMARY | 2024-10-02 17:15 | XMS_ITS | Encounter Summary ---
Author Organization [facility] Healthcare Address [address] [place] [address] Care Team Providers Care Wastewater Treatment Plant Operator Name Role Phone Clovis Carter DO Primary Care Provider [phone] Tru Bneites MD Primary Care Provider [phone] Encounter Details Date Type Department Care Team (Late st Contact Info) Description 06/28/2022 Orders Only [facility] [place] Health Information Management [address] [place] [address] Scanning, Provider Social History Tobacco Use Types Packs/Day Years Used Date Smoking Tobacco: Never Smokeless Tobacco: Never Alcohol Use Standard Drinks/Week Comments Not Currently 0 (1 standard drink = 0.6 oz pur e alcohol) Comments Unknown Sex and Gender Information Value Date Recorded Sex Assigned at Not on file 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
--- OUTSIDE RECORDS SUMMARY | 2024-10-02 17:15 | XMS_ITS | Clinical Summary ---
Author Organization [facility] Care Team Providers Care Picture Frame Maker Name Role Phone Unavailable Primary Care Provider [...]
--- OUTSIDE RECORDS SUMMARY | 2024-10-02 17:16 | XMS_ITS | Clinical Summary ---
Author Organization [facility] [address] [facility] [address] [place] [address] Care Team Providers Care Cork Pressing Machine Operator Name Role Phone Tru Benites MD Primary Care Provider [phone] Allergies Active Allergy Reactions Criticality Noted Date [...] (COUMADIN) 2 mg tabletIndication s:Paroxysmal atrial fibrillation (HCC),detention current use of 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 therapy TAKE 3 [...] Noted Date Diagnosed Date Atrial fibrillation 06/04/2024 detention (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 2024 LVH (left ventricular hypertrophy) 12/20/2022 Paroxysmal atrial fibrillation 11/30/2022 detention current use of 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 therapy 0 11/30/2022 [...] Type Department Care Team Description 09/29/2024 Telephone [facility] Cardiology [address] [place] [phone] Avril Almeida MA Multaq 09/05/2024 Anticoagulation Visit [facility] Cardiology [address] [place] [address] [place] [phone] Avril Luciano RN Atrial fibrillation, unspecified type (HCC) (Primary Dx); detention (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 08/22/2024 Anticoagulation Visit [facility] Card[facility] [address] [place] [phone] Nancy Vergara RN Atrial fibrillation, unspecified type (HCC) (Primary Dx); detention (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 08/11/2024 Anticoagulation Visit [facility] Cardiology [address] [place] [address] [place] [phone] Avril Luciano RN Atrial fibrillation, unspecified type (HCC) (Primary Dx); 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 07/31/2024 Anticoagulation Visit [facility] Cardiology [address] [place] [address] [place] [phone] Avril Luciano RN Atrial fibrillation, unspecified type (HCC) (Primary Dx); detention (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 07/29/2024 Telephone [facility] Cardiology [address] [place] [address] [place] [phone] Eddie Bennett MD 07/21/2024 Telephone [place] [address] [place] [phone] Eddie Bennett MD 07/14/2024 Telephone [place] [address] [place] [phone] Avril Almeida MA Multaq Shipped 07/11/2024 11:00 AM CDT Office Visit [facility] Cardiology [address] [place] [address] [place] [phone] Yaima Rossi NP Sarcoidosis; Paroxysmal atrial fibrillation (HCC); 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 07/11/2024 Anticoagulation Visit [facility] Cardiology [address] [place] [address] [place] [phone] Kelly Garber RN Atrial fibrillation, unspecified type (HCC) (Primary Dx); 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 07/04/2024 Anticoagulation Visit [facility] Cardiology [address] [place] [address] [place] [phone] Yaw Montanez RN Atrial fibrillation, unspecified type (HCC) (Primary Dx); 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 from Last 3 [...] on file 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 Gender Identity Not on file Sexual Orientation [...] 11:50 AM CDT Paroxysmal atrial fibrillation (HCC) detention current use of 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 therapy PROTIME-INR Routine 08/21/2024 11:43 AM CDT Paroxysmal atrial fibrillation (HCC) detention current use of 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 therapy PROTIME-INR Routine 08/08/2024 10:48 AM CDT Paroxysmal atrial fibrillation (HCC) detention current use of 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 therapy PROTIME-INR Routine 07/30/2024 10:45 AM CDT Paroxysmal atrial fibrillation (HCC) 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 PROTIME-INR Routine 07/10/2024 10:46 AM CDT Paroxysmal atrial fibrillation (HCC) 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 PROTIME-INR Routine 07/03/2024 10:50 AM CDT Paroxysmal atrial fibrillation (HCC) 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 from Last 3 Months Results * (ABNORMAL) Protime-INR (09/04/2024 11:50 AM CDT) INR 2.0(H) [facility] Comment: Reference Range 0.9-1.1 Moderate-intensity Warfarin Therapy 2.0-3.0 Higher-intensity Warfarin Therapy 3.0-4.0 PT 20.4(H) 9.0 - 11.5 sec [facility] Comment: For additional information, please refer to http://[employer].Historic Futures/faq/DGV930 (This link is being provided for informational/ educational purposes only.) Blood 09/04/2024 11:5 0 AM CDT 09/04/2024 11:50 AM CDT Yaima Rossi NP LAB BLOOD ORDERABLES Meg l Result [facility] [address] [place] [address] * (ABNORMAL) Protime-INR (08/21/2024 11:43 AM CDT) INR 2.4(H) [facility] Comment: Reference Range 0.9-1.1 Moderate-intensity Warfarin Therapy 2.0-3.0 Higher-intensity Warfarin Therapy 3.0-4.0 PT 24.7(H) 9.0 - 11.5 sec [facility] Comment: For additional information, please refer to http://[employer].Histor[employer]ures/faq/VXW572 (This link is being provided for informational/ educational purposes only.) Blood 08/21/2024 11:4 3 AM CDT 08/21/2024 11:44 AM CDT Yaima Rossi OCTAVE BOARD RACKER LAB BLOOD ORDERABLES Meg l Result Performing Organization Address [facility] de Phone Number [facility] [address] [place] [address] * (ABNORMAL) Protime-INR (08/08/2024 10:48 AM CDT) INR 2.0(H) [facility] Comment: Reference Range 0.9-1.1 Moderate-intensity Warfarin Therapy 2.0-3.0 Higher-intensity Warfarin Therapy 3.0-4.0 PT 20.3(H) 9.0 - 11.5 sec [facility] Comment: For additional information, please refer to http://[employer].Histor[employer]ures/faq/ERM282 (This link is being provided for informational/ educational purposes only.) Blood 08/08/2024 10:4 8 AM CDT 08/08/2024 10:49 AM CDT Yaima Rossi NP LAB BLOOD ORDERABLES Meg l Result Performing Organization Address [facility] de Phone Number [facility] [address] [place] [address] * (ABNORMAL) Protime-INR (07/30/2024 10:45 AM CDT) INR 1.5(H) [facility] Comment: Reference Range 0.9-1.1 Moderate-intensity Warfarin Therapy 2.0-3.0 Higher-intensity Warfarin Therapy 3.0-4.0 PT 15.3(H) 9.0 - 11.5 sec [facility] Comment: For additional information, please refer to http://Smartesting/faq/CGW444 (This link is being provided for informational/ educational purposes only.) Blood 07/30/2024 10:4 5 AM CDT 07/30/2024 10:46 AM CDT Yaima Rossi NP LAB BLOOD ORDERABLES Meg l Result Performing Organization Address [facility] de Phone Number [facility] [address] [place] [address] * (ABNORMAL) Protime-INR (07/10/2024 10:46 AM CDT) INR 1.7(H) [facility] Comment: Reference Range 0.9-1.1 Moderate-intensity Warfarin Therapy 2.0-3.0 Higher-intensity Warfarin Therapy 3.0-4.0 PT 17.5(H) 9.0 - 11.5 sec [facility] Comment: For additional information, please refer to http://[employer].Historic Futures/faq/RCU857 (This link is being provided for informational/ educational purposes only.) Blood 07/10/2024 10:4 6 AM CDT 07/10/2024 10:46 AM CDT Yaima Rossi NP LAB BLOOD ORDERABLES Meg l Result Performing Organization Address [facility] de Phone Number [facility] [address] [place] [address] * (ABNORMAL) Protime-INR (07/03/2024 10:50 AM CDT) INR 1.8(H) [facility] Comment: Reference Range 0.9-1.1 Moderate-intensity Warfarin Therapy 2.0-3.0 Higher-intensity Warfarin Therapy 3.0-4.0 PT 18.4(H) 9.0 - 11.5 sec [facility] Comment: For additional information, please refer to http://[employer].Historic [employer]ures/faq/OJE467 (This link is being provided for informational/ educational purposes only.) Blood 07/03/2024 10:5 0 AM CDT 07/03/2024 10:50 AM CDT us Yaima Rossi NP LAB BLOOD ORDERABLES Meg l Result [facility] [address] [place] [address] from Last 3 Months Insurance AET MEDICARE [facility] AET MEDICARE [facility] AET MEDICARE [facility] Care Teams Cork Pressing Machine Operator Relationship Specialty Start Date End Date Tru Benites MD PCP - General Family Practice 09/05/22
--- OUTSIDE RECORDS SUMMARY | 2024-10-02 17:16 | XMS_ITS | Referral Summary ---
Author Organization [place] [address] [address] [place] [phone] Care Team Providers Care Veneer Stock Layer Name Role Phone Tru Benites MD Primary Care Provider [phone] Encounters Date Type Department Care Team Description 09/29/2024 Telephone [facility] Cardiology [address] [place] [address] [address] [place] [phone] Avril Almeida MA Multaq 09/05/2024 Anticoagulation Visit [facility] Cardiology [address] [place] [address] [address] [place] [phone] Avril Lcuiano RN Atrial fibrillation, unspecified type (HCC) (Primary Dx); halfway (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 08/22/2024 Anticoagulation Visit [facility] Cardiology [address] [place] [phone] Nancy Vergara RN Atrial fibrillation, unspecified type (HCC) (Primary Dx); superintendent terminal (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 08/11/2024 Anticoagulation Visit [facility] Cardiology [address] [place] [address] [address] [place] [phone] Avril Luciano RN Atrial fibrillation, unspecified type (HCC) (Primary Dx); superintendent terminal (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 07/31/2024 Anticoagulation Visit [facility] Cardiology [address] [place] [address] [address] [place] [phone] Avril Luciano RN Atrial fibrillation, unspecified type (HCC) (Primary Dx); superintendent terminal (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 07/29/2024 Telephone [facility] Cardiology [address] [place] [phone] Eddie Bennett MD 07/21/[address] [phone] Eddie Bennett MD 07/14/[address] [phone] Avril Almeida MA Multaq Shipped 07/11/2024 Anticoagulation Visit [address] [phone] Kelly Garber RN Atrial fibrillation, unspecified type (HCC) (Primary Dx); halfway (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 07/11/2024 11:00 AM CDT Office Visit [address] [phone] Yaima Rossi NP Sarcoidosis; Paroxysmal atrial fibrillation (HCC); superintendent terminal (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 07/04/2024 Anticoagulation Visit [address] [phone] Yaw Montanez RN Atrial fibrillation, unspecified type (HCC) (Primary Dx); halfway (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 from Last 3 [...] (COUMADIN) 2 mg tabletIndication s:Paroxysmal atrial fibrillation (HCC),superintendent terminal current use of 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 therapy TAKE 3 [...] Noted Date Diagnosed Date Atrial fibrillation 06/04/2024 halfway (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 2024 LVH (left ventricular hypertrophy) 12/20/2022 Paroxysmal atrial fibrillation 11/30/2022 superintendent terminal current use of 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 therapy 0 11/30/2022 [...] on file 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 Gender Identity Not on file Sexual Orientation [...] 11:50 AM CDT Paroxysmal atrial fibrillation (HCC) superintendent terminal current use of 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 therapy PROTIME-INR Routine 08/21/2024 11:43 AM CDT Paroxysmal atrial fibrillation (HCC) halfway current use of 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 therapy PROTIME-INR Routine 08/08/2024 10:48 AM CDT Paroxysmal atrial fibrillation (HCC) superintendent terminal current use of 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 therapy PROTIME-INR Routine 07/30/2024 10:45 AM CDT Paroxysmal atrial fibrillation (HCC) superintendent terminal current use of 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 therapy PROTIME-INR Routine 07/10/2024 10:46 AM CDT Paroxysmal atrial fibrillation (HCC) superintendent terminal current use of 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 therapy PROTIME-INR Routine 07/03/2024 10:50 AM CDT Paroxysmal atrial fibrillation (HCC) halfway current use of 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 therapy from Last 3 Months Results * (ABNORMAL) Protime-INR (09/04/2024 11:50 AM CDT) INR 2.0(H) [facility] Comment: Reference Range 0.9-1.1 Moderate-intensity Warfarin Therapy 2.0-3.0 Higher-intensity Warfarin Therapy 3.0-4.0 PT 20.4(H) 9.0 - 11.5 sec [facility] Julian Comment: For additional information, please refer to http://education.[employer].com/faq/QAX250 (This link is being provided for informational/ educational purposes only.) Blood 09/04/2024 11:5 0 AM CDT 09/04/2024 11:50 AM CDT Yaima Rossi ELECTROLYTIC ETCHER LAB BLOOD ORDERABLES Meg l Result Performing Organization Address [facility] Co de Phone Number [employer] [address] [place] [address] * (ABNORMAL) Protime-INR (08/21/2024 11:43 AM CDT) INR 2.4(H) [facility] Comment: Reference Range 0.9-1.1 Moderate-intensity Warfarin Therapy 2.0-3.0 Higher-intensity Warfarin Therapy 3.0-4.0 PT 24.7(H) 9.0 - 11.5 sec [facility] Comment: For additional information, please refer to http://Zuse/faq/SKG570 (This link is being provided for informational/ educational purposes only.) Blood 08/21/2024 11:4 3 AM CDT 08/21/2024 11:44 AM CDT Yaima Rossi NP LAB BLOOD ORDERABLES Meg l Result Performing Organization Address [facility] Co de Phone Number [facility] [address] [place] [address] * (ABNORMAL) Protime-INR (08/08/2024 10:48 AM CDT) INR 2.0(H) [facility] Comment: Reference Range 0.9-1.1 Moderate-intensity Warfarin Therapy 2.0-3.0 Higher-intensity Warfarin Therapy 3.0-4.0 PT 20.3(H) 9.0 - 11.5 sec [facility] Comment: For additional information, please refer to http://Zuse/faq/ZWA031 (This link is being provided for informational/ educational purposes only.) Blood 08/08/2024 10:4 8 AM CDT 08/08/2024 10:49 AM CDT Yaima Rossi NP LAB BLOOD ORDERABLES Meg l Result Performing Organization Address [facility] Co de Phone Number [facility] [address] [place] [address] * (ABNORMAL) Protime-INR (07/30/2024 10:45 AM CDT) INR 1.5(H) [facility] Comment: Reference Range 0.9-1.1 Moderate-intensity Warfarin Therapy 2.0-3.0 Higher-intensity Warfarin Therapy 3.0-4.0 PT 15.3(H) 9.0 - 11.5 sec [facility] Comment: For additional information, please refer to http://Zuse/faq/TMX209 (This link is being provided for informational/ educational purposes only.) Blood 07/30/2024 10:4 5 AM CDT 07/30/2024 10:46 AM CDT Yaima Rossi NP LAB BLOOD ORDERABLES Meg l Result Performing Organization Address [facility] Co de Phone Number [facility] [address] [place] [address] * (ABNORMAL) Protime-INR (07/10/2024 10:46 AM CDT) INR 1.7(H) [facility] Comment: Reference Range 0.9-1.1 Moderate-intensity Warfarin Therapy 2.0-3.0 Higher-intensity Warfarin Therapy 3.0-4.0 PT 17.5(H) 9.0 - 11.5 sec [facility] Comment: For additional information, please refer to http://Zuse/faq/MAF688 (This link is being provided for informational/ educational purposes only.) Blood 07/10/2024 10:4 6 AM CDT 07/10/2024 10:46 AM CDT Yaima Rossi ELECTROLYTIC ETCHER LAB BLOOD ORDERABLES Meg l Result Performing Organization Address [facility] Co de Phone Number [facility] [address] [place] [address] * (ABNORMAL) Protime-INR (07/03/2024 10:50 AM CDT) INR 1.8(H) [facility] Comment: Reference Range 0.9-1.1 Moderate-intensity Warfarin Therapy 2.0-3.0 Higher-intensity Warfarin Therapy 3.0-4.0 PT 18.4(H) 9.0 - 11.5 sec [employer] [facility] [facility] Comment: For additional information, please refer to http://Mogi.Arcarios/faq/DHI090 (This link is being provided for informational/ educational purposes only.) Blood 07/03/2024 10:5 0 AM CDT 07/03/2024 10:50 AM CDT Yaima Rossi NP LAB BLOOD ORDERABLES Meg l Result Performing Organization Address [facility] Co de Phone Number [facility] [address] [place] [address] from Last 3 Months Insurance AET[employer] MEDICARE GOLD AETNA MEDICARE GOLD AETNA MEDICARE GOLD Care Teams Veneer Stock Layer Relationship Specialty Start Date End Date Tru Benites MD PCP - General Family Practice 09/05/22
--- OUTSIDE RECORDS SUMMARY | 2024-10-02 17:16 | XMS_ITS | Continuity of Care Document ---
Author Organization [facility] Address [address] [place] [address] [address] [place] [address] Phone Care Team Providers Care Semiconductor Development Technician Name Role Phone Brinda Carlson Unavailable Unavailable Procedures Procedure Date Eye Exam Established Pt Eye Exam Established Pt Advance Directives Directive Yes / No Effective Date File Name No Information Encounters Encounter Description Practice Location Reason(s) For Visit Diagnoses Date Provider Providers Copied on Encounter [facility], [address] [place] [address] [address], [place], [place], [id number], tel:[phone] [facility] No Information May-3 0-201 0 Robyn Parry. [address] , [address], [place], [place], [facility], . tel:[phone] [facility], [address] [place] [address] [address], [place], [place], [id number], tel:[phone] [facility] No Information 2-200 9 Robyn Matson [address] , [address], [place], [place], [facility], [place]. tel:[phone] Family History Family Member Type Diagnosis Age At Onset No Information Payers Payer name Insurance type Covered alliance party ID Authoriza tion(s) Medicare RR MB [id number] [facility] Commercial [id number] Social History Type Description Quantity Date Captured [...]
--- NOTE | 2024-10-02 17:30 | ED_ITS ---
HPI - Arrhythmia/Palpitations General Chief Complaint: Arrhythmia/Palpitations Stated Complaint: I think I have a-fib Time Seen by Provider: 10/02/24 16:42 History of Present Illness HPI narrative: 83-year-old female with history of GERD, COPD, pulmonary hypertension, NICOLE, hypothyroidism, sarcoidosis, cardiomyopathy, paroxysmal AFib on warfarin presents to the emergency department for chest pain and palpitations and she woke up this morning. Patient states she went to bed last night and her normal state of health. She woke up this morning with palpitations with a sensation that her heart was racing with associated ?burning? in her chest. She cannot identify any aggravating or alleviating factors. She states last time she had similar symptoms once when she had an ?AFib attack? in 2022. She does report associated shortness of breath with exertion but states this is unchanged from her baseline. Also endorsing lower extremity edema that is unchanged from baseline. She is also reporting intermittent mid to left-sided abdominal pain which is reportedly being ongoing for the past month. She denies cough, congestion, fever, N/V/D, dysuria or hematuria. She is on Multaq b.i.d. and metoprolol 50mg in the morning, 50mg in the evening and 100mg before bed for rate control. States she took her 2 doses of Multaq today and 1 dose of her metoprolol this morning. 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 Bennett. She denies known history of CAD or stent placement. She states she had a cardiac catheterization performed in 2011 which was reportedly unremarkable. She had her INR checked today at outpatient lab but does not know her results. Related Data Home Medications ?Medication ?Instructions ?Recorded ?Confirmed ?Last Taken ?Type multivitamin 1 tablet BYMOUTH DAILY 02/11/19 10/01/24 07/17/24 History cholecalciferol (vitamin D3) 125 125 mcg PO DAILY 05/29/22 10/01/24 07/17/24 History mcg (5,000 unit) capsule cinnamon bark 500 mg capsule 500 mg PO DAILY 05/29/22 10/01/24 07/17/24 History (Cinnamon) garlic 1,000 mg capsule 1,000 mg PO DAILY 05/29/22 10/01/24 07/17/24 History potassium chloride 10 mEq 10 meq PO BID 05/29/22 10/01/2425 History tablet,extended release quercetin 500 mg capsule 500 mg PO DAILY 05/29/22 10/01/24 07/17/24 History selenium 200 mcg capsule 200 mcg PO DAILY 05/29/22 10/01/24 07/17/24 History vitamin B complex (B 1 tablet PO DAILY 05/29/22 10/01/24 07/17/24 History Complex-Vitamin B12 tablet) omeprazole magnesium 20 mg 20 mg PO DAILY 07/04/22 10/01/24 07/17/24 History tablet,delayed release (Prilosec OTC) dronedarone 400 mg tablet (Multaq) 400 mg PO BID 02/22/23 10/01/24 07/18/24 09:00 History hydralazine 50 mg tablet 50 mg PO TID 02/22/23 10/01/24 07/17/24 History milk thistle 175 mg tablet 500 mg PO DAILY 07/11/23 10/01/24 07/17/24 History acetaminophen 500 mg tablet mg 07/18/24 10/01/24 07/18/24 09:00 History dronedarone 400 mg tablet (Multaq) 400 mg PO BID 10/01/24 10/01/24 Unknown History warfarin 2 mg tablet 6 mg PO .COMPLEX 10/01/24 10/01/24 Unknown History warfarin 4 mg tablet 4 mg PO .COMPLEX 10/01/24 10/01/24 Unknown History Allergies Allergy/AdvReac Type Severity Reaction Status Date / Time adhesive tape Allergy Severe RASH Verified 10/01/24 12:46 levofloxacin AdvReac Mild Nausea and Verified 10/01/24 12:46 Vomiting Review of Systems Review of Systems: All systems reviewed & are unremarkable except as noted in HPI and below PMFSH Past Medical History Medical History Abdominal pain Wears hearing aid in both ears Left arm pain Racing heart beat Sarcoidosis Diagnosed 2002 after transbronchial biopsy, has never undergone tx. In remission. Pulmonary HTN CPAP (continuous positive airway pressure) dependence Sleep apnea Sarcoidosis Hiatal hernia Fatty liver COPD (chronic obstructive pulmonary disease) Anxiety Hypothyroid Osteoporosis Arthritis UTI (urinary tract infection) GI bleed GERD (gastroesophageal reflux disease) IBS (irritable bowel syndrome) Diverticulosis HTN (hypertension) Hyperlipidemia Sinus problem Cataract Surgical History Surgical History H/O colonoscopy H/O cataract extraction History of arthroplasty of left knee H/O arthroscopy of right knee H/O dilation and curettage H/O: hysterectomy H/O breast biopsy Hx of cholecystectomy History of appendectomy History of cardiac cath H/O sinus surgery Hx of tonsillectomy Family History Family History Mother Cerebrovascular accident, Onset Age: 86 Family history of cardiovascular disease, Onset Age: 86 Sibling Family history of cardiovascular disease History of heart bypass surgery, Onset Age: 75 Social History Social History Social History: Has a son Smoking status: Never smoker Second hand tobacco smoke exposure: Yes (Many years of exposure. was heavy smoker. ) Alcohol intake: never Substance use: never Substance use type: does not use Do You Feel Safe in your Home?: Yes Lack of Transportation: No Lack of Food: Never True Current Housing: I Have Housing Concerned About Future Housing: No Difficulty Paying Gas/Electric Bills: No Difficulty Paying for Meds: No Currently Unemployed: No Education: High School Diploma/GED Difficulty w/ Childcare or Family Care: No Living arrangements: with family Gender identity (if verbalized by the patient): Female Spiritual care concerns: No Agree to blood products: Yes Exam Narrative: GENERAL: Well-appearing, well-nourished, and in no acute distress. HEAD: Normocephalic, atraumatic. EYES: PERRLA and EOMI. ENT: Nares clear, no rhinorrhea or epistaxis. Mucous membranes moist. NECK: Supple. CHEST: Clear to auscultation. No respiratory distress. HEART: Tachycardic, regular rhythm ABDOMEN: Normoactive bowel sounds. Abdomen soft with tenderness left to the periumbilical region. No rebound, guarding or rigidity EXTREMITIES: Normal range of motion. Pain edema to bilateral lower extremities SKIN: Warm, dry, no rash. NEURO: No focal deficits. Alert and oriented x3 Course Vital Signs Vital signs: Vital Signs Temperature 98.1 F 10/02/24 16:49 Pulse Rate 130 H 10/02/24 16:49 Respiratory Rate 20 10/02/24 16:49 Blood Pressure 146/99 H 10/02/24 16:49 Pulse Oximetry 98 10/02/24 16:49 Oxygen Delivery Room Air 10/02/24 16:49 Temperature 98.1 F 10/02/24 16:49 Pulse Rate 129 H 10/02/24 17:19 Respiratory Rate 24 H 10/02/24 17:19 Blood Pressure 143/74 H 10/02/24 17:19 Pulse Oximetry 98 10/02/24 17:19 Oxygen Delivery Room Air 10/02/24 16:49 MDM - Arrhythmia/Palpitations MDM Narrative Medical decision making narrative: 83-year-old female with history of paroxysmal AFib, cardiomyopathy and sarcoidosis presents to emergency department for palpitations and chest ?burning? since she woke up this morning. Also endorsing intermittent periumbilical/left-sided abdominal pain for the past month. On arrival patient found to be tachycardic in the 130s with a stable blood pressure 146/99. She is afebrile and nontoxic appearing. EKG shows sinus tachycardia verses a flutter with a rate of 128 ppm, normal AL interval, normal QRS duration, low QTC, slightly tender abdominal possible ST depressions in the inferior and lateral leads however this may be due to rate. No ST elevations. Discharge Plan Discharge Patient Language: [place] Island[place] Prescriptions: No Action Multaq 400 mg tablet 400 mg PO BID Rx Instructions: must administer with a meal/food hydralazine 50 mg tablet 50 mg PO TID milk thistle 175 mg tablet 500 mg PO DAILY Rx Instructions: give with meal/snack albuterol sulfate 2.5 mg /3 mL (0.083 %) solution for nebulization 2.5 mg inhalation Q4-6H PRN (Reason: shortness of breath or wheezing) Qty: 90 3RF cholecalciferol (vitamin D3) 125 mcg (5,000 unit) capsule 125 mcg PO DAILY vitamin B complex [B Complex-Vitamin B12] Tablet 1 tablet PO DAILY quercetin 500 mg capsule 500 mg PO DAILY selenium 200 mcg capsule 200 mcg PO DAILY garlic 1,000 mg capsule 1,000 mg PO DAILY cinnamon bark [Cinnamon] 500 mg capsule 500 mg PO DAILY warfarin 4 mg tablet 4 mg PO .COMPLEX Rx Instructions: 4 mg orally on Sunday and ; Multaq 400 mg tablet 400 mg PO BID Rx Instructions: must administer with a meal/food multivitamin 1 tablet BYMOUTH DAILY potassium chloride 10 mEq tablet extended release 10 meq PO BID Prilosec OTC 20 mg tablet,delayed release (DR/EC) 20 mg PO DAILY acetaminophen 500 mg tablet warfarin 2 mg tablet 6 mg PO .COMPLEX Rx Instructions: 6 mg orally on Sunday and Sunday metoprolol tartrate 50 mg tablet See Rx Instructions .ROUTE .COMPLEX Qty: 60 0RF Dose Instruction: 50 MG ORALLY TWICE A DAY FOR 30 DAYS Rx Instructions: 50 MG ORALLY TWICE A DAY FOR 30 DAYS furosemide 40 mg tablet See Rx Instructions .ROUTE .COMPLEX Qty: 180 1RF Dose Instruction: TAKE 2 TABLETS BY MOUTH DAILY Rx Instructions: TAKE 2 TABLETS BY MOUTH DAILY fluticasone propionate 50 mcg/actuation spray,suspension See Rx Instructions .ROUTE .COMPLEX Qty: 48 3RF Dose Instruction: SHAKE THEN INSTILL 2 SPRAYS INTO EACH NOSTRIL TWICE A DAY Rx Instructions: SHAKE THEN INSTILL 2 SPRAYS INTO EACH NOSTRIL TWICE A DAY alendronate 70 mg tablet See Rx Instructions .ROUTE .COMPLEX Qty: 12 4RF Dose Instruction: TAKE 1 TABLET BY MOUTH ONCE WEEKLY Rx Instructions: TAKE 1 TABLET BY MOUTH ONCE WEEKLY albuterol sulfate 90 mcg/actuation HFA aerosol inhaler 1 - 2 puff INHALATION Q4-6H PRN (Reason: shortness of breath or wheezing) Qty: 8.5 2RF budesonide-formoterol 80-4.5 mcg/actuation HFA aerosol inhaler 2 puff inhalation Q12H Qty: 30.6 3RF Rx Instructions: Rinse mouth and spit irbesartan 300 mg tablet See Rx Instructions .ROUTE .COMPLEX Qty: 100 1RF Dose Instruction: TAKE 1 TABLET BY MOUTH EVERY DAY Rx Instructions: TAKE 1 TABLET BY MOUTH EVERY DAY amlodipine 10 mg tablet See Rx Instructions .ROUTE .COMPLEX Qty: 90 1RF Dose Instruction: TAKE 1 TABLET BY MOUTH EVERY DAY Rx Instructions: TAKE 1 TABLET BY MOUTH EVERY DAY rosuvastatin 10 mg tablet See Rx Instructions .ROUTE .COMPLEX Qty: 100 1RF Dose Instruction: TAKE 1 TABLET BY MOUTH EVERY DAY Rx Instructions: TAKE 1 TABLET BY MOUTH EVERY DAY levothyroxine 88 mcg tablet 88 mcg PO DAILY Qty: 90 1RF alprazolam 0.25 mg tablet 0.25 mg PO BID PRN (Reason: anxiety) Qty: 60 0RF Follow-up/Referrals: Tru Benites MD [Primary Care Provider] -
[2024-10-02] MEDS: METOCLOPRAMIDE HCL INJ 10 MG/2 ML VIAL IV PUSH (17:36)
[2024-10-02 17:42] LABS: Hematocrit 39.4 % (37.0-47.0); Hemoglobin 12.8 g/dL (12.0-15.0); Immature Granulocyte Percent A 0.4 % (0-0.5); Lymphocytes Absolute Auto 2.33 K/mm3 (0.9-3.2); Mean Corpuscular HGB Conc 32.5 g/dl (32-36); Mean Corpuscular Hemoglobin 28.5 pg (26-34); Mean Corpuscular Volume 87.8 fl (80-100); Nucleated Red Blood Cells Absolute Auto 0.000 K/mm3 (0.0-0.012); Nucleated Red Blood Cells Perc 0.0 % (0.0-0.2); Platelet Count Result 256 k/mm3 (150-375); Red Blood Count 4.49 M/mm3 (4.2-5.4); White Blood Count 7.5 K/mm3 (4.5-10.0)
[2024-10-02] MEDS: METOPROLOL TARTRATE INJ 5 MG/5 ML VIAL IV PUSH (17:52)
[2024-10-02] MEDS: SODIUM CHLORIDE 0.9% IV 500 ML 999 ML IV CONT (17:59)
--- NOTE | 2024-10-02 17:59 | PC.NURSE ---
Pt b/p 106/58 prior to metoprolol being given. After 1 mg of Metoprolol given, b/p dropped to 90/64. Nhi Guadalupe notified with orders to hold metoprolol and give fluid bolus
[2024-10-02 18:02] LABS: INR 1.7; Partial Thromboplastin Time 31.1 Seconds (22.3-36.8); Prothrombin Time 19.9 Seconds (11.1-14.7)
--- NOTE | 2024-10-02 18:24 | PC.NURSE ---
Pt's b/p 154/110. Nhi Smith PA notified. 1 mg metoprolol given at 1820 b/p 141/85 hr 129 rr 20 spo2 96. 1821 1 mg of metoprolol given with b/p 145/85 HR 105 Spo2 94 RR 18. 1823 1 mg of metoprolol given with b/p of 152/100 HR 113 Spo2 93 RR 20. 1826 1 mg of metoprolol given with b/p 153/106 HR 119 RR 18 Spo2 94
[2024-10-02 18:30] LABS: Thyroid Stimulating Hormone Reflex 2.560 uIU/mL (0.465-4.68)
[2024-10-02 18:40] LABS: Troponin I < 0.012 ng/mL (0.000-0.034)
[2024-10-02 18:59] LABS: Add Urine Microscopic? YES; Appearance Urine Clear (Clear); Glucose Urine UA Negative (Negative); Leukocyte Esterase Ur Trace LEU/UL (Negative); Nitrate Urine Negative (Negative); Non Pathogenic Casts 0-2; Specific Grav Ur 1.017 (1.001-1.035)
--- NOTE | 2024-10-02 19:21 | ECG_ITS ---
Test Date: 2024-10-02 19:27:56 Measurements Intervals [place] Rate: 130 P: 0 MS: 0 QRS: -19 QRSD: 102 T: 86 QT: 304 QTc: 448 Interpretive Statements ATRIAL FIBRILLATION WITH RAPID VENTRICULAR RESPONSE POSSIBLE LEFT VENTRICULAR HYPERTROPHY [VOLTAGE CRITERIA PLUS LAE OR QRS WIDENING] NONSPECIFIC ST AND T-WAVE ABNORMALITY Compared to ECG 10/02/2024 18:46:48 NO SIGNIFICANT CHANGES Electronically Signed On 10-03-2024 16:09:36 CDT by Joel Griffin M.D.
[2024-10-02] MEDS: dilTIAZem 100 MG/100 ML 100 MG/100 ML BAG IV CONT (19:54)
[2024-10-02 20:05] LABS: Troponin I < 0.012 ng/mL (0.000-0.034)
[2024-10-02 20:39] LABS: Estimated CRCL calculation 43 ml/min; Estimated Glomerular Filt Rate 60
[2024-10-02 21:27] LABS: Alanine Aminotransferase 31 U/L (6-35); Albumin Level 4.1 g/dL (3.5-5.1); Alkaline Phosphatase 74 U/L (38-126); Anion Gap 12 mmol/L (4-12); Aspartate Amino Transferase 38 U/L (14-36); Bilirubin,Total 0.8 mg/dL (0.2-1.3); Blood Urea Nitrogen 16 mg/dL (7-17); Calcium 9.6 mg/dL (8.4-10.2); Carbon Dioxide 14 mmol/L (22-30); Chloride 110 mmol/L (98-107); Estimated CRCL calculation 44 ml/min; Estimated Glomerular Filt Rate > 60; Glucose 113 mg/dL (65-110); Lipase 52 U/L (23-300); Magnesium 2.0 mg/dL (1.6-2.3); Potassium 4.5 mmol/L (3.4-5.0); Sodium 136 mmol/L (137-145); Total Protein 7.1 g/dL (6.3-8.2)
[2024-10-02 21:35] LABS: NT Pro B Type Natriuretic Pept 2810 pg/mL (19.9-100)
[2024-10-02] MEDS: SOTALOL HCL 80 MG TABLET PO (22:07)
[2024-10-02 23:01] LABS: Anion Gap 9 mmol/L (4-12); Blood Urea Nitrogen 13 mg/dL (7-17); Calcium 8.9 mg/dL (8.4-10.2); Carbon Dioxide 20 mmol/L (22-30); Chloride 109 mmol/L (98-107); Estimated CRCL calculation 46 ml/min; Estimated Glomerular Filt Rate > 60; Glucose 104 mg/dL (65-110); Magnesium 2.1 mg/dL (1.6-2.3); Potassium 4.0 mmol/L (3.4-5.0); Sodium 138 mmol/L (137-145)
[2024-10-03] VITALS (29 sets, daily range): BP systolic 92–131; BP diastolic 53–83; PULSE 18–130; RESP 15–20; TEMP 36.6–37.6; O2SAT 94–98; BMI 40.8
--- NOTE | 2024-10-03 01:24 | ADMGEN ---
This patient, Glenna Almendarez, was admitted to IMU Room 232-01. Patient/family oriented to hospital policies and general routines including ID bracelet, bed and alarms, visiting hours, pain management, procedures, bathroom and other care routines, personal items, smoking policy, room service/diet, and visiting hours. Information on how to activate the Rapid Response Team has been discussed. Patient/Family are encouraged to report perceived risks to care and to ask questions if they do not understand what they are told or what they should do.
--- NOTE | 2024-10-03 02:00 | ECG_ITS ---
Test Date: 2024-10-03 02:21:25 Measurements Intervals [place] Rate: 117 P: 0 NV: 0 QRS: -18 QRSD: 110 T: 83 QT: 347 QTc: 485 Interpretive Statements ATRIAL FIBRILLATION WITH RAPID VENTRICULAR RESPONSE NONSPECIFIC ST AND T-WAVE ABNORMALITY QTC INTERVAL MILDLY INCREASED ABNORMAL RHYTHM ECG Compared to ECG 10/02/2024 19:27:56 NO SIGNIFICANT CHANGES Electronically Signed On 10-04-2024 18:29:19 CDT by Joel Griffin M.D.
--- NOTE | 2024-10-03 04:06 | P.HP_ITS ---
H&P: HPI History of Present Illness Date/Time: 10/03/24 04:06 Chief Complaint: Palpitations Narrative: 83-year-old female a paroxysmal AFib, COPD, anxiety, hypertension, hyperlipidemia, GERD, IBS, arthritis, sleep apnea compliant with CPAP, sarcoidosis presents with palpitations. She lives with her grandson, on the morning of 10/02/2024 notice her heart rate to be elevated and notified her grandson. Brought in his [facility] ER. She has been compliant with her medications, she has not felt ill in the recent weeks. Has been hydrating well. Your revealed AFib with RVR with a rate of 130s on arrival. Troponin negative x2. Potassium greater than 4, magnesium 2. INR 1.7. CTA chest abdomen pelvis negative for PE. Enlarged central pulmonary arteries. Chronic atelectasis/scarring at the bilateral lung bases, diverticulosis. Was given 5 mg metoprolol IV without improvement. Patient was placed on 10 milligram/hour diltiazem GTT. Cardiology notified from ER. Recommended discontinue metoprolol and Multaq and starting patient on sotalol 80 mg p.o. b.i.d.. And to advance warfarin to 6 mg daily. Review of Systems Review of Systems: All systems reviewed & are unremarkable except as noted in HPI and below (Subjective) COUNTS INCLUDE 234 BEDS AT THE [facility] Past Medical History Medical History Abdominal pain Wears hearing aid in both ears Left arm pain Racing heart beat Sarcoidosis Diagnosed 2002 after transbronchial biopsy, has never undergone tx. In remission. Pulmonary HTN CPAP (continuous positive airway pressure) dependence Sleep apnea Sarcoidosis Hiatal hernia Fatty liver COPD (chronic obstructive pulmonary disease) Anxiety Hypothyroid Osteoporosis Arthritis UTI (urinary tract infection) GI bleed GERD (gastroesophageal reflux disease) IBS (irritable bowel syndrome) Diverticulosis HTN (hypertension) Hyperlipidemia Sinus problem Cataract Surgical History Surgical History H/O colonoscopy H/O cataract extraction History of arthroplasty of left knee H/O arthroscopy of right knee H/O dilation and curettage H/O: hysterectomy H/O breast biopsy Hx of cholecystectomy History of appendectomy History of cardiac cath H/O sinus surgery Hx of tonsillectomy Family History Family History Mother Cerebrovascular accident, Onset Age: 86 Family history of cardiovascular disease, Onset Age: 86 Sibling Family history of cardiovascular disease History of heart bypass surgery, Onset Age: 75 Social History Social History Social History: Has a son Smoking status: Never smoker Second hand tobacco smoke exposure: Yes Alcohol intake: never Substance use: never Substance use type: does not use Do You Feel Safe in your Home?: Yes Lack of Transportation: YES Lack of Food: Never True Current Housing: I Have Housing Concerned About Future Housing: No Difficulty Paying Gas/Electric Bills: No Difficulty Paying for Meds: No Currently Unemployed: No Education: High School Diploma/GED Difficulty w/ Childcare or Family Care: No Living arrangements: with family Gender identity (if verbalized by the patient): Female Spiritual care concerns: No Agree to blood products: Yes Meds Home Medications and Allergies Home Medications ?Medication ?Instructions ?Recorded ?Confirmed ?Type multivitamin 1 tablet BYMOUTH DAILY 02/11/19 10/03/24 History albuterol sulfate 2.5 mg/3 mL 2.5 mg (3 mL) inhalation Q4-6H PRN 11/02/21 10/03/24 Rx (0.083 %) solution for nebulization shortness of breath or wheezing #90 mL cholecalciferol (vitamin D3) 125 125 mcg PO DAILY 05/29/22 10/03/24 History mcg (5,000 unit) capsule cinnamon bark 500 mg capsule 500 mg PO DAILY 05/29/22 10/03/24 History (Cinnamon) garlic 1,000 mg capsule 1,000 mg PO DAILY 05/29/22 10/03/24 History potassium chloride 10 mEq 10 meq PO BID 05/29/22 10/03/24 History tablet,extended release quercetin 500 mg capsule 500 mg PO DAILY 05/29/22 10/03/24 History selenium 200 mcg capsule 200 mcg PO DAILY 05/29/22 10/03/24 History vitamin B complex (B 1 tablet PO DAILY 05/29/22 10/03/24 History Complex-Vitamin B12 tablet) omeprazole magnesium 20 mg 20 mg PO DAILY 07/04/22 10/03/24 History tablet,delayed release (Prilosec OTC) dronedarone 400 mg tablet (Multaq) 400 mg PO BID 02/22/23 10/03/24 History hydralazine 50 mg tablet 50 mg PO TID 02/22/23 10/03/24 History metoprolol tartrate 50 mg tablet See Rx Instructions .Route 03/21/23 10/03/24 Rx .COMPLEX #60 tabs furosemide 40 mg tablet See Rx Instructions .Route 06/04/23 10/03/24 Rx .COMPLEX #180 tabs milk thistle 175 mg tablet 500 mg PO DAILY 07/11/23 10/03/24 History fluticasone propionate 50 See Rx Instructions .Route 01/21/24 10/03/24 Rx mcg/actuation nasal .COMPLEX #48 mL spray,suspension albuterol sulfate 90 mcg/actuation 1 - 2 puff inhalation Q4-6H PRN 02/11/24 10/03/24 Rx aerosol inhaler shortness of breath or wheezing #8.5 grams alendronate 70 mg tablet See Rx Instructions .Route 02/11/24 10/03/24 Rx .COMPLEX #12 tabs budesonide-formoterol HFA 80 2 puff inhalation Q12H #30.6 grams 04/15/24 10/03/24 Rx mcg-4.5 mcg/actuation aerosol inhaler irbesartan 300 mg tablet See Rx Instructions .Route 07/02/24 10/03/24 Rx .COMPLEX #100 tabs acetaminophen 500 mg tablet 500 mg PO .am PRN pain (scale 07/18/24 10/03/24 History score 1-3) amlodipine 10 mg tablet See Rx Instructions .Route 07/28/24 10/03/24 Rx .COMPLEX #90 tabs rosuvastatin 10 mg tablet See Rx Instructions .Route 07/28/24 10/03/24 Rx .COMPLEX #100 tabs alprazolam 0.25 mg tablet 0.25 mg PO BID PRN anxiety #60 tabs 09/18/24 10/03/24 Rx levothyroxine 88 mcg tablet 88 mcg PO DAILY #90 tabs 09/18/24 10/03/24 Rx dronedarone 400 mg tablet (Multaq) 400 mg PO BID 10/01/24 10/03/24 History warfarin 2 mg tablet 6 mg PO .COMPLEX 10/01/24 10/03/24 History warfarin 4 mg tablet 4 mg PO .COMPLEX 10/01/24 10/03/24 History Allergies Allergy/AdvReac Type Severity Reaction Status Date / Time adhesive tape Allergy Severe RASH Verified 10/01/24 12:46 levofloxacin AdvReac Mild Nausea and Verified 10/01/24 12:46 Vomiting Vital Signs Vital Signs - 24 hr 10/02/24 16:49 10/02/24 17:19 10/02/24 17:52 Temperature 98.1 F Pulse Rate 130 H 129 H 129 H Respiratory Rate 20 24 H Blood Pressure 146/99 H 143/74 H Pulse Oximetry 98 98 Oxygen Delivery Room Air 10/02/24 19:04 10/02/24 19:07 10/02/24 19:08 Temperature Pulse Rate 106 H 113 H 102 H Respiratory Rate 17 20 20 Blood Pressure 128/105 H 128/105 H Pulse Oximetry 95 94 94 Oxygen Delivery 10/02/24 19:15 10/02/24 19:17 10/02/24 19:24 Temperature Pulse Rate 126 H 130 H 101 H Respiratory Rate 25 H 14 Blood Pressure 122/70 Pulse Oximetry 95 95 Oxygen Delivery 10/02/24 19:44 10/02/24 19:54 10/02/24 20:08 Temperature Pulse Rate 140 H 148 H 107 H Respiratory Rate 17 18 Blood Pressure 149/98 H Pulse Oximetry 96 96 Oxygen Delivery 10/02/24 20:23 10/02/24 20:55 10/02/24 20:58 Temperature Pulse Rate 120 H 116 H 115 H Respiratory Rate 23 H 22 H Blood Pressure 147/82 H Pulse Oximetry 96 96 Oxygen Delivery 10/02/24 21:10 10/02/24 21:20 10/02/24 22:07 Temperature Pulse Rate 129 H 122 H 102 H Respiratory Rate 19 Blood Pressure 130/84 130/84 Pulse Oximetry 94 Oxygen Delivery 10/03/24 01:20 10/03/24 01:40 10/03/24 02:00 Temperature 98.0 F 98.1 F Pulse Rate 122 H 112 H 111 H Respiratory Rate 15 20 Blood Pressure 120/63 121/65 121/65 Pulse Oximetry 98 95 Oxygen Delivery 10/03/24 02:00 Temperature Pulse Rate 115 H Respiratory Rate Blood Pressure Pulse Oximetry Oxygen Delivery Exam Const: General: comfortable and no acute distress Other: A&O x3 HENMT: Mouth: Yes moist mucous membranes Eyes: Pupils: Equal, round and reactive pupils present Neck: Neck: supple Resp: Effort & Inspection: normal respiratory effort Auscultation: clear to auscultation bilaterally Cardio: Rate: regular rate Rhythm: abnormal rhythm Heart sounds: no murmurs GI: Inspection: non-distended GI Palp: Yes Soft to palpation Neuro: Motor exam (neuro): 5/5 motor strength present throughout Extrem: General: edema H&P: Results Labs Labs: Short CBC 10/02/24 Range/Units 17:33 WBC 7.5 (4.5-10.0) K/mm3 Hgb 12.8 (12.0-15.0) g/dL Hct 39.4 (37.0-47.0) % Plt Count 256 (150-375) k/mm3 BMP 10/02/24 10/02/24 10/02/24 17:33 17:33 17:33 Sodium Cancelled 136 L Potassium Cancelled 4.5 Chloride Cancelled Carbon Dioxide BUN Creatinine Glucose Calcium 10/02/24 10/02/24 10/02/24 17:33 17:33 17:33 Sodium Potassium Chloride 110 H Carbon Dioxide Cancelled 14 L BUN Cancelled 16 Creatinine Cancelled Glucose Calcium 10/02/24 10/02/24 10/02/24 17:33 17:33 17:33 Sodium Potassium Chloride Carbon Dioxide BUN Creatinine 0.87 Glucose Cancelled 113 H Calcium Cancelled 9.6 10/02/24 10/02/24 20:37 22:38 Sodium 138 Potassium 4.0 Chloride 109 H Carbon Dioxide 20 L BUN 13 Creatinine 0.90 0.83 Glucose 104 Calcium 8.9 Cardiac Enzymes 10/02/24 10/02/24 Range/Units 17:33 19:34 Troponin I < 0.012 < 0.012 (0.000-0.034) ng/mL Liver Function 10/02/24 10/02/24 10/02/24 Range/Units 17:33 17:33 17:33 Total Bilirubin Cancelled 0.8 AST Cancelled 38 H ALT Cancelled Alkaline Phosphatase Albumin 10/02/24 10/02/24 10/02/24 Range/Units 17:33 17:33 17:33 Total Bilirubin AST ALT 31 Alkaline Phosphatase Cancelled 74 Albumin Cancelled 4.1 Urine 10/02/24 Range/Units 17:33 Urine Color Yellow (Yellow) Urine Appearance Clear (Clear) Urine pH 6.5 (5.0-9.0) Ur Specific [place] 1.017 (1.001-1.035) Urine Protein 1+ H (Negative) mg/dL Urine Glucose (UA) Negative (Negative) mg/dL Assessment and Plan Assessment and plan (1) Atrial fibrillation with RVR: Code(s): I48.91 - Unspecified atrial fibrillation Status: Acute Plan 83-year-old female a paroxysmal AFib, COPD, anxiety, hypertension, hyperlipidemia, GERD, IBS, arthritis, sleep apnea compliant with CPAP, sarc oidosis presents with palpitations. She lives with her grandson, on the morning of 10/02/2024 notice her heart rate to be elevated and notified her grandson. Brought in his [facility] ER. She has been compliant with her medications, she has not felt ill in the recent weeks. Has been hydrating well. Your revealed AFib with RVR with a rate of 130s on arrival. Troponin negative x2. Potassium greater than 4, magnesium 2. INR 1.7. CTA chest abdomen pelvis negative for PE. Enlarged central pulmonary arteries. Chronic atelectasis/scarring at the bilateral lung bases, diverticulosis. Was given 5 mg metoprolol IV without improvement. Patient was placed on 10 milligram/hour diltiazem GTT. Cardiology notified from ER. Recommended discontinue metoprolol and Multaq and starting patient on sotalol 80 mg p.o. b.i.d.. And to advance warfarin to 6 mg daily. ----- Patient remains on telemetry, heart rate now regular in the 90s. Currently on 5 milligrams/hour diltiazem GTT. Continue sotalol 80 mg p.o. b.i.d. as advised by Cardiology. Wean Cardizem as tolerated. Patient denies history of heart failure but does take Lasix at home for which she called lipema can swelling of the bilateral lower extremities. Will continue that with a potassium tablet. QTC 448 on admission. Continue monitoring. [employer] antihypertensives. Continue nightly CPAP. Patient wishes to be full code. Saline lock IV. Heart healthy diet. Continue [employer] Coumadin. Hospitalist [facility] Advance Care Plan I have confirmed that the patient's Advanced Care Plan is present, code status is documented, or surrogate decision maker is listed in patient medical record.: Yes Medication Reconciliation I have utilized all available resources to obtain, update and review the patients current medications (includes all prescriptions, OTC, herbals, cannabis, and nutritional supplements).: Yes
[2024-10-03 04:41] LABS: Hematocrit 38.9 % (37.0-47.0); Hemoglobin 12.5 g/dL (12.0-15.0); Immature Granulocyte Percent A 0.3 % (0-0.5); Lymphocytes Absolute Auto 2.30 K/mm3 (0.9-3.2); Mean Corpuscular HGB Conc 32.1 g/dl (32-36); Mean Corpuscular Hemoglobin 28.7 pg (26-34); Mean Corpuscular Volume 89.2 fl (80-100); Nucleated Red Blood Cells Absolute Auto 0.000 K/mm3 (0.0-0.012); Nucleated Red Blood Cells Perc 0.0 % (0.0-0.2); Platelet Count Result 243 k/mm3 (150-375); Red Blood Count 4.36 M/mm3 (4.2-5.4); White Blood Count 8.7 K/mm3 (4.5-10.0)
[2024-10-03 04:52] LABS: INR 1.8; Prothrombin Time 20.0 Seconds (11.1-14.7)
[2024-10-03 05:00] LABS: Blood Urea Nitrogen 13 mg/dL (7-17); Carbon Dioxide 19 mmol/L (22-30); Estimated CRCL calculation 47 ml/min; Estimated Glomerular Filt Rate > 60; Magnesium 2.1 mg/dL (1.6-2.3); Sodium 136 mmol/L (137-145)
[2024-10-03 05:34] LABS: Anion Gap 6 mmol/L (4-12); Calcium 8.9 mg/dL (8.4-10.2); Chloride 111 mmol/L (98-107); Glucose 111 mg/dL (65-110); Potassium 4.1 mmol/L (3.4-5.0)
[2024-10-03] MEDS: FLUTICASONE/SALMETEROL 45-21 MCG INHALER 1 PUFF 2 PUFF INHALATION ×2 (07:44→20:52)
[2024-10-03] MEDS: ROSUVASTATIN 10 MG TABLET BY MOUTH (08:19)
[2024-10-03] MEDS: FUROSEMIDE 40 MG TABLET 80 MG BY MOUTH (08:19)
[2024-10-03] MEDS: CHOLECALCIFEROL (VITAMIN D3) 125 MCG (5,000 UNITS) TABLET PO (08:19)
[2024-10-03] MEDS: POTASSIUM CHLORIDE 10 MEQ ER TABLET PO ×2 (08:19→16:18)
[2024-10-03] MEDS: dilTIAZem 100 MG/100 ML 100 MG/100 ML BAG IV CONT (08:20)
[2024-10-03] MEDS: SOTALOL HCL 80 MG TABLET PO ×2 (08:20→20:35)
[2024-10-03] MEDS: PANTOPRAZOLE 40 MG TABLET PO (08:20)
[2024-10-03] MEDS: ALPRAZolam (*CRX) 0.25 MG TABLET PO ×2 (08:21→16:18)
--- NOTE | 2024-10-03 10:29 | P.PNIM_ITS ---
Progress Note: A&P Assessment and Plan (1) Atrial fibrillation with RVR: Code(s): I48.91 - Unspecified atrial fibrillation Status: Acute Plan 83-year-old female a paroxysmal AFib, COPD, anxiety, hypertension, hyperlipidemia, GERD, IBS, arthritis, sleep apnea compliant with CPAP, sarcoidosis presents with palpitations. She lives with her grandson, on the morning of 10/02/2024 notice her heart rate to be elevated and notified her grandson. Brought in his [facility] ER. She has been compliant with her medications, she has not felt ill in the recent weeks. Has been hydrating well. ER evaluation revealed AFib with RVR with a rate of 130s on arrival. Troponin negative x2. Potassium greater than 4, magnesium 2. INR 1.7. CTA chest abdomen pelvis negative for PE. Enlarged central pulmonary arteries. Chronic atelectasis/scarring at the bilateral lung bases, diverticulosis. She Was given 5 mg metoprolol IV without improvement. Patient was placed on 10 milligram/hour diltiazem GTT. Cardiology notified from ER. Recommended discontinue metoprolol and Multaq and starting patient on sotalol 80 mg p.o. b.i.d.. And to advance warfarin to 6 mg daily. AFib with RVR started on Cardizem drip and sotalol. Metoprolol has been discontinued Multaq has been discontinued. Diarrhea new on admission. Will check C diff. Check thyroid function which came back normal Prediabetes with A1c of 5.8% Metabolic acidosis on arrival to the ER improved with IV hydration COPD Anxiety Hypertension Hyperlipidemia GERD IBS Arthritis Sleep apnea compliant with CPAP History of sarcoidosis Fatty liver Hiatal hernia Pulmonary hypertension Diverticulosis Osteoporosis Hypothyroidism DVT prophylaxis on warfarin Code status full code Subjective Date/time seen: 10/03/24 10:29 Interval history: Patient reports having 4-5 episodes of watery diarrhea this a.m.. Remains on diltiazem drip. Also on sotalol level started yesterday. Telemetry reviewed. Review of Systems Review of Systems: All systems reviewed & are unremarkable except as noted in HPI and below (Subjective) Exam Narrative: GENERAL: Well-appearing, well-nourished, and in no acute distress. HEAD: Normocephalic, atraumatic. EYES: PERRLA and EOMI. ENT: Nares clear, no rhinorrhea or epistaxis. Mucous membranes moist. NECK: Supple. CHEST: Clear to auscultation. No respiratory distress. HEART: Tachycardic, AFib rhythm on telemetry ABDOMEN: Normoactive bowel sounds. Abdomen soft, nontender No rebound, guarding or rigidity EXTREMITIES: Normal range of motion. Pain edema to bilateral lower extremities SKIN: Warm, dry, no rash. NEURO: No focal deficits. Alert and oriented x3 Objective Data Vital Signs Vital Signs: Vital Signs - 24 hr 10/02/24 16:49 10/02/24 17:19 10/02/24 17:52 Temperature 98.1 F Pulse Rate 130 H 129 H 129 H Respiratory Rate 20 24 H Blood Pressure 146/99 H 143/74 H Pulse Oximetry 98 98 Oxygen Delivery Room Air 10/02/24 19:04 10/02/24 19:07 10/02/24 19:08 Temperature Pulse Rate 106 H 113 H 102 H Respiratory Rate 17 20 20 Blood Pressure 128/105 H 128/105 H Pulse Oximetry 95 94 94 Oxygen Delivery 10/02/24 19:15 10/02/24 19:17 10/02/24 19:24 Temperature Pulse Rate 126 H 130 H 101 H Respiratory Rate 25 H 14 Blood Pressure 122/70 Pulse Oximetry 95 95 Oxygen Delivery 10/02/24 19:44 10/02/24 19:54 10/02/24 20:08 Temperature Pulse Rate 140 H 148 H 107 H Respiratory Rate 17 18 Blood Pressure 149/98 H Pulse Oximetry 96 96 Oxygen Delivery 10/02/24 20:23 10/02/24 20:55 10/02/24 20:58 Temperature Pulse Rate 120 H 116 H 115 H Respiratory Rate 23 H 22 H Blood Pressure 147/82 H Pulse Oximetry 96 96 Oxygen Delivery 10/02/24 21:10 10/02/24 21:20 10/02/24 22:07 Temperature Pulse Rate 129 H 122 H 102 H Respiratory Rate 19 Blood Pressure 130/84 130/84 Pulse Oximetry 94 Oxygen Delivery 10/03/24 01:20 10/03/24 01:40 10/03/24 02:00 Temperature 98.0 F 98.1 F Pulse Rate 122 H 112 H 111 H Respiratory Rate 15 20 Blood Pressure 120/63 121/65 121/65 Pulse Oximetry 98 95 Oxygen Delivery 10/03/24 02:00 10/03/24 04:00 10/03/24 04:00 Temperature Pulse Rate 115 H 97 118 H Respiratory Rate Blood Pressure 102/64 Pulse Oximetry Oxygen Delivery 10/03/24 04:28 10/03/24 06:00 10/03/24 06:00 Temperature 98.2 F Pulse Rate 119 H 122 H 122 H Respiratory Rate 20 Blood Pressure 102/64 131/83 Pulse Oximetry 95 Oxygen Delivery 10/03/24 06:10 10/03/24 07:27 10/03/24 08:00 Temperature Pulse Rate 122 H 107 H 117 H Respiratory Rate Blood Pressure 131/83 118/70 Pulse Oximetry Oxygen Delivery Room Air 10/03/24 08:00 10/03/24 08:06 10/03/24 08:20 Temperature 98.3 F Pulse Rate 130 H 117 H 129 H Respiratory Rate 20 Blood Pressure 118/70 Pulse Oximetry 95 Oxygen Delivery 10/03/24 08:20 10/03/24 08:20 10/03/24 10:00 Temperature Pulse Rate 129 H 129 H 117 H Respiratory Rate Blood Pressure 118/70 118/70 112/72 Pulse Oximetry Oxygen Delivery Intake/Output Intake/Output: Intake & Output 09/30/24 10/01/24 10/02/24 10/03/24 23:59 23:59 23:59 23:59 Intake Total 507.5 720.3 Balance 507.5 720.3 Meds/Results Medications: Active Medications Generic Name Dose Route Start Last Admin Trade Name Freq PRN Reason Stop Dose Admin Alprazolam 0.25 mg 10/03/24 04:01 10/03/24 08:21 Alprazolam (*Crx) 0.25 Mg Tablet PO 0.25 mg BID PRN Administration anxiety Furosemide 80 mg 10/03/24 09:00 10/03/24 08:19 Furosemide 40 Mg Tablet BY MOUTH 80 mg DAILY ENDY Administration Diltiazem HCl 100 mg in 100 mls @ 5 mls/hr 10/03/24 02:40 10/03/24 10:00 Cardizem 100 Mg/100 Ml IV CONT 5 mg/hr .Q20H ENDY 5 mls/hr Infusion 5 MG/HR Pantoprazole Sodium 40 mg 10/03/24 09:00 10/03/24 08:20 Pantoprazole 40 Mg Tablet PO 40 mg QAM ENDY Administration Potassium Chloride 10 meq 10/03/24 08:00 10/03/24 08:19 Potassium Chloride 10 Meq Er Tablet PO 10 meq BIDWM ENDY Administration Rosuvastatin Calcium 10 mg 10/03/24 09:00 10/03/24 08:19 Rosuvastatin 10 Mg Tablet BY MOUTH 10 mg DAILY ENDY Administration Fluticasone/Salmeterol 2 puff 10/03/24 08:00 10/03/24 07:44 Fluticasone/Salmeterol 45-21 Mcg Inhaler 1 Puff INHALATION 2 puff Q12HRT ENDY Administration Sotalol HCl 80 mg 10/02/24 21:47 10/03/24 08:20 Sotalol Hcl 80 Mg Tablet PO 80 mg Q12HR ENDY Administration Vitamin D 125 mcg 10/03/24 09:00 10/03/24 08:19 Cholecalciferol (Vitamin D3) 125 Mcg (5,000 Units) Tablet PO 125 mcg DAILY ENDY Administration Radiology Results: ITS Impressions Chest X-Ray 10/02/24 18:14 IMPRESSION: 1. Opacities in the bilateral lower lung zones which could represent atelectasis, mild pulmonary edema, pneumonia or some combination thereof. Chest/Abdomen/Pelvis CTA 10/02/24 21:02 IMPRESSION: 1. Chronic atelectasis/scarring at the bilateral lung bases. 2. Enlargement of the central pulmonary arteries consistent with pulmonary arterial hypertension without evident pulmonary embolism. 3. No acute intra-abdominal/pelvic process. 4. Small fat-containing umbilical and supraumbilical ventral hernias. 5. Diverticulosis. Labs Labs: Laboratory Results - last 24 hr 10/02/24 10/02/24 10/02/24 17:33 17:33 17:33 WBC 7.5 RBC 4.49 Hgb 12.8 Hct 39.4 MCV 87.8 MCH 28.5 MCHC 32.5 RDW 15.9 H Plt Count 256 MPV 10.9 H Immature Gran % (Auto) 0.4 Neut % (Auto) 54.8 Lymph % (Auto) 31.1 [place] % (Auto) 10.9 H Eos % (Auto) 1.7 Baso % (Auto) 1.1 Lymph # (Auto) 2.33 [place] # (Auto) 0.8 H Eos # (Auto) 0.1 Baso # (Auto) 0.1 Abs Immat Gran (auto) 0.03 Absolute Neuts (auto) 4.1 Absolute Nucleated RBC 0.000 Nucleated RBC % 0.0 PT 19.9 H INR 1.7 APTT 31.1 Sodium Cancelled 136 L Potassium Cancelled 4.5 Chloride Cancelled Carbon Dioxide Anion Gap BUN Creatinine Estim Creat Clear Calc Estimated GFR Glucose Lactic Acid Calcium Magnesium Total Bilirubin AST ALT Alkaline Phosphatase Troponin I NT-Pro-B Natriuret Pep Total Protein Albumin Lipase TSH (Reflex) Urine Color Urine Appearance Urine pH Ur Specific [place] Urine Protein Urine Glucose (UA) Urine Ketones Ur Blood (Man) Urine Nitrate Urine Bilirubin Urine Urobilinogen Leukocyte Esterase Rfl Urine RBC Urine WBC Ur Squamous Epith Cells Urine Bacteria Urine Casts 10/02/24 10/02/24 10/02/24 17:33 17:33 17:33 WBC RBC Hgb Hct MCV MCH MCHC RDW Plt Count MPV Immature Gran % (Auto) Neut % (Auto) Lymph % (Auto) [place] % (Auto) Eos % (Auto) Baso % (Auto) Lymph # (Auto) [place] # (Auto) Eos # (Auto) Baso # (Auto) Abs Immat Gran (auto) Absolute Neuts (auto) Absolute Nucleated RBC Nucleated RBC % PT INR APTT Sodium Potassium Chloride 110 H Carbon Dioxide Cancelled 14 L Anion Gap Cancelled 12 BUN Cancelled Creatinine Estim Creat Clear Calc Estimated GFR Glucose Lactic Acid Calcium Magnesium Total Bilirubin AST ALT Alkaline Phosphatase Troponin I NT-Pro-B Natriuret Pep Total Protein Albumin Lipase TSH (Reflex) Urine Color Urine Appearance Urine pH Ur Specific [place] Urine Protein Urine Glucose (UA) Urine Ketones Ur Blood (Man) Urine Nitrate Urine Bilirubin Urine Urobilinogen Leukocyte Esterase Rfl Urine RBC Urine WBC Ur Squamous Epith Cells Urine Bacteria Urine Casts 10/02/24 10/02/24 10/02/24 17:33 17:33 17:33 WBC RBC Hgb Hct MCV MCH MCHC RDW Plt Count MPV Immature Gran % (Auto) Neut % (Auto) Lymph % (Auto) [place] % (Auto) Eos % (Auto) Baso % (Auto) Lymph # (Auto) [place] # (Auto) Eos # (Auto) Baso # (Auto) Abs Immat Gran (auto) Absolute Neuts (auto) Absolute Nucleated RBC Nucleated RBC % PT INR APTT Sodium Potassium Chloride Carbon Dioxide Anion Gap BUN 16 Creatinine Cancelled 0.87 Estim Creat Clear Calc Cancelled 44 Estimated GFR Cancelled Glucose Lactic Acid Calcium Magnesium Total Bilirubin AST ALT Alkaline Phosphatase Troponin I NT-Pro-B Natriuret Pep Total Protein Albumin Lipase TSH (Reflex) Urine Color Urine Appearance Urine pH Ur Specific [place] Urine Protein Urine Glucose (UA) Urine Ketones Ur Blood (Man) Urine Nitrate Urine Bilirubin Urine Urobilinogen Leukocyte Esterase Rfl Urine RBC Urine WBC Ur Squamous Epith Cells Urine Bacteria Urine Casts 10/02/24 10/02/24 10/02/24 17:33 17:33 17:33 WBC RBC Hgb Hct MCV MCH MCHC RDW Plt Count MPV Immature Gran % (Auto) Neut % (Auto) Lymph % (Auto) [place] % (Auto) Eos % (Auto) Baso % (Auto) Lymph # (Auto) [place] # (Auto) Eos # (Auto) Baso # (Auto) Abs Immat Gran (auto) Absolute Neuts (auto) Absolute Nucleated RBC Nucleated RBC % PT INR APTT Sodium Potassium Chloride Carbon Dioxide Anion Gap BUN Creatinine Estim Creat Clear Calc Estimated GFR > 60 Glucose Cancelled 113 H Lactic Acid Calcium Cancelled 9.6 Magnesium 2.0 Total Bilirubin Cancelled AST ALT Alkaline Phosphatase Troponin I NT-Pro-B Natriuret Pep Total Protein Albumin Lipase TSH (Reflex) Urine Color Urine Appearance Urine pH Ur Specific [place] Urine Protein Urine Glucose (UA) Urine Ketones Ur Blood (Man) Urine Nitrate Urine Bilirubin Urine Urobilinogen Leukocyte Esterase Rfl Urine RBC Urine WBC Ur Squamous Epith Cells Urine Bacteria Urine Casts 10/02/24 10/02/24 10/02/24 17:33 17:33 17:33 WBC RBC Hgb Hct MCV MCH MCHC RDW Plt Count MPV Immature Gran % (Auto) Neut % (Auto) Lymph % (Auto) [place] % (Auto) Eos % (Auto) Baso % (Auto) Lymph # (Auto) [place] # (Auto) Eos # (Auto) Baso # (Auto) Abs Immat Gran (auto) Absolute Neuts (auto) Absolute Nucleated RBC Nucleated RBC % PT INR APTT Sodium Potassium Chloride Carbon Dioxide Anion Gap BUN Creatinine Estim Creat Clear Calc Estimated GFR Glucose Lactic Acid Calcium Magnesium Total Bilirubin 0.8 AST Cancelled 38 H ALT Cancelled 31 Alkaline Phosphatase Cancelled Troponin I NT-Pro-B Natriuret Pep Total Protein Albumin Lipase TSH (Reflex) Urine Color Urine Appearance Urine pH Ur Specific [place] Urine Protein Urine Glucose (UA) Urine Ketones Ur Blood (Man) Urine Nitrate Urine Bilirubin Urine Urobilinogen Leukocyte Esterase Rfl Urine RBC Urine WBC Ur Squamous Epith Cells Urine Bacteria Urine Casts 10/02/24 10/02/24 10/02/24 17:33 17:33 17:33 WBC RBC Hgb Hct MCV MCH MCHC RDW Plt Count MPV Immature Gran % (Auto) Neut % (Auto) Lymph % (Auto) [place] % (Auto) Eos % (Auto) Baso % (Auto) Lymph # (Auto) [place] # (Auto) Eos # (Auto) Baso # (Auto) Abs Immat Gran (auto) Absolute Neuts (auto) Absolute Nucleated RBC Nucleated RBC % PT INR APTT Sodium Potassium Chloride Carbon Dioxide Anion Gap BUN Creatinine Estim Creat Clear Calc Estimated GFR Glucose Lactic Acid Calcium Magnesium Total Bilirubin AST ALT Alkaline Phosphatase 74 Troponin I < 0.012 NT-Pro-B Natriuret Pep 2810 H Total Protein Cancelled 7.1 Albumin Cancelled 4.1 Lipase Cancelled TSH (Reflex) Urine Color Urine Appearance Urine pH Ur Specific [place] Urine Protein Urine Glucose (UA) Urine Ketones Ur Blood (Man) Urine Nitrate Urine Bilirubin Urine Urobilinogen Leukocyte Esterase Rfl Urine RBC Urine WBC Ur Squamous Epith Cells Urine Bacteria Urine Casts 10/02/24 10/02/24 10/02/24 17:33 17:40 19:34 WBC RBC Hgb Hct MCV MCH MCHC RDW Plt Count MPV Immature Gran % (Auto) Neut % (Auto) Lymph % (Auto) [place] % (Auto) Eos % (Auto) Baso % (Auto) Lymph # (Auto) [place] # (Auto) Eos # (Auto) Baso # (Auto) Abs Immat Gran (auto) Absolute Neuts (auto) Absolute Nucleated RBC Nucleated RBC % PT INR APTT Sodium Potassium Chloride Carbon Dioxide Anion Gap BUN Creatinine Estim Creat Clear Calc Estimated GFR Glucose Lactic Acid 1.6 Calcium Magnesium Total Bilirubin AST ALT Alkaline Phosphatase Troponin I < 0.012 NT-Pro-B Natriuret Pep Total Protein Albumin Lipase 52 TSH (Reflex) 2.560 Urine Color Yellow Urine Appearance Clear Urine pH 6.5 Ur Specific [place] 1.017 Urine Protein 1+ H Urine Glucose (UA) Negative Urine Ketones Trace H Ur Blood (Man) Negative Urine Nitrate Negative Urine Bilirubin Negative Urine Urobilinogen 0.2 Leukocyte Esterase Rfl Trace H Urine RBC 0-2 Urine WBC 0-5 Ur Squamous Epith Cells Occasional Urine Bacteria None seen Urine Casts 0-2 10/02/24 10/02/24 10/03/24 20:37 22:38 04:19 WBC 8.7 RBC 4.36 Hgb 12.5 Hct 38.9 MCV 89.2 MCH 28.7 MCHC 32.1 RDW 15.9 H Plt Count 243 MPV 10.5 H Immature Gran % (Auto) 0.3 Neut % (Auto) 57.9 Lymph % (Auto) 26.6 [place] % (Auto) 12.7 H Eos % (Auto) 1.7 Baso % (Auto) 0.8 Lymph # (Auto) 2.30 [place] # (Auto) 1.1 H Eos # (Auto) 0.2 Baso # (Auto) 0.1 Abs Immat Gran (auto) 0.03 Absolute Neuts (auto) 5.0 Absolute Nucleated RBC 0.000 Nucleated RBC % 0.0 PT 20.0 H INR 1.8 APTT Sodium 138 136 L Potassium 4.0 4.1 Chloride 109 H 111 H Carbon Dioxide 20 L 19 L Anion Gap 9 6 BUN 13 13 Creatinine 0.90 0.83 0.82 Estim Creat Clear Calc 43 46 47 Estimated GFR 60 > 60 > 60 Glucose 104 111 H Lactic Acid Calcium 8.9 8.9 Magnesium 2.1 2.1 Total Bilirubin AST ALT Alkaline Phosphatase Troponin I NT-Pro-B Natriuret Pep Total Protein Albumin Lipase TSH (Reflex) Urine Color Urine Appearance Urine pH Ur Specific [place] Urine Protein Urine Glucose (UA) Urine Ketones Ur Blood (Man) Urine Nitrate Urine Bilirubin Urine Urobilinogen Leukocyte Esterase Rfl Urine RBC Urine WBC Ur Squamous Epith Cells Urine Bacteria Urine Casts
--- NOTE | 2024-10-03 10:35 | ECG_ITS ---
Test Date: 2024-10-03 10:52:25 Measurements Intervals [place] Rate: 123 P: 0 ME: 0 QRS: -17 QRSD: 113 T: 97 QT: 331 QTc: 475 Interpretive Statements ATRIAL FIBRILLATION WITH RAPID VENTRICULAR RESPONSE NONSPECIFIC ST & T-WAVE ABNORMALITY Compared to ECG 10/03/2024 02:21:25 T-wave abnormality still present Electronically Signed On 10-04-2024 18:35:12 CDT by Joel Griffin M.D.
[2024-10-03 11:36] LABS: INR 1.6; Prothrombin Time 19.1 Seconds (11.1-14.7)
--- NOTE | 2024-10-03 11:50 | PM.CNCAR ---
Assessment and Plan Assessment and plan (1) Atrial fibrillation with RVR: Code(s): I48.91 - Unspecified atrial fibrillation Status: Acute (2) Hyperlipidemia: Code(s): E78.5 - Hyperlipidemia, unspecified Status: Acute (3) Essential (primary) hypertension: Code(s): I10 - Essential (primary) hypertension Status: Acute Plan 83-year-old woman with paroxysmal atrial fibrillation, pulmonary sarcoidosis, COPD, hypertension, and sleep apnea compliant with CPAP presented with general feeling of unwell found to be in atrial fibrillation with rapid ventricular rates Paroxysmal atrial fibrillation with rapid ventricular rates -previously was on Multaq however is having breakthrough rapid ventricular rates with atrial fibrillation -she has been converted from Multaq to sotalol 80 mg every 12 hours -QTC has been stable and would recommend repeating EKGs with each dose -continue diltiazem drip and warfarin for goal INR 2-3 Hyperlipidemia -continue statins Hypertension -currently normotensive on the diltiazem drip while in rapid ventricular rate -holding home antihypertensives for the time being History of Present Illness History of Present Illness Consult date/time: 10/03/24 11:50 Requesting physician: Dwight Porras MD Consult reason: atrial fibrillation Reason For Visit: Afib RVR Narrative: 83-year-old woman with paroxysmal atrial fibrillation, pulmonary sarcoidosis, COPD, hypertension, and sleep apnea compliant with CPAP presented with general feeling of unwell found to be in atrial fibrillation with rapid ventricular rates. She was in her general state of health when she woke up yesterday feeling very hot in her chest area followed by difficult to describe general feeling of being unwell. She noted that her heart rate was very high in the 120-130s. Denies any significant shortness of breath or chest pain. No orthopnea or syncopal events. Currently she feels well without any significant complaints. Review of Systems Cardiovascular: Cardiovascular: Reports as per HPI Respiratory: Respiratory: Reports as per HPI [facility] Past Medical History Medical History Abdominal pain Wears hearing aid in both ears Left arm pain Racing heart beat Sarcoidosis Diagnosed 2002 after transbronchial biopsy, has never undergone tx. In remission. Pulmonary HTN CPAP (continuous positive airway pressure) dependence Sleep apnea Sarcoidosis Hiatal hernia Fatty liver COPD (chronic obstructive pulmonary disease) Anxiety Hypothyroid Osteoporosis Arthritis UTI (urinary tract infection) GI bleed GERD (gastroesophageal reflux disease) IBS (irritable bowel syndrome) Diverticulosis HTN (hypertension) Hyperlipidemia Sinus problem Cataract Surgical History Surgical History H/O colonoscopy H/O cataract extraction History of arthroplasty of left knee H/O arthroscopy of right knee H/O dilation and curettage H/O: hysterectomy H/O breast biopsy Hx of cholecystectomy History of appendectomy History of cardiac cath H/O sinus surgery Hx of tonsillectomy Family History Family History Mother Cerebrovascular accident, Onset Age: 86 Family history of cardiovascular disease, Onset Age: 86 Sibling Family history of cardiovascular disease History of heart bypass surgery, Onset Age: 75 Social History Social History Social History: Has a son Smoking status: Never smoker Second hand tobacco smoke exposure: Yes Alcohol intake: never Substance use: never Substance use type: does not use Do You Feel Safe in your Home?: Yes Lack of Transportation: YES Lack of Food: Never True Current Housing: I Have Housing Concerned About Future Housing: No Difficulty Paying Gas/Electric Bills: No Difficulty Paying for Meds: No Currently Unemployed: No Education: High School Diploma/GED Difficulty w/ Childcare or Family Care: No Living arrangements: with family Gender identity (if verbalized by the patient): Female Spiritual care concerns: No Agree to blood products: Yes Meds Home Medications and Allergies Home Medications ?Medication ?Instructions ?Recorded ?Confirmed ?Type multivitamin 1 tablet BYMOUTH DAILY 02/11/19 10/03/24 History albuterol sulfate 2.5 mg/3 mL 2.5 mg (3 mL) inhalation Q4-6H PRN 11/02/21 10/03/24 Rx (0.083 %) solution for nebulization shortness of breath or wheezing #90 mL cholecalciferol (vitamin D3) 125 125 mcg PO DAILY 05/29/22 10/03/24 History mcg (5,000 unit) capsule cinnamon bark 500 mg capsule 500 mg PO DAILY 05/29/22 10/03/24 History (Cinnamon) garlic 1,000 mg capsule 1,000 mg PO DAILY 05/29/22 10/03/24 History potassium chloride 10 mEq 10 meq PO BID 05/29/22 10/03/24 History tablet,extended release quercetin 500 mg capsule 500 mg PO DAILY 05/29/22 10/03/24 History selenium 200 mcg capsule 200 mcg PO DAILY 05/29/22 10/03/24 History vitamin B complex (B 1 tablet PO DAILY 05/29/22 10/03/24 History Complex-Vitamin B12 tablet) omeprazole magnesium 20 mg 20 mg PO DAILY 07/04/22 10/03/24 History tablet,delayed release (Prilosec OTC) dronedarone 400 mg tablet (Multaq) 400 mg PO BID 02/22/23 10/03/24 History hydralazine 50 mg tablet 50 mg PO TID 02/22/23 10/03/24 History metoprolol tartrate 50 mg tablet See Rx Instructions .Route 03/21/23 10/03/24 Rx .COMPLEX #60 tabs furosemide 40 mg tablet See Rx Instructions .Route 06/04/23 10/03/24 Rx .COMPLEX #180 tabs milk thistle 175 mg tablet 500 mg PO DAILY 07/11/23 10/03/24 History fluticasone propionate 50 See Rx Instructions .Route 01/21/24 10/03/24 Rx mcg/actuation nasal .COMPLEX #48 mL spray,suspension albuterol sulfate 90 mcg/actuation 1 - 2 puff inhalation Q4-6H PRN 02/11/24 10/03/24 Rx aerosol inhaler shortness of breath or wheezing #8.5 grams alendronate 70 mg tablet See Rx Instructions .Route 02/11/24 10/03/24 Rx .COMPLEX #12 tabs budesonide-formoterol HFA 80 2 puff inhalation Q12H #30.6 grams 04/15/24 10/03/24 Rx mcg-4.5 mcg/actuation aerosol inhaler irbesartan 300 mg tablet See Rx Instructions .Route 07/02/24 10/03/24 Rx .COMPLEX #100 tabs acetaminophen 500 mg tablet 500 mg PO .am PRN pain (scale 07/18/24 10/03/24 History score 1-3) amlodipine 10 mg tablet See Rx Instructions .Route 07/28/24 10/03/24 Rx .COMPLEX #90 tabs rosuvastatin 10 mg tablet See Rx Instructions .Route 07/28/24 10/03/24 Rx .COMPLEX #100 tabs alprazolam 0.25 mg tablet 0.25 mg PO BID PRN anxiety #60 tabs 09/18/24 10/03/24 Rx levothyroxine 88 mcg tablet 88 mcg PO DAILY #90 tabs 09/18/24 10/03/24 Rx dronedarone 400 mg tablet (Multaq) 400 mg PO BID 10/01/24 10/03/24 History warfarin 2 mg tablet 6 mg PO .COMPLEX 10/01/24 10/03/24 History warfarin 4 mg tablet 4 mg PO .COMPLEX 10/01/24 10/03/24 History Allergies Allergy/AdvReac Type Severity Reaction Status Date / Time adhesive tape Allergy Severe RASH Verified 10/01/24 12:46 levofloxacin AdvReac Mild Nausea and Verified 10/01/24 12:46 Vomiting Vital Signs Vital Signs - 24 hr 10/02/24 16:49 10/02/24 17:19 10/02/24 17:52 Temperature 36.7 C Pulse Rate 130 H 129 H 129 H Respiratory Rate 20 24 H Blood Pressure 146/99 H 143/74 H Pulse Oximetry 98 98 Oxygen Delivery Room Air 10/02/24 19:04 10/02/24 19:07 10/02/24 19:08 Temperature Pulse Rate 106 H 113 H 102 H Respiratory Rate 17 20 20 Blood Pressure 128/105 H 128/105 H Pulse Oximetry 95 94 94 Oxygen Delivery 10/02/24 19:15 10/02/24 19:17 10/02/24 19:24 Temperature Pulse Rate 126 H 130 H 101 H Respiratory Rate 25 H 14 Blood Pressure 122/70 Pulse Oximetry 95 95 Oxygen Delivery 10/02/24 19:44 10/02/24 19:54 10/02/24 20:08 Temperature Pulse Rate 140 H 148 H 107 H Respiratory Rate 17 18 Blood Pressure 149/98 H Pulse Oximetry 96 96 Oxygen Delivery 10/02/24 20:23 10/02/24 20:55 10/02/24 20:58 Temperature Pulse Rate 120 H 116 H 115 H Respiratory Rate 23 H 22 H Blood Pressure 147/82 H Pulse Oximetry 96 96 Oxygen Delivery 10/02/24 21:10 10/02/24 21:20 10/02/24 22:07 Temperature Pulse Rate 129 H 122 H 102 H Respiratory Rate 19 Blood Pressure 130/84 130/84 Pulse Oximetry 94 Oxygen Delivery 10/03/24 01:20 10/03/24 01:40 10/03/24 02:00 Temperature 36.7 C 36.7 C Pulse Rate 122 H 112 H 111 H Respiratory Rate 15 20 Blood Pressure 120/63 121/65 121/65 Pulse Oximetry 98 95 Oxygen Delivery 10/03/24 02:00 10/03/24 04:00 10/03/24 04:00 Temperature Pulse Rate 115 H 97 118 H Respiratory Rate Blood Pressure 102/64 Pulse Oximetry Oxygen Delivery 10/03/24 04:28 10/03/24 06:00 10/03/24 06:00 Temperature 36.8 C Pulse Rate 119 H 122 H 122 H Respiratory Rate 20 Blood Pressure 102/64 131/83 Pulse Oximetry 95 Oxygen Delivery 10/03/24 06:10 10/03/24 07:27 10/03/24 08:00 Temperature Pulse Rate 122 H 107 H 117 H Respiratory Rate Blood Pressure 131/83 118/70 Pulse Oximetry Oxygen Delivery Room Air 10/03/24 08:00 10/03/24 08:06 10/03/24 08:20 Temperature 36.8 C Pulse Rate 130 H 117 H 129 H Respiratory Rate 20 Blood Pressure 118/70 Pulse Oximetry 95 Oxygen Delivery 10/03/24 08:20 10/03/24 08:20 10/03/24 10:00 Temperature Pulse Rate 129 H 129 H 117 H Respiratory Rate Blood Pressure 118/70 118/70 112/72 Pulse Oximetry Oxygen Delivery 10/03/24 11:40 Temperature 37.6 C Pulse Rate 112 H Respiratory Rate 20 Blood Pressure 105/53 L Pulse Oximetry 95 Oxygen Delivery Exam Const: General: comfortable HENMT: Mouth: Yes moist mucous membranes Eyes: EOM: EOMs intact bilaterally Neck: Neck: no JVD Resp: Effort & Inspection: normal respiratory effort Auscultation: rales Cardio: Rate: tachycardic Rhythm: abnormal rhythm Neuro: Speech: normal speech Extrem: General: edema and pedal edema Results Labs and Meds 10/03/24 04:19 10/03/24 04:19 Lab results: Cardiac Enzymes 10/02/24 10/02/24 10/02/24 Range/Units 17:33 17:33 19:34 AST Cancelled 38 H Troponin I < 0.012 < 0.012 (0.000-0.034) ng/mL Coagulation 10/02/24 10/03/24 10/03/24 Range/Units 17:33 04:19 11:01 PT 19.9 H 20.0 H 19.1 H (11.1-14.7) Seconds APTT 31.1 (22.3-36.8) Seconds CBC 10/02/24 10/03/24 Range/Units 17:33 04:19 WBC 7.5 8.7 (4.5-10.0) K/mm3 RBC 4.49 4.36 (4.2-5.4) M/mm3 Hgb 12.8 12.5 (12.0-15.0) g/dL Hct 39.4 38.9 (37.0-47.0) % Plt Count 256 243 (150-375) k/mm3 Lymph # (Auto) 2.33 2.30 (0.9-3.2) K/mm3 [place] # (Auto) 0.8 H 1.1 H (0.1-0.6) K/mm3 Eos # (Auto) 0.1 0.2 (0-0.3) K/mm3 Baso # (Auto) 0.1 0.1 (0.0-0.1) K/mm3 Comprehensive Metabolic Panel 10/02/24 10/02/24 10/02/24 Range/Units 17:33 17:33 17:33 Sodium Cancelled 136 L Potassium Cancelled 4.5 Chloride Cancelled Carbon Dioxide BUN Creatinine Glucose Calcium AST ALT Alkaline Phosphatase Total Protein Albumin 10/02/24 10/02/24 10/02/24 Range/Units 17:33 17:33 17:33 Sodium Potassium Chloride 110 H Carbon Dioxide Cancelled 14 L BUN Cancelled 16 Creatinine Cancelled Glucose Calcium AST ALT Alkaline Phosphatase Total Protein Albumin 10/02/24 10/02/24 10/02/24 Range/Units 17:33 17:33 17:33 Sodium Potassium Chloride Carbon Dioxide BUN Creatinine 0.87 Glucose Cancelled 113 H Calcium Cancelled 9.6 AST Cancelled ALT Alkaline Phosphatase Total Protein Albumin 10/02/24 10/02/24 10/02/24 Range/Units 17:33 17:33 17:33 Sodium Potassium Chloride Carbon Dioxide BUN Creatinine Glucose Calcium AST 38 H ALT Cancelled 31 Alkaline Phosphatase Cancelled 74 Total Protein Cancelled Albumin 10/02/24 10/02/24 10/02/24 Range/Units 17:33 17:33 20:37 Sodium Potassium Chloride Carbon Dioxide BUN Creatinine 0.90 Glucose Calcium AST ALT Alkaline Phosphatase Total Protein 7.1 Albumin Cancelled 4.1 10/02/24 10/03/24 Range/Units 22:38 04:19 Sodium 138 136 L Potassium 4.0 4.1 Chloride 109 H 111 H Carbon Dioxide 20 L 19 L BUN 13 13 Creatinine 0.83 0.82 Glucose 104 111 H Calcium 8.9 8.9 AST ALT Alkaline Phosphatase Total Protein Albumin Intake and Output 10/02/24 10/03/24 10/03/24 23:59 07:59 15:59 Intake Total 507.5 252.8 467.5 Balance 507.5 252.8 467.5 Intake: IV 507.5 52.8 17.5 Sodium Chloride 0.9% IV 500 ml 500 @ 999 mls/hr IV CONT .Q31M [facility] Rx#:[id number] dilTIAZem 100 MG/100 ML 100 mg 7.5 52.8 17.5 In 100 ml @ 5 MG/HR 5 mls/hr IV CONT .Q20H [facility] Rx#:[id number] Oral 200 450 Other: # Unmeasured Voids 2 Patient Weight 10/03/24 23:59 Weight 98.2 kg
[2024-10-03] MEDS: WARFARIN (*PBKC) 3 MG TABLET 6 MG PO (16:18)
[2024-10-03] MEDS: FLUTICASONE PROPIONATE 0.05% NA SPR 16 GM BTL (*BKC) 2 SPRAY NASAL (16:19)
--- NOTE | 2024-10-03 19:35 | ECG_ITS ---
Test Date: 2024-10-03 22:30:08 Measurements Intervals [place] Rate: 94 P: 0 VT: 0 QRS: -19 QRSD: 94 T: 31 QT: 390 QTc: 489 Interpretive Statements ATRIAL FIBRILLATION NONSPECIFIC T-WAVE ABNORMALITY ABNORMAL RHYTHM ECG WARNING: DATA QUALITY MAY AFFECT INTERPRETATION Compared to ECG 10/03/2024 10:52:25 No significant changes Electronically Signed On 10-04-2024 18:51:59 CDT by Joel Griffin M.D.
[2024-10-03] MEDS: dilTIAZem 100 MG/100 ML 100 MG/100 ML BAG 10 MG IV CONT (22:27)
[2024-10-04] VITALS (24 sets, daily range): BP systolic 98–129; BP diastolic 53–91; PULSE 83–136; RESP 16–20; TEMP 36.6–37.2; O2SAT 93–98
[2024-10-04 05:17] LABS: INR 1.6; Prothrombin Time 19.1 Seconds (11.1-14.7)
[2024-10-04 05:30] LABS: Alanine Aminotransferase 26 U/L (6-35); Albumin Level 3.5 g/dL (3.5-5.1); Alkaline Phosphatase 45 U/L (38-126); Anion Gap 10 mmol/L (4-12); Aspartate Amino Transferase 40 U/L (14-36); Bilirubin,Total 0.9 mg/dL (0.2-1.3); Blood Urea Nitrogen 18 mg/dL (7-17); Calcium 8.7 mg/dL (8.4-10.2); Carbon Dioxide 17 mmol/L (22-30); Chloride 111 mmol/L (98-107); Estimated CRCL calculation 41 ml/min; Estimated Glomerular Filt Rate 57; Glucose 98 mg/dL (65-110); Magnesium 1.9 mg/dL (1.6-2.3); Potassium 3.9 mmol/L (3.4-5.0); Sodium 138 mmol/L (137-145); Total Protein 6.2 g/dL (6.3-8.2)
[2024-10-04] MEDS: LEVOTHYROXINE SODIUM 88 MCG TABLET PO (05:47)
[2024-10-04 06:35] LABS: Hematocrit 38.1 % (37.0-47.0); Hemoglobin 12.0 g/dL (12.0-15.0); Immature Granulocyte Percent A 0.3 % (0-0.5); Lymphocytes Absolute Auto 2.06 K/mm3 (0.9-3.2); Mean Corpuscular HGB Conc 31.5 g/dl (32-36); Mean Corpuscular Hemoglobin 28.2 pg (26-34); Mean Corpuscular Volume 89.6 fl (80-100); Nucleated Red Blood Cells Absolute Auto 0.000 K/mm3 (0.0-0.012); Nucleated Red Blood Cells Perc 0.0 % (0.0-0.2); Platelet Count Result 216 k/mm3 (150-375); Red Blood Count 4.25 M/mm3 (4.2-5.4); White Blood Count 8.6 K/mm3 (4.5-10.0)
[2024-10-04] MEDS: dilTIAZem 100 MG/100 ML 100 MG/100 ML BAG 10 MG IV CONT ×2 (08:48→16:25)
[2024-10-04] MEDS: SOTALOL HCL 80 MG TABLET PO ×2 (08:49→20:08)
[2024-10-04] MEDS: FLUTICASONE/SALMETEROL 45-21 MCG INHALER 1 PUFF 2 PUFF INHALATION ×2 (08:49→21:42)
[2024-10-04] MEDS: FLUTICASONE PROPIONATE 0.05% NA SPR 16 GM BTL (*BKC) 2 SPRAY NASAL (08:49)
[2024-10-04] MEDS: ALPRAZolam (*CRX) 0.25 MG TABLET PO ×2 (08:49→20:06)
[2024-10-04] MEDS: ROSUVASTATIN 10 MG TABLET BY MOUTH (08:50)
[2024-10-04] MEDS: POTASSIUM CHLORIDE 10 MEQ ER TABLET PO ×2 (08:51→16:30)
[2024-10-04] MEDS: PANTOPRAZOLE 40 MG TABLET PO (08:51)
[2024-10-04] MEDS: CHOLECALCIFEROL (VITAMIN D3) 125 MCG (5,000 UNITS) TABLET PO (08:51)
[2024-10-04] MEDS: FUROSEMIDE 40 MG TABLET 80 MG BY MOUTH (08:51)
[2024-10-04] MEDS: MULTIVITAMINS THERAPEUTIC TAB (*BKC) 1 TABLET PO (08:51)
--- NOTE | 2024-10-04 10:50 | ECG_ITS ---
Test Date: 2024-10-04 11:24:56 Measurements Intervals [place] Rate: 91 P: 0 AR: 0 QRS: -15 QRSD: 96 T: 63 QT: 383 QTc: 472 Interpretive Statements ATRIAL FIBRILLATION NONSPECIFIC T-WAVE ABNORMALITY ABNORMAL RHYTHM ECG Compared to ECG 10/03/2024 22:30:08 No significant changes Electronically Signed On 10-05-2024 14:06:59 CDT by Joel Griffin M.D.
--- NOTE | 2024-10-04 11:17 | PM.IMPN ---
Progress Note: A&P Assessment and Plan (1) Atrial fibrillation with RVR: Code(s): I48.91 - Unspecified atrial fibrillation Status: Acute Plan 83-year-old female a paroxysmal AFib, COPD, anxiety, hypertension, hyperlipidemia, GERD, IBS, arthritis, sleep apnea compliant with CPAP, sarcoidosis presents with palpitations. She lives with her grandson, on the morning of 10/02/2024 notice her heart rate to be elevated and notified her grandson. Brought in his [facility] ER. She has been compliant with her medications, she has not felt ill in the recent weeks. Has been hydrating well. ER evaluation revealed AFib with RVR with a rate of 130s on arrival. Troponin negative x2. Potassium greater than 4, magnesium 2. INR 1.7. CTA chest abdomen pelvis negative for PE. Enlarged central pulmonary arteries. Chronic atelectasis/scarring at the bilateral lung bases, diverticulosis. She Was given 5 mg metoprolol IV without improvement. Patient was placed on 10 milligram/hour diltiazem GTT. Cardiology notified from ER. Recommended discontinue metoprolol and Multaq and starting patient on sotalol 80 mg p.o. b.i.d.. And to advance warfarin to 6 mg daily. AFib with RVR started on Cardizem drip and sotalol. Metoprolol has been discontinued Multaq has been discontinued. per cardiology. Diarrhea new on admission. ordered c diff. tsh noraml this has now resovled. Prediabetes with A1c of 5.8% Metabolic acidosis on arrival to the ER improved with IV hydration COPD Anxiety Hypertension Hyperlipidemia GERD IBS Arthritis Sleep apnea compliant with CPAP History of sarcoidosis Fatty liver Hiatal hernia Pulmonary hypertension Diverticulosis Osteoporosis Hypothyroidism DVT prophylaxis on warfarin Code status full code Subjective Date/time seen: 10/04/24 11:17 Interval history: no further diarrhea. no abdominal pain, nausea, vomting. heart rate has imrpoved. still in afib Review of Systems Review of Systems: All systems reviewed & are unremarkable except as noted in HPI and below (Subjective) Exam Narrative: GENERAL: Well-appearing, well-nourished, and in no acute distress. HEAD: Normocephalic, atraumatic. EYES: PERRLA and EOMI. ENT: Nares clear, no rhinorrhea or epistaxis. Mucous membranes moist. NECK: Supple. CHEST: Clear to auscultation. No respiratory distress. HEART: AFib rhythm on telemetry rate controlled ABDOMEN: Normoactive bowel sounds. Abdomen soft, nontender No rebound, guarding or rigidity EXTREMITIES: Normal range of motion. Pain edema to bilateral lower extremities SKIN: Warm, dry, no rash. NEURO: No focal deficits. Alert and oriented x3 Objective Data Vital Signs Vital Signs: Vital Signs - 24 hr 10/03/24 11:40 10/03/24 11:55 10/03/24 12:00 Temperature 99.6 F Pulse Rate 112 H 120 H 120 H Respiratory Rate 20 Blood Pressure 105/53 L 105/53 L Pulse Oximetry 95 Oxygen Delivery Room Air 10/03/24 12:00 10/03/24 14:00 10/03/24 14:00 Temperature Pulse Rate 116 H 123 H 123 H Respiratory Rate Blood Pressure 92/70 L Pulse Oximetry Oxygen Delivery 10/03/24 14:00 10/03/24 15:31 10/03/24 15:35 Temperature 98.5 F Pulse Rate 123 H 18 L Respiratory Rate 20 20 Blood Pressure 92/70 L 119/64 Pulse Oximetry 94 95 Oxygen Delivery Room Air 10/03/24 16:00 10/03/24 16:23 10/03/24 18:00 Temperature Pulse Rate 107 H 120 H 126 H Respiratory Rate Blood Pressure 119/64 105/70 Pulse Oximetry Oxygen Delivery 10/03/24 18:00 10/03/24 18:00 10/03/24 20:00 Temperature Pulse Rate 123 H 123 H 94 Respiratory Rate 20 Blood Pressure 105/70 108/66 Pulse Oximetry 94 Oxygen Delivery 10/03/24 20:00 10/03/24 20:00 10/03/24 20:00 Temperature 98.1 F Pulse Rate 111 H 95 Respiratory Rate 20 Blood Pressure 109/64 Pulse Oximetry 97 Oxygen Delivery Room Air 10/03/24 20:35 10/03/24 21:50 10/03/24 21:58 Temperature Pulse Rate 100 99 97 Respiratory Rate Blood Pressure 103/64 Pulse Oximetry Oxygen Delivery 10/03/24 21:59 10/03/24 22:22 10/03/24 22:27 Temperature Pulse Rate 85 90 91 Respiratory Rate Blood Pressure 103/64 106/64 106/64 Pulse Oximetry Oxygen Delivery 10/03/24 23:05 10/03/24 23:50 10/04/24 00:00 Temperature 97.8 F Pulse Rate 89 113 H Respiratory Rate 20 Blood Pressure 129/76 Pulse Oximetry 97 97 Oxygen Delivery Autopap CPAP 10/04/24 00:00 10/04/24 00:08 10/04/24 02:00 Temperature Pulse Rate 93 97 Respiratory Rate Blood Pressure 129/76 120/72 Pulse Oximetry Oxygen Delivery 10/04/24 02:00 10/04/24 02:16 10/04/24 02:18 Temperature Pulse Rate 83 91 84 Respiratory Rate Blood Pressure 120/72 Pulse Oximetry 96 Oxygen Delivery Autopap 10/04/24 04:00 10/04/24 04:00 10/04/24 04:00 Temperature 97.9 F Pulse Rate 92 91 Respiratory Rate 20 Blood Pressure 109/64 Pulse Oximetry 97 Oxygen Delivery Room Air 10/04/24 04:00 10/04/24 06:00 10/04/24 06:00 Temperature 98 F Pulse Rate 88 89 89 Respiratory Rate 20 Blood Pressure 109/64 112/68 Pulse Oximetry 97 Oxygen Delivery 10/04/24 06:10 10/04/24 08:00 10/04/24 08:00 Temperature 98.4 F Pulse Rate 89 114 H 112 H Respiratory Rate 20 Blood Pressure 112/68 115/73 115/73 Pulse Oximetry 95 Oxygen Delivery 10/04/24 08:00 10/04/24 08:48 10/04/24 08:48 Temperature Pulse Rate 135 H 124 H 124 H Respiratory Rate Blood Pressure Pulse Oximetry Oxygen Delivery 10/04/24 08:49 10/04/24 08:49 10/04/24 08:50 Temperature Pulse Rate 136 H 127 H 127 H Respiratory Rate 16 18 Blood Pressure Pulse Oximetry 96 Oxygen Delivery Room Air 10/04/24 10:00 Temperature 98.9 F Pulse Rate 91 Respiratory Rate 18 Blood Pressure 98/60 L Pulse Oximetry 93 Oxygen Delivery Intake/Output Intake/Output: Intake & Output 10/01/24 10/02/24 10/03/24 10/04/24 23:59 23:59 23:59 23:59 Intake Total 507.5 1902.0 690.0 Output Total 2 150 Balance 507.5 1900.0 540.0 Meds/Results Medications: Active Medications Generic Name Dose Route Start Last Admin Trade Name Freq PRN Reason Stop Dose Admin Acetaminophen 500 mg 07/25/25 10:35 Acetaminophen 500 Mg Tablet PO QAM PRN pain (scale score 1-3) Albuterol 2.5 mg 10/03/24 10:35 Albuterol Sulfate Neb 2.5 Mg/3 Ml Inh INHALATION Q4-6H PRN shortness of breath or wheezing Albuterol 2 puff 10/03/24 10:35 Albuterol Sulfate (*Sp) Aerosol 1 Puff INHALATION Q4-6H PRN shortness of breath or wheezing Alprazolam 0.25 mg 10/03/24 04:01 10/04/24 08:49 Alprazolam (*Crx) 0.25 Mg Tablet PO 0.25 mg BID PRN Administration anxiety Fluticasone Propionate 2 spray 10/03/24 10:35 10/04/24 08:49 Fluticasone Propionate 0.05% Na Spr 16 Gm Btl (*Bkc) NASAL 2 spray DAILY ENDY Administration Furosemide 80 mg 10/03/24 09:00 10/04/24 08:51 Furosemide 40 Mg Tablet BY MOUTH 80 mg DAILY ENDY Administration Diltiazem HCl 100 mg in 100 mls @ 10 mls/hr 10/03/24 02:40 10/04/24 08:48 Cardizem 100 Mg/100 Ml IV CONT 10 mg/hr .Q10H ENDY 10 mls/hr Administration 10 MG/HR Levothyroxine Sodium 88 mcg 10/04/24 06:30 10/04/24 05:47 Levothyroxine Sodium 88 Mcg Tablet PO 88 mcg DAILY@0630 ENDY Administration Multivitamins Therapeutic 1 tablet 10/04/24 09:00 10/04/24 08:51 Multivitamins Therapeutic Tab (*Bkc) PO 1 tablet QAM ENDY Administration Pantoprazole Sodium 40 mg 10/03/24 09:00 10/04/24 08:51 Pantoprazole 40 Mg Tablet PO 40 mg QAM ENDY Administration Potassium Chloride 10 meq 10/03/24 08:00 10/04/24 08:51 Potassium Chloride 10 Meq Er Tablet PO 10 meq BIDWM ENDY Administration Rosuvastatin Calcium 10 mg 10/03/24 09:00 10/04/24 08:50 Rosuvastatin 10 Mg Tablet BY MOUTH 10 mg DAILY ENDY Administration Fluticasone/Salmeterol 2 puff 10/03/24 08:00 10/04/24 08:49 Fluticasone/Salmeterol 45-21 Mcg Inhaler 1 Puff INHALATION 2 puff Q12HRT ENDY Administration Sotalol HCl 80 mg 10/02/24 21:47 10/04/24 08:49 Sotalol Hcl 80 Mg Tablet PO 80 mg Q12HR ENDY Administration Vitamin D 125 mcg 10/03/24 09:00 10/04/24 08:51 Cholecalciferol (Vitamin D3) 125 Mcg (5,000 Units) Tablet PO 125 mcg DAILY ENDY Administration Warfarin Sodium 4 mg 10/07/24 17:00 Warfarin (*Pbkc) 4 Mg Tablet PO Tu@1700 ENDY Warfarin Sodium 6 mg 10/03/24 17:00 10/03/24 16:18 Warfarin (*Pbkc) 3 Mg Tablet PO 6 mg SuMoWeThFrSa@1700 ENDY Administration Radiology Results: ITS Impressions Chest X-Ray 10/02/24 18:14 IMPRESSION: 1. Opacities in the bilateral lower lung zones which could represent atelectasis, mild pulmonary edema, pneumonia or some combination thereof. Chest/Abdomen/Pelvis CTA 10/02/24 21:02 IMPRESSION: 1. Chronic atelectasis/scarring at the bilateral lung bases. 2. Enlargement of the central pulmonary arteries consistent with pulmonary arterial hypertension without evident pulmonary embolism. 3. No acute intra-abdominal/pelvic process. 4. Small fat-containing umbilical and supraumbilical ventral hernias. 5. Diverticulosis. Labs Labs: Laboratory Results - last 24 hr 10/03/24 10/04/24 10/04/24 11:01 04:16 06:27 WBC 8.6 RBC 4.25 Hgb 12.0 Hct 38.1 MCV 89.6 MCH 28.2 MCHC 31.5 L RDW 16.2 H Plt Count 216 MPV 10.3 Immature Gran % (Auto) 0.3 Neut % (Auto) 58.4 Lymph % (Auto) 24.0 [place] % (Auto) 13.3 H Eos % (Auto) 3.0 Baso % (Auto) 1.0 Lymph # (Auto) 2.06 [place] # (Auto) 1.1 H Eos # (Auto) 0.3 Baso # (Auto) 0.1 Abs Immat Gran (auto) 0.03 Absolute Neuts (auto) 5.0 Absolute Nucleated RBC 0.000 Nucleated RBC % 0.0 PT 19.1 H 19.1 H INR 1.6 1.6 Sodium 138 Potassium 3.9 Chloride 111 H Carbon Dioxide 17 L Anion Gap 10 BUN 18 H Creatinine 0.93 Estim Creat Clear Calc 41 Estimated GFR 57 L Glucose 98 Calcium 8.7 Magnesium 1.9 Total Bilirubin 0.9 AST 40 H ALT 26 Alkaline Phosphatase 45 Total Protein 6.2 L Albumin 3.5
[2024-10-04] MEDS: WARFARIN (*PBKC) 3 MG TABLET 6 MG PO (16:30)
--- NOTE | 2024-10-04 17:38 | PM.PNCARD ---
Progress Note: A&P Assessment and Plan (1) Atrial fibrillation with RVR: Code(s): I48.91 - Unspecified atrial fibrillation Status: Acute (2) Hyperlipidemia: Code(s): E78.5 - Hyperlipidemia, unspecified Status: Acute Plan 83-year-old woman with paroxysmal atrial fibrillation, pulmonary sarcoidosis, COPD, hypertension, and sleep apnea compliant with CPAP presented with general feeling of unwell found to be in atrial fibrillation with rapid ventricular rates Paroxysmal atrial fibrillation with rapid ventricular rates -previously was on Multaq however is having breakthrough rapid ventricular rates with atrial fibrillation -she has been converted from Multaq to sotalol 80 mg every 12 hours -QTC has been stable and would recommend repeating EKGs with each dose -continue diltiazem drip and warfarin for goal INR 2-3 -if she remains in atrial fibrillation with rapid ventricular rates, we will plan for SUGEY cardioversion on Sunday Hyperlipidemia -continue statins Hypertension -currently normotensive on the diltiazem drip while in rapid ventricular rate -holding home antihypertensives for the time being -on Lasix for lymphedema Subjective Date/time seen: 10/04/24 17:38 Interval history: Feels well without any complaints. Has right arm pain where IV site infiltrated Review of Systems Cardiovascular: Cardiovascular: Reports as per HPI Respiratory: Respiratory: Reports as per HPI Exam Const: General: comfortable HENMT: Mouth: Yes moist mucous membranes Eyes: EOM: EOMs intact bilaterally Neck: Neck: no JVD Resp: Effort & Inspection: normal respiratory effort Auscultation: clear to auscultation bilaterally Cardio: Rate: tachycardic Rhythm: abnormal rhythm Extrem: General: no pedal edema Objective Data Vital Signs Vital Signs: Vital Signs - 24 hr 10/03/24 18:00 10/03/24 18:00 10/03/24 18:00 Temperature Pulse Rate 126 H 123 H 123 H Respiratory Rate 20 Blood Pressure 105/70 105/70 Pulse Oximetry 94 Oxygen Delivery 10/03/24 20:00 10/03/24 20:00 10/03/24 20:00 Temperature 36.7 C Pulse Rate 94 111 H Respiratory Rate 20 Blood Pressure 108/66 109/64 Pulse Oximetry 97 Oxygen Delivery Room Air 10/03/24 20:00 10/03/24 20:35 10/03/24 21:50 Temperature Pulse Rate 95 100 99 Respiratory Rate Blood Pressure Pulse Oximetry Oxygen Delivery 10/03/24 21:58 10/03/24 21:59 10/03/24 22:22 Temperature Pulse Rate 97 85 90 Respiratory Rate Blood Pressure 103/64 103/64 106/64 Pulse Oximetry Oxygen Delivery 10/03/24 22:27 10/03/24 23:05 10/03/24 23:50 Temperature 36.6 C Pulse Rate 91 89 113 H Respiratory Rate 20 Blood Pressure 106/64 129/76 Pulse Oximetry 97 97 Oxygen Delivery Autopap 10/04/24 00:00 10/04/24 00:00 10/04/24 00:08 Temperature Pulse Rate 93 97 Respiratory Rate Blood Pressure 129/76 Pulse Oximetry Oxygen Delivery CPAP 10/04/24 02:00 10/04/24 02:00 10/04/24 02:16 Temperature Pulse Rate 83 91 Respiratory Rate Blood Pressure 120/72 120/72 Pulse Oximetry Oxygen Delivery 10/04/24 02:18 10/04/24 04:00 10/04/24 04:00 Temperature Pulse Rate 84 92 Respiratory Rate Blood Pressure Pulse Oximetry 96 Oxygen Delivery Autopap Room Air 10/04/24 04:00 10/04/24 04:00 10/04/24 06:00 Temperature 36.6 C 36.6 C Pulse Rate 91 88 89 Respiratory Rate 20 20 Blood Pressure 109/64 109/64 112/68 Pulse Oximetry 97 97 Oxygen Delivery 10/04/24 06:00 10/04/24 06:10 10/04/24 08:00 Temperature 36.9 C Pulse Rate 89 89 114 H Respiratory Rate 20 Blood Pressure 112/68 115/73 Pulse Oximetry 95 Oxygen Delivery 10/04/24 08:00 10/04/24 08:00 10/04/24 08:48 Temperature Pulse Rate 112 H 135 H 124 H Respiratory Rate Blood Pressure 115/73 Pulse Oximetry Oxygen Delivery 10/04/24 08:48 10/04/24 08:49 10/04/24 08:49 Temperature Pulse Rate 124 H 136 H 127 H Respiratory Rate 16 Blood Pressure Pulse Oximetry Oxygen Delivery 10/04/24 08:50 10/04/24 10:00 10/04/24 10:00 Temperature 37.2 C Pulse Rate 127 H 91 89 Respiratory Rate 18 18 Blood Pressure 98/60 L Pulse Oximetry 96 93 Oxygen Delivery Room Air 10/04/24 10:00 10/04/24 11:28 10/04/24 12:00 Temperature 36.6 C Pulse Rate 91 120 H 104 H Respiratory Rate 18 Blood Pressure 122/82 Pulse Oximetry 96 Oxygen Delivery 10/04/24 12:00 10/04/24 14:00 10/04/24 14:00 Temperature 37.0 C Pulse Rate 104 H 102 H 106 H Respiratory Rate 20 Blood Pressure 122/82 121/75 Pulse Oximetry 94 Oxygen Delivery 10/04/24 14:00 10/04/24 16:00 10/04/24 16:00 Temperature 36.6 C Pulse Rate 106 H 104 H 117 H Respiratory Rate 20 Blood Pressure 121/75 112/72 Pulse Oximetry 97 Oxygen Delivery 10/04/24 16:00 10/04/24 16:25 10/04/24 16:25 Temperature Pulse Rate 93 117 H 117 H Respiratory Rate Blood Pressure 112/72 Pulse Oximetry Oxygen Delivery Intake/Output Intake/Output: Intake & Output 10/01/24 10/02/24 10/03/24 10/04/24 23:59 23:59 23:59 23:59 Intake Total 507.5 1902.0 1006.2 Output Total 2 150 Balance 507.5 1900.0 856.2 Meds/Results Medications: Active Medications Generic Name Dose Route Start Last Admin Trade Name Freq PRN Reason Stop Dose Admin Acetaminophen 500 mg 10/03/24 10:35 Acetaminophen 500 Mg Tablet PO QAM PRN pain (scale score 1-3) Albuterol 2.5 mg 10/03/24 10:35 Albuterol Sulfate Neb 2.5 Mg/3 Ml Inh INHALATION Q4-6H PRN shortness of breath or wheezing Albuterol 2 puff 10/03/24 10:35 Albuterol Sulfate (*Sp) Aerosol 1 Puff INHALATION Q4-6H PRN shortness of breath or wheezing Alprazolam 0.25 mg 10/03/24 04:01 10/04/24 08:49 Alprazolam (*Crx) 0.25 Mg Tablet PO 0.25 mg BID PRN Administration anxiety Fluticasone Propionate 2 spray 10/03/24 10:35 10/04/24 08:49 Fluticasone Propionate 0.05% Na Spr 16 Gm Btl (*Bkc) NASAL 2 spray DAILY [facility]Y Administration Furosemide 80 mg 10/03/24 09:00 10/04/24 08:51 Furosemide 40 Mg Tablet BY MOUTH 80 mg DAILY [facility]Y Administration Diltiazem HCl 100 mg in 100 mls @ 10 mls/hr 10/03/24 02:40 10/04/24 16:25 Cardizem 100 Mg/100 Ml IV CONT 10 mg/hr .Q10H ENDY 10 mls/hr Administration 10 MG/HR Levothyroxine Sodium 88 mcg 10/04/24 06:30 10/04/24 05:47 Levothyroxine Sodium 88 Mcg Tablet PO 88 mcg DAILY@0630 [facility] Administration Multivitamins Therapeutic 1 tablet 10/04/24 09:00 10/04/24 08:51 Multivitamins Therapeutic Tab (*Bkc) PO 1 tablet QAM [facility] Administration Pantoprazole Sodium 40 mg 10/03/24 09:00 10/04/24 08:51 Pantoprazole 40 Mg Tablet PO 40 mg QAM ENDY Administration Potassium Chloride 10 meq 10/03/24 08:00 10/04/24 16:30 Potassium Chloride 10 Meq Er Tablet PO 10 meq BIDWM ENDY Administration Rosuvastatin Calcium 10 mg 10/03/24 09:00 10/04/24 08:50 Rosuvastatin 10 Mg Tablet BY MOUTH 10 mg DAILY [facility]Y Administration Fluticasone/Salmeterol 2 puff 10/03/24 08:00 10/04/24 08:49 Fluticasone/Salmeterol 45-21 Mcg Inhaler 1 Puff INHALATION 2 puff Q12HRT ENDY Administration Sotalol HCl 80 mg 10/02/24 21:47 10/04/24 08:49 Sotalol Hcl 80 Mg Tablet PO 80 mg Q12HR ENDY Administration Vitamin D 125 mcg 10/03/24 09:00 10/04/24 08:51 Cholecalciferol (Vitamin D3) 125 Mcg (5,000 Units) Tablet PO 125 mcg DAILY [facility] Administration Warfarin Sodium 4 mg 10/07/24 17:00 Warfarin (*Pbkc) 4 Mg Tablet PO Tu@1700 [facility]Y Warfarin Sodium 6 mg 10/03/24 17:00 10/04/24 16:30 Warfarin (*Pbkc) 3 Mg Tablet PO 6 mg SuMoWeThFrSa@1700 ENDY Administration Radiology Results: ITS Impressions Chest X-Ray 10/02/24 18:14 IMPRESSION: 1. Opacities in the bilateral lower lung zones which could represent atelectasis, mild pulmonary edema, pneumonia or some combination thereof. Chest/Abdomen/Pelvis CTA 10/02/24 21:02 IMPRESSION: 1. Chronic atelectasis/scarring at the bilateral lung bases. 2. Enlargement of the central pulmonary arteries consistent with pulmonary arterial hypertension without evident pulmonary embolism. 3. No acute intra-abdominal/pelvic process. 4. Small fat-containing umbilical and supraumbilical ventral hernias. 5. Diverticulosis. Labs Labs: Laboratory Results - last 24 hr 10/04/24 10/04/24 04:16 06:27 WBC 8.6 RBC 4.25 Hgb 12.0 Hct 38.1 MCV 89.6 MCH 28.2 MCHC 31.5 L RDW 16.2 H Plt Count 216 MPV 10.3 Immature Gran % (Auto) 0.3 Neut % (Auto) 58.4 Lymph % (Auto) 24.0 [place] % (Auto) 13.3 H Eos % (Auto) 3.0 Baso % (Auto) 1.0 Lymph # (Auto) 2.06 [place] # (Auto) 1.1 H Eos # (Auto) 0.3 Baso # (Auto) 0.1 Abs Immat Gran (auto) 0.03 Absolute Neuts (auto) 5.0 Absolute Nucleated RBC 0.000 Nucleated RBC % 0.0 PT 19.1 H INR 1.6 Sodium 138 Potassium 3.9 Chloride 111 H Carbon Dioxide 17 L Anion Gap 10 BUN 18 H Creatinine 0.93 Estim Creat Clear Calc 41 Estimated GFR 57 L Glucose 98 Calcium 8.7 Magnesium 1.9 Total Bilirubin 0.9 AST 40 H ALT 26 Alkaline Phosphatase 45 Total Protein 6.2 L Albumin 3.5
[2024-10-04] MEDS: ACETAMINOPHEN 500 MG TABLET PO (20:07)
--- NOTE | 2024-10-04 22:00 | ECG_ITS ---
Test Date: 2024-10-04 22:00:30 Measurements Intervals [place] Rate: 95 P: 0 DE: 0 QRS: -16 QRSD: 98 T: 16 QT: 383 QTc: 482 Interpretive Statements ATRIAL FIBRILLATION NONSPECIFIC T-WAVE ABNORMALITY ABNORMAL RHYTHM ECG Compared to ECG 10/04/2024 11:24:56 No significant changes Electronically Signed On 10-05-2024 17:54:13 CDT by Joel Griffin M.D.
[2024-10-05] VITALS (26 sets, daily range): BP systolic 90–125; BP diastolic 51–88; PULSE 73–135; RESP 12–21; TEMP 36.4–37; O2SAT 93–98
--- NOTE | 2024-10-05 00:08 | ECG_ITS ---
Test Date: 2024-10-05 07:39:53 Measurements Intervals [place] Rate: 83 P: 0 NV: 0 QRS: -10 QRSD: 90 T: 12 QT: 399 QTc: 471 Interpretive Statements ATRIAL FIBRILLATION NONSPECIFIC T-WAVE ABNORMALITY ABNORMAL RHYTHM ECG Compared to ECG 10/04/2024 22:00:30 No significant changes Electronically Signed On 10-05-2024 17:57:57 CDT by Joel Griffin M.D.
[2024-10-05] MEDS: dilTIAZem 100 MG/100 ML 100 MG/100 ML BAG 10 MG IV CONT ×3 (01:58→23:09)
[2024-10-05 04:37] LABS: Hematocrit 38.7 % (37.0-47.0); Hemoglobin 12.2 g/dL (12.0-15.0); Immature Granulocyte Percent A 0.4 % (0-0.5); Lymphocytes Absolute Auto 2.50 K/mm3 (0.9-3.2); Mean Corpuscular HGB Conc 31.5 g/dl (32-36); Mean Corpuscular Hemoglobin 28.4 pg (26-34); Mean Corpuscular Volume 90.0 fl (80-100); Nucleated Red Blood Cells Absolute Auto 0.000 K/mm3 (0.0-0.012); Nucleated Red Blood Cells Perc 0.0 % (0.0-0.2); Platelet Count Result 223 k/mm3 (150-375); Red Blood Count 4.30 M/mm3 (4.2-5.4); White Blood Count 7.6 K/mm3 (4.5-10.0)
[2024-10-05 04:51] LABS: INR 1.9; Prothrombin Time 21.3 Seconds (11.1-14.7)
[2024-10-05 04:55] LABS: Alanine Aminotransferase 28 U/L (6-35); Albumin Level 3.7 g/dL (3.5-5.1); Alkaline Phosphatase 55 U/L (38-126); Anion Gap 7 mmol/L (4-12); Aspartate Amino Transferase 36 U/L (14-36); Bilirubin,Total 0.8 mg/dL (0.2-1.3); Blood Urea Nitrogen 19 mg/dL (7-17); Calcium 8.5 mg/dL (8.4-10.2); Carbon Dioxide 23 mmol/L (22-30); Chloride 106 mmol/L (98-107); Estimated CRCL calculation 40 ml/min; Estimated Glomerular Filt Rate 56; Glucose 102 mg/dL (65-110); Magnesium 1.9 mg/dL (1.6-2.3); Potassium 3.4 mmol/L (3.4-5.0); Sodium 136 mmol/L (137-145); Total Protein 6.8 g/dL (6.3-8.2)
[2024-10-05] MEDS: LEVOTHYROXINE SODIUM 88 MCG TABLET PO (06:09)
[2024-10-05] MEDS: FLUTICASONE/SALMETEROL 45-21 MCG INHALER 1 PUFF 2 PUFF INHALATION ×2 (08:33→20:23)
[2024-10-05] MEDS: MULTIVITAMINS THERAPEUTIC TAB (*BKC) 1 TABLET PO (08:46)
[2024-10-05] MEDS: PANTOPRAZOLE 40 MG TABLET PO (08:47)
[2024-10-05] MEDS: ROSUVASTATIN 10 MG TABLET BY MOUTH (08:47)
[2024-10-05] MEDS: FLUTICASONE PROPIONATE 0.05% NA SPR 16 GM BTL (*BKC) 2 SPRAY NASAL (08:47)
[2024-10-05] MEDS: FUROSEMIDE 40 MG TABLET 80 MG BY MOUTH (08:47)
[2024-10-05] MEDS: CHOLECALCIFEROL (VITAMIN D3) 125 MCG (5,000 UNITS) TABLET PO (08:47)
[2024-10-05] MEDS: POTASSIUM CHLORIDE 10 MEQ ER TABLET PO ×2 (08:47→16:30)
[2024-10-05] MEDS: SOTALOL HCL 80 MG TABLET PO ×2 (08:47→20:32)
[2024-10-05] MEDS: ALPRAZolam (*CRX) 0.25 MG TABLET PO ×2 (08:52→20:32)
--- NOTE | 2024-10-05 09:56 | PM.IMPN ---
Progress Note: A&P Assessment and Plan (1) Atrial fibrillation with RVR: Code(s): I48.91 - Unspecified atrial fibrillation Status: Acute Plan 83-year-old female a paroxysmal AFib, COPD, anxiety, hypertension, hyperlipidemia, GERD, IBS, arthritis, sleep apnea compliant with CPAP, sarcoidosis presents with palpitations. She lives with her grandson, on the morning of 10/02/2024 notice her heart rate to be elevated and notified her grandson. Brought in his [facility] ER. She has been compliant with her medications, she has not felt ill in the recent weeks. Has been hydrating well. ER evaluation revealed AFib with RVR with a rate of 130s on arrival. Troponin negative x2. Potassium greater than 4, magnesium 2. INR 1.7. CTA chest abdomen pelvis negative for PE. Enlarged central pulmonary arteries. Chronic atelectasis/scarring at the bilateral lung bases, diverticulosis. She Was given 5 mg metoprolol IV without improvement. Patient was placed on 10 milligram/hour diltiazem GTT. Cardiology notified from ER. Recommended discontinue metoprolol and Multaq and starting patient on sotalol 80 mg p.o. b.i.d.. And to advance warfarin to 6 mg daily. AFib with RVR started on Cardizem drip and sotalol. Metoprolol has been discontinued Multaq has been discontinued. per cardiology. Remains on IV Cardizem and sotalol load completed. Still AFib with RVR. Plan for SUGEY cardioversion in a.m. if it still remains in AFib by tomorrow. Diarrhea new on admission. ordered c diff. tsh noraml this has now resovled. Prediabetes with A1c of 5.8% Metabolic acidosis on arrival to the ER improved with IV hydration. COPD Anxiety Hypertension Hyperlipidemia GERD IBS Arthritis Sleep apnea compliant with CPAP History of sarcoidosis Fatty liver Hiatal hernia Pulmonary hypertension Diverticulosis Osteoporosis Hypothyroidism DVT prophylaxis on warfarin Code status full code Subjective Date/time seen: 10/05/24 09:56 Interval history: Intermittent tachycardia persists. Remains on diltiazem drip. Intermittent ventricular tachycardia noted Review of Systems Review of Systems: All systems reviewed & are unremarkable except as noted in HPI and below (Subjective) Exam Narrative: GENERAL: Well-appearing, well-nourished, and in no acute distress. HEAD: Normocephalic, atraumatic. EYES: PERRLA and EOMI. ENT: Nares clear, no rhinorrhea or epistaxis. Mucous membranes moist. NECK: Supple. CHEST: Clear to auscultation. No respiratory distress. HEART: AFib rhythm on telemetry with rapid ventricular rate ABDOMEN: Normoactive bowel sounds. Abdomen soft, nontender No rebound, guarding or rigidity EXTREMITIES: Normal range of motion. Pain edema to bilateral lower extremities SKIN: Warm, dry, no rash. NEURO: No focal deficits. Alert and oriented x3 Objective Data Vital Signs Vital Signs: Vital Signs - 24 hr 10/04/24 10:00 10/04/24 10:00 10/04/24 10:00 Temperature 98.9 F Pulse Rate 91 89 91 Respiratory Rate 18 Blood Pressure 98/60 L Pulse Oximetry 93 Oxygen Delivery 10/04/24 11:28 10/04/24 12:00 10/04/24 12:00 Temperature 97.8 F Pulse Rate 120 H 104 H 104 H Respiratory Rate 18 Blood Pressure 122/82 122/82 Pulse Oximetry 96 Oxygen Delivery 10/04/24 14:00 10/04/24 14:00 10/04/24 14:00 Temperature 98.6 F Pulse Rate 102 H 106 H 106 H Respiratory Rate 20 Blood Pressure 121/75 121/75 Pulse Oximetry 94 Oxygen Delivery 10/04/24 16:00 10/04/24 16:00 10/04/24 16:00 Temperature 97.9 F Pulse Rate 104 H 117 H 93 Respiratory Rate 20 Blood Pressure 112/72 Pulse Oximetry 97 Oxygen Delivery 10/04/24 16:25 10/04/24 16:25 10/04/24 18:00 Temperature 98.7 F Pulse Rate 117 H 117 H 104 H Respiratory Rate 18 Blood Pressure 112/72 129/91 H Pulse Oximetry 96 Oxygen Delivery 10/04/24 18:00 10/04/24 18:00 10/04/24 19:40 Temperature 98.8 F Pulse Rate 105 H 105 H 107 H Respiratory Rate 16 Blood Pressure 129/91 H 103/53 L Pulse Oximetry 95 Oxygen Delivery 10/04/24 20:00 10/04/24 20:00 10/04/24 20:00 Temperature Pulse Rate 115 H 106 H 110 H Respiratory Rate 16 Blood Pressure 103/53 L Pulse Oximetry 95 Oxygen Delivery Room Air 10/04/24 20:08 10/04/24 22:00 10/04/24 22:00 Temperature 98.8 F Pulse Rate 111 H 110 H 96 Respiratory Rate 20 Blood Pressure 112/72 Pulse Oximetry 98 Oxygen Delivery 10/04/24 22:07 10/05/24 00:00 10/05/24 00:00 Temperature 98.0 F Pulse Rate 102 H 109 H Respiratory Rate 17 Blood Pressure 112/72 117/51 L Pulse Oximetry 97 95 Oxygen Delivery Room Air 10/05/24 00:00 10/05/24 00:00 10/05/24 01:58 Temperature Pulse Rate 108 H 98 104 H Respiratory Rate Blood Pressure 117/51 L 112/62 Pulse Oximetry Oxygen Delivery 10/05/24 01:58 10/05/24 02:00 10/05/24 02:00 Temperature Pulse Rate 104 H 87 87 Respiratory Rate Blood Pressure 112/62 112/62 Pulse Oximetry Oxygen Delivery 10/05/24 03:29 10/05/24 03:33 10/05/24 04:00 Temperature 97.8 F Pulse Rate 89 82 77 Respiratory Rate 18 Blood Pressure 90/74 L 90/74 L Pulse Oximetry 93 97 Oxygen Delivery Room Air 10/05/24 04:00 10/05/24 06:00 10/05/24 06:00 Temperature 98.2 F Pulse Rate 75 73 76 Respiratory Rate 17 Blood Pressure 101/54 L Pulse Oximetry 94 Oxygen Delivery 10/05/24 06:17 10/05/24 08:00 10/05/24 08:42 Temperature 98.3 F Pulse Rate 88 125 H Respiratory Rate 12 Blood Pressure 101/54 L 93/69 L Pulse Oximetry 96 96 Oxygen Delivery Room Air 10/05/24 08:47 Temperature Pulse Rate 120 H Respiratory Rate Blood Pressure Pulse Oximetry Oxygen Delivery Intake/Output Intake/Output: Intake & Output 10/02/24 10/03/24 10/04/24 10/05/24 23:59 23:59 23:59 23:59 Intake Total 507.5 1902.0 1303.2 441.6 Output Total 2 150 Balance 507.5 1900.0 1153.2 441.6 Meds/Results Medications: Active Medications Generic Name Dose Route Start Last Admin Trade Name Freq PRN Reason Stop Dose Admin Acetaminophen 500 mg 10/03/24 10:35 10/04/24 20:07 Acetaminophen 500 Mg Tablet PO 500 mg QAM PRN Administration pain (scale score 1-3) Albuterol 2.5 mg 10/03/24 10:35 Albuterol Sulfate Neb 2.5 Mg/3 Ml Inh INHALATION Q4-6H PRN shortness of breath or wheezing Albuterol 2 puff 10/03/24 10:35 Albuterol Sulfate (*Sp) Aerosol 1 Puff INHALATION Q4-6H PRN shortness of breath or wheezing Alprazolam 0.25 mg 10/03/24 04:01 10/05/24 08:52 Alprazolam (*Crx) 0.25 Mg Tablet PO 0.25 mg BID PRN Administration anxiety Fluticasone Propionate 2 spray 10/03/24 10:35 10/05/24 08:47 Fluticasone Propionate 0.05% Na Spr 16 Gm Btl (*Bkc) NASAL 2 spray DAILY ENDY Administration Furosemide 80 mg 10/03/24 09:00 10/05/24 08:47 Furosemide 40 Mg Tablet BY MOUTH 80 mg DAILY ENDY Administration Diltiazem HCl 100 mg in 100 mls @ 10 mls/hr 10/03/24 02:40 10/05/24 06:17 Cardizem 100 Mg/100 Ml IV CONT 10 mg/hr .Q10H ENDY 10 mls/hr Infusion 10 MG/HR Levothyroxine Sodium 88 mcg 10/04/24 06:30 10/05/24 06:09 Levothyroxine Sodium 88 Mcg Tablet PO 88 mcg DAILY@0630 ENDY Administration Multivitamins Therapeutic 1 tablet 10/04/24 09:00 10/05/24 08:46 Multivitamins Therapeutic Tab (*Bkc) PO 1 tablet QAM ENDY Administration Pantoprazole Sodium 40 mg 10/03/24 09:00 10/05/24 08:47 Pantoprazole 40 Mg Tablet PO 40 mg QAM ENDY Administration Potassium Chloride 10 meq 10/03/24 08:00 10/05/24 08:47 Potassium Chloride 10 Meq Er Tablet PO 10 meq BIDWM ENDY Administration Rosuvastatin Calcium 10 mg 10/03/24 09:00 10/05/24 08:47 Rosuvastatin 10 Mg Tablet BY MOUTH 10 mg DAILY ENDY Administration Fluticasone/Salmeterol 2 puff 10/03/24 08:00 10/05/24 08:33 Fluticasone/Salmeterol 45-21 Mcg Inhaler 1 Puff INHALATION 2 puff Q12HRT ENDY Administration Sotalol HCl 80 mg 10/02/24 21:47 10/05/24 08:47 Sotalol Hcl 80 Mg Tablet PO 80 mg Q12HR ENDY Administration Vitamin D 125 mcg 10/03/24 09:00 10/05/24 08:47 Cholecalciferol (Vitamin D3) 125 Mcg (5,000 Units) Tablet PO 125 mcg DAILY [facility] Administration Warfarin Sodium 4 mg 10/07/24 17:00 Warfarin (*Pbkc) 4 Mg Tablet PO Tu@1700 ENDY Warfarin Sodium 6 mg 10/03/24 17:00 10/04/24 16:30 Warfarin (*Pbkc) 3 Mg Tablet PO 6 mg SuMoWeThFrSa@1700 [facility] Administration Radiology Results: ITS Impressions Chest X-Ray 10/02/24 18:14 IMPRESSION: 1. Opacities in the bilateral lower lung zones which could represent atelectasis, mild pulmonary edema, pneumonia or some combination thereof. Chest/Abdomen/Pelvis CTA 10/02/24 21:02 IMPRESSION: 1. Chronic atelectasis/scarring at the bilateral lung bases. 2. Enlargement of the central pulmonary arteries consistent with pulmonary arterial hypertension without evident pulmonary embolism. 3. No acute intra-abdominal/pelvic process. 4. Small fat-containing umbilical and supraumbilical ventral hernias. 5. Diverticulosis. Labs Labs: Laboratory Results - last 24 hr 10/05/24 04:29 WBC 7.6 RBC 4.30 Hgb 12.2 Hct 38.7 MCV 90.0 MCH 28.4 MCHC 31.5 L RDW 15.9 H Plt Count 223 MPV 10.6 H Immature Gran % (Auto) 0.4 Neut % (Auto) 49.9 Lymph % (Auto) 33.0 [place] % (Auto) 11.6 H Eos % (Auto) 4.2 Baso % (Auto) 0.9 Lymph # (Auto) 2.50 [place] # (Auto) 0.9 H Eos # (Auto) 0.3 Baso # (Auto) 0.1 Abs Immat Gran (auto) 0.03 Absolute Neuts (auto) 3.8 Absolute Nucleated RBC 0.000 Nucleated RBC % 0.0 PT 21.3 H INR 1.9 Sodium 136 L Potassium 3.4 Chloride 106 Carbon Dioxide 23 Anion Gap 7 BUN 19 H Creatinine 0.95 Estim Creat Clear Calc 40 Estimated GFR 56 L Glucose 102 Calcium 8.5 Magnesium 1.9 Total Bilirubin 0.8 AST 36 ALT 28 Alkaline Phosphatase 55 Total Protein 6.8 Albumin 3.7
[2024-10-05] MEDS: WARFARIN (*PBKC) 3 MG TABLET 6 MG PO (16:29)
[2024-10-05] MEDS: MAGNESIUM OXIDE 400 MG TABLET PO (16:31)
--- NOTE | 2024-10-05 17:14 | PM.PNCARD ---
Progress Note: A&P Assessment and Plan (1) Atrial fibrillation with RVR: Code(s): I48.91 - Unspecified atrial fibrillation Status: Acute Plan 83-year-old woman with paroxysmal atrial fibrillation, pulmonary sarcoidosis, COPD, hypertension, and sleep apnea compliant with CPAP presented with general feeling of unwell found to be in atrial fibrillation with rapid ventricular rates Paroxysmal atrial fibrillation with rapid ventricular rates -previously was on Multaq however is having breakthrough rapid ventricular rates with atrial fibrillation -she has been converted from Multaq to sotalol 80 mg every 12 hours -QTC has been stable and would recommend repeating EKGs with each dose -continue diltiazem drip and warfarin for goal INR 2-3 -she continues to have rapid ventricular rates despite loading doses of sotalol and at this time would recommend SUGEY cardioversion -the INR subtherapeutic tomorrow, may need bridge with Lovenox if cardioversion is planned -NPO past midnight Hyperlipidemia -continue statins Hypertension -currently normotensive on the diltiazem drip while in rapid ventricular rate -holding home antihypertensives for the time being -on Lasix for lymphedema Subjective Date/time seen: 10/05/24 17:14 Interval history: Feels well without significant cardiopulmonary symptoms. Review of Systems Cardiovascular: Cardiovascular: Reports as per HPI Respiratory: Respiratory: Reports as per HPI Exam Const: General: comfortable HENMT: Mouth: Yes dry mucous membranes Eyes: EOM: EOMs intact bilaterally Neck: Neck: no JVD Resp: Effort & Inspection: normal respiratory effort Auscultation: clear to auscultation bilaterally Cardio: Rate: tachycardic Rhythm: abnormal rhythm Neuro: Speech: normal speech Extrem: General: no pedal edema Objective Data Vital Signs Vital Signs: Vital Signs - 24 hr 10/04/24 18:00 10/04/24 18:00 10/04/24 18:00 Temperature 37.1 C Pulse Rate 104 H 105 H 105 H Respiratory Rate 18 Blood Pressure 129/91 H 129/91 H Pulse Oximetry 96 Oxygen Delivery 10/04/24 19:40 10/04/24 20:00 10/04/24 20:00 Temperature 37.1 C Pulse Rate 107 H 115 H 106 H Respiratory Rate 16 16 Blood Pressure 103/53 L 103/53 L Pulse Oximetry 95 95 Oxygen Delivery Room Air 10/04/24 20:00 10/04/24 20:08 10/04/24 22:00 Temperature 37.1 C Pulse Rate 110 H 111 H 110 H Respiratory Rate 20 Blood Pressure 112/72 Pulse Oximetry 98 Oxygen Delivery 10/04/24 22:00 10/04/24 22:07 10/05/24 00:00 Temperature Pulse Rate 96 102 H Respiratory Rate Blood Pressure 112/72 Pulse Oximetry 97 Oxygen Delivery Room Air 10/05/24 00:00 10/05/24 00:00 10/05/24 00:00 Temperature 36.7 C Pulse Rate 109 H 108 H 98 Respiratory Rate 17 Blood Pressure 117/51 L 117/51 L Pulse Oximetry 95 Oxygen Delivery 10/05/24 01:58 10/05/24 01:58 10/05/24 02:00 Temperature Pulse Rate 104 H 104 H 87 Respiratory Rate Blood Pressure 112/62 112/62 112/62 Pulse Oximetry Oxygen Delivery 10/05/24 02:00 10/05/24 03:29 10/05/24 03:33 Temperature 36.6 C Pulse Rate 87 89 82 Respiratory Rate 18 Blood Pressure 90/74 L Pulse Oximetry 93 97 Oxygen Delivery Room Air 10/05/24 04:00 10/05/24 04:00 10/05/24 06:00 Temperature 36.8 C Pulse Rate 77 75 73 Respiratory Rate 17 Blood Pressure 90/74 L 101/54 L Pulse Oximetry 94 Oxygen Delivery 10/05/24 06:00 10/05/24 06:17 10/05/24 08:00 Temperature 36.8 C Pulse Rate 76 88 125 H Respiratory Rate 12 Blood Pressure 101/54 L 93/69 L Pulse Oximetry 96 Oxygen Delivery 10/05/24 08:00 10/05/24 08:00 10/05/24 08:42 Temperature Pulse Rate 132 H 125 H Respiratory Rate Blood Pressure 93/69 L Pulse Oximetry 96 Oxygen Delivery Room Air 10/05/24 08:47 10/05/24 10:00 10/05/24 10:00 Temperature Pulse Rate 120 H 90 114 H Respiratory Rate Blood Pressure Pulse Oximetry Oxygen Delivery 10/05/24 12:00 10/05/24 12:00 10/05/24 13:10 Temperature 36.4 C Pulse Rate 123 H 123 H 109 H Respiratory Rate 20 Blood Pressure 102/77 Pulse Oximetry 97 Oxygen Delivery 10/05/24 14:00 10/05/24 14:00 10/05/24 14:00 Temperature 37.0 C Pulse Rate 116 H 125 H 124 H Respiratory Rate 20 Blood Pressure 119/81 119/81 Pulse Oximetry 95 Oxygen Delivery 10/05/24 16:00 10/05/24 16:00 Temperature 36.6 C Pulse Rate 128 H 127 H Respiratory Rate 16 Blood Pressure 116/88 Pulse Oximetry 98 Oxygen Delivery Intake/Output Intake/Output: Intake & Output 10/02/24 10/03/24 10/04/24 10/05/24 23:59 23:59 23:59 23:59 Intake Total 507.5 1902.0 1303.2 727.1 Output Total 2 150 Balance 507.5 1900.0 1153.2 727.1 Meds/Results Medications: Active Medications Generic Name Dose Route Start Last Admin Trade Name Freq PRN Reason Stop Dose Admin Acetaminophen 500 mg 10/03/24 10:35 10/04/24 20:07 Acetaminophen 500 Mg Tablet PO 500 mg QAM PRN Administration pain (scale score 1-3) Albuterol 2.5 mg 10/03/24 10:35 Albuterol Sulfate Neb 2.5 Mg/3 Ml Inh INHALATION Q4-6H PRN shortness of breath or wheezing Albuterol 2 puff 10/03/24 10:35 Albuterol Sulfate (*Sp) Aerosol 1 Puff INHALATION Q4-6H PRN shortness of breath or wheezing Alprazolam 0.25 mg 10/03/24 04:01 10/05/24 08:52 Alprazolam (*Crx) 0.25 Mg Tablet PO 0.25 mg BID PRN Administration anxiety Fluticasone Propionate 2 spray 10/03/24 10:35 10/05/24 08:47 Fluticasone Propionate 0.05% Na Spr 16 Gm Btl (*Bkc) NASAL 2 spray DAILY ENDY Administration Furosemide 80 mg 10/03/24 09:00 10/05/24 08:47 Furosemide 40 Mg Tablet BY MOUTH 80 mg DAILY ENDY Administration Diltiazem HCl 100 mg in 100 mls @ 10 mls/hr 10/03/24 02:40 10/05/24 14:00 Cardizem 100 Mg/100 Ml IV CONT 10 mg/hr .Q10H ENDY 10 mls/hr Infusion 10 MG/HR Levothyroxine Sodium 88 mcg 10/04/24 06:30 10/05/24 06:09 Levothyroxine Sodium 88 Mcg Tablet PO 88 mcg DAILY@0630 [facility] Administration Multivitamins Therapeutic 1 tablet 10/04/24 09:00 10/05/24 08:46 Multivitamins Therapeutic Tab (*Bkc) PO 1 tablet QAM [facility] Administration Pantoprazole Sodium 40 mg 10/03/24 09:00 10/05/24 08:47 Pantoprazole 40 Mg Tablet PO 40 mg QAM [facility] Administration Potassium Chloride 10 meq 10/03/24 08:00 10/05/24 16:30 Potassium Chloride 10 Meq Er Tablet PO 10 meq BIDWM [facility] Administration Rosuvastatin Calcium 10 mg 10/03/24 09:00 10/05/24 08:47 Rosuvastatin 10 Mg Tablet BY MOUTH 10 mg DAILY [facility] Administration Fluticasone/Salmeterol 2 puff 10/03/24 08:00 10/05/24 08:33 Fluticasone/Salmeterol 45-21 Mcg Inhaler 1 Puff INHALATION 2 puff Q12HRT [facility] Administration Sotalol HCl 80 mg 10/02/24 21:47 10/05/24 08:47 Sotalol Hcl 80 Mg Tablet PO 80 mg Q12HR [facility] Administration Vitamin D 125 mcg 10/03/24 09:00 10/05/24 08:47 Cholecalciferol (Vitamin D3) 125 Mcg (5,000 Units) Tablet PO 125 mcg DAILY [facility] Administration Warfarin Sodium 4 mg 10/07/24 17:00 Warfarin (*Pbkc) 4 Mg Tablet PO Tu@1700 [facility] Warfarin Sodium 6 mg 10/03/24 17:00 10/05/24 16:29 Warfarin (*Pbkc) 3 Mg Tablet PO 6 mg SuMoWeThFrSa@1700 [facility] Administration Radiology Results: ITS Impressions Chest X-Ray 10/02/24 18:14 IMPRESSION: 1. Opacities in the bilateral lower lung zones which could represent atelectasis, mild pulmonary edema, pneumonia or some combination thereof. Chest/Abdomen/Pelvis CTA 10/02/24 21:02 IMPRESSION: 1. Chronic atelectasis/scarring at the bilateral lung bases. 2. Enlargement of the central pulmonary arteries consistent with pulmonary arterial hypertension without evident pulmonary embolism. 3. No acute intra-abdominal/pelvic process. 4. Small fat-containing umbilical and supraumbilical ventral hernias. 5. Diverticulosis. Labs Labs: Laboratory Results - last 24 hr 10/05/24 04:29 WBC 7.6 RBC 4.30 Hgb 12.2 Hct 38.7 MCV 90.0 MCH 28.4 MCHC 31.5 L RDW 15.9 H Plt Count 223 MPV 10.6 H Immature Gran % (Auto) 0.4 Neut % (Auto) 49.9 Lymph % (Auto) 33.0 [place] % (Auto) 11.6 H Eos % (Auto) 4.2 Baso % (Auto) 0.9 Lymph # (Auto) 2.50 [place] # (Auto) 0.9 H Eos # (Auto) 0.3 Baso # (Auto) 0.1 Abs Immat Gran (auto) 0.03 Absolute Neuts (auto) 3.8 Absolute Nucleated RBC 0.000 Nucleated RBC % 0.0 PT 21.3 H INR 1.9 Sodium 136 L Potassium 3.4 Chloride 106 Carbon Dioxide 23 Anion Gap 7 BUN 19 H Creatinine 0.95 Estim Creat Clear Calc 40 Estimated GFR 56 L Glucose 102 Calcium 8.5 Magnesium 1.9 Total Bilirubin 0.8 AST 36 ALT 28 Alkaline Phosphatase 55 Total Protein 6.8 Albumin 3.7
--- NOTE | 2024-10-05 22:23 | ECG_ITS ---
Test Date: 2024-10-05 22:30:41 Measurements Intervals [place] Rate: 102 P: 0 NM: 0 QRS: -9 QRSD: 85 T: 32 QT: 361 QTc: 471 Interpretive Statements ATRIAL FIBRILLATION WITH RAPID VENTRICULAR RESPONSE NONSPECIFIC T-WAVE ABNORMALITY ABNORMAL RHYTHM ECG Compared to ECG 10/05/2024 07:39:53 No significant changes Electronically Signed On 10-06-2024 12:39:15 CDT by Joel Griffin M.D.
[2024-10-06] VITALS (26 sets, daily range): BP systolic 103–169; BP diastolic 49–75; PULSE 54–136; RESP 15–20; TEMP 36.3–36.8; O2SAT 92–99
--- NOTE | 2024-10-06 | ECHO_ITS ---
Patient Info Name: Glenna Almendarez Age: 83 years : 1940 Gender: Female Ht: 61 in Wt: 215 lbs BSA: 2.10 m2 Technical Quality: Good Exam Date: 10/06/2024 10:21 AM Patient Status: I Admit Date: 10/04/2024 Exam Type: CA echo transesophageal Complete two-dimensional, color flow and Doppler transesophageal study is performed. Staff Referring Physician: Kortney [employer] Custodian: Sandra Oneill Attending Provider: Awilda Barnes Summary 1. Left ventricular chamber dimension is normal. 2. Left ventricular systolic function is normal with an ejection fraction of 55-60%. 3. There is mild concentric increased left ventricular wall thickness. 4. The left ventricular diastolic function is indeterminate as it was not assessed. 5. Left atrial chamber dimension is moderately enlarged. 6. There is mild aortic valve sclerosis. 7. There is trace mitral valve regurgitation. Procedure Details Risks/benefits/alternative to SUEGY discuss with patient and she gave informed consent. She was monitored electrocardiographically, vitals. She was in atrial fib at 110 bpm, BP 130/70 mmHg, pulse ox >99%. Cetaine spray given x1 to posterior oropharynx. Patient sedated as per anesthesiology service. SUGEY advanced without incident into esophagus. Multiple images obtained. SUGEY withdrawn and no blood on SUGEY probe tip. Patient tolerate procedure well and no complications. Left Ventricle Left ventricular chamber dimension is normal. Left ventricular systolic function is normal with an ejection fraction of 55-60%. There is mild concentric increased left ventricular wall thickness. The left ventricular diastolic function is indeterminate as it was not assessed. Right Ventricle Right ventricular chamber dimension is normal. Right ventricular systolic function is normal. Left Atria Left atrial chamber dimension is moderately enlarged. Right Atria Right atrial chamber dimension is normal. Atrial Appendage There is no thrombus visualized in the left atrial appendage. Aortic Valve The aortic valve is trileaflet. There is mild aortic valve sclerosis. There is no aortic valve stenosis. There is no aortic valve regurgitation. Pulmonic Valve There is no pulmonic regurgitation. Mitral Valve There is no mitral valve stenosis. There is trace mitral valve regurgitation. Tricuspid Valve There is no tricuspid valve regurgitation. Pericardium/Pleural There is no pericardial effusion. Inferior Vena Cava Inferior vena cava is not well visualized. Aorta The aortic root size at the sinus of Valsalva is normal. Report Signatures
[2024-10-06 04:30] LABS: Hematocrit 41.5 % (37.0-47.0); Hemoglobin 13.1 g/dL (12.0-15.0); Immature Granulocyte Percent A 0.4 % (0-0.5); Lymphocytes Absolute Auto 3.33 K/mm3 (0.9-3.2); Mean Corpuscular HGB Conc 31.6 g/dl (32-36); Mean Corpuscular Hemoglobin 28.6 pg (26-34); Mean Corpuscular Volume 90.6 fl (80-100); Nucleated Red Blood Cells Absolute Auto 0.000 K/mm3 (0.0-0.012); Nucleated Red Blood Cells Perc 0.0 % (0.0-0.2); Platelet Count Result 277 k/mm3 (150-375); Red Blood Count 4.58 M/mm3 (4.2-5.4); White Blood Count 9.8 K/mm3 (4.5-10.0)
[2024-10-06 04:39] LABS: INR 2.2; Prothrombin Time 23.4 Seconds (11.1-14.7)
[2024-10-06 04:52] LABS: Alanine Aminotransferase 33 U/L (6-35); Albumin Level 3.9 g/dL (3.5-5.1); Alkaline Phosphatase 52 U/L (38-126); Anion Gap 12 mmol/L (4-12); Aspartate Amino Transferase 38 U/L (14-36); Bilirubin,Total 0.9 mg/dL (0.2-1.3); Blood Urea Nitrogen 15 mg/dL (7-17); Calcium 8.4 mg/dL (8.4-10.2); Carbon Dioxide 20 mmol/L (22-30); Chloride 103 mmol/L (98-107); Estimated CRCL calculation 42 ml/min; Estimated Glomerular Filt Rate 58; Glucose 115 mg/dL (65-110); Magnesium 1.8 mg/dL (1.6-2.3); Potassium 3.9 mmol/L (3.4-5.0); Sodium 135 mmol/L (137-145); Total Protein 7.0 g/dL (6.3-8.2)
[2024-10-06] MEDS: LEVOTHYROXINE SODIUM 88 MCG TABLET PO (05:36)
[2024-10-06] MEDS: MULTIVITAMINS THERAPEUTIC TAB (*BKC) 1 TABLET PO (08:36)
[2024-10-06] MEDS: ROSUVASTATIN 10 MG TABLET BY MOUTH (08:36)
[2024-10-06] MEDS: PANTOPRAZOLE 40 MG TABLET PO (08:36)
[2024-10-06] MEDS: POTASSIUM CHLORIDE 10 MEQ ER TABLET PO ×2 (08:36→17:39)
[2024-10-06] MEDS: ALPRAZolam (*CRX) 0.25 MG TABLET PO ×2 (08:37→20:25)
[2024-10-06] MEDS: CHOLECALCIFEROL (VITAMIN D3) 125 MCG (5,000 UNITS) TABLET PO (08:37)
[2024-10-06] MEDS: SOTALOL HCL 80 MG TABLET PO ×2 (08:37→20:25)
[2024-10-06] MEDS: FUROSEMIDE 40 MG TABLET 80 MG BY MOUTH (08:37)
[2024-10-06] MEDS: FLUTICASONE PROPIONATE 0.05% NA SPR 16 GM BTL (*BKC) 2 SPRAY NASAL (08:40)
[2024-10-06] MEDS: dilTIAZem 100 MG/100 ML 100 MG/100 ML BAG 10 MG IV CONT (09:32)
[2024-10-06] MEDS: FLUTICASONE/SALMETEROL 45-21 MCG INHALER 1 PUFF 2 PUFF INHALATION ×2 (09:36→20:16)
--- NOTE | 2024-10-06 10:00 | ECG_ITS ---
Test Date: 2024-10-06 10:10:30 Measurements Intervals [place] Rate: 101 P: 0 ME: 0 QRS: -22 QRSD: 95 T: 46 QT: 352 QTc: 457 Interpretive Statements ATRIAL FIBRILLATION WITH RAPID VENTRICULAR RESPONSE BORDERLINE LEFT AXIS DEVIATION [QRS AXIS < -20] MINIMAL VOLTAGE CRITERIA FOR LVH, CONSIDER NORMAL VARIANT [MEETS CRITERIA IN ONE OF: R(aVL), S(V1), R(V5), R(V5/V6)+S(V1)] ABNORMAL RHYTHM ECG Compared to ECG 10/05/2024 22:30:41 T-wave abnormality no longer present Electronically Signed On 10-06-2024 12:45:10 CDT by Joel Griffin M.D.
--- NOTE | 2024-10-06 10:21 | P.PNAN_ITS ---
Anes - Initial Pre Proc Eval Procedure: Operation Date: 10/06/24 10:15 Proposed Procedures p Electrical Cardioversion - Colt Escoto DO s Trans Esophageal Echo - Colt Escoto DO Date/Time: 10/06/24 10:21 Surgeon: Awilda Barnes MD Pre Op Diagnosis: Afib RVR Patient Data Age: 83 Gender: F Height: 1.55 m Weight: 97.8 kg Last Vital Signs Temp 98.2 F 10/06/24 08:00 Pulse 105 H 10/06/24 09:32 Resp 18 10/06/24 08:00 BP 113/73 10/06/24 08:00 Pulse Ox 97 10/06/24 09:37 O2 Del Method Room Air 10/06/24 09:37 FiO2 21 10/06/24 04:36 Allergies Allergy/AdvReac Type Severity Reaction Status Date / Time adhesive tape Allergy Severe RASH Verified 10/01/24 12:46 levofloxacin AdvReac Mild Nausea and Verified 10/01/24 12:46 Vomiting Home Medications ?Medication ?Instructions ?Recorded ?Confirmed ?Type multivitamin 1 tablet BYMOUTH DAILY 02/11/19 10/03/24 History albuterol sulfate 2.5 mg/3 mL 2.5 mg (3 mL) inhalation Q4-6H PRN 11/02/21 10/03/24 Rx (0.083 %) solution for nebulization shortness of breath or wheezing #90 mL cholecalciferol (vitamin D3) 125 125 mcg PO DAILY 05/29/22 10/03/24 History mcg (5,000 unit) capsule cinnamon bark 500 mg capsule 500 mg PO DAILY 05/29/22 10/03/24 History (Cinnamon) garlic 1,000 mg capsule 1,000 mg PO DAILY 05/29/22 10/03/24 History potassium chloride 10 mEq 10 meq PO BID 05/29/22 10/03/24 History tablet,extended release quercetin 500 mg capsule 500 mg PO DAILY 05/29/22 10/03/24 History selenium 200 mcg capsule 200 mcg PO DAILY 05/29/22 10/03/24 History vitamin B complex (B 1 tablet PO DAILY 05/29/22 10/03/24 History Complex-Vitamin B12 tablet) omeprazole magnesium 20 mg 20 mg PO DAILY 07/04/22 10/03/24 History tablet,delayed release (Prilosec OTC) dronedarone 400 mg tablet (Multaq) 400 mg PO BID 02/22/23 10/03/24 History hydralazine 50 mg tablet 50 mg PO TID 02/22/23 10/03/24 History metoprolol tartrate 50 mg tablet See Rx Instructions .Route 03/21/23 10/03/24 Rx .COMPLEX #60 tabs furosemide 40 mg tablet See Rx Instructions .Route 06/04/23 10/03/24 Rx .COMPLEX #180 tabs milk thistle 175 mg tablet 500 mg PO DAILY 07/11/23 10/03/24 History fluticasone propionate 50 See Rx Instructions .Route 01/21/24 10/03/24 Rx mcg/actuation nasal .COMPLEX #48 mL spray,suspension albuterol sulfate 90 mcg/actuation 1 - 2 puff inhalation Q4-6H PRN 02/11/24 10/03/24 Rx aerosol inhaler shortness of breath or wheezing #8.5 grams alendronate 70 mg tablet See Rx Instructions .Route 02/11/24 10/03/24 Rx .COMPLEX #12 tabs budesonide-formoterol HFA 80 2 puff inhalation Q12H #30.6 grams 04/15/24 10/03/24 Rx mcg-4.5 mcg/actuation aerosol inhaler irbesartan 300 mg tablet See Rx Instructions .Route 07/02/24 10/03/24 Rx .COMPLEX #100 tabs acetaminophen 500 mg tablet 500 mg PO .am PRN pain (scale 07/18/24 10/03/24 History score 1-3) amlodipine 10 mg tablet See Rx Instructions .Route 07/28/24 10/03/24 Rx .COMPLEX #90 tabs rosuvastatin 10 mg tablet See Rx Instructions .Route 07/28/24 10/03/24 Rx .COMPLEX #100 tabs alprazolam 0.25 mg tablet 0.25 mg PO BID PRN anxiety #60 tabs 09/18/24 10/03/24 Rx levothyroxine 88 mcg tablet 88 mcg PO DAILY #90 tabs 09/18/24 10/03/24 Rx dronedarone 400 mg tablet (Multaq) 400 mg PO BID 10/01/24 10/03/24 History warfarin 2 mg tablet 6 mg PO .COMPLEX 10/01/24 10/03/24 History warfarin 4 mg tablet 4 mg PO .COMPLEX 10/01/24 10/03/24 History Laboratory Tests 10/06/24 04:17 WBC 9.8 K/mm3 (4.5-10.0) RBC 4.58 M/mm3 (4.2-5.4) Hgb 13.1 g/dL (12.0-15.0) Hct 41.5 % (37.0-47.0) MCV 90.6 fl (80-100) MCH 28.6 pg (26-34) MCHC 31.6 L g/dl (32-36) RDW 15.9 H % (11.5-14.5) Plt Count 277 k/mm3 (150-375) MPV 10.9 H fl (7.4-10.4) Immature Gran % (Auto) 0.4 % (0-0.5) Neut % (Auto) 48.3 % (45.5-73.1) Lymph % (Auto) 34.1 % (18.3-44.2) [place] % (Auto) 13.4 H % (2.6-8.5) Eos % (Auto) 3.1 % (0-4.4) Baso % (Auto) 0.7 % (0.2-1.2) Lymph # (Auto) 3.33 H K/mm3 (0.9-3.2) [place] # (Auto) 1.3 H K/mm3 (0.1-0.6) Eos # (Auto) 0.3 K/mm3 (0-0.3) Baso # (Auto) 0.1 K/mm3 (0.0-0.1) Abs Immat Gran (auto) 0.04 H K/mm3 (0.00-0.031) Absolute Neuts (auto) 4.7 K/mm3 (1.3-6.7) Absolute Nucleated RBC 0.000 K/mm3 (0.0-0.012) Nucleated RBC % 0.0 % (0.0-0.2) PT 23.4 H Seconds (11.1-14.7) INR 2.2 Sodium 135 L mmol/L (137-145) Potassium 3.9 mmol/L (3.4-5.0) Chloride 103 mmol/L (98-107) Carbon Dioxide 20 L mmol/L (22-30) Anion Gap 12 mmol/L (4-12) BUN 15 mg/dL (7-17) Creatinine 0.92 mg/dL (0.7-1.0) Estim Creat Clear Calc 42 ml/min Estimated GFR 58 L (59 - ) Glucose 115 H mg/dL (65-110) Calcium 8.4 mg/dL (8.4-10.2) Magnesium 1.8 mg/dL (1.6-2.3) Total Bilirubin 0.9 mg/dL (0.2-1.3) AST 38 H U/L (14-36) ALT 33 U/L (6-35) Alkaline Phosphatase 52 U/L (38-126) Total Protein 7.0 g/dL (6.3-8.2) Albumin 3.9 g/dL (3.5-5.1) Patient hx anesthesia problems: none Family hx anesthesia problems: none Results Review: All pre-operative results and documents have been reviewed as part of the pre- operative evaluation. [facility] Past Medical History Medical History Abdominal pain Wears hearing aid in both ears Left arm pain Racing heart beat Sarcoidosis Diagnosed 2002 after transbronchial biopsy, has never undergone tx. In remission. Pulmonary HTN CPAP (continuous positive airway pressure) dependence Sleep apnea Sarcoidosis Hiatal hernia Fatty liver COPD (chronic obstructive pulmonary disease) Anxiety Hypothyroid Osteoporosis Arthritis UTI (urinary tract infection) GI bleed GERD (gastroesophageal reflux disease) IBS (irritable bowel syndrome) Diverticulosis HTN (hypertension) Hyperlipidemia Sinus problem Cataract Surgical History Surgical History H/O colonoscopy H/O cataract extraction History of arthroplasty of left knee H/O arthroscopy of right knee H/O dilation and curettage H/O: hysterectomy H/O breast biopsy Hx of cholecystectomy History of appendectomy History of cardiac cath H/O sinus surgery Hx of tonsillectomy Family History Family History Mother Cerebrovascular accident, Onset Age: 86 Family history of cardiovascular disease, Onset Age: 86 Sibling Family history of cardiovascular disease History of heart bypass surgery, Onset Age: 75 Social History Social History Social History: Has a son Smoking status: Never smoker Second hand tobacco smoke exposure: Yes Alcohol intake: never Substance use: never Substance use type: does not use Do You Feel Safe in your Home?: Yes Lack of Transportation: YES Lack of Food: Never True Current Housing: I Have Housing Concerned About Future Housing: No Difficulty Paying Gas/Electric Bills: No Difficulty Paying for Meds: No Currently Unemployed: No Education: High School Diploma/GED Difficulty w/ Childcare or Family Care: No Living arrangements: with family Gender identity (if verbalized by the patient): Female Spiritual care concerns: No Agree to blood products: Yes Anes - Eval Final PreProcedure Day of Procedure 10/06/24 10:21 Patient weight: morbidly obese Heart: irregular rhythm Lungs: normal air movement Airway: Mallampati scale class II and special considerations (Missing several lower teeth. ) Neurological: alert and oriented Last oral intake: >/= 8 hours ASA classification: IV Emergent: no Anesthetic plan: proceed Anesthesia type and monitoring: general GIVS and standard monitoring Results Review: All pre-operative results and documents have been reviewed as part of the pre- operative evaluation. Cardiology note reviewed. Pt w many comorbid conditions including NICOLE on CPAP and pulmon HTN. Pt w afib w RVR, now on cardizem gtt w rate 100. Informed Consent: The patient's anesthetic plan and its attendant risks and benefits were discussed with the patient/family/POA. Questions were solicited and answers provided to the satisfaction of the patient/family/POA.
--- NOTE | 2024-10-06 10:30 | ECG_ITS ---
Test Date: 2024-10-06 10:39:24 Measurements Intervals [place] Rate: 58 P: 65 IA: 235 QRS: -14 QRSD: 96 T: 5 QT: 455 QTc: 449 Interpretive Statements SINUS BRADYCARDIA WITH FIRST DEGREE AV BLOCK MINIMAL VOLTAGE CRITERIA FOR LVH, CONSIDER NORMAL VARIANT [MEETS CRITERIA IN ONE OF: R(aVL), S(V1), R(V5), R(V5/V6)+S(V1)] Compared to ECG 10/06/2024 10:10:30 First degree AV block now present Atrial fibrillation no longer present Electronically Signed On 10-06-2024 12:45:39 CDT by Joel Griffin M.D.
--- NOTE | 2024-10-06 11:45 | WPDCARDVER ---
Cardioversion Cardioversion Date of procedure: 10/06/24 Procedure: DC cardioversion Pre-op diagnosis: Symptomatic atrial fibrillation Post-op diagnosis: Same Indications: Symptomatic atrial fibrillation Description of procedure: Risks/benefits/alternative to DC cardioversion and she is agreeable to procedure. Patient monitored electrocardiographically, vitals. She was in atrial fibrillation at 110 bpm, BP 120/70 mmHg, pulse ox >95%. Patient just had SUGEY which demonstrated no JUSTYNA or left atrial thrombus. Defibrillator pads placed in anterior and posterior chest. Sedated as per anesthesiology service. DC cardioversion with 200 J biphasic synchronized energy x1. This restored sinus rhythm at 59 bpm. BP 130/80 mmHg. Sedation: As per anesthesiology service. Conclusion: 1. Successful DC cardioversion from atrial fibrillation to Sinus rhythm. 2. Obtain EKG. [facility] Billing for Cardioversion: Cardioversion
--- NOTE | 2024-10-06 12:51 | PM.IMPN ---
Progress Note: A&P Assessment and Plan (1) Atrial fibrillation with RVR: Code(s): I48.91 - Unspecified atrial fibrillation Status: Acute Plan 83-year-old female a paroxysmal AFib, COPD, anxiety, hypertension, hyperlipidemia, GERD, IBS, arthritis, sleep apnea compliant with CPAP, sarcoidosis presents with palpitations. She lives with her grandson, on the morning of 10/02/2024 notice her heart rate to be elevated and notified her grandson. Brought in his [facility] ER. She has been compliant with her medications, she has not felt ill in the recent weeks. Has been hydrating well. ER evaluation revealed AFib with RVR with a rate of 130s on arrival. Troponin negative x2. Potassium greater than 4, magnesium 2. INR 1.7. CTA chest abdomen pelvis negative for PE. Enlarged central pulmonary arteries. Chronic atelectasis/scarring at the bilateral lung bases, diverticulosis. She Was given 5 mg metoprolol IV without improvement. Patient was placed on 10 milligram/hour diltiazem GTT. Cardiology notified from ER. Recommended discontinue metoprolol and Multaq and starting patient on sotalol 80 mg p.o. b.i.d.. And to advance warfarin to 6 mg daily. AFib with RVR started on Cardizem drip and sotalol. Metoprolol has been discontinued Multaq has been discontinued. per cardiology. Remains on IV Cardizem and sotalol load completed. Still AFib with RVR. Plan for SUGEY cardioversion today Diarrhea new on admission. ordered c diff. tsh noraml this has now resovled. Prediabetes with A1c of 5.8% Metabolic acidosis on arrival to the ER improved with IV hydration. COPD Anxiety Hypertension Hyperlipidemia GERD IBS Arthritis Sleep apnea compliant with CPAP History of sarcoidosis Fatty liver Hiatal hernia Pulmonary hypertension Diverticulosis Osteoporosis Hypothyroidism DVT prophylaxis on warfarin Code status full code Subjective Date/time seen: 10/06/24 12:51 Interval history: remains in AFib with RVR. Plan for SUGEY cardioversion today. Review of Systems Review of Systems: All systems reviewed & are unremarkable except as noted in HPI and below (Subjective) Exam Narrative: GENERAL: Well-appearing, well-nourished, and in no acute distress. HEAD: Normocephalic, atraumatic. EYES: PERRLA and EOMI. ENT: Nares clear, no rhinorrhea or epistaxis. Mucous membranes moist. NECK: Supple. CHEST: Clear to auscultation. No respiratory distress. HEART: AFib rhythm on telemetry with rapid ventricular rate ABDOMEN: Normoactive bowel sounds. Abdomen soft, nontender No rebound, guarding or rigidity EXTREMITIES: Normal range of motion. Pain edema to bilateral lower extremities SKIN: Warm, dry, no rash. NEURO: No focal deficits. Alert and oriented x3 Objective Data Vital Signs Vital Signs: Vital Signs - 24 hr 10/05/24 13:10 10/05/24 14:00 10/05/24 14:00 Temperature 98.6 F Pulse Rate 109 H 116 H 125 H Respiratory Rate 20 Blood Pressure 119/81 Pulse Oximetry 95 Oxygen Delivery Fraction of Inspired Oxygen 10/05/24 14:00 10/05/24 16:00 10/05/24 16:00 Temperature 97.9 F Pulse Rate 124 H 128 H 127 H Respiratory Rate 16 Blood Pressure 119/81 116/88 Pulse Oximetry 98 Oxygen Delivery Fraction of Inspired Oxygen 10/05/24 16:00 10/05/24 18:00 10/05/24 18:00 Temperature Pulse Rate 127 H 127 H 127 H Respiratory Rate Blood Pressure 116/88 Pulse Oximetry Oxygen Delivery Fraction of Inspired Oxygen 10/05/24 18:00 10/05/24 19:46 10/05/24 20:00 Temperature 98.1 F Pulse Rate 127 H 115 H 128 H Respiratory Rate 20 Blood Pressure 125/74 125/74 Pulse Oximetry 94 Oxygen Delivery Fraction of Inspired Oxygen 10/05/24 20:00 10/05/24 20:00 10/05/24 20:23 Temperature Pulse Rate 128 H 82 Respiratory Rate 20 Blood Pressure Pulse Oximetry Oxygen Delivery Room Air Fraction of Inspired Oxygen 10/05/24 20:25 10/05/24 20:32 10/05/24 22:00 Temperature Pulse Rate 82 135 H 108 H Respiratory Rate 20 Blood Pressure 111/86 Pulse Oximetry 97 96 Oxygen Delivery Room Air Fraction of Inspired Oxygen 21 10/05/24 22:00 10/05/24 22:00 10/05/24 22:38 Temperature Pulse Rate 87 87 87 Respiratory Rate Blood Pressure 111/86 Pulse Oximetry 95 Oxygen Delivery Autopap Fraction of Inspired Oxygen 10/05/24 23:09 10/05/24 23:09 10/05/24 23:49 Temperature 98.6 F Pulse Rate 88 88 102 H Respiratory Rate 21 H Blood Pressure 104/70 104/70 115/75 Pulse Oximetry 93 Oxygen Delivery Fraction of Inspired Oxygen 10/06/24 00:00 10/06/24 00:00 10/06/24 00:00 Temperature Pulse Rate 97 97 Respiratory Rate Blood Pressure 115/75 Pulse Oximetry Oxygen Delivery Room Air Fraction of Inspired Oxygen 10/06/24 01:06 10/06/24 02:00 10/06/24 02:00 Temperature Pulse Rate 82 82 84 Respiratory Rate Blood Pressure 123/60 Pulse Oximetry 95 92 Oxygen Delivery Autopap Fraction of Inspired Oxygen 10/06/24 02:00 10/06/24 04:00 10/06/24 04:00 Temperature Pulse Rate 84 126 H Respiratory Rate Blood Pressure 123/60 Pulse Oximetry Oxygen Delivery Room Air Fraction of Inspired Oxygen 10/06/24 04:00 10/06/24 04:36 10/06/24 05:00 Temperature 98.0 F Pulse Rate 126 H 90 85 Respiratory Rate 20 20 Blood Pressure 114/53 L 114/53 L Pulse Oximetry 96 96 Oxygen Delivery Room Air Fraction of Inspired Oxygen 21 10/06/24 06:00 10/06/24 06:00 10/06/24 06:00 Temperature Pulse Rate 80 66 80 Respiratory Rate Blood Pressure 121/52 L 121/52 L Pulse Oximetry 92 Oxygen Delivery Fraction of Inspired Oxygen 10/06/24 08:00 10/06/24 08:00 10/06/24 08:00 Temperature 98.2 F Pulse Rate 54 L 92 92 Respiratory Rate 18 Blood Pressure 113/73 113/73 Pulse Oximetry 95 Oxygen Delivery Fraction of Inspired Oxygen 10/06/24 08:37 10/06/24 09:09 10/06/24 09:32 Temperature Pulse Rate 136 H 97 105 H Respiratory Rate Blood Pressure Pulse Oximetry Oxygen Delivery Fraction of Inspired Oxygen 10/06/24 09:37 10/06/24 10:00 10/06/24 10:00 Temperature Pulse Rate 117 H 117 H Respiratory Rate Blood Pressure Pulse Oximetry 97 Oxygen Delivery Room Air Fraction of Inspired Oxygen 10/06/24 10:04 10/06/24 10:50 10/06/24 11:05 Temperature Pulse Rate 117 H 58 L 57 L Respiratory Rate 18 15 Blood Pressure 103/67 105/68 Pulse Oximetry 96 95 Oxygen Delivery Room Air Room Air Fraction of Inspired Oxygen Intake/Output Intake/Output: Intake & Output 10/03/24 10/04/24 10/05/24 10/06/24 23:59 23:59 23:59 23:59 Intake Total 1902.0 1303.2 1358.6 505.4 Output Total 2 150 Balance 1900.0 1153.2 1358.6 505.4 Meds/Results Medications: Active Medications Generic Name Dose Route Start Last Admin Trade Name Freq PRN Reason Stop Dose Admin Acetaminophen 500 mg 10/03/24 10:35 10/04/24 20:07 Acetaminophen 500 Mg Tablet PO 500 mg QAM PRN Administration pain (scale score 1-3) Albuterol 2.5 mg 10/03/24 10:35 Albuterol Sulfate Neb 2.5 Mg/3 Ml Inh INHALATION Q4-6H PRN shortness of breath or wheezing Albuterol 2 puff 10/03/24 10:35 Albuterol Sulfate (*Sp) Aerosol 1 Puff INHALATION Q4-6H PRN shortness of breath or wheezing Alprazolam 0.25 mg 10/03/24 04:01 10/06/24 08:37 Alprazolam (*Crx) 0.25 Mg Tablet PO 0.25 mg BID PRN Administration anxiety Fluticasone Propionate 2 spray 10/03/24 10:35 10/06/24 08:40 Fluticasone Propionate 0.05% Na Spr 16 Gm Btl (*Bkc) NASAL 2 spray DAILY ENDY Administration Furosemide 80 mg 10/03/24 09:00 10/06/24 08:37 Furosemide 40 Mg Tablet BY MOUTH 80 mg DAILY ENDY Administration Diltiazem HCl 100 mg in 100 mls @ 0 mls/hr 10/03/24 02:40 10/06/24 10:04 Cardizem 100 Mg/100 Ml IV CONT 0 mg/hr .Q0M ENDY 0 mls/hr Infusion Sodium Chloride 1,000 mls @ 30 mls/hr 10/06/24 09:20 Normal Saline Iv IV CONT .Q24H ENDY Irbesartan 300 mg 10/07/24 09:00 Irbesartan 150 Mg Tablet PO QAM ENDY Levothyroxine Sodium 88 mcg 10/04/24 06:30 10/06/24 05:36 Levothyroxine Sodium 88 Mcg Tablet PO 88 mcg DAILY@0630 [facility] Administration Multivitamins Therapeutic 1 tablet 10/04/24 09:00 10/06/24 08:36 Multivitamins Therapeutic Tab (*Bkc) PO 1 tablet QAM [facility] Administration Pantoprazole Sodium 40 mg 10/03/24 09:00 10/06/24 08:36 Pantoprazole 40 Mg Tablet PO 40 mg QAM ENDY Administration Potassium Chloride 10 meq 10/03/24 08:00 10/06/24 08:36 Potassium Chloride 10 Meq Er Tablet PO 10 meq BIDWM [facility] Administration Rosuvastatin Calcium 10 mg 10/03/24 09:00 10/06/24 08:36 Rosuvastatin 10 Mg Tablet BY MOUTH 10 mg DAILY [facility] Administration Fluticasone/Salmeterol 2 puff 10/03/24 08:00 10/06/24 09:36 Fluticasone/Salmeterol 45-21 Mcg Inhaler 1 Puff INHALATION 2 puff Q12HRT [facility] Administration Sotalol HCl 80 mg 10/02/24 21:47 10/06/24 08:37 Sotalol Hcl 80 Mg Tablet PO 80 mg Q12HR ENDY Administration Vitamin D 125 mcg 10/03/24 09:00 10/06/24 08:37 Cholecalciferol (Vitamin D3) 125 Mcg (5,000 Units) Tablet PO 125 mcg DAILY [facility] Administration Warfarin Sodium 4 mg 10/07/24 17:00 Warfarin (*Pbkc) 4 Mg Tablet PO Tu@1700 ENDY Warfarin Sodium 6 mg 10/03/24 17:00 10/05/24 16:29 Warfarin (*Pbkc) 3 Mg Tablet PO 6 mg SuMoWeThFrSa@1700 [facility] Administration Radiology Results: ITS Impressions Chest X-Ray 10/02/24 18:14 IMPRESSION: 1. Opacities in the bilateral lower lung zones which could represent atelectasis, mild pulmonary edema, pneumonia or some combination thereof. Chest/Abdomen/Pelvis CTA 10/02/24 21:02 IMPRESSION: 1. Chronic atelectasis/scarring at the bilateral lung bases. 2. Enlargement of the central pulmonary arteries consistent with pulmonary arterial hypertension without evident pulmonary embolism. 3. No acute intra-abdominal/pelvic process. 4. Small fat-containing umbilical and supraumbilical ventral hernias. 5. Diverticulosis. Labs Labs: Laboratory Results - last 24 hr 10/06/24 04:17 WBC 9.8 RBC 4.58 Hgb 13.1 Hct 41.5 MCV 90.6 MCH 28.6 MCHC 31.6 L RDW 15.9 H Plt Count 277 MPV 10.9 H Immature Gran % (Auto) 0.4 Neut % (Auto) 48.3 Lymph % (Auto) 34.1 Wells % (Auto) 13.4 H Eos % (Auto) 3.1 Baso % (Auto) 0.7 Lymph # (Auto) 3.33 H Wells # (Auto) 1.3 H Eos # (Auto) 0.3 Baso # (Auto) 0.1 Abs Immat Gran (auto) 0.04 H Absolute Neuts (auto) 4.7 Absolute Nucleated RBC 0.000 Nucleated RBC % 0.0 PT 23.4 H INR 2.2 Sodium 135 L Potassium 3.9 Chloride 103 Carbon Dioxide 20 L Anion Gap 12 BUN 15 Creatinine 0.92 Estim Creat Clear Calc 42 Estimated GFR 58 L Glucose 115 H Calcium 8.4 Magnesium 1.8 Total Bilirubin 0.9 AST 38 H ALT 33 Alkaline Phosphatase 52 Total Protein 7.0 Albumin 3.9
[2024-10-06] MEDS: IRBESARTAN 150 MG TABLET 300 MG PO (13:07)
[2024-10-06] MEDS: WARFARIN (*PBKC) 3 MG TABLET 6 MG PO (17:40)
[2024-10-07] VITALS (16 sets, daily range): BP systolic 105–122; BP diastolic 45–58; PULSE 59–80; RESP 16–20; TEMP 36.4–36.8; O2SAT 94–99
[2024-10-07 04:50] LABS: INR 2.4; Prothrombin Time 25.8 Seconds (11.1-14.7)
[2024-10-07 05:03] LABS: Potassium 3.3 mmol/L (3.4-5.0)
[2024-10-07] MEDS: LEVOTHYROXINE SODIUM 88 MCG TABLET PO (05:36)
--- NOTE | 2024-10-07 08:05 | P.DS_ITS ---
DS: Admitting Diagnosis Discharge Date 10/07/2024 Admitting Diagnosis Palpitation DS: Discharge Diagnosis Discharge Diagnosis (1) Atrial fibrillation with RVR: Code(s): I48.91 - Unspecified atrial fibrillation Status: Acute DS: Summary Hospital Course Hospital Course: 83-year-old female a paroxysmal AFib, COPD, anxiety, hypertension, hyperlipidemia, GERD, IBS, arthritis, sleep apnea compliant with CPAP, sarcoidosis presents with palpitations. She lives with her grandson, on the morning of 10/02/2024 notice her heart rate to be elevated and notified her grandson. Brought in his [facility] ER. She has been compliant with her medications, she has not felt ill in the recent weeks. Has been hydrating well. ER evaluation revealed AFib with RVR with a rate of 130s on arrival. Troponin negative x2. Potassium greater than 4, magnesium 2. INR 1.7. CTA chest abdomen pelvis negative for PE. Enlarged central pulmonary arteries. Chronic atelectasis/scarring at the bilateral lung bases, diverticulosis. She Was given 5 mg metoprolol IV without improvement. Patient was placed on 10 milligram/hour diltiazem GTT. Cardiology notified from ER. Recommended discontinue metoprolol and Multaq and starting patient on sotalol 80 mg p.o. b.i.d.. And to advance warfarin to 6 mg daily. AFib with RVR started on Cardizem drip and sotalol. Metoprolol has been discontinued Multaq has been discontinued. per cardiology. Remains on IV Cardi zem and sotalol load completed. Still AFib with RVR. Eventually she underwent SUGEY cardioversion on 10/06/2024 with conversion to sinus rhythm. She was observed overnight and she remained on sinus rhythm. Continue anticoagulation with warfarin with therapeutic INR at discharge. Diarrhea new on admission. ordered c diff. tsh noraml this has now resovled. Prediabetes with A1c of 5.8% Metabolic acidosis on arrival to the ER improved with IV hydration. COPD Anxiety Hypertension on amlodipine 10 mg daily hydralazine 50 mg 3 times a day irbesartan 300 mg daily metoprolol 50 mg twice a day and Lasix 80 mg daily at home. Blood pressure Sasha will hold hydralazine and amlodipine at discharge. Metoprolol has been switched to sotalol. Hyperlipidemia GERD IBS Arthritis Sleep apnea compliant with CPAP History of sarcoidosis Fatty liver Hiatal hernia Pulmonary hypertension Diverticulosis Osteoporosis Hypothyroidism DVT prophylaxis on warfarin Code status full code Time Spent with Patient Time attestation: Total time spent providing and/or coordinating discharge services: 35 minutes Exam Narrative: GENERAL: Well-appearing, well-nourished, and in no acute distress. HEAD: Normocephalic, atraumatic. EYES: PERRLA and EOMI. ENT: Nares clear, no rhinorrhea or epistaxis. Mucous membranes moist. NECK: Supple. CHEST: Clear to auscultation. No respiratory distress. HEART: Sinus rhythm on telemetry with rapid ventricular rate ABDOMEN: Normoactive bowel sounds. Abdomen soft, nontender No rebound, guarding or rigidity EXTREMITIES: Normal range of motion. Pain edema to bilateral lower extremities SKIN: Warm, dry, no rash. NEURO: No focal deficits. Alert and oriented x3 DS: Data Data Completed and Pending Labs on day of discharge: Labs from last 24 hours 10/07/24 04:20 PT 25.8 H INR 2.4 Potassium 3.3 L Preliminary micro results at discharge 10/02/24 18:09 Blood Culture - Preliminary Blood 10/02/24 18:09 Blood Culture - Preliminary Blood Procedures/Treatments: Cardioversion Cardioversion Date of procedure: 10/06/24 Procedure: DC cardioversion Pre-op diagnosis: Symptomatic atrial fibrillation Post-op diagnosis: Same Indications: Symptomatic atrial fibrillation Description of procedure: Risks/benefits/alternative to DC cardioversion and she is agreeable to procedure. Patient monitored electrocardiographically, vitals. She was in atrial fibrillation at 110 bpm, BP 120/70 mmHg, pulse ox >95%. Patient just had SUGEY which demonstrated no JUSTYNA or left atrial thrombus. Defibrillator pads placed in anterior and posterior chest. Sedated as per anesthesiology service. DC cardioversion with 200 J biphasic synchronized energy x1. This restored sinus rhythm at 59 bpm. BP 130/80 mmHg. Sedation: As per anesthesiology service. Conclusion: 1. Successful DC cardioversion from atrial fibrillation to Sinus rhythm. 2. Obtain EKG. [facility] Billing for Cardioversion: Cardioversion Imaging Radiologist's impression: ITS Impressions Chest X-Ray 10/02/24 18:14 IMPRESSION: 1. Opacities in the bilateral lower lung zones which could represent atelectasis, mild pulmonary edema, pneumonia or some combination thereof. Chest/Abdomen/Pelvis CTA 10/02/24 21:02 IMPRESSION: 1. Chronic atelectasis/scarring at the bilateral lung bases. 2. Enlargement of the central pulmonary arteries consistent with pulmonary arterial hypertension without evident pulmonary embolism. 3. No acute intra-abdominal/pelvic process. 4. Small fat-containing umbilical and supraumbilical ventral hernias. 5. Diverticulosis. Discharge Plan Discharge Attending physician on discharge: Dwight Porras Consulting providers: Annie Castro Discharging Clinician: Dwight Porras Anticipated Discharge Date/Time: 10/07/24 08:07 Patient Disposition: Home Activity: as tolerated Diet: heart healthy Discharge Instructions: INR monitoring as previously ordered Patient Instructions: Antibiotic Form, A-fib (Atrial Fibrillation) (GEN) Patient Language: Belarusian Stand Alone Forms: General Discharge Information Follow-up/Referrals: Tru Benites MD [Primary Care Provider] - 1 Week Annie Castro APN-C [Advanced Practice Nurse] - 2 Weeks Discharge Medications: New sotalol 80 mg Tablet 80 mg PO Q12HR Qty: 60 0RF Continued milk thistle 175 mg tablet 500 mg PO DAILY Rx Instructions: give with meal/snack albuterol sulfate 2.5 mg /3 mL (0.083 %) solution for nebulization 2.5 mg inhalation Q4-6H PRN (Reason: shortness of breath or wheezing) Qty: 90 3RF cholecalciferol (vitamin D3) 125 mcg (5,000 unit) capsule 125 mcg PO DAILY vitamin B complex [B Complex-Vitamin B12] Tablet 1 tablet PO DAILY quercetin 500 mg capsule 500 mg PO DAILY selenium 200 mcg capsule 200 mcg PO DAILY garlic 1,000 mg capsule 1,000 mg PO DAILY cinnamon bark [Cinnamon] 500 mg capsule 500 mg PO DAILY warfarin 4 mg tablet 4 mg PO .COMPLEX Rx Instructions: 4 mg orally on SUNDAY multivitamin 1 tablet BYMOUTH DAILY potassium chloride 10 mEq tablet extended release 10 meq PO BID Prilosec OTC 20 mg tablet,delayed release (DR/EC) 20 mg PO DAILY acetaminophen 500 mg tablet 500 mg PO .am PRN (Reason: pain (scale score 1-3)) warfarin 2 mg tablet 6 mg PO .COMPLEX Rx Instructions: 6 mg orally on SUNDAY, SUNDAY, SUNDAY, SUNDAY, SUNDAY, SUNDAY furosemide 40 mg tablet See Rx Instructions .ROUTE .COMPLEX Qty: 180 1RF Dose Instruction: TAKE 2 TABLETS BY MOUTH DAILY Rx Instructions: TAKE 2 TABLETS BY MOUTH DAILY fluticasone propionate 50 mcg/actuation spray,suspension See Rx Instructions .ROUTE .COMPLEX Qty: 48 3RF Dose Instruction: SHAKE THEN INSTILL 2 SPRAYS INTO EACH NOSTRIL TWICE A DAY Rx Instructions: SHAKE THEN INSTILL 2 SPRAYS INTO EACH NOSTRIL TWICE A DAY alendronate 70 mg tablet See Rx Instructions .ROUTE .COMPLEX Qty: 12 4RF Dose Instruction: TAKE 1 TABLET BY MOUTH ONCE WEEKLY Rx Instructions: TAKE 1 TABLET BY MOUTH ONCE WEEKLY albuterol sulfate 90 mcg/actuation HFA aerosol inhaler 1 - 2 puff INHALATION Q4-6H PRN (Reason: shortness of breath or wheezing) Qty: 8.5 2RF budesonide-formoterol 80-4.5 mcg/actuation HFA aerosol inhaler 2 puff inhalation Q12H Qty: 30.6 3RF Rx Instructions: Rinse mouth and spit irbesartan 300 mg tablet See Rx Instructions .ROUTE .COMPLEX Qty: 100 1RF Dose Instruction: TAKE 1 TABLET BY MOUTH EVERY DAY Rx Instructions: TAKE 1 TABLET BY MOUTH EVERY DAY rosuvastatin 10 mg tablet See Rx Instructions .ROUTE .COMPLEX Qty: 100 1RF Dose Instruction: TAKE 1 TABLET BY MOUTH EVERY DAY Rx Instructions: TAKE 1 TABLET BY MOUTH EVERY DAY levothyroxine 88 mcg tablet 88 mcg PO DAILY Qty: 90 1RF alprazolam 0.25 mg tablet 0.25 mg PO BID PRN (Reason: anxiety) Qty: 60 0RF Discontinued Multaq 400 mg tablet 400 mg PO BID Patient Comments: 8 am and 4 pm Rx Instructions: must administer with a meal/food hydralazine 50 mg tablet 50 mg PO TID Multaq 400 mg tablet 400 mg PO BID Rx Instructions: must administer with a meal/food metoprolol tartrate 50 mg tablet See Rx Instructions .ROUTE .COMPLEX Qty: 60 0RF Dose Instruction: 50 MG ORALLY TWICE A DAY FOR 30 DAYS Rx Instructions: 50 MG ORALLY TWICE A DAY FOR 30 DAYS amlodipine 10 mg tablet See Rx Instructions .ROUTE .COMPLEX Qty: 90 1RF Dose Instruction: TAKE 1 TABLET BY MOUTH EVERY DAY Rx Instructions: TAKE 1 TABLET BY MOUTH EVERY DAY Date of admission: 10/04/24 12:42 Primary Care Provider: Tru Benites Admitting Provider: Awilda Barnes Attending physician on admission: Awilda Barnes Condition: Improved
[2024-10-07] MEDS: FLUTICASONE/SALMETEROL 45-21 MCG INHALER 1 PUFF 2 PUFF INHALATION (09:00)
[2024-10-07] MEDS: ALPRAZolam (*CRX) 0.25 MG TABLET PO (09:11)
[2024-10-07] MEDS: POTASSIUM CHLORIDE 10 MEQ ER TABLET PO (09:11)
[2024-10-07] MEDS: IRBESARTAN 150 MG TABLET 300 MG PO (09:11)
[2024-10-07] MEDS: PANTOPRAZOLE 40 MG TABLET PO (09:12)
[2024-10-07] MEDS: FUROSEMIDE 40 MG TABLET 80 MG BY MOUTH (09:12)
[2024-10-07] MEDS: CHOLECALCIFEROL (VITAMIN D3) 125 MCG (5,000 UNITS) TABLET PO (09:12)
[2024-10-07] MEDS: MULTIVITAMINS THERAPEUTIC TAB (*BKC) 1 TABLET PO (09:12)
[2024-10-07] MEDS: SOTALOL HCL 80 MG TABLET PO (09:12)
[2024-10-07] MEDS: FLUTICASONE PROPIONATE 0.05% NA SPR 16 GM BTL (*BKC) 2 SPRAY NASAL (09:13)
[2024-10-07] MEDS: ROSUVASTATIN 10 MG TABLET BY MOUTH (09:13)
[2024-10-07] MEDS: POTASSIUM CHLORIDE 20 MEQ ER TABLET 40 MEQ PO (10:17)
--- NOTE | 2024-10-07 15:26 | PC.NURSE ---
Reviewed all discharge orders with patient. Verbalized understanding at this time.
== END 2024-10-07 15:36 | disposition home or self-care (01) | DRG 310 ==
LOC: ANHED 22:15 → ANHIMU 10-03 01:11
PROVIDERS: Internal Medicine Cardiovascular Disease; Nurse Practitioner; Physician Assistant; Admitting Provider General Practice; Emergency Provider Physician Assistant; PCP Family Medicine; Visit Provider Internal Medicine
PROC: 5A2204Z Restoration of Cardiac Rhythm, Single (ICD-10-PCS; principal; 2024-10-06 10:15)
PROC: B24BZZ4 Ultrasonography of Heart with Aorta, Transesophageal (ICD-10-PCS; CPT 93312; 2024-10-06 10:15)
DX: I48.0 Paroxysmal atrial fibrillation (principal); I42.9 Cardiomyopathy, unspecified; I10 Essential (primary) hypertension; I27.20 Pulmonary hypertension, unspecified; J44.9 Chronic obstructive pulmonary disease, unspecified; D86.9 Sarcoidosis, unspecified; E78.5 Hyperlipidemia, unspecified; E03.9 Hypothyroidism, unspecified; K21.9 Gastro-esophageal reflux disease without esophagitis; K44.9 Diaphragmatic hernia without obstruction or gangrene; K76.0 Fatty (change of) liver, not elsewhere classified; K58.9 Irritable bowel syndrome, unspecified; K57.30 Diverticulosis of large intestine without perforation or abscess without bleeding; M81.0 Age-related osteoporosis without current pathological fracture; M19.90 Unspecified osteoarthritis, unspecified site; G47.33 Obstructive sleep apnea (adult) (pediatric); F41.9 Anxiety disorder, unspecified; Z79.01 Long term (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
CPT/HCPCS: 36415; 71045; 71275; 74174; 80048; 80053; 81001; 83605; 83690; 83735; 83880; 84132; 84443; 84484; 85025; 85610; 85730; 87040; 92960; 93005; 93312; 93320; 93325; 94640; 96361; 96366; 96374; 96375; 99285; A9270; G0378; J0616; J1163; J2765; J7030; J7040; Q9967

== ENCOUNTER 2024-11-24 10:25 | Emergency (ER) | payer MEDICARE, SELFPAY ==
[2024-11-24] VITALS (34 sets, daily range): BP systolic 122–172; BP diastolic 58–81; PULSE 57–85; RESP 14–24; TEMP 36.4; O2SAT 92–100
--- NOTE | ~2024-11-24 | CT_ITS ---
Glenna Almendarez EXAMINATION: CT abdomen pelvis w con COMPARISON: None HISTORY: epigastr abd pain/LUQ TECHNIQUE: Axial images were obtained through the abdomen, pelvis post administration of IV contrast. Oral contrast was also administered. Coronal reconstruction images were obtained from the axial views. CT scan performed using dose optimization techniques including the following automated exposure control; adjustment of mA and/or kV; use of iterative reconstruction technique. Automatic exposure control was used to reduce radiation dose. Permanent radiation dose record is archived to PACS. FINDINGS: CT abdomen: LUNG BASES: Lung bases chronic changes. Mild cardiomegaly. LIVER: Mild cirrhotic disease of the liver. Mild hepatic steatosis. Portal vein patent. No intrahepatic biliary duct dilatation. SPLEEN: Unremarkable. KIDNEYS: Right Kidney: Unremarkable. No calculi. No hydronephrosis. Left Kidney: Unremarkable. No calculi. No hydronephrosis ADRENAL GLANDS: Unremarkable. PANCREAS: Unremarkable. GALLBLADDER/BILIARY: Postcholecystectomy. STOMACH AND ESOPHAGUS: Visualized stomach and esophagus within normal limits. BOWEL/MESENTERY: Moderate to severe diverticulosis, no diverticulitis or colitis. Appendix not identified. Mesentery normal. Small bowel normal. ADENOPATHY/RETROPERITONEUM: No lymphadenopathy. AORTA/VASCULATURE: Normal caliber aorta. FREE FLUID OR FREE AIR: No free fluid.. CT pelvis: SOLID ORGANS/REPRODUCTIVE: Post hysterectomy. No adnexal mass. BLADDER: Within normal limits. OSSEOUS STRUCTURES: No acute osseous abnormality.No suspicious lesions. OVERLYING SOFT TISSUES: Small fat-containing supraumbilical ventral hernia, defect in the abdominal wall 1 cm. Small fat-containing umbilical hernia. IMPRESSION: 1. No etiology to explain epigastric pain. Incidental findings above Reviewed, dictated and finalized at location A.
--- NOTE | ~2024-11-24 | XR_ITS ---
Examination: XR chest 2V Clinical History: Chest pain Comparison: 10/02/2024 Technique: PA and Lateral Findings: Cardiomediastinal silhouette normal size and configuration. Lungs clear. No acute bony abnormality. Osteopenia. IMPRESSION: 1. No acute cardiopulmonary findings. Reviewed, dictated and finalized at location R.
--- NOTE | 2024-11-24 10:28 | ECG_ITS ---
Test Date: 2024-11-24 10:37:32 Measurements Intervals [place] Rate: 64 P: 78 NH: 226 QRS: -5 QRSD: 88 T: 42 QT: 432 QTc: 449 Interpretive Statements SINUS RHYTHM WITH FIRST DEGREE AV BLOCK ABNORMAL ECG Compared to ECG 10/06/2024 10:39:24 Sinus bradycardia no longer present Electronically Signed On 11-24-2024 11:19:16 CDT by Yaw Shi M.D.
[2024-11-24 11:02] LABS: Hematocrit 39.3 % (37.0-47.0); Hemoglobin 12.5 g/dL (12.0-15.0); Immature Granulocyte Percent A 0.5 % (0-0.5); Lymphocytes Absolute Auto 1.49 K/mm3 (0.9-3.2); Mean Corpuscular HGB Conc 31.8 g/dl (32-36); Mean Corpuscular Hemoglobin 28.3 pg (26-34); Mean Corpuscular Volume 89.1 fl (80-100); Nucleated Red Blood Cells Absolute Auto 0.000 K/mm3 (0.0-0.012); Nucleated Red Blood Cells Perc 0.0 % (0.0-0.2); Platelet Count Result 258 k/mm3 (150-375); Red Blood Count 4.41 M/mm3 (4.2-5.4); White Blood Count 6.5 K/mm3 (4.5-10.0)
[2024-11-24 11:14] LABS: Alanine Aminotransferase 30 U/L (6-35); Albumin Level 4.3 g/dL (3.5-5.1); Alkaline Phosphatase 56 U/L (38-126); Anion Gap 10 mmol/L (4-12); Aspartate Amino Transferase 41 U/L (14-36); Bilirubin,Total 1.1 mg/dL (0.2-1.3); Blood Urea Nitrogen 11 mg/dL (7-17); Calcium 9.1 mg/dL (8.4-10.2); Carbon Dioxide 20 mmol/L (22-30); Chloride 108 mmol/L (98-107); Estimated CRCL calculation 56 ml/min; Estimated Glomerular Filt Rate > 60; Glucose 127 mg/dL (65-110); Lipase 61 U/L (23-300); Potassium 4.1 mmol/L (3.4-5.0); Sodium 138 mmol/L (137-145); Total Protein 7.6 g/dL (6.3-8.2)
[2024-11-24 11:24] LABS: Troponin I < 0.012 ng/mL (0.000-0.034)
--- OUTSIDE RECORDS SUMMARY | 2024-11-24 11:56 | XMS_ITS | Clinical Summary ---
Author Organization [facility] Address [address] [place] [address] Care Team Providers Care Security System Installer Name Role Phone Unavailable Primary Care Provider Unavailabl e Source Comments [facility],non-owned Affiliates and Associated Physician Practices is amultiple site organization consisting of ambulatory clinics and hospital sitesin [place], [place], [place] and [place]. This disclosure is being madepursuant to the Care Everywhere program and may not contain all information available regarding this patient. Last updated 17.[facility] Encounters Date Type Department Care Team Description 10/16/2024 Lab Requisition [facility] - DermPath Lab [address] [place] [phone] Jorge Kwan MD from Last 3 Months Social History Tobacco Use Types Packs/Day Years Used Date Smoking Tobacco: Never Assessed Comments Unknown Sex and Gender Information Value Date Recorded Sex Assigned at Not on file Legal Sex Female 6:50 AM CDT Gender Identity Not on file Sexual Orientation Not on file Plan of Treatment Health Maintenance Due Date Last Done Comments BONE DENSITY TESTING 1940 DTAP/TDAP/TD VACCINES (1 - Tdap) 1957 PNEUMOCOCCAL VACCINE 50+ (1 of 1 - PCV) 1988 ZOSTER VACCINE (1 of 2) 1988 Respiratory Syncytial Virus (RSV) Vaccine Pt: or over 60 yrs (1 - 1-dose 75+ series) 2013 DEPRESSION SCREENING 03/12/2024 MEDICARE AWV CALENDAR YEAR 2024 COVID-19 VACCINE (1 - 2023-2 5 season) 2024 INFLUENZA VACCINE (#1) 2024 HEPATITIS B VACCINE Aged Out No longe r eligible based on patient's age to complete this topic HIB VACCINE Aged Out No longer eligi ble based on patient's age to complete this topic HPV VACCINE Aged Out No longer eligi ble based on patient's age to complete this topic MENINGOCOCCAL (Group B) VACC INE SHARED DECISION-MAKING Aged Out No longer eligibl e based on patient's age to complete this topic MENINGOCOCCAL GROUPS A/C/Y/W VACCINE Aged Out No longer eligible b ased on patient's age to complete this topic Procedures Procedure Name Priority Date/Time Associated Diagnosis Comments DERMATOPATHOLOGY Routine 10/15/2024 12:0 0 AM CDT from Last 3 Months Results * DERMATOPATHOLOGY (10/15/2024 12:00 AM CDT) Case Report Dermatopathology Report Case: [id number] Authorizing Provider: oJrge Kwan MD Collected: 10/15/2024 12:00 AM Ordering Location: [facility] - Received: 10/16/2024 07:21 AM DermPath Lab Pathologist: Nhi Adair MD Specimen: Skin, right post helix 2:32 PM CDT DERMATOPATHOLOGY LABORATORY Final Diagnosis Specimen A. 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 The specimen consists of a curettage and desiccation biopsy measuring 6x6x1 mm. Jar 0. 2:32 PM CDT DERMATOPATHOLOGY LABORATORY Microscopic Description Specimen A. SKIN, right post helix: The epidermis shows parakeratosis, full thickness disorderly maturation of keratinocytes, mitoses at different levels, and dyskeratotic cells. 2:32 PM CDT DERMATOPATHOLOGY LABORATORY Disclaimer An external and internal positive and negative controls are appropriate for the histochemical, immunohistochemical and immunofluorescence stain(s) in this case (if any), except where stated explicitly. The performance characteristics of the stain(s) cited in this report were developed and its performance characteristic determined by the Dermatopathology Laboratory at [facility], directed by Dr. Ken Plata. These tests need not be, and therefore are not, approved by the [place] Food and Drug Administration. The tests are used for clinical purposes. Billing Codes Specimen Charges Stain Charges 85727 1 2:32 PM CDT DERMATOPATHOLOGY LABORATORY Embedded Images 2:32 PM CDT DERMATOPATHOLOGY LABORATORY Pathology/Cytolog y TISSUE SPECIMEN FROM SKIN / Unknown 10/15/2024 10/16/2024 7:21 AM CDT Jorge Kwan MD LAB - PATHOLOGY/CYTOLOGY ORDERAB LES Final Result DERMATOPATHOLOGY LABORATORY [facility] - Department of Dermatology [facility] Medicine [address] [place] [address], [address] [place] [address], [facility] [phone] from Last 3 Months Insurance [employer] MEDICARE ADV SELF PAY NO INSURANCE Member Subscriber Plan / Payer (Ef fective for All Dates) Name:Glenna Whitehead Member ID:Not on file Relation to Subscriber:Not on file Name:GLENAN WHITEHEAD Subscriber ID:Not on file (Home) Address: [address] [place] [id number] Payer ID:Not on file Group ID:Not on file Type:Self Pay Address: [place], [place]
--- OUTSIDE RECORDS SUMMARY | 2024-11-24 11:56 | XMS_ITS | Encounter Summary ---
Author Organization [facility] Healthcare Address [address] [place] [address] Care Team Providers Care Aquarium Tank Attendant Name Role Phone Tru Benites MD Primary Care Provider [phone] [phone] Gordy Flowers LIFE UNDERWRITER Unavailable Encounter Details Date Type Department Care Team (Late st Contact Info) Description 10/02/2024 Orders Only [facility] [place] Information Management [address] [place] [address] Scanning, Provider Social History Tobacco Use Types Packs/Day Years Used Date Smoking Tobacco: Never Smokeless Tobacco: Never Alcohol Use Standard Drinks/Week Comments Not Currently 0 (1 standard drink = 0.6 oz pur e alcohol) Comments Unknown Sex and Gender Information Value Date Recorded Sex Assigned at Not on file Legal Sex Female 2:35 AM 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 Gender Identity Not on file Sexual Orientation Not on file documented as of this encounter Plan of Treatment Not on file documented as of this encounter Procedures Procedure Name Priority Date/Time Associated Diagnosis Comments SCAN - RADIOLOGY/IMAGING 10/02/2024 documented in this encounter Results * SCAN - RADIOLOGY/IMAGING (10/02/2024) Anatomical Region Laterality Modality Other us Provider Scanning Edited Result - Final documented in this encounter Visit Diagnoses Not on filedocumented in this encounter Care Teams Aquarium Tank Attendant Relationship Specialty Start Date End Date Tru Benites MD PCP - General Family Practice 09/05/22 Gordy Flowers NP [address] [facility] [address] [place] [address] Nurse Practitioner 11/04/24 documented as of this encounter
--- OUTSIDE RECORDS SUMMARY | 2024-11-24 11:56 | XMS_ITS | Clinical Summary ---
Author Organization [facility] [address] Address [address] [place] [address] Care Team Providers Care Senior Shipping Clerk Name Role Phone Tru Benites MD Primary Care Provider [phone] [phone] Gordy Flowers NP Unavailable Allergies Active Allergy Reactions Criticality Noted Date [...] 3 (three) times a day as needed 020 Active furosemide (LASIX) 40 mg tablet Take [...] HFA 90 mcg/actuation inhaler Inhale 2 puffs Active Symbicort 80-4.5 mcg/actuation inhaler INHALE 2 [...] Take 2 tablets by mouth daily Active fluticasone propionate (FLONASE) 50 mcg/actuation nasal spray Administer 2 sprays into each nostril daily Active warfarin (COUMADIN) 2 mg tabletIndication s:Paroxysmal atrial fibrillation (HCC),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 30 tablet 1 025 Active warfarin (COUMADIN) 6 mg tablet Take 1 tablet (6 mg total) by mouth as directed Take 6mg 6 days a week and 4mg 1 day a week or as directed by physician. 30 tablet 2 025 Active garlic 1,000 mg capsule Take by mouth Active cinnamon bark 500 mg capsule Take 1 capsule (500 mg total) by mouth daily Active acetaminophen 500 mg capsule Take by mouth A ctive selenium 200 mcg capsule Take by mouth Active hydrALAZINE (APRESOLINE) 50 mg tablet TAKE 1 TABLET BY MOUTH THREE TIMES A DAY 270 tablet 1 025 Active hydrALAZINE (APRESOLINE) 25 mg tabletIndication s:hypertension Take 1 tablet (25 mg total) by mouth 3 (three) times a day 90 tablet 11 025 2025 Active sotaloL (BETAPACE) 80 mg tablet Take 1 tablet (80 mg total) by mouth every 12 (twelve) hours 180 tablet 3 025 Active hydrALAZINE (APRESOLINE) 50 mg tablet TAKE 1 TABLET BY MOUTH THREE TIMES A DAY 270 tablet 1 025 2024 Discontinued sotaloL (BETAPACE) 80 mg tablet Take 1 tablet (80 mg total) by mouth every 12 (twelve) hours 025 2024 Discontinued(R eorder) Active Problems Problem Noted Date Diagnosed Date Atrial fibrillation 06/04/2024 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 2024 LVH (left ventricular hypertrophy) 12/20/2022 Paroxysmal atrial fibrillation 11/30/2022 [facility] current use of 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 therapy 0 11/30/2022 [...] Encounters Date Type Department Care Team Description 11/21/2024 Anticoagulation Visit [facility] [address] [place] [address] [place] [phone] Beatriz Guerra RN Atrial fibrillation, unspecified type (HCC) (Primary Dx); 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 11/07/2024 Telephone [facility] [address] [place] [address] [place] [phone] Yaima Rossi NP Med Management 11/04/2024 8:00 AM CDT Office Visit [facility] [address] [place] [address] [place] [phone] Yaima Rossi NP Paroxysmal atrial fibrillation (HCC) (Primary Dx); Essential hypertension; Sarcoidosis; [facility] current use of 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 therapy 11/03/2024 Telephone [facility] [address] [place] [phone] Eddie Bennett MD 11/03/2024 Anticoagulation Visit [facility] [address] [facility] [address] [place] [phone] Nancy Vergara RN Atrial fibrillation, unspecified type (HCC) (Primary Dx); [facility] (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 10/30/2024 Telephone [facility] [address] [place] [address] [place] [phone] Eddie Bennett MD 10/24/2024 Telephone [place] [address] [place] [phone] Eddie Bennett MD 10/17/2024 2:30 PM CDT Office Visit [place] [address] [place] [phone] Yaima Rossi NP Paroxysmal atrial fibrillation (HCC); Encounter for monitoring sotalol therapy; Essential hypertension; Sarcoidosis; long term care social worker current use of 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 therapy 10/07/2024 Telephone [place] [address] [place] [phone] Annie Castro NP 10/06/2024 Orders Only [place] [address] [place] [phone] Joel Griffin MD 10/04/2024 Orders Only [facility] [place] Health Information Management [address] [place] [address] Annie Castro NP 10/03/2024 Anticoagulation Visit [place] [address] [place] [phone] Kelly Garber RN Atrial fibrillation, unspecified type (HCC) (Primary Dx); [facility] (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 10/02/2024 Orders Only [facility] [place] Health Information Management [address] [place] [address] Scanning, Provider 09/29/2024 Telephone [facility] [address] [place] [address] Avril Almeida MA Multaq 09/05/2024 Anticoagulation Visit [facility] Card[facility] [address] [place] [address] Avril Luciano RN Atrial fibrillation, unspecified type (HCC) (Primary Dx); [facility] (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 from Last 3 Months Surgical History Surgery Date Site/Laterality Comments HYSTERECTOMY REPLACEMENT TOTAL KNEE BREAST BIOPSY CATARACT EXTRACTION, BILATERAL CHOLECYSTECTOMY Medical History Medical History Date Comments Hypertension Thyroid disease Hyperlipidemia Acid indigestion Pneumonia Cataracts, bilateral Sleep apnea COPD (chronic obstructive pulmonary disease) Arthritis Family History Medical History Relation Name [...] on file Legal Sex Female 2:35 AM INSTRUCTOR WEAVING Gender Identity Not on file Sexual Orientation Not on file Obstetrics History Last Filed Vital Signs Vital Sign Reading Time Taken Comments Blood Pressure 160/76 11/04/2024 7:53 AM CDT Pulse 88 11/04/2024 7:53 AM CDT Temperature - - Respiratory Rate - - Oxygen Saturation 96% 11/04/2024 7:53 AM CDT Inhaled Oxygen Concentration - - Weight 99.4 kg (219 lb 3.2 oz) 11/04/2024 7:53 A M CDT Height 157.5 cm (5' 2) 11/04/2024 7:53 AM CDT Body Mass Index 40.09 11/04/2024 7:53 AM CDT Plan of Treatment Health Maintenance Due Date Last Done Comments Depression Screening 1938 Fall Risk Assessment 1938 Osteoporosis Screening-Bone Density Scan 1938 DTaP/Tdap/Td Vaccine (1 - Tdap) 1949 Hepatitis B Screening 1956 Zoster Vaccine (1 of 2) 1988 Well Visit 65+ 11/29/2003 Influenza Vaccine (#1) 2024 , 2018, 12/17/2017, Additional history exists Pneumococcal vaccine 65+ Completed 06/12/2016, 05/2014 Procedures Procedure Name Priority Date/Time Associated Diagnosis Comments PROTIME-INR Routine 11/20/2024 12:03 PM CDT Paroxysmal atrial fibrillation (HCC) 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 care 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 worker current use of 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 therapy PROTIME-INR Routine 10/31/2024 12:31 PM CDT Paroxysmal atrial fibrillation (HCC) [facility] current use of 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 therapy ECG 12-LEAD Routine 10/17/2024 2:51 PM CDT Encounter for monitoring sotalol therapy SCAN - LABS 10/07/2024 CARDIOLOGY DOCUMENT SCAN Routine 10/05/2024 2:41 PM CDT CARDIOLOGY DOCUMENT SCAN Routine 10/04/2024 2:39 PM CDT CARDIOLOGY DOCUMENT SCAN 10/04/2024 CARDIOLOGY DOCUMENT SCAN Routine 10/03/2024 2:37 PM CDT PROTIME-INR Routine 10/02/2024 12:01 PM CDT Paroxysmal atrial fibrillation (HCC) long term care social worker current use of 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 therapy SCAN - RADIOLOGY/IMAGING 10/02/2024 PROTIME-INR Routine 09/04/2024 11:50 AM CDT Paroxysmal atrial fibrillation (HCC) long term care social worker current use of 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 therapy from Last 3 Months Results * (ABNORMAL) Protime-INR (11/20/2024 12:03 PM CDT) INR 2.8(H) [facility] Comment: Reference Range 0.9-1.1 Moderate-intensity Warfarin Therapy 2.0-3.0 Higher-intensity Warfarin Therapy 3.0-4.0 PT 28.3(H) 9.0 - 11.5 sec [facility] Comment: For additional information, please refer to http://education.Flypay/faq/KZM143 (This link is being provided for informational/ educational purposes only.) Blood 11/20/2024 12:0 3 PM CDT 11/20/2024 12:03 PM CDT Yaima Rossi NP LAB BLOOD ORDERABLES Meg l Result Performing Organization Address [facility] Co de Phone Number [facility] [address] [place] [address] * (ABNORMAL) Protime-INR (10/31/2024 12:31 PM CDT) INR 2.4(H) [facility] Comment: Reference Range 0.9-1.1 Moderate-intensity Warfarin Therapy 2.0-3.0 Higher-intensity Warfarin Therapy 3.0-4.0 PT 24.2(H) 9.0 - 11.5 sec [facility] Comment: For additional information, please refer to http://education.Flypay/faq/ECV350 (This link is being provided for informational/ educational purposes only.) Blood 10/31/2024 12:3 1 PM CDT 10/31/2024 12:31 PM CDT Result [facility] Yaima Rossi NP LAB BLOOD ORDERABLES Meg l Result Performing Organization Address [facility] Co de Phone Number [facility] [address] [place] [address] * ECG 12 lead (10/17/2024 2:51 PM CDT) 10/17/2024 2:51 PM CDT Yaima Rossi SAP PPM CONSULTANT ECG ORDERABLES Final Res ult * SCAN - LABS (10/07/2024) Provider Scanning Final Result * Cardiology Document Scan (10/05/2024 2:41 PM CDT) Anatomical Region Laterality Modality Other Joel Griffin MD CV CARDIAC SERVICES PROCEDURES F inal Result * Cardiology Document Scan (10/04/2024 2:39 PM CDT) Anatomical Region Laterality Modality Other Result [facility] Joel Griffin MD CV CARDIAC SERVICES PROCEDURES F inal Result * Cardiology Document Scan (10/04/2024) Anatomical Region Laterality Modality Other Annie Castro NP CV CARDIAC SERVICES PROCEDUR ES Final Result * Cardiology Document Scan (10/03/2024 2:37 PM CDT) Anatomical Region Laterality Modality Other Result [facility] Joel Griffin MD CV CARDIAC SERVICES PROCEDURES F inal Result * (ABNORMAL) Protime-INR (10/02/2024 12:01 PM CDT) INR 1.7(H) [facility] Comment: Reference Range 0.9-1.1 Moderate-intensity Warfarin Therapy 2.0-3.0 Higher-intensity Warfarin Therapy 3.0-4.0 PT 17.5(H) 9.0 - 11.5 sec [facility] Comment: For additional information, please refer to http://education.Flypay/faq/FKL350 (This link is being provided for informational/ educational purposes only.) Blood 10/02/2024 12:0 1 PM CDT 10/02/2024 12:01 PM CDT Yaima Rossi NP LAB BLOOD ORDERABLES Meg l Result [facility] [address] [place] [address] * SCAN - RADIOLOGY/IMAGING (10/02/2024) Anatomical Region Laterality Modality Other Result [facility] Provider Scanning Edited Result - Final * (ABNORMAL) Protime-INR (09/04/2024 11:50 AM CDT) INR 2.0(H) [facility] Comment: Reference Range 0.9-1.1 Moderate-intensity Warfarin Therapy 2.0-3.0 Higher-intensity Warfarin Therapy 3.0-4.0 PT 20.4(H) 9.0 - 11.5 sec [facility] Comment: For additional information, please refer to http://education.Flypay/faq/IMP424 (This link is being provided for informational/ educational purposes only.) Blood 09/04/2024 11:5 0 AM CDT 09/04/2024 11:50 AM CDT us Yaima Rossi NP LAB BLOOD ORDERABLES Meg rivero Result [facility] [address] [place] [address] from Last 3 Months Insurance [facility] MEDICARE GOLD [facility] MEDICARE GOLD [employer]ET[employer] MEDICARE GOLD Care Teams Senior Shipping Clerk Relationship Specialty Start Date End Date Tru Benites MD PCP - General Family Practice 09/05/22 Gordy Flowers NP [address] [address] Nurse Practitioner 11/04/24
--- OUTSIDE RECORDS SUMMARY | 2024-11-24 11:56 | XMS_ITS | Encounter Summary ---
Author Organization [facility] Healthcare Address [address] [place] [address] Care Team Providers Care Pest Control Worker Helper Name Role Phone Tru Benites MD Primary Care Provider [phone] Gordy Flowers AVIATION PROJECT ENGINEER Unavailable Encounter Details Date Type Department Care Team (Late st Contact Info) Description 03/14/2024 [place] Only [facility] [place] [address] [place] [address] Scanning, Provider Social History Tobacco Use Types Packs/Day Years Used Date Smoking Tobacco: Never Smokeless Tobacco: Never Alcohol Use Standard Drinks/Week Comments Not Currently 0 (1 standard drink = 0.6 oz pur e alcohol) Comments Unknown Sex and Gender Information Value Date Recorded Sex Assigned at Not on file Legal Sex Female 2:35 AM 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
--- OUTSIDE RECORDS SUMMARY | 2024-11-24 11:56 | XMS_ITS | Encounter Summary ---
Author Organization [facility] Healthcare Address [address] [place] [address] Care Team Providers Care Electronic Publications Specialist Name Role Phone Clovis Carter DO Primary Care Provider [phone] Tru Benites MD Primary Care Provider [phone] Gordy Flowers CARE TRANSITIONS NURSE Unavailable Encounter Details Date Type Department Care Team (Late st Contact Info) Description 08/28/2022 Orders Only [facility] [place] Information Management [address] [place] [address] Scanning, Provider Social History Tobacco Use Types Packs/Day Years Used Date Smoking Tobacco: Never Smokeless Tobacco: Never Alcohol Use Standard Drinks/Week Comments Not Currently 0 (1 standard drink = 0.6 oz pur e alcohol) Comments Unknown Sex and Gender Information Value Date Recorded Sex Assigned at Not on file Legal Sex Female 2:35 AM 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 OFFSET Gender Identity Not on file Sexual Orientation Not on file documented as of this encounter Plan of Treatment Not on file documented as of this encounter Procedures Procedure Name Priority Date/Time Associated Diagnosis Comments SCAN - LABS 08/28/2022 documented in this encounter Results * SCAN - LABS (08/28/2022) us Provider Scanning Final Result documented in this encounter Visit Diagnoses Not on filedocumented in this encounter Care Teams Electronic Publications Specialist Relationship Specialty Start Date End Date Clovis Carter DO PCP - General Internal Medicine 09/25/19 09/04/22 Tru Benites MD PCP - General Family Practice 09/05/22 Gordy Flowers NP [address] [place] [address] Nurse Practitioner 11/04/24 documented as of this encounter
--- OUTSIDE RECORDS SUMMARY | 2024-11-24 11:56 | XMS_ITS | Encounter Summary ---
Author Organization [facility] Address [address] [place] [address] Care Team Providers Care Psychology Technician Name Role Phone Unavailable Primary Care Provider Unavailabl e Encounter Details Date Type Department Care Team (Late st Contact Info) Description 10/16/2024 Lab Requisition [facility] - DermPath Lab [address] [place] [phone] Jorge Kwan MD [address] [place] [address] Social History Tobacco Use Types Packs/Day Years [...] DERMATOPATHOLOGY Routine 10/15/2024 12:0 0 AM CDT documented in this encounter Results * DERMATOPATHOLOGY (10/15/2024 12:00 AM CDT) Case Report Dermatopathology Report Case: [id number] Authorizing Provider: Jorge Kwan MD Collected: 10/15/2024 12:00 AM Ordering Location: [facility] Physician [facility] - Received: 10/16/2024 07:21 AM DermPath Lab [...] characteristic determined by the Dermatopathology Laboratory at [facility], directed by Dr. Ken Plata. These tests need not be, and therefore are not, approved by the [place] Food and Drug Administration. The tests are used for clinical purposes. Billing Codes Specimen Charges Stain Charges 82198 1 2:32 PM CDT DERMATOPATHOLOGY LABORATORY Embedded Images 2:32 PM CDT DERMATOPATHOLOGY LABORATORY Pathology/Cytolog y TISSUE SPECIMEN FROM SKIN / Unknown 10/15/2024 10/16/2024 7:21 AM CDT Jorge Kwan MD LAB - PATHOLOGY/CYTOLOGY ORDERAB LES Final Result DERMATOPATHOLOGY LABORATORY [facility] - Department of Dermatology [address] [place] [address], [facility] [phone] documented in this encounter Visit Diagnoses Not on filedocumented in this encounter
--- OUTSIDE RECORDS SUMMARY | 2024-11-24 11:56 | XMS_ITS | Clinical Summary ---
Author Organization [facility] Address [address] [place] [address] Care Team Providers Care Underwriting Manager Name Role Phone Unavailable Primary Care Provider [...] COVID-19 Vaccine ( - 2023-2 5 season) 2024 Meningococcal B Vaccine Aged Out No l onger eligible based on patient's age to complete this topic Meningococcal Vaccine Aged Out No magda james eligible based on patient's age to complete this topic RSV Immunizations Under 20 Months Aged Out No longer eligible based on patient's age to complete this topic
--- OUTSIDE RECORDS SUMMARY | 2024-11-24 11:56 | XMS_ITS | Clinical Summary ---
Author Organization [facility] Care Team Providers Care Dough Panner Name Role Phone Unavailable Primary Care Provider [...]
[2024-11-24 12:02] LABS: INR 2.3; Prothrombin Time 24.7 Seconds (11.1-14.7)
[2024-11-24 12:03] LABS: Partial Thromboplastin Time 33.0 Seconds (22.3-36.8)
--- NOTE | 2024-11-24 13:18 | ED.CHESTPAIN ---
HPI - Chest Pain General Chief Complaint: Chest Pain Stated Complaint: Chest Pain, A-Fib Time Seen by Provider: 11/24/24 11:51 Source: patient Limitations: no limitations History of Present Illness HPI narrative: Patient presents with report of epigastric/left upper quadrant abdominal pain beginning Sunday. It was initially thought that perhaps she was complaining of chest pain in triage. She reports her last bowel movement was soft, not well formed and occurred this morning. She denies any ariana diarrhea or constipation. Has had colonoscopy performed thought she was going to undergo EGD at the time but did not at that time. Status post cholecystectomy and hysterectomy. History of atrial fibrillation, peripheral arterial hypertension, sarcoidosis, sleep apnea, chronic knee pain, GERD (taking omperazole). She has been using Tylenol for pain. Also trialed antacid. Her symptoms get worse when eating. She has had decreased appetite. Does not have shortness of breath now although states that is not unusual for her to get short of breath given her hypertension. Denies any cough, fevers, chills, nausea, vomiting. She is on sotalol and warfarin for atrial fibrillation as well as amlodipine and irbesartan. Cardiac risk factors HTN: Yes HLD: Yes DM: No Obese: Yes Smoker: No Personal history IA/TIA/CVA: No Fam Hx IA in first degree relative <65yo: Related Data Home Medications ?Medication ?Instructions ?Recorded ?Confirmed ?Last Taken ?Type multivitamin 1 tablet BYMOUTH DAILY 02/11/19 10/14/24 10/01/24 08:00 History 1 cholecalciferol (vitamin D3) 125 125 mcg PO DAILY 05/29/22 10/14/24 10/02/24 08:00 History mcg (5,000 unit) capsule 125 mcg cinnamon bark 500 mg capsule 500 mg PO DAILY 05/29/22 10/14/24 10/01/24 08:00 History (Cinnamon) 500 mg garlic 1,000 mg capsule 1,000 mg PO DAILY 05/29/22 10/14/24 10/02/24 08:00 History 1,000 mg potassium chloride 10 mEq 10 meq PO BID 05/29/22 10/14/24 10/01/24 08:00 History tablet,extended release 10 mEq quercetin 500 mg capsule 500 mg PO DAILY 05/29/22 10/14/24 10/01/24 08:00 History 500 mg selenium 200 mcg capsule 200 mcg PO DAILY 05/29/22 10/14/24 10/02/24 08:00 History 200 mcg vitamin B complex (B 1 tablet PO DAILY 05/29/22 10/14/24 10/01/24 08:00 History Complex-Vitamin B12 tablet) 1 tablet omeprazole magnesium 20 mg 20 mg PO DAILY 07/04/22 10/14/24 10/02/24 08:00 History tablet,delayed release (Prilosec 20 mg OTC) milk thistle 175 mg tablet 500 mg PO DAILY 07/11/23 10/14/24 10/02/24 08:00 History 175 mg acetaminophen 500 mg tablet 500 mg PO .am PRN pain (scale 07/18/24 10/14/24 10/02/24 09:00 History score 1-3) 500 mg warfarin 2 mg tablet 6 mg PO .COMPLEX 10/01/24 10/14/24 09/28/24 08:00 History 2 mg warfarin 4 mg tablet 4 mg PO .COMPLEX 10/01/24 10/14/24 10/02/24 08:00 History 4 mg Allergies Allergy/AdvReac Type Severity Reaction Status Date / Time adhesive tape Allergy Severe RASH Verified 11/24/24 10:52 levofloxacin AdvReac Mild Nausea and Verified 11/24/24 10:52 Vomiting PMFSH Past Medical History Medical History Abdominal pain Wears hearing aid in both ears Left arm pain Racing heart beat Sarcoidosis Diagnosed 2002 after transbronchial biopsy, has never undergone tx. In remission. Pulmonary HTN CPAP (continuous positive airway pressure) dependence Sleep apnea Sarcoidosis Hiatal hernia Fatty liver COPD (chronic obstructive pulmonary disease) Anxiety Hypothyroid Osteoporosis Arthritis UTI (urinary tract infection) GI bleed GERD (gastroesophageal reflux disease) IBS (irritable bowel syndrome) Diverticulosis HTN (hypertension) Hyperlipidemia Sinus problem Cataract Surgical History Surgical History H/O colonoscopy H/O cataract extraction History of arthroplasty of left knee H/O arthroscopy of right knee H/O dilation and curettage H/O: hysterectomy H/O breast biopsy Hx of cholecystectomy History of appendectomy History of cardiac cath H/O sinus surgery Hx of tonsillectomy Family History Family History Mother Cerebrovascular accident, Onset Age: 86 Family history of cardiovascular disease, Onset Age: 86 Sibling Family history of cardiovascular disease History of heart bypass surgery, Onset Age: 75 Social History Social History Social History: Has a son Smoking status: Never smoker Second hand tobacco smoke exposure: Yes Alcohol intake: never Substance use: never Substance use type: does not use Do You Feel Safe in your Home?: Yes Lack of Transportation: YES Lack of Food: Never True Current Housing: I Have Housing Concerned About Future Housing: No Difficulty Paying Gas/Electric Bills: No Difficulty Paying for Meds: No Currently Unemployed: No Education: High School Diploma/GED Difficulty w/ Childcare or Family Care: No Living arrangements: with family Gender identity (if verbalized by the patient): Female Spiritual care concerns: No Agree to blood products: Yes Exam Narrative: GENERAL: well-nourished, and in no acute distress. HEAD: Normocephalic, atraumatic. EYES: Non injected, non icteric ENT: Nares clear, no rhinorrhea or epistaxis. Gross auditory acuity intact. NECK: Supple. No meningismus. CHEST: Speaking in full sentences. No respiratory distress. HEART: Regular rate and rhythm. . ABDOMEN: Obese but Soft, nondistended. Not peritoneal. Patient grabs my hand to firmly place it at her epigastrium/LUQ to indicate where the pain is; there is tenderness to palpation here. EXTREMITIES: Normal range of motion. No lower extremity edema. SKIN: Warm, dry, no rash. NEURO: No focal deficits. Alert and oriented. Answering questions. Following commands. Normal speech without aphasia or dysarthria. PSYCH: Normal mood and affect. Course Vital Signs Vital signs: Vital Signs Temperature 97.6 F 11/24/24 10:31 Pulse Rate 68 11/24/24 10:31 Respiratory Rate 20 11/24/24 10:31 Blood Pressure 170/71 H 11/24/24 10:31 Pulse Oximetry 95 11/24/24 10:31 Oxygen Delivery Room Air 11/24/24 10:31 Temperature 97.6 F 11/24/24 10:31 Pulse Rate 63 11/24/24 16:30 Respiratory Rate 16 11/24/24 16:30 Blood Pressure 144/58 H 11/24/24 16:01 Pulse Oximetry 95 11/24/24 16:30 Oxygen Delivery Room Air 11/24/24 10:37 MDM - Chest Pain MDM Narrative Medical decision making narrative: Patient presents with epigastric/left upper quadrant abdominal pain that started Sunday. In the emergency department she is afebrile vital signs notable for hypertension. CBC is without leukocytosis, anemia, thrombocytosis. No report of bloody stool and given no anemia, will defer rectal exam at this time. Isolated AST elevation, mild and previously seen. Lipase normal. INR 2.3. 2nd troponin negative. Pain is not in her chest, distinctly epigastric. Famotidine and GI cocktail ordered. Patient declined the morphine. She states her primary care physician told her she cannot have any because of her pulmonary hypertension. I continue to offer a 1 time dose but she declined. We discussed her workup and the fact that it was reassuring however I did still recommend follow-up with gastroenterology. She would likely benefit from an EGD. In sum, This patient presents with abdominal pain of unclear etiology. A CT scan with contrast was performed to evaluate for potential causes of the abdominal pain, however, neither the clinical exam nor the CT has identified an emergent etiology for the abdominal pain. Specifically, given the benign exam, the laboratory studies, and unremarkable CT, I have a very low suspicion for appendicitis, ischemic bowel, bowel perforation, or any other life threatening disease. I have discussed with the patient the level of uncertainty with undifferentiated abdominal pain and clearly explained the need to follow-up as noted on the discharge instructions, or return to the Emergency Department immediately if the pain worsens, develops fever, persistent and uncontrolled vomiting, or for any new symptoms or concerns. Notably, if patient returns with same, could consider CTA as alternative imaging, given her history of atrial fibrillation (although paroxysmal and NSR today). Differential Diagnosis Differential diagnosis: Likely other (gastritis; pancretitis; GERD; peptic/gastric ulcer; H pylori; considered cardiac etiology) Lab Data Attestation: I reviewed the patient's lab results. 11/24/24 10:55 11/24/24 10:55 Labs: Lab Results 11/24/24 11/24/24 11/24/24 Range/Units 10:55 13:18 13:52 WBC 6.5 (4.5-10.0) K/mm3 RBC 4.41 (4.2-5.4) M/mm3 Hgb 12.5 (12.0-15.0) g/dL Hct 39.3 (37.0-47.0) % MCV 89.1 (80-100) fl MCH 28.3 (26-34) pg MCHC 31.8 L (32-36) g/dl RDW 16.8 H (11.5-14.5) % Plt Count 258 (150-375) k/mm3 MPV 10.1 (7.4-10.4) fl Immature Gran % (Auto) 0.5 (0-0.5) % Neut % (Auto) 60.2 (45.5-73.1) % Lymph % (Auto) 23.1 (18.3-44.2) % [place] % (Auto) 12.8 H (2.6-8.5) % Eos % (Auto) 2.2 (0-4.4) % Baso % (Auto) 1.2 (0.2-1.2) % Lymph # (Auto) 1.49 (0.9-3.2) K/mm3 [place] # (Auto) 0.8 H (0.1-0.6) K/mm3 Eos # (Auto) 0.1 (0-0.3) K/mm3 Baso # (Auto) 0.1 (0.0-0.1) K/mm3 Abs Immat Gran (auto) 0.03 (0.00-0.031) K/mm3 Absolute Neuts (auto) 3.9 (1.3-6.7) K/mm3 Absolute Nucleated RBC 0.000 (0.0-0.012) K/mm3 Nucleated RBC % 0.0 (0.0-0.2) % PT 24.7 H (11.1-14.7) Seconds INR 2.3 APTT 33.0 (22.3-36.8) Seconds Sodium 138 (137-145) mmol/L Potassium 4.1 (3.4-5.0) mmol/L Chloride 108 H (98-107) mmol/L Carbon Dioxide 20 L (22-30) mmol/L Anion Gap 10 (4-12) mmol/L BUN 11 (7-17) mg/dL Creatinine 0.69 L (0.7-1.0) mg/dL Estim Creat Clear Calc 56 ml/min Estimated GFR > 60 (59 - ) Glucose 127 H (65-110) mg/dL Calcium 9.1 (8.4-10.2) mg/dL Total Bilirubin 1.1 (0.2-1.3) mg/dL AST 41 H (14-36) U/L ALT 30 (6-35) U/L Alkaline Phosphatase 56 (38-126) U/L Troponin I < 0.012 < 0.012 (0.000-0.034) ng/mL Total Protein 7.6 (6.3-8.2) g/dL Albumin 4.3 (3.5-5.1) g/dL Lipase 61 (23-300) U/L Urine Color Yellow (Yellow) Urine Appearance Clear (Clear) Urine pH 8.0 (5.0-9.0) Ur Specific [place] 1.007 (1.001-1.035) Urine Protein Negative (Negative) mg/dL Urine Glucose (UA) Negative (Negative) mg/dL Urine Ketones Negative (Negative) mg/dL Ur Blood (Man) Negative (Negative) Urine Nitrate Negative (Negative) Urine Bilirubin Negative (Negative) Urine Urobilinogen 0.2 (<2.0) mg/dL Leukocyte Esterase Rfl Negative (Negative) NORA/UL Imaging Data Radiologist's impression: IMPRESSION: 1. No acute cardiopulmonary findings. IMPRESSION: 1. No etiology to explain epigastric pain. Incidental findings above ECG Data EKG #1: Attestation: I personally reviewed and interpreted this ECG as follows: ECG completion date: 11/24/24 ECG completion time: 10:37 Prior ECG tracings: available for review (First-degree AV block present on previous EKG) Interpretation: Normal sinus rhythm at a rate of 64 beats per minute. SC interval is prolonged at 226 milliseconds consistent with a first-degree AV block. QRS 88. QT/QTC 432/449. Good R-wave progression across the precordial leads. No T-wave inversions. EKG #2: Attestation: I personally reviewed and interpreted this ECG as follows: ECG completion date: 11/24/24 ECG completion time: 13:59 Interpretation: Normal sinus rhythm at a rate of 63 beats per minute. First-degree AV block given the SC interval is 230 milliseconds. QRS 94. QT/QTC 439/4151. Good R-wave progression across the precordial leads. No T-wave inversions. There is slight R to R variation consistent with sinus arrhythmia and likely due to respiratory Discharge Plan Discharge Clinical Impression: Epigastric abdominal pain, First degree atrioventricular block by electrocardiogram, Elevated AST (SGOT) Patient Disposition: Home Condition: Stable Instructions: Antibiotic Form, Epigastric Pain (ED) Additional Instructions: As we discussed, your workup did not identify an emergent cause of your symptoms. Your labs were reassuring. The AST elevation is a liver enzyme and has chronically been very mildly elevated, stable. The EKG finding has also been seen previously, stable and an otherwise benign finding. I do encourage you to follow up either with your roller coaster designer or the name of the roller coaster designer on-call today as they may have other recommendations/outpatient work up. Call to schedule an appointment. Continue to take your omeprazole. You can trial the Bentyl/dicyclomine which works on the smooth muscle of the GI tract. Return to the emergency department immediately if the pain worsens, you develop a fever, you have persistent and uncontrolled vomiting, or for any new symptoms or concerns. Patient Language: Com[place]an Prescriptions: New dicyclomine 20 mg tablet 20 mg PO BID 10 Days Qty: 20 0RF No Action milk thistle 175 mg tablet 500 mg PO DAILY Rx Instructions: give with meal/snack albuterol sulfate 2.5 mg /3 mL (0.083 %) solution for nebulization 2.5 mg inhalation Q4-6H PRN (Reason: shortness of breath or wheezing) Qty: 90 3RF cholecalciferol (vitamin D3) 125 mcg (5,000 unit) capsule 125 mcg PO DAILY vitamin B complex [B Complex-Vitamin B12] Tablet 1 tablet PO DAILY quercetin 500 mg capsule 500 mg PO DAILY selenium 200 mcg capsule 200 mcg PO DAILY garlic 1,000 mg capsule 1,000 mg PO DAILY cinnamon bark [Cinnamon] 500 mg capsule 500 mg PO DAILY warfarin 4 mg tablet 4 mg PO .COMPLEX Rx Instructions: 4 mg orally on SUNDAY multivitamin 1 tablet BYMOUTH DAILY potassium chloride 10 mEq tablet extended release 10 meq PO BID Prilosec OTC 20 mg tablet,delayed release (DR/EC) 20 mg PO DAILY acetaminophen 500 mg tablet 500 mg PO .am PRN (Reason: pain (scale score 1-3)) warfarin 2 mg tablet 6 mg PO .COMPLEX Rx Instructions: 6 mg orally on SUNDAY, SUNDAY, SUNDAY, SUNDAY, SUNDAY, SUNDAY sotalol 80 mg Tablet 80 mg PO Q12HR Qty: 60 0RF furosemide 40 mg tablet See Rx Instructions .ROUTE .COMPLEX Qty: 180 1RF Dose Instruction: TAKE 2 TABLETS BY MOUTH DAILY Rx Instructions: TAKE 2 TABLETS BY MOUTH DAILY fluticasone propionate 50 mcg/actuation spray,suspension See Rx Instructions .ROUTE .COMPLEX Qty: 48 3RF Dose Instruction: SHAKE THEN INSTILL 2 SPRAYS INTO EACH NOSTRIL TWICE A DAY Rx Instructions: SHAKE THEN INSTILL 2 SPRAYS INTO EACH NOSTRIL TWICE A DAY alendronate 70 mg tablet See Rx Instructions .ROUTE .COMPLEX Qty: 12 4RF Dose Instruction: TAKE 1 TABLET BY MOUTH ONCE WEEKLY Rx Instructions: TAKE 1 TABLET BY MOUTH ONCE WEEKLY albuterol sulfate 90 mcg/actuation HFA aerosol inhaler 1 - 2 puff INHALATION Q4-6H PRN (Reason: shortness of breath or wheezing) Qty: 8.5 2RF budesonide-formoterol 80-4.5 mcg/actuation HFA aerosol inhaler 2 puff inhalation Q12H Qty: 30.6 3RF Rx Instructions: Rinse mouth and spit rosuvastatin 10 mg tablet See Rx Instructions .ROUTE .COMPLEX Qty: 100 1RF Dose Instruction: TAKE 1 TABLET BY MOUTH EVERY DAY Rx Instructions: TAKE 1 TABLET BY MOUTH EVERY DAY levothyroxine 88 mcg tablet 88 mcg PO DAILY Qty: 90 1RF irbesartan 300 mg tablet See Rx Instructions .ROUTE .COMPLEX Qty: 100 1RF Dose Instruction: TAKE 1 TABLET BY MOUTH EVERY DAY Rx Instructions: TAKE 1 TABLET BY MOUTH EVERY DAY amlodipine 10 mg tablet 10 mg PO DAILY Qty: 90 1RF alprazolam 0.25 mg tablet 0.25 mg PO BID PRN (Reason: anxiety) Qty: 60 0RF Follow-up/Referrals: Marisol Robert APRN [Primary Care Provider, Internal Medicine] Augustin Cottrell MD [Physician, Gastroenterology] Eugene Solomon MD [Physician, Gastroenterology] Time of Disposition: 16:27
[2024-11-24 13:49] LABS: Troponin I < 0.012 ng/mL (0.000-0.034)
--- NOTE | 2024-11-24 13:53 | ECG_ITS ---
Test Date: 2024-11-24 13:59:00 Measurements Intervals [place] Rate: 63 P: 64 IA: 230 QRS: -2 QRSD: 94 T: 26 QT: 439 QTc: 451 Interpretive Statements SINUS RHYTHM WITH SINUS ARRHYTHMIA WITH FIRST DEGREE AV BLOCK CC ABNORMAL ECG Compared to ECG 11/24/2024 10:37:32 No significant changes Electronically Signed On 11-25-2024 07:57:53 CDT by Yaw Shi M.D.
[2024-11-24] MEDS: ACETAMINOPHEN 500 MG TABLET 1000 MG PO (14:01)
[2024-11-24 14:04] LABS: Add Urine Microscopic? NO; Appearance Urine Clear (Clear); Glucose Urine UA Negative (Negative); Leukocyte Esterase Ur Negative LEU/UL (Negative); Nitrate Urine Negative (Negative); Specific Grav Ur 1.007 (1.001-1.035)
--- OUTSIDE RECORDS SUMMARY | 2024-11-24 14:11 | XMS_ITS | Clinical Summary ---
Author Organization [facility] Address [address] [place] [id number] Care Team Providers Care Advertising Account Manager Name Role Phone Unavailable Primary Care [...]
--- OUTSIDE RECORDS SUMMARY | 2024-11-24 14:11 | XMS_ITS | Clinical Summary ---
Author Organization [facility] Care Team Providers Care Human Resource Management Instructor Name Role Phone Unavailable Primary Care Provider [...]
--- OUTSIDE RECORDS SUMMARY | 2024-11-24 14:11 | XMS_ITS | Clinical Summary ---
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 2024 LVH (left ventricular hypertrophy) 12/20/2022 Paroxysmal atrial fibrillation 11/30/2022 penitentiary current use of 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 therapy 0 11/30/2022 [...] Department Care Team Description 11/21/2024 Anticoagulation Visit [facility] Cardiology [address] [place] [address] [place] [phone] Beatriz Guerra RN Atrial fibrillation, unspecified type (HCC) (Primary Dx); 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 11/07/2024 Telephone [facility] Cardiology [address] [place] [address] [place] [phone] Yaima Rossi NP Med Management 11/04/2024 8:00 AM CDT Office Visit [facility] Cardiology [address] [place] [address] [place] [phone] Yaima Rossi NP Paroxysmal atrial fibrillation (HCC) (Primary Dx); Essential hypertension; Sarcoidosis; penitentiary current use of 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 therapy 11/03/2024 Telephone [facility] Cardiology [facility] [address] [place] [phone] Eddie Bennett MD 11/03/2024 Anticoagulation Visit [facility] Cardiology [address] [facility] [address] [place] [phone] Nancy Vergara RN Atrial fibrillation, unspecified type (HCC) (Primary Dx); penitentiary (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 10/30/2024 Telephone [facility] Cardiology [address] [place] [address] [place] [phone] Eddie Bennett MD 10/24/2024 Telephone [place] [address] [place] [phone] Eddie Bennett MD 10/17/2024 2:30 PM CDT Office Visit [place] [address] [place] [phone] Yaima Rossi NP Paroxysmal atrial fibrillation (HCC); Encounter for monitoring sotalol therapy; Essential hypertension; Sarcoidosis; 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 10/07/2024 Telephone [place] [address] [place] [phone] Annie Castro NP 10/06/2024 Orders Only [place] [address] [place] [phone] Joel Griffin MD 10/04/2024 Orders Only [facility] Health Information Management [address] [place] [address] Annie Castro NP 10/03/2024 Anticoagulation Visit [place] [address] [place] [phone] Kelly Garber RN Atrial fibrillation, unspecified type (HCC) (Primary Dx); penitentiary (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 10/02/2024 Orders Only [facility] Health Information Management [address] [place] [address] Scanning, Provider 09/29/2024 Telephone [facility] Cardiology [address] [place] [address] Avril Almeida MA [facility] 09/05/2024 Anticoagulation Visit [facility] Cardiology [address] [place] [address] Avril Luciano RN Atrial fibrillation, unspecified type (HCC) (Primary Dx); penitentiary (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 from Last 3 [...] on file Legal 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 Gender Identity Not on file Sexual Orientation [...] 12:03 PM CDT Paroxysmal atrial fibrillation (HCC) 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 PROTIME-INR Routine 10/31/2024 12:31 PM CDT Paroxysmal atrial fibrillation (HCC) penitentiary current use of 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 therapy ECG 12-LEAD Routine 10/17/2024 2:51 PM CDT Encounter for monitoring sotalol therapy SCAN - LABS 10/07/2024 CARDIOLOGY DOCUMENT SCAN Routine 10/05/2024 2:41 PM CDT CARDIOLOGY DOCUMENT SCAN Routine 10/04/2024 2:39 PM CDT CARDIOLOGY DOCUMENT SCAN 10/04/2024 CARDIOLOGY DOCUMENT SCAN Routine 10/03/2024 2:37 PM CDT PROTIME-INR Routine 10/02/2024 12:01 PM CDT Paroxysmal atrial fibrillation (HCC) 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 SCAN - RADIOLOGY/IMAGING 10/02/2024 PROTIME-INR Routine 09/04/2024 11:50 AM CDT Paroxysmal atrial fibrillation (HCC) 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 from Last 3 Months Results * (ABNORMAL) Protime-INR (11/20/2024 12:03 PM CDT) INR 2.8(H) Fixed - Park[facility]-Kati Julian Comment: Reference Range 0.9-1.1 Moderate-intensity Warfarin Therapy 2.0-3.0 Higher-intensity Warfarin Therapy 3.0-4.0 PT 28.3(H) 9.0 - 11.5 sec [facility] Comment: For additional information, please refer to http://education.Style on Screen/faq/QYM809 (This link is being provided for informational/ educational purposes only.) Blood 11/20/2024 12:0 3 PM CDT 11/20/2024 12:03 PM CDT Yaima Rossi NP LAB BLOOD ORDERABLES Meg l Result Performing Organization Address [facility] Co de Phone Number [facility] [address] [place] [address] * (ABNORMAL) Protime-INR (10/31/2024 12:31 PM CDT) INR 2.4(H) [employer] [facility] Eliel Comment: Reference Range 0.9-1.1 Moderate-intensity Warfarin Therapy 2.0-3.0 Higher-intensity Warfarin Therapy 3.0-4.0 PT 24.2(H) 9.0 - 11.5 sec [employer] [facility] Comment: For additional information, please refer to http://education.Style on Screen/faq/HLL057 (This link is being provided for informational/ educational purposes only.) Blood 10/31/2024 12:3 1 PM CDT 10/31/2024 12:31 PM CDT Result [facility] Yaima Rossi NP LAB BLOOD ORDERABLES Meg l Result Performing Organization Address [facility] Co de Phone Number [facility] [address] [place] [address] * ECG 12 lead (10/17/2024 2:51 PM CDT) 10/17/2024 2:51 PM CDT Yaima Rossi INDUSTRIAL ELECTRICIAN JOURNEYMAN ECG ORDERABLES Final Res ult * SCAN - LABS (10/07/2024) Provider Scanning Final Result * Cardiology Document Scan (10/05/2024 2:41 PM CDT) Anatomical Region Laterality Modality Other Joel Griffin MD CV CARDIAC SERVICES PROCEDURES F inal Result * Cardiology Document Scan (10/04/2024 2:39 PM CDT) Anatomical Region Laterality Modality Other Result [facility] Joel Griffin MD CV CARDIAC SERVICES PROCEDURES F inal Result * Cardiology Document Scan (10/04/2024) Anatomical Region Laterality Modality Other Annie Castro NP CV CARDIAC SERVICES PROCEDUR ES Final Result * Cardiology Document Scan (10/03/2024 2:37 PM CDT) Anatomical Region Laterality Modality Other Result [facility] Joel Griffin MD CV CARDIAC SERVICES PROCEDURES F inal Result * (ABNORMAL) Protime-INR (10/02/2024 12:01 PM CDT) INR 1.7(H) [facility] Julian Comment: Reference Range 0.9-1.1 Moderate-intensity Warfarin Therapy 2.0-3.0 Higher-intensity Warfarin Therapy 3.0-4.0 PT 17.5(H) 9.0 - 11.5 sec [facility] Comment: For additional information, please refer to http://education.Style on Screen/faq/GYN318 (This link is being provided for informational/ educational purposes only.) Blood 10/02/2024 12:0 1 PM CDT 10/02/2024 12:01 PM CDT Yaima Rossi NP LAB BLOOD ORDERABLES Meg l Result [facility] [address] [place] [address] * SCAN - RADIOLOGY/IMAGING (10/02/2024) Anatomical Region Laterality Modality Other Result [facility] Provider Scanning Edited Result - Final * (ABNORMAL) Protime-INR (09/04/2024 11:50 AM CDT) INR 2.0(H) [facility] Comment: Reference Range 0.9-1.1 Moderate-intensity Warfarin Therapy 2.0-3.0 Higher-intensity Warfarin Therapy 3.0-4.0 PT 20.4(H) 9.0 - 11.5 sec Fixed - [facility] Tickets[facility] Julian Comment: For additional information, please refer to http://education.Style on Screen/faq/DWB215 (This link is being provided for informational/ educational purposes only.) Blood 09/04/2024 11:5 0 AM CDT 09/04/2024 11:50 AM CDT us Yaima Rossi NP LAB BLOOD ORDERABLES Meg rivero Result [facility] [address] [place] [address] from Last [address] [facility] MEDIC[address] [facility]OLD [facility] MEDICARE GOLD [employer]ET[employer] MEDICARE GOLD Care Teams Vegetable Loader Relationship Specialty Start Date End Date Tru Benites MD PCP - General Family Practice 09/05/22 Gordy Flowers NP [address] [address] Nurse Practitioner 11/04/24
--- OUTSIDE RECORDS SUMMARY | 2024-11-24 14:11 | XMS_ITS | Encounter Summary ---
Author Organization [facility] Healthcare Address [address] [place] [address] Care Team Providers Care Machine Operator Packaging Name Role Phone Tru Benites MD Primary Care Provider [phone] Gordy Flowers SAIL MAKER Unavailable Encounter Details Date Type Department Care Team (Late st Contact Info) Description 03/14/2024 Orders Only [facility] Health Information Management [address] [place] [address] Scanning, Provider Social History Tobacco Use Types Packs/Day Years Used Date Smoking Tobacco: Never Smokeless Tobacco: Never Alcohol Use Standard Drinks/Week Comments Not Currently 0 (1 standard drink = 0.6 oz pur e alcohol) Comments Unknown Sex and Gender Information Value Date Recorded Sex Assigned at Not on file 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
--- OUTSIDE RECORDS SUMMARY | 2024-11-24 14:12 | XMS_ITS | Encounter Summary ---
Author Organization [facility] Healthcare Address [address] [place] [address] Care Team Providers Care Oxyacetylene Torch Operator Name Role Phone Clovis Carter DO Primary Care Provider [phone] Tru Benites MD Primary Care Provider [phone] Gordy Flowers GARBAGE DEPOT WORKER Unavailable Encounter Details Date Type Department Care Team (Late st Contact Info) Description 08/28/2022 Orders Only [facility] Health Information Management [address] [place] [address] Scanning, Provider Social History Tobacco Use Types Packs/Day Years Used Date Smoking Tobacco: Never Smokeless Tobacco: Never Alcohol Use Standard Drinks/Week Comments Not Currently 0 (1 standard drink = 0.6 oz pur e alcohol) Comments Unknown Sex and Gender Information Value Date Recorded Sex Assigned at Not on file Legal Sex Female 2:35 AM HISTORIC SITE ADMINISTRATOR Gender Identity Not on file Sexual [...] on filedocumented in this encounter Care Teams Oxyacetylene Torch Operator Relationship Specialty Start Date End Date Clovis Carter DO PCP - General Internal Medicine 09/25/19 09/04/22 Tru Benites MD PCP - General Family Practice 09/05/22 Gordy Flowers NP [address] [place] [address] Nurse Practitioner 11/04/24 documented as of this encounter
--- OUTSIDE RECORDS SUMMARY | 2024-11-24 14:12 | XMS_ITS | Encounter Summary ---
Author Organization [facility] Healthcare Address [address] [place] [address] Care Team Providers Care Obstetrics And Gynecology Professor Name Role Phone Tru Benites MD Primary Care Provider [phone] Gordy Flowers PRODUCT SAFETY ADMINISTRATOR Unavailable Encounter Details Date Type Department Care Team (Late st Contact Info) Description 10/02/2024 Orders Only [facility] Information Management [address] [place] [address] Scanning, Provider Social History Tobacco Use Types Packs/Day Years Used Date Smoking Tobacco: Never Smokeless Tobacco: Never Alcohol Use Standard Drinks/Week Comments Not Currently 0 (1 standard drink = 0.6 oz pur e alcohol) Comments Unknown Sex and Gender Information Value Date Recorded Sex Assigned at Not on file 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 [address] [place] [address] Nurse Practitioner 11/04/24 documented as of this encounter
[2024-11-24] MEDS: BELLADONNA ALK/PHENOB ELIX 10 ML, MAG HYDROX/ALUMINUM HYD/SIMETH 30 ML, LIDOCAINE 2% VI... PO (14:55)
[2024-11-24] MEDS: FAMOTIDINE 20 MG/2 ML VIAL IV PUSH (14:56)
[2024-11-24] MEDS: DICYCLOMINE HCL INJ 20 MG/2 ML VIAL IM (15:59)
== END 2024-11-24 16:40 | disposition home or self-care (01) ==
PROVIDERS: Emergency Provider Student in an Organized Health Care Education/Training Program; PCP Nurse Practitioner Family
DX: I44.0 Atrioventricular block, first degree (principal); R74.01 Elevation of levels of liver transaminase levels; R10.13 Epigastric pain; E03.9 Hypothyroidism, unspecified; E78.5 Hyperlipidemia, unspecified; I10 Essential (primary) hypertension; Z90.49 Acquired absence of other specified parts of digestive tract; J44.9 Chronic obstructive pulmonary disease, unspecified
CPT/HCPCS: 36415; 71046; 74177; 80053; 81003; 83690; 84484; 85025; 85610; 85730; 93005; 96372; 96374; 99284; A9270; J0500; Q9967

== ENCOUNTER 2024-11-29 09:07 | Emergency (ER) | payer MEDICARE, SELFPAY ==
--- NOTE | 2024-11-29 09:16 | ED.GENADULT ---
HPI - General Adult General Chief complaint: Skin/Abscess/Foreign Body Stated complaint: red spots on back and under breast Time Seen by Provider: 11/29/24 09:16 Source: patient Mode of arrival: ambulatory Limitations: no limitations History of Present Illness HPI narrative: 84-year-old female patient presents to the [facility] with complaints of pain under the left breast and to the middle of the left back as well as a rash that came up about 3 days ago. Patient states she was in the ER on Sunday for pains under the left breast and states she had a full workup of EKGs and CTs to rule out any kind of ME or PE and everything came back negative and she was discharged at that time. Patient denies ever getting a shingles vaccine. Related Data Home Medications ?Medication ?Instructions ?Recorded ?Confirmed ?Last Taken ?Type multivitamin 1 tablet BYMOUTH DAILY 02/11/19 10/14/24 10/01/24 08:00 History 1 cholecalciferol (vitamin D3) 125 125 mcg PO DAILY 05/29/22 10/14/24 10/02/24 08:00 History mcg (5,000 unit) capsule 125 mcg cinnamon bark 500 mg capsule 500 mg PO DAILY 05/29/22 10/14/24 10/01/24 08:00 History (Cinnamon) 500 mg garlic 1,000 mg capsule 1,000 mg PO DAILY 05/29/22 10/14/24 10/02/24 08:00 History 1,000 mg potassium chloride 10 mEq 10 meq PO BID 05/29/22 10/14/24 10/01/24 08:00 History tablet,extended release 10 mEq quercetin 500 mg capsule 500 mg PO DAILY 05/29/22 10/14/24 10/01/24 08:00 History 500 mg selenium 200 mcg capsule 200 mcg PO DAILY 05/29/22 10/14/24 10/02/24 08:00 History 200 mcg vitamin B complex (B 1 tablet PO DAILY 05/29/22 10/14/24 10/01/24 08:00 History Complex-Vitamin B12 tablet) 1 tablet omeprazole magnesium 20 mg 20 mg PO DAILY 07/04/22 10/14/24 10/02/24 08:00 History tablet,delayed release (Prilosec 20 mg OTC) milk thistle 175 mg tablet 500 mg PO DAILY 07/11/23 10/14/2425 08:00 History 175 mg acetaminophen 500 mg tablet 500 mg PO .am PRN pain (scale 07/18/24 10/14/24 10/02/24 09:00 History score 1-3) 500 mg warfarin 2 mg tablet 6 mg PO .COMPLEX 10/01/24 10/14/24 09/28/24 08:00 History 2 mg warfarin 4 mg tablet 4 mg PO .COMPLEX 10/01/24 10/14/24 10/02/24 08:00 History 4 mg Allergies Allergy/AdvReac Type Severity Reaction Status Date / Time adhesive tape Allergy Severe RASH Verified 11/29/24 09:12 levofloxacin AdvReac Mild Nausea and Verified 11/29/24 09:12 Vomiting Review of Systems Review of Systems: CONSTITUTIONAL: Denies fever, chills, or sweats. EYES: Denies visual changes, redness, or discharge. ENT: Denies rhinorrhea, congestion, sore throat, or otalgia. CARDIOVASCULAR: Denies chest pain, palpitations, or edema. RESPIRATORY: Denies cough or dyspnea. GASTROINTESTINAL: Denies abdominal pain, nausea, vomiting, or diarrhea. GENITOURINARY: Denies dysuria or hematuria. SKIN: Positive rash with itching under left breast and middle of left back times 3-4 days. MUSCULOSKELETAL: Denies back pain, joint pain, or myalgia. NEUROLOGIC: Denies headache, numbness, or weakness. PSYCHIATRIC: Denies anxiety or depression. FORMERLY [facility] Past Medical History Medical History Abdominal pain Wears hearing aid in both ears Left arm pain Racing heart beat Sarcoidosis Diagnosed 2002 after transbronchial biopsy, has never undergone tx. In remission. Pulmonary HTN CPAP (continuous positive airway pressure) dependence Sleep apnea Sarcoidosis Hiatal hernia Fatty liver COPD (chronic obstructive pulmonary disease) Anxiety Hypothyroid Osteoporosis Arthritis UTI (urinary tract infection) GI bleed GERD (gastroesophageal reflux disease) IBS (irritable bowel syndrome) Diverticulosis HTN (hypertension) Hyperlipidemia Sinus problem Cataract Surgical History Surgical History H/O colonoscopy H/O cataract extraction History of arthroplasty of left knee H/O arthroscopy of right knee H/O dilation and curettage H/O: hysterectomy H/O breast biopsy Hx of cholecystectomy History of appendectomy History of cardiac cath H/O sinus surgery Hx of tonsillectomy Family History Family History Mother Cerebrovascular accident, Onset Age: 86 Family history of cardiovascular disease, Onset Age: 86 Sibling Family history of cardiovascular disease History of heart bypass surgery, Onset Age: 75 Social History Social History Social History: Has a son Smoking status: Never smoker Second hand tobacco smoke exposure: Yes Alcohol intake: never Substance use: never Substance use type: does not use Do You Feel Safe in your Home?: Yes Lack of Transportation: YES Lack of Food: Never True Current Housing: I Have Housing Concerned About Future Housing: No Difficulty Paying Gas/Electric Bills: No Difficulty Paying for Meds: No Currently Unemployed: No Education: High School Diploma/GED Difficulty w/ Childcare or Family Care: No Living arrangements: with family Gender identity (if verbalized by the patient): Female Spiritual care concerns: No Agree to blood products: Yes Comments At the time of my signature I agree with nursing past medical history, surgical, social, and family history. There is no relevant family history pertinent to the presenting complaint. Exam Narrative: GENERAL: Well-appearing, well-nourished, and in no acute distress. HEAD: Normocephalic, atraumatic. EYES: PERRLA and EOMI. ENT: Nares clear, no rhinorrhea or epistaxis. Mucous membranes moist. NECK: Supple. No lymphadenopathy CHEST: Clear to auscultation. No respiratory distress. HEART: Regular rate and rhythm. No murmur heard. Normal peripheral pulses. ABDOMEN: Soft, nontender, nondistended, normal active bowel sounds. EXTREMITIES: Normal range of motion. No edema. SKIN: Warm, dry, patient has blistery rash noted under the left breast that extends all the way to the back with another patch of a blistery rash on erythemic base noted toward the left side of the middle back. the rash and erythemic base does not cross the midline. NEURO: No focal deficits. Alert and oriented x3. Course Course Level of Care: Express Care Visit Vital Signs Vital signs: Vital Signs Temperature 36.5 C 11/29/24 09:17 Pulse Rate 79 11/29/24 09:17 Respiratory Rate 16 11/29/24 09:17 Blood Pressure 141/56 H 11/29/24 09:17 Pulse Oximetry 97 11/29/24 09:17 Oxygen Delivery Room Air 11/29/24 09:17 Temperature 36.5 C 11/29/24 09:17 Pulse Rate 79 11/29/24 09:17 Respiratory Rate 16 11/29/24 09:17 Blood Pressure 141/56 H 11/29/24 09:17 Pulse Oximetry 97 11/29/24 09:17 Oxygen Delivery Room Air 11/29/24 09:17 Vital signs reviewed. The patient has been informed that they may have pre-hypertension or Hypertension based on a BP reading in the department. I recommend that the patient call the primary care provider listed on their discharge instructions or a physician of their choice this week to arrange follow up for further evaluation of possible pre-hypertension or Hypertension Medical Decision Making MDM Narrative Medical decision making narrative: Discussed with patient that her rash appears to be a shingles outbreak. Discussed with patient that we will go ahead and put her on an antiviral and she may take Tylenol for her pain as well as some Claritin to help with the itching. Patient is on many supplements to help boost her immune system but have recommended that she increase her vitamin C intake to 2000 mg in the morning and 2000 mg in the evening until the rash has resolved that she can go back down to 500 mg in the morning and 500 mg in the evening. Patient verbalized understanding of this denies any other questions or concerns at this time. Differential Diagnosis Differential Diagnosis: Differential diagnosis: Contact dermatitis, poison glen, poison sumac, psoriasis, eczema, allergic reaction, drug reaction, scabies, tinea syphilis, lung disease, viral exanthema, pityriasis, erythema multiforme. Vital Signs Vital Signs: Vital Signs Temperature 36.5 C 11/29/24 09:17 Pulse Rate 79 11/29/24 09:17 Respiratory Rate 16 11/29/24 09:17 Blood Pressure 141/56 H 11/29/24 09:17 Pulse Oximetry 97 11/29/24 09:17 Oxygen Delivery Room Air 11/29/24 09:17 Temperature 36.5 C 11/29/24 09:17 Pulse Rate 79 11/29/24 09:17 Respiratory Rate 16 11/29/24 09:17 Blood Pressure 141/56 H 11/29/24 09:17 Pulse Oximetry 97 11/29/24 09:17 Oxygen Delivery Room Air 11/29/24 09:17 Vital signs reviewed. Critical Care Time Critical Care Time Critical Care Time: No Discharge Plan Discharge Clinical Impression: Shingles rash Patient Disposition: Home Condition: Stable Instructions: Antibiotic Form, Shingles (ED) Additional Instructions: Take antiviral medication as directed. This may help decrease symptoms and healing time. This may also made decrease your risk of developing nerve pain. May take ibuprofen or Tylenol as needed for pain during the day. May take prescribed pain medication at night for pain. Keep the rash clean and dry. Cover rash with a hand edge or clothing. Do not use bandages that stick to your skin. The sticky part may irritate your scan and make a rash last longer. The virus can be passed to a person who has never had chickenpox. This Person may get chickenpox but not shingles. You may pass the virus to others as long as you have a rash. The virus is spread by direct contact with the fluid from the blisters. Usually cannot spread the virus once the blisters have dried up. Please follow-up with your primary care provider within the next 5-7 days. Contact your health care provider or go to the ER if: You feel weak or have a headache. You have a cough, chills, or if fever You have abdominal pain, nausea or vomiting You're rash becomes more itchy or painful You're rash spreads to other parts of the body You're pain worsens and does not go away even after taking the medicine You're neck is stiff or you have trouble moving You painful, red, warm skin around the blisters are the blisters drain pus. You have trouble moving her arms, legs or face. You have a seizure You have weakness in an arm or leg. You become confused or have difficulty speaking You have dizziness, severe headache, hearing or visual loss. May take Claritin once a day for the itching Increase your vitamin C to boost your immune system 2000mg in the AM, 2000mg in the PM until rash goes away, then may take 500mg in the AM and 500mg in the PM for maintenance. May take TYN 1000mg for pain 3-4 time per day. Patient Language: Canadian Prescriptions: New acyclovir 800 mg tablet 800 mg PO .five times per day 7 Days Qty: 35 0RF Rx Instructions: while awake; give 5 doses in 24 hours No Action milk thistle 175 mg tablet 500 mg PO DAILY Rx Instructions: give with meal/snack albuterol sulfate 2.5 mg /3 mL (0.083 %) solution for nebulization 2.5 mg inhalation Q4-6H PRN (Reason: shortness of breath or wheezing) Qty: 90 3RF cholecalciferol (vitamin D3) 125 mcg (5,000 unit) capsule 125 mcg PO DAILY vitamin B complex [B Complex-Vitamin B12] Tablet 1 tablet PO DAILY quercetin 500 mg capsule 500 mg PO DAILY selenium 200 mcg capsule 200 mcg PO DAILY garlic 1,000 mg capsule 1,000 mg PO DAILY cinnamon bark [Cinnamon] 500 mg capsule 500 mg PO DAILY warfarin 4 mg tablet 4 mg PO .COMPLEX Rx Instructions: 4 mg orally on SUNDAY multivitamin 1 tablet BYMOUTH DAILY potassium chloride 10 mEq tablet extended release 10 meq PO BID Prilosec OTC 20 mg tablet,delayed release (DR/EC) 20 mg PO DAILY acetaminophen 500 mg tablet 500 mg PO .am PRN (Reason: pain (scale score 1-3)) warfarin 2 mg tablet 6 mg PO .COMPLEX Rx Instructions: 6 mg orally on SUNDAY, SUNDAY, SUNDAY, SUNDAY, SUNDAY, SUNDAY sotalol 80 mg Tablet 80 mg PO Q12HR Qty: 60 0RF dicyclomine 20 mg tablet 20 mg PO BID 10 Days Qty: 20 0RF furosemide 40 mg tablet See Rx Instructions .ROUTE .COMPLEX Qty: 180 1RF Dose Instruction: TAKE 2 TABLETS BY MOUTH DAILY Rx Instructions: TAKE 2 TABLETS BY MOUTH DAILY fluticasone propionate 50 mcg/actuation spray,suspension See Rx Instructions .ROUTE .COMPLEX Qty: 48 3RF Dose Instruction: SHAKE THEN INSTILL 2 SPRAYS INTO EACH NOSTRIL TWICE A DAY Rx Instructions: SHAKE THEN INSTILL 2 SPRAYS INTO EACH NOSTRIL TWICE A DAY alendronate 70 mg tablet See Rx Instructions .ROUTE .COMPLEX Qty: 12 4RF Dose Instruction: TAKE 1 TABLET BY MOUTH ONCE WEEKLY Rx Instructions: TAKE 1 TABLET BY MOUTH ONCE WEEKLY albuterol sulfate 90 mcg/actuation HFA aerosol inhaler 1 - 2 puff INHALATION Q4-6H PRN (Reason: shortness of breath or wheezing) Qty: 8.5 2RF budesonide-formoterol 80-4.5 mcg/actuation HFA aerosol inhaler 2 puff inhalation Q12H Qty: 30.6 3RF Rx Instructions: Rinse mouth and spit rosuvastatin 10 mg tablet See Rx Instructions .ROUTE .COMPLEX Qty: 100 1RF Dose Instruction: TAKE 1 TABLET BY MOUTH EVERY DAY Rx Instructions: TAKE 1 TABLET BY MOUTH EVERY DAY levothyroxine 88 mcg tablet 88 mcg PO DAILY Qty: 90 1RF irbesartan 300 mg tablet See Rx Instructions .ROUTE .COMPLEX Qty: 100 1RF Dose Instruction: TAKE 1 TABLET BY MOUTH EVERY DAY Rx Instructions: TAKE 1 TABLET BY MOUTH EVERY DAY amlodipine 10 mg tablet 10 mg PO DAILY Qty: 90 1RF alprazolam 0.25 mg tablet 0.25 mg PO BID PRN (Reason: anxiety) Qty: 60 0RF Follow-up/Referrals: Tru Benites MD [Primary Care Provider, Family Practice] Time of Disposition: 09:37
[2024-11-29 09:17] VITALS: BP 141/56; PULSE 79; RESP 16; TEMP 36.5; O2SAT 97
== END 2024-11-29 09:52 | disposition home or self-care (01) ==
PROVIDERS: Emergency Provider Nurse Practitioner Family; PCP Family Medicine
DX: B02.9 Zoster without complications (principal); G47.30 Sleep apnea, unspecified; J44.9 Chronic obstructive pulmonary disease, unspecified; K76.0 Fatty (change of) liver, not elsewhere classified; E03.9 Hypothyroidism, unspecified; M81.0 Age-related osteoporosis without current pathological fracture; K21.9 Gastro-esophageal reflux disease without esophagitis; I10 Essential (primary) hypertension; E78.5 Hyperlipidemia, unspecified; I27.20 Pulmonary hypertension, unspecified; Z96.651 Presence of right artificial knee joint
CPT/HCPCS: 99213; G0463

== ENCOUNTER 2025-02-02 15:28 | Outpatient (CLI) | payer MEDICARE, SELFPAY ==
--- NOTE | ~2025-02-02 | XR_ITS ---
EXAMINATION: XR knee LT 3V, 02/02/2025 15:33 TIMBER MANAGEMENT SPECIALIST HISTORY: M54.50 - Low back pain, unspecified COMPARISON: No comparisons available. Findings: No acute fracture or malalignment. Arthroplasty intact Soft tissues unremarkable. Impression: No acute fracture or malalignment. Reviewed, dictated and finalized at location P. ER MANAGEMENT SPECIALIST Impression: No acute fracture or malalignment.
--- NOTE | ~2025-02-02 | XR_ITS ---
EXAMINATION: XR hip LT min 2V, 02/02/2025 15:33 MANAGER LABORATORY HISTORY: M54.50 - Low back pain, unspecified COMPARISON: No comparisons available. Findings: No acute fracture or malalignment. Moderate degenerative changes Soft tissues unremarkable. Impression: No acute fracture or malalignment. Reviewed, dictated and finalized at location P. GER LABORATORY Impression: No acute fracture or malalignment.
--- NOTE | ~2025-02-02 | XR_ITS ---
XR lumbar spine 2-3V Indication: M54.50 - Low back pain, unspecified Comparison: None Findings: Mild dextroconvex scoliosis. Moderate osteopenia. Grade 1 anterolisthesis L4 on L5 and L5 on S1. Moderate to severe loss of disc height throughout Soft tissues unremarkable Impression: No acute abnormality. Reviewed, dictated and finalized at location P. [facility] INTERN Impression: No acute abnormality.
== END 2025-02-02 15:29 | disposition home or self-care (01) ==
LOC: MICIMG 15:30
PROVIDERS: PCP Family Medicine; Visit Provider Family Medicine
DX: M54.50 Low back pain, unspecified (principal); M25.562 Pain in left knee; M25.552 Pain in left hip
CPT/HCPCS: 72100; 73502; 73562

== ENCOUNTER 2025-02-13 13:51 | Emergency (ER) | payer MEDICARE, SELFPAY ==
[2025-02-13] VITALS (13 sets, daily range): BP systolic 108–175; BP diastolic 60–96; PULSE 65–82; RESP 16–24; TEMP 36.4; O2SAT 93–100
--- NOTE | ~2025-02-13 | XR_ITS ---
EXAMINATION: XR chest 2V, 02/13/2025 14:35 CUT ORDER HAND HISTORY: SOA COMPARISON: No comparisons available. Technique: 2 views obtained. Findings: COPD changes otherwise the lungs are clear. No pneumothorax. Heart is normal size. Mediastinal and hilar contours are within normal limits. Bony thorax no acute abnormality. Impression: No acute cardiopulmonary abnormality. Reviewed, dictated and finalized at location P. ORDER HAND Impression: No acute cardiopulmonary abnormality.
--- NOTE | 2025-02-13 13:53 | ECG_ITS ---
Test Date: 2025-02-13 14:02:51 Measurements Intervals [place] Rate: 68 P: 53 WY: 209 QRS: 2 QRSD: 89 T: 50 QT: 413 QTc: 440 Interpretive Statements SINUS RHYTHM WITH OCCASIONAL SUPRAVENTRICULAR PREMATURE COMPLEXES LOW QRS VOLTAGE IN PRECORDIAL LEADS BASELINE ARTIFACT- I, III, AVR, AVL, AVF, V1-V6 BORDERLINE ECG Compared to ECG 11/24/2024 13:59:00 NO SIGNIFICANT CHANGE Electronically Signed On 02-13-2025 14:28:07 NURSING SCHEDULER by Colt Escoto D.O.
[2025-02-13 14:29] LABS: Hematocrit 38.6 % (37.0-47.0); Hemoglobin 12.5 g/dL (12.0-15.0); Immature Granulocyte Percent A 0.4 % (0-0.5); Lymphocytes Absolute Auto 1.66 K/mm3 (0.9-3.2); Mean Corpuscular HGB Conc 32.4 g/dl (32-36); Mean Corpuscular Hemoglobin 28.6 pg (26-34); Mean Corpuscular Volume 88.3 fl (80-100); Nucleated Red Blood Cells Absolute Auto 0.000 K/mm3 (0.0-0.012); Nucleated Red Blood Cells Perc 0.0 % (0.0-0.2); Platelet Count Result 246 k/mm3 (150-375); Red Blood Count 4.37 M/mm3 (4.2-5.4); White Blood Count 7.1 K/mm3 (4.5-10.0)
[2025-02-13 14:48] LABS: Alanine Aminotransferase 23 U/L (6-35); Albumin Level 4.4 g/dL (3.5-5.1); Alkaline Phosphatase 78 U/L (38-126); Anion Gap 7 mmol/L (4-12); Aspartate Amino Transferase 32 U/L (14-36); Bilirubin,Total 1.0 mg/dL (0.2-1.3); Blood Urea Nitrogen 11 mg/dL (7-17); Calcium 9.7 mg/dL (8.4-10.2); Carbon Dioxide 23 mmol/L (22-30); Chloride 108 mmol/L (98-107); Estimated CRCL calculation 52 ml/min; Estimated Glomerular Filt Rate > 60; Glucose 115 mg/dL (65-110); Potassium 3.8 mmol/L (3.4-5.0); Sodium 138 mmol/L (137-145); Total Protein 7.7 g/dL (6.3-8.2)
--- NOTE | 2025-02-13 15:40 | ED.SOB ---
HPI - SOB/Dyspnea General Chief Complaint: Shortness of Breath/Dyspnea Stated Complaint: short winded Time Seen by Provider: 02/13/25 15:28 Source: patient Mode of arrival: ambulatory Limitations: no limitations History of Present Illness HPI Narrative: 84 YEARS OLD WHITE FEMALE CAME FROM HOME BY PRIVATE CAR COMPLAINING OF FREQUENT URINATION AND CHRONIC SHORTNESS OF BREATH ON EXERTION FOR YEARS. NOTHING DIFFERENT TODAY THAN BEFORE EXCEPT THE FREQUENCY OF URINATION. FAMILY MEMBER AT THE BEDSIDE. PATIENT DENIES ANY FEVER, CHILLS, NAUSEA, VOMITING, ABDOMINAL PAIN, CHEST PAIN OR COUGHING. Related Data Home Medications ?Medication ?Instructions ?Recorded ?Confirmed ?Last Taken ?Type multivitamin 1 tablet BYMOUTH DAILY 02/11/19 01/19/25 10/01/24 08:00 History 1 cholecalciferol (vitamin D3) 125 125 mcg PO DAILY 05/29/22 01/19/25 10/02/24 08:00 History mcg (5,000 unit) capsule 125 mcg cinnamon bark 500 mg capsule 500 mg PO DAILY 05/29/22 01/19/25 10/01/24 08:00 History (Cinnamon) 500 mg garlic 1,000 mg capsule 1,000 mg PO DAILY 05/29/22 01/19/25 10/02/24 08:00 History 1,000 mg quercetin 500 mg capsule 500 mg PO DAILY 05/29/22 01/19/25 10/01/24 08:00 History 500 mg vitamin B complex (B 1 tablet PO DAILY 05/29/22 01/19/25 10/01/24 08:00 History Complex-Vitamin B12 tablet) 1 tablet milk thistle 175 mg tablet 500 mg PO DAILY 07/11/23 01/19/25 10/02/24 08:00 History 175 mg acetaminophen 500 mg tablet 500 mg PO .am PRN pain (scale 07/18/24 01/19/25 10/02/24 09:00 History score 1-3) 500 mg warfarin 2 mg tablet 6 mg PO .COMPLEX 10/01/24 01/19/25 09/28/24 08:00 History 2 mg warfarin 4 mg tablet 4 mg PO .COMPLEX 10/01/24 01/19/25 10/02/24 08:00 History 4 mg clonidine HCl 0.1 mg tablet mg PO 02/02/25 Unknown History hydralazine 25 mg tablet 75 mg PO 02/02/25 Unknown History Allergies Allergy/AdvReac Type Severity Reaction Status Date / Time adhesive tape Allergy Severe RASH Verified 02/13/25 14:20 levofloxacin AdvReac Mild Nausea and Verified 02/13/25 14:20 Vomiting Review of Systems Review of Systems: All systems reviewed & are unremarkable except as noted in HPI and below PMFSH Past Medical History Medical History Abdominal pain Wears hearing aid in both ears Left arm pain Racing heart beat Sarcoidosis Diagnosed 2002 after transbronchial biopsy, has never undergone tx. In remission. Pulmonary HTN CPAP (continuous positive airway pressure) dependence Sleep apnea Sarcoidosis Hiatal hernia Fatty liver COPD (chronic obstructive pulmonary disease) Anxiety Hypothyroid Osteoporosis Arthritis UTI (urinary tract infection) GI bleed GERD (gastroesophageal reflux disease) IBS (irritable bowel syndrome) Diverticulosis HTN (hypertension) Hyperlipidemia Sinus problem Cataract Surgical History Surgical History H/O colonoscopy H/O cataract extraction History of arthroplasty of left knee H/O arthroscopy of right knee H/O dilation and curettage H/O: hysterectomy H/O breast biopsy Hx of cholecystectomy History of appendectomy History of cardiac cath H/O sinus surgery Hx of tonsillectomy Family History Family History Mother Cerebrovascular accident, Onset Age: 86 Family history of cardiovascular disease, Onset Age: 86 Sibling Family history of cardiovascular disease History of heart bypass surgery, Onset Age: 75 Social History Social History Social History: Has a son Smoking status: Never smoker Second hand tobacco smoke exposure: Yes Alcohol intake: never Substance use: never Substance use type: does not use Lack of Transportation: YES Lack of Food: Never True Current Housing: I Have Housing Concerned About Future Housing: No Difficulty Paying Gas/Electric Bills: No Difficulty Paying for Meds: No Currently Unemployed: No Education: High School Diploma/GED Difficulty w/ Childcare or Family Care: No Living arrangements: with family Gender identity (if verbalized by the patient): Female Spiritual care concerns: No Agree to blood products: Yes Exam Narrative: GENERAL APPEARANCE: WELL-DEVELOPED, WELL-NOURISHED SKIN: NORMAL COLOR, 1+ EDEMA LOWER EXTREMITY BILATERALLY UP TO THE KNEES HEAD: NORMOCEPHALIC, NONTRAUMATIC EYES: CLEAR CONJUNCTIVA ENT: OROPHARYNX NORMAL, EARS NORMAL, NOSE NORMAL NECK: SUPPLE, NONTENDER CHEST AND RESPIRATORY: AIRWAY PATENT, NO RESPIRATORY DISTRESS, NO ACCESSORY MUSCLE USE HEART: REGULAR RATE/RHYTHM ABDOMEN: SOFT, NONTENDER, NO ORGANOMEGALY, QUIET BOWEL SOUNDS VASCULAR: NORMAL PERIPHERAL PULSES, NORMAL CAPILLARY REFILL. MUSCULOSKELETAL: NORMAL RANGE OF MOTION, NONTENDER BACK NEUROLOGIC: ALERT AND ORIENTED ?3, CHIEF TECHNOLOGY OFFICER IS NORMAL TESTED, NO GROSS MOTOR DEFICIT Course Vital Signs Vital signs: Vital Signs Temperature 36.4 C 02/13/25 14:06 Pulse Rate 73 02/13/25 14:06 Respiratory Rate 16 02/13/25 14:06 Blood Pressure 174/69 H 02/13/25 14:06 Pulse Oximetry 100 02/13/25 14:06 Oxygen Delivery Room Air 02/13/25 14:06 Temperature 36.4 C 02/13/25 14:06 Pulse Rate 69 02/13/25 18:32 Respiratory Rate 20 02/13/25 18:32 Blood Pressure 162/94 H 02/13/25 18:32 Pulse Oximetry 94 02/13/25 18:32 Oxygen Delivery Room Air 02/13/25 14:19 MDM MDM Narrative Medical decision making narrative: PATIENT PRESENTS WITH FREQUENT URINATION, AND CHRONIC SHORTNESS OF BREATH. VITAL SIGNS SHOWING BLOOD PRESSURE 174/69 OTHERWISE WITHIN NORMAL LIMIT PHYSICAL EXAMINATION SHOWING 2+ EDEMA LOWER EXTREMITY BILATERALLY UP TO THE KNEES OTHERWISE INSIGNIFICANT DIFFERENTIAL DIAGNOSIS INCLUDE URINARY TRACT INFECTION, ELECTROLYTE IMBALANCE, DEHYDRATION, PNEUMONIA, ANXIETY LIKE SYMPTOMS BLOOD WORKUP TODAY INCLUDES CBC, CMP, TROPONIN, PROBNP, COAGS SHOWED PRO BNP OF 701, Urinalysis showed no evidence of infection CHEST X-RAY SHOWED NO ACUTE ABNORMALITY Diagnosis dysuria The pt was discharged to home.the pt,s condition upon discharge was fair,education was provided to the pt in reference to the final impression,discharge study results,treatment,prognosis and need for follow up . Differential Diagnosis Differential Diagnosis: As above Medical Records I have reviewed the following patient records and this information was taken into consideration when formulating the assessment and plan.: previous labs, previous ER visits, previous hospitalizations and previous clinic visits Lab Data [facility] Lab Attestation statement: I personally reviewed the patient's lab results. 02/13/25 14:20 02/13/25 14:20 Labs: Lab Results 02/13/25 02/13/25 Range/Units 14:20 17:38 WBC 7.1 (4.5-10.0) K/mm3 RBC 4.37 (4.2-5.4) M/mm3 Hgb 12.5 (12.0-15.0) g/dL Hct 38.6 (37.0-47.0) % MCV 88.3 (80-100) fl MCH 28.6 (26-34) pg MCHC 32.4 (32-36) g/dl RDW 15.8 H (11.5-14.5) % Plt Count 246 (150-375) k/mm3 MPV 9.6 (7.4-10.4) fl Immature Gran % (Auto) 0.4 (0-0.5) % Neut % (Auto) 60.9 (45.5-73.1) % Lymph % (Auto) 23.5 (18.3-44.2) % [place] % (Auto) 12.2 H (2.6-8.5) % Eos % (Auto) 2.0 (0-4.4) % Baso % (Auto) 1.0 (0.2-1.2) % Lymph # (Auto) 1.66 (0.9-3.2) K/mm3 [place] # (Auto) 0.9 H (0.1-0.6) K/mm3 Eos # (Auto) 0.1 (0-0.3) K/mm3 Baso # (Auto) 0.1 (0.0-0.1) K/mm3 Abs Immat Gran (auto) 0.03 (0.00-0.031) K/mm3 Absolute Neuts (auto) 4.3 (1.3-6.7) K/mm3 Absolute Nucleated RBC 0.000 (0.0-0.012) K/mm3 Nucleated RBC % 0.0 (0.0-0.2) % PT 27.2 H (11.1-14.7) Seconds INR 2.6 Sodium 138 (137-145) mmol/L Potassium 3.8 (3.4-5.0) mmol/L Chloride 108 H (98-107) mmol/L Carbon Dioxide 23 (22-30) mmol/L Anion Gap 7 (4-12) mmol/L BUN 11 (7-17) mg/dL Creatinine 0.72 (0.7-1.0) mg/dL Estim Creat Clear Calc 52 ml/min Estimated GFR > 60 (59 - ) Glucose 115 H (65-110) mg/dL Calcium 9.7 (8.4-10.2) mg/dL Total Bilirubin 1.0 (0.2-1.3) mg/dL AST 32 (14-36) U/L ALT 23 (6-35) U/L Alkaline Phosphatase 78 (38-126) U/L Troponin I < 0.012 (0.000-0.034) ng/mL NT-Pro-B Natriuret Pep 701 H (19.9-100) pg/mL Total Protein 7.7 (6.3-8.2) g/dL Albumin 4.4 (3.5-5.1) g/dL Urine Color Yellow (Yellow) Urine Appearance Clear (Clear) Urine pH 7.0 (5.0-9.0) Ur Specific Hall 1.003 (1.001-1.035) Urine Protein Negative (Negative) mg/dL Urine Glucose (UA) Negative (Negative) mg/dL Urine Ketones Negative (Negative) mg/dL Ur Blood (Man) Negative (Negative) Urine Nitrate Negative (Negative) Urine Bilirubin Negative (Negative) Urine Urobilinogen 0.2 (<2.0) mg/dL Leukocyte Esterase Rfl Negative (Negative) NORA/UL Urine RBC 0-2 (0-2) /hpf Urine WBC 0-5 (0-3) /hpf Ur Squamous Epith Cells None seen (Few) /hpf Urine Bacteria None seen /hpf Urine Casts 0-2 Imaging Data Radiologist's impression: ITS Impressions Chest X-Ray 02/13/25 14:42 Impression: No acute cardiopulmonary abnormality. Critical Care Time Critical Care Time Critical Care Time: No Discharge Plan Discharge Clinical Impression: Dysuria Patient Disposition: Home Condition: Stable Instructions: Antibiotic Form, Dyspnea (ED) Additional Instructions: RETURN IF SYMPTOMS ARE WORSENING , CALL YOUR FAMILY PHYSICIAN FOR APPOINTMENT, TAKE TYLENOL NEEDED FOR ACHES AND PAIN, CONTINUE HOME MEDICATIONS. Patient Language: Guatemalan Prescriptions: New nitrofurantoin monohyd/m-cryst [Macrobid] 100 mg capsule 100 mg PO Q12H 5 Days Qty: 10 0RF Rx Instructions: must administer with a meal/food No Action milk thistle 175 mg tablet 500 mg PO DAILY Rx Instructions: give with meal/snack lidocaine 5 % cream 1 applic topical TID PRN (Reason: pain) Qty: 30 0RF Rx Instructions: do not apply to open blisters cholecalciferol (vitamin D3) 125 mcg (5,000 unit) capsule 125 mcg PO DAILY vitamin B complex [B Complex-Vitamin B12] Tablet 1 tablet PO DAILY quercetin 500 mg capsule 500 mg PO DAILY garlic 1,000 mg capsule 1,000 mg PO DAILY cinnamon bark [Cinnamon] 500 mg capsule 500 mg PO DAILY warfarin 4 mg tablet 4 mg PO .COMPLEX Rx Instructions: 4 mg orally on SUNDAY clonidine HCl 0.1 mg tablet PO hydralazine 25 mg tablet 75 mg PO Patient Comments: 75mg Morning 75mg Afternoon 100mg Night prednisone 20 mg tablet 40 mg PO DAILY Qty: 10 0RF hydrocodone-acetaminophen 5-325 mg tablet 1 tablet PO Q8H PRN (Reason: pain) Qty: 20 0RF omeprazole 40 mg capsule,delayed release(DR/EC) 40 mg PO DAILY Qty: 30 2RF multivitamin 1 tablet BYMOUTH DAILY acetaminophen 500 mg tablet 500 mg PO .am PRN (Reason: pain (scale score 1-3)) warfarin 2 mg tablet 6 mg PO .COMPLEX Rx Instructions: 6 mg orally on SUNDAY, SUNDAY, SUNDAY, SUNDAY, SUNDAY, SUNDAY sotalol 80 mg Tablet 80 mg PO Q12HR Qty: 60 0RF furosemide 40 mg tablet See Rx Instructions .ROUTE .COMPLEX Qty: 180 1RF Dose Instruction: TAKE 2 TABLETS BY MOUTH DAILY Rx Instructions: TAKE 2 TABLETS BY MOUTH DAILY alendronate 70 mg tablet See Rx Instructions .ROUTE .COMPLEX Qty: 12 4RF Dose Instruction: TAKE 1 TABLET BY MOUTH ONCE WEEKLY Rx Instructions: TAKE 1 TABLET BY MOUTH ONCE WEEKLY rosuvastatin 10 mg tablet See Rx Instructions .ROUTE .COMPLEX Qty: 100 1RF Dose Instruction: TAKE 1 TABLET BY MOUTH EVERY DAY Rx Instructions: TAKE 1 TABLET BY MOUTH EVERY DAY levothyroxine 88 mcg tablet 88 mcg PO DAILY Qty: 90 1RF irbesartan 300 mg tablet See Rx Instructions .ROUTE .COMPLEX Qty: 100 1RF Dose Instruction: TAKE 1 TABLET BY MOUTH EVERY DAY Rx Instructions: TAKE 1 TABLET BY MOUTH EVERY DAY amlodipine 10 mg tablet 10 mg PO DAILY Qty: 90 1RF sucralfate 1 gram tablet 1 g PO TID Qty: 90 3RF alprazolam 0.25 mg tablet 0.25 mg PO BID PRN (Reason: anxiety) Qty: 60 0RF Follow-up/Referrals: Tru Benites MD [Primary Care Provider, Family Practice]
[2025-02-13 16:12] LABS: INR 2.6; NT Pro B Type Natriuretic Pept 701 pg/mL (19.9-100); Prothrombin Time 27.2 Seconds (11.1-14.7); Troponin I < 0.012 ng/mL (0.000-0.034)
[2025-02-13 17:48] LABS: Non Pathogenic Casts 0-2
[2025-02-13 17:54] LABS: Add Urine Microscopic? NO; Appearance Urine Clear (Clear); Glucose Urine UA Negative (Negative); Leukocyte Esterase Ur Negative LEU/UL (Negative); Nitrate Urine Negative (Negative); Specific Grav Ur 1.003 (1.001-1.035)
== END 2025-02-13 18:36 | disposition home or self-care (01) ==
PROVIDERS: Family Medicine; Emergency Provider Emergency Medicine; PCP Family Medicine
DX: R30.0 Dysuria (principal); I27.20 Pulmonary hypertension, unspecified; J44.9 Chronic obstructive pulmonary disease, unspecified; E03.9 Hypothyroidism, unspecified; E78.5 Hyperlipidemia, unspecified; K21.9 Gastro-esophageal reflux disease without esophagitis; M81.0 Age-related osteoporosis without current pathological fracture; M19.90 Unspecified osteoarthritis, unspecified site; G47.30 Sleep apnea, unspecified; F41.9 Anxiety disorder, unspecified; Z96.652 Presence of left artificial knee joint; Z87.440 Personal history of urinary (tract) infections; Z98.49 Cataract extraction status, unspecified eye; Z90.710 Acquired absence of both cervix and uterus; Z90.49 Acquired absence of other specified parts of digestive tract; Z79.01 Long term (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; Z79.899 Other long term (current) drug therapy; Z77.22 Contact with and (suspected) exposure to environmental tobacco smoke (acute) (chronic); I49.1 Atrial premature depolarization
CPT/HCPCS: 36415; 71046; 80053; 81003; 83880; 84484; 85025; 85610; 93005; 99284

== ENCOUNTER 2025-03-03 12:21 | Emergency (ER) | payer MEDICARE, SELFPAY ==
--- NOTE | ~2025-03-03 | CT_ITS ---
CT HEAD NON-CONTRAST Clinical History: headache Comparison: CT 06/28/2022 Technique: Unenhanced axial images skull base to vertex Coronal, sagittal reformats CT images acquired with automatic exposure control for dose reduction DLP: 530 mGy-cm Findings: Mild age-related atrophy and chronic white matter microvascular ischemic changes. Sulci, ventricles: Unremarkable. No intracerebral hemorrhage. No evidence acute territorial infarct. No mass effect, midline shift. Bony calvarium intact. Visualized paranasal sinuses: Clear. Mastoid air cells: Clear. IMPRESSION: 1. No acute intracranial findings. Reviewed, dictated and finalized at location [facility]
[2025-03-03 12:23] VITALS: BP 146/64; PULSE 79; RESP 16; TEMP 36.8; O2SAT 96
--- OUTSIDE RECORDS SUMMARY | 2025-03-03 12:23 | XMS_ITS | Data Portability ---
Author Organization [facility] [place] Address [address] [place] [address] Assessment No assessment recorded. Plan of Treatment Reminders Order Date Submit Date Provider Last Modified By Organization Details Last Modified Time Details Appointments None recorded. Lab None recorded. Referral None recorded. Procedures None recorded. Surgeries None recorded. Imaging None recorded. Medication Orders clotrimaz ole-betam ethasone 1 %-0.05 % topical cream 021 021 [employer] #[id number], [id number] [facility] [address], [place], [id number], 14:37:55 Patient TargetsNo targets recorded. Patient InstructionsNo instructions recorded. Reason for Referral None Reported. Problems Name Problem SNOMED Code Status Onset Date Resolution Date Notes Provider Name and Address Organization Details Recorded Time Screenin g for malignan t neoplasm of rectum Completed 201212/07/2020 Screenin g for malignan t neoplasm s of the rectum;P racheltice ID: 0001 [facility] 14:22:04 Speciali zed medical examinat ion Completed 201212/07/2020 Gynecolo gical Examinat ion;Jesus rded Elsewher e: No Locat ion: Charo pelletier [facility] S ource: EHR Substance Abuse Prevention Coordinator shay: N Practi ce ID: 0001 Coy lable Time: 12:30:00 PM Rachel castellano [facility] 14:22:08 Screenin g for malignan t neoplasm of cervix Completed 201212/07/2020 Pap Smear;Pr actice ID: [address] [facility] 14:22:02 Urinary tract infectio us disease [id number] Completed 201612/07/2020 Urinary tract infectio n, site not specifie d;Practi ce ID: [address] [facility] 14:22:10 Atrophic vaginiti s [id number] Active 2016 Postmeno pausal atrophic vaginiti s;Practi ce ID: 0001 Not Available [facility] 0 21:23:44 Vaginola bial hernia Active 2017 Other specifie d noninfla mmatory disorder s of vagina;P ractice ID: 0001 Not Available [facility] 0 21:23:44 Blood leukocyt e number above referenc e range [id number] Completed 201712/07/2020 Elevated white blood cell count, unspecif ied;Prac darin ID: [address] [facility] 14:22:13 Acute vaginiti s 52115468 Active 2017 Acute vaginiti s;Practi ce ID: 0001 Not Available [facility] 0 21:23:45 Problem Notes None recorded. Procedures Surgical History Date Name Laterality Status Provider Name and Address Organization Details Recorded Time Colonoscopy completed [facility] 12/28/2020 14:46:23 Colonoscopy completed [facility] 12/28/2020 14:46:24 Dilation and Curettage completed [facility] 12/28/2020 14:46:34 Flexible Sigmoidoscopy completed [facility] 12/28/2020 14:46:45 Unlisted px accessory sinus completed [facility] 12/28/2020 14:46:55 biopsy of skin completed [facility] 12/28/2020 14:47:17 Removal of anal fissure completed [facility] 12/28/2020 14:47:42 hemorrhoidectomy completed [facility] 12/28/2020 14:48:05 hysterectomy completed [facility] 12/28/2020 14:51:44 biopsy of breast completed [facility] 12/28/2020 14:52:03 biopsy of lung completed [facility] 12/28/2020 14:52:19 endoscopy completed [facility] 12/28/2020 14:52:35 arthroplasty of knee completed [facility] 12/28/2020 14:53:18 Cholecystectomy completed [facility] 12/28/2020 14:53:26 cardiac catheterization completed [facility] 12/28/2020 14:53:58 needle biopsy completed [facility] 12/28/2020 14:54:10 Imaging Results None recorded. Procedure Notes None recorded. Medical Equipment None Reported. Allergies No known drug allergies Medications Name Sig Start Date Stop Date Status Note LastModified by Organization Details LastModified Time irbesarta n 150 mg-hydroc hlorothia zide 12.5 mg tablet take 1 tablet by oral route every day 2016 active Prescrib ed Elsewher e: Yes Loca tion: [facility] M odify By: shiraz virgen DateTime : 03/21/19 17 02:00:00 PM Not Available Not Available Not Available alprazola m 1 mg tablet take 1 tablet by oral route 3 times every day 2016 active Prescrib ed Elsewher e: Yes Loca tion: [facility] M odify By: shiraz Pimentel r DateTime : 03/21/19 17 02:00:00 PM Not Available Not Available Not Available vitamin E 600 unit capsule 2016 active Prescrib ed Elsewher e: Yes Loca tion: Charo pelletier [facility] odify By: shiraz Pimentel r DateTime : 03/21/19 17 02:00:00 PM Not Available Not Available Not Available Synthroid 100 mcg tablet take 1 tablet by oral route every day 03/21 completed Prescrib ed Elsewher e: Yes Loca tion: Charo pelletier [facility] odify By: shiraz Williste r DateTime : 06/18/19 13 12:30:00 PM Not Available Not Available Not Available Prilosec 20 mg capsule,d elayed release take 1 capsule by oral route every day before a meal active Prescrib ed Elsewher e: Yes Loca tion: Charo pelletier [facility] odify By: [email or web address] trick En counter DateTime : 06/18/19 13 12:30:00 PM Not Available Not Available Not Available milk thistle 175 mg tablet 2016 active Prescrib ed Elsewher e: Yes Loca tion: Charo pelletier [facility] odify By: shiraz Pimentel r DateTime : 03/21/19 17 02:00:00 PM Not Available Not Available Not Available clobetaso l 0.05 % topical cream apply by topical route every day a thin layer to the affected area(s) 2017 active Prescrib ed Elsewher e: No Locat ion: Charo pelletier [facility] odify By: neeta ling DateTime : 10/17/19 18 03:45:00 PM Not Available Not Available Not Available nystatin 500,000 unit tablet take 1 tablet by oral route 3 times every day continui ng treatmen t for at least 2 days after symptoms have disappea red 2016 active Prescrib ed Elsewher e: Yes Loca tion: Charo pelletier [facility] odify By: shiraz Williste r DateTime : 03/21/19 17 02:00:00 PM Not Available Not Available Not Available triamcino lone acetonide 0.1 % topical cream apply by topical route 2 times every day a thin layer to the affected area(s) 2016 active Prescrib ed Elsewher e: Yes Loca tion: Charo pelletier [facility] odify By: shiraz Encounte r DateTime : 03/21/19 17 02:00:00 PM Not Available Not Available Not Available levothyro xine 25 mcg tablet take 1 tablet by oral route every day 2016 active Prescrib ed Elsewher e: Yes Loca tion: Charo pelletier [facility] odify By: shiraz Encounte r DateTime : 03/21/19 17 02:00:00 PM Not Available Not Available Not Available aspirin 500 mg tablet take 2 tablet by oral route every 6 hours as needed active Prescrib ed Elsewher e: Yes Loca tion: Charo pelletier [facility] odify By: [email or web address] trick En counter DateTime : 06/18/19 13 12:30:00 PM Not Available Not Available Not Available potassium 99 mg tablet active Prescrib ed Elsewher e: Yes Loca tion: Charo pelletier [facility] odify By: [email or web address] trick En counter DateTime : 06/18/19 13 12:30:00 PM Not Available Not Available Not Available Metrogel Vaginal 0.75 % (37.5 mg/5 gram) insert 1 applicat orful by vaginal route every day at bedtime for 5 nights 10/22 completed Prescrib ed Elsewher e: No Locat ion: Charo pelletier [facility] odify By: rj concepcion DateTime : 10/23/19 18 11:56:59 AM Not Available Not Available Not Available triamcino lone acetonide 0.025 % topical cream apply by topical route 2 times every day a thin layer to the affected area(s) 03/21 completed Prescrib ed Elsewher e: Yes Loca tion: Charo pelletier [facility] odify By: shiraz Encounte r DateTime : 06/18/19 13 12:30:00 PM Not Available Not Available Not Available Flagyl 500 mg tablet take 1 tablet by oral route every 12 hours 10/30 completed Prescrib ed Elsewher e: No Locat ion: Charo pelletier [facility] odify By: oliver Williste r [...] Elsewher e: Yes Loca tion: Charo pelletier [facility] odify By: [email or web address] trick En counter DateTime : 06/18/19 13 12:30:00 PM Not Available Not Available Not Available Fish Oil 500 mg capsule active Prescrib ed Elsewher e: Yes Loca tion: Charo pelletier [facility] odify By: [email or web address] trick En counter DateTime : 06/18/19 13 12:30:00 PM Not Available Not Available Not Available Restasis 0.05 % eye drops in a dropperet te instill 1 drop by ophthalm ic route every 12 hours into affected eye(s) 03/21 completed Prescrib ed Elsewher e: Yes Loca tion: Charo pelletier [facility] odify By: shiraz Encounte r DateTime : 06/18/19 13 12:30:00 PM Not Available Not Available Not Available Premarin 0.625 mg/gram vaginal cream insert 1 (1G) by vaginal route every day for 2 weeks, then insert .5 gram by vaginal route two times a week prn 03/21 completed Prescrib ed Elsewher e: No Locat ion: Charo pelletier [facility] odify By: shiraz Encounte r DateTime : 06/18/19 13 12:30:00 PM Not Available Not Available Not Available Benicar HCT 40 mg-12.5 mg tablet take 1 tablet by oral route every day 03/21 completed Prescrib ed Elsewher e: Yes Loca tion: Charo pelletier [facility] odify By: shiraz Encounte r DateTime : 06/18/19 13 12:30:00 PM Not Available Not Available Not Available Crestor 20 mg tablet take 1 tablet by oral route every day 2016 active Prescrib ed Elsewher e: Yes Loca tion: Charo pelletier [facility] odify By: shiraz Pimentel r DateTime : 03/21/19 17 02:00:00 PM Not Available Not Available Not Available metoprolo l tartrate 25 mg tablet take 1 tablet by oral route 2 times every day active Prescrib ed Elsewher e: Yes Loca tion: Charo pelletier [facility] odify By: [email or web address] trick En counter DateTime : 06/18/19 13 12:30:00 PM Not Available Not Available Not Available biotin 5 mg tablet 2016 active Prescrib ed Elsewher e: Yes Loca tion: Charo pelletier [facility] odify By: shiraz Pimentel r DateTime : 03/21/19 17 02:00:00 PM Not Available Not Available Not Available amlodipin e besylate (bulk) 100 % powder active Prescrib ed Elsewher e: Yes [facility] By: [email or web address] trick En counter DateTime : 06/18/19 13 12:30:00 PM Not Available Not Available Not Available Multi For Her 18 mg iron-600 mcg-40 mcg capsule active Prescrib ed Elsewher e: Yes Loca tion: [facility] odify By: [email or web address] trick En counter DateTime : 06/18/19 13 12:30:00 PM Not Available Not Available Not Available Vitals Date Recorded Body weight Body mass index (BMI) Body height Systolic And Diastolic Provider Name and Address Organization Details Last Updated DateTime 12/07/2020 709145.51 g 40.6 kg/m2 157.48 cm 198/104 mm[Hg] Rachel Forrester [facility] 12/07/2020 14:07:01 Social History None recorded. [...] Diagnosis SNOMED-CT Code Diagnosis ICD10 Code Diagnosis IMO Codes Diagnosis Note [id number] Jae Gibbons MD [place] [address] [address] 12/07/2020 13:43:34 12/08/2020 14:19:08 Lesion of vulva 241197192 N90.89 This patient is an 80-year-ol d [...] Feliz Member ID Guarantor Name 12/08/2020 2 [employer] - PLAN F (MEDICARE SUPPLEMENT) Glenna Almendarez [id number] Glenna Almendarez 12/02/2020 1 [facility] - MEDICARE-RAILR OAD CUSTODIAL BOARD (MEDICARE) Glenna Almendarez [id number] Glenna Almendarez Notes Date Note Type [...] anatomy. Jae Gibbons MD [address], [place], [address], [place] [facility] 12/07/2020 18:05:54 OBGyn Episode Ob Episode Information Episode Created Date Number of Fetuses Patient Bloodtype Patient rh Status Prepregnancy Weight lbs Domestic Partner Domestic Partner Phone Father Name Public Relations Manager Status 12/08/19 21 1 CLOSED Fetus Data First Name Last Name Admitted to NICU Weight (g) Sex Living Outcome Pediatric Complications Fetus ID Race Codes Race Delivery Type , Spontane ous [id number] Abad Calculation Initial Abad Date Initial Exam [...] Domestic Partner Domestic Partner Phone Father Name Public Relations Manager Status 12/08/19 21 2 CLOSED Fetus Data First Name Last Name Admitted to NICU Weight (g) Sex Living Outcome Pediatric Complications Fetus ID Race Codes Race Delivery Type 2778.25 1 F [id number] Vaginal Delivery 2664.85 3 M [id number] Abad Calculation Initial Abad Date Initial Exam [...] Domestic Partner Domestic Partner Phone Father Name Public Relations Manager Status 12/08/19 21 1 CLOSED Fetus Data First Name Last Name Admitted to NICU Weight (g) Sex Living Outcome Pediatric Complications Fetus ID Race Codes Race Delivery Type 2664.85 3 M [id number] Vaginal Delivery Abad Calculation Initial Abad Date [...]
--- OUTSIDE RECORDS SUMMARY | 2025-03-03 12:23 | XMS_ITS | Clinical Summary ---
Author Organization [facility] Care Team Providers Care Asphalt Paver Name Role Phone Unavailable Primary Care Provider [...]
--- OUTSIDE RECORDS SUMMARY | 2025-03-03 12:23 | XMS_ITS | Clinical Summary ---
Author Organization [facility] [address] Address [address] [place] [address] Care Team Providers Care Public Relations Supervisor Name Role Phone Tru Benites MD Primary Care Provider [phone] Gordy Flowers NP Unavailable Allergies Active Allergy Reactions Criticality Noted Date Comments Adhesive Unknown 04/03/2023 Medications rosuvastatin (CRESTOR) 10 mg tablet Take 1 tablet (10 mg total) by mouth daily 020 Active omeprazole OTC (PriLOSEC OTC) 20 mg [...] tablet (88 mcg total) by mouth daily Active alendronate (FOSAMAX) 70 mg tablet TAKE [...] 2 sprays into each nostril daily Active garlic 1,000 mg capsule Take by mouth Active cinnamon bark 500 mg capsule Take 1 capsule (500 mg total) by mouth daily Active acetaminophen 500 mg capsule Take by mouth A ctive selenium 200 mcg capsule Take by mouth Active hydrALAZINE (APRESOLINE) 50 mg tablet TAKE 1 TABLET BY MOUTH THREE TIMES A DAY 270 tablet 1 Active Additional Information Patient taking differently:50 mg oral 3 times daily,Patients take total dose of 75 mg morning, 75 mg afternoon and 100 mg evening, Reported on 12/18/2024 hydrALAZINE (APRESOLINE) 25 mg tabletIndication s:hypertension Take 1 tablet (25 mg total) by mouth 3 (three) times a day 90 tablet 11 025 2025 Active Additional Information Patient taking differently:25 mg oral 3 times daily,Patients take total dose of 75 mg morning, 75 mg afternoon and 100 mg evening, Indications: hypertension, Reported on 12/18/2024 sotaloL (BETAPACE) 80 mg tablet Take 1 tablet (80 mg total) by mouth every 12 (twelve) hours 180 tablet 3 Active irbesartan (AVAPRO) 300 mg tabletIndication s:Essential hypertension Take 1 tablet (300 mg total) by mouth nightly 2025 Active cloNIDine (CATAPRES) 0.2 mg tablet Take 1 tablet (0.2 mg total) by mouth daily 90 tablet Active warfarin (COUMADIN) 2 mg tabletIndication s:Paroxysmal atrial fibrillation (HCC),[facility]FP current use of 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 therapy Take 6mg 6 days a week and 4mg 1 day a week or as directed by physician. 30 tablet 1 Active warfarin (COUMADIN) 6 mg tablet Take 1 tablet daily 6 days a week or as directed by provider 30 tablet 1 Active warfarin (COUMADIN) 2 mg tabletIndication s:Paroxysmal atrial fibrillation (HCC),[facility]FP current use of 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 therapy Take 6mg 6 days a week and 4mg 1 day a week or as directed by physician. 30 tablet 1 025 2024 Discontinued warfarin (COUMADIN) 6 mg tablet TAKE 6MG TABLET 6 DAYS A WEEK AND 4MG TABLET 1 DAY A WEEK OR DIRECTED BY PHYSICIAN. 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 2024 LVH (left ventricular hypertrophy) 12/20/2022 Paroxysmal atrial fibrillation 11/30/2022 [facility]FP current use of 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 therapy 0 11/30/2022 [...] Encounters Date Type Department Care Team Description 02/24/2025 Telephone [facility] Cardiology [address] [place] [address] Eddie Bennett MD 02/04/2025 Telephone [facility] Cardiology [address] [place] [address] [place] [phone] Eddie Bennett MD 02/02/2025 Telephone [facility] Cardiology [address] [place] [address] [place] [phone] Yaima Rossi NP Hypertension 01/28/2025 Anticoagulation Visit [place] [address] [place] [phone] Beatriz Guerra RN Atrial fibrillation, unspecified type (HCC) (Primary Dx); [facility]FP (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 12/25/2024 Anticoagulation Visit [place] [address] [place] [phone] Beatriz Guerra RN Atrial fibrillation, unspecified type (HCC) (Primary Dx); 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 12/18/2024 1:00 PM CDT Office Visit [place] [address] [place] [phone] Yaima Rossi NP Paroxysmal atrial fibrillation (HCC); Essential hypertension; Sarcoidosis; 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 12/09/2024 Telephone [place] [address] [place] [phone] Eddie eBnnett MD cancel mail order from Last 3 Months Surgical History Surgery [...] on file Legal Sex Female 2:35 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 Gender Identity Not on file Sexual Orientation Not on file Last Filed Vital Signs Vital Sign Reading Time Taken Comments Blood Pressure 128/60 12/18/2024 1:00 PM CDT Pulse 70 12/18/2024 1:00 PM CDT Temperature - - Respiratory Rate - - Oxygen Saturation 98% 12/18/2024 1:00 PM CDT Inhaled Oxygen Concentration - - Weight 96 kg (211 lb 11.2 oz) 12/18/2024 1:00 PM CDT Height 157.5 cm (5' 2) 12/18/2024 1:00 PM CDT Body Mass Index 38.72 12/18/2024 1:00 PM CDT Plan of Treatment Health Maintenance Due [...] Priority Date/Time Associated Diagnosis Comments PROTIME-INR Routine 01/27/2025 11:57 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 Paroxysmal atrial fibrillation (HCC) 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 PROTIME-INR Routine 12/24/2024 10:52 AM CDT Paroxysmal atrial fibrillation (HCC) MCFP current use of 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 therapy from Last 3 Months Results * (ABNORMAL) Protime-INR (01/27/2025 11:57 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) INR 2.4(H) [employer] Julian Comment: Reference Range 0.9-1.1 Moderate-intensity Warfarin Therapy 2.0-3.0 Higher-intensity Warfarin Therapy 3.0-4.0 PT 24.1(H) 9.0 - 11.5 sec [employer] Eliel Comment: For additional information, please refer to http://P[employer]bee.NPR/faq/GWO316 (This link is being provided for informational/ educational purposes only.) Blood 01/27/2025 11:5 7 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 01/27/2025 11:58 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 Yaima Olivo Enid JOB DEVELOPER FOR [employer] LAB BLOOD ORDERABLES Meg l Result Performing Organization Address [facility] Co de Phone Number [facility] [address] [place] [address] * (ABNORMAL) Protime-INR (12/24/2024 10:52 AM CDT) INR 2.7(H) [employer] darien Julian Comment: Reference Range 0.9-1.1 Moderate-intensity Warfarin Therapy 2.0-3.0 Higher-intensity Warfarin Therapy 3.0-4.0 PT 26.8(H) 9.0 - 11.5 sec [employer] darien Julian Comment: For additional information, please refer to http://[employer]/faq/ULP807 (This link is being provided for informational/ educational purposes only.) Blood 12/24/2024 10:5 2 AM CDT 12/24/2024 10:53 AM CDT Yaima Rossi NP LAB BLOOD ORDERABLES Meg l Result Performing Organization Address [facility] Co de Phone Number [facility] [address] [place] [address] from Last 3 Months Insurance [employer] MEDICARE GOLD MEDICARE [facility] MEDICARE [facility] Care Teams Public Relations Supervisor Relationship Specialty Start Date End Date Tru Benites MD PCP - General Family Practice 09/05/22 Gordy Flowers NP [address] [place] [address] Nurse Practitioner 11/04/24
--- OUTSIDE RECORDS SUMMARY | 2025-03-03 12:23 | XMS_ITS | Encounter Summary ---
Author Organization [facility] Address [address] [place] [address] Care Team Providers Care Enterprise Security Architect Name Role Phone Tru Benites MD Primary Care Provider [phone] Gordy Flowers YARN WASHER Unavailable Encounter Details Date Type Department Care Team (Late st Contact Info) Description 10/02/2024 Orders Only [facility] Information Management [address] [place] [address] Scanning, Provider Social History Tobacco Use Types Packs/Day Years Used Date Smoking Tobacco: Never Smokeless Tobacco: Never Alcohol Use Standard Drinks/Week Comments Not Currently 0 (1 standard drink = 0.6 oz pur e alcohol) Comments Unknown Sex and Gender Information Value Date Recorded Sex Assigned at Not on file 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
--- OUTSIDE RECORDS SUMMARY | 2025-03-03 12:23 | XMS_ITS | Data Portability ---
Author Organization [facility], Main Office Address [address] [place] [address] Care Team Providers Care Private Equity Analyst Name Role Phone JAIME CORDOVA Primary Care Provider [phone] JAIME CORDOVA Referring Provider [phone] Assessment Encounter Date Assessment Date Assessment LastModified [...] without limp or assistance. She has a suwp-de-nleksvng effusion in the right knee. Range of motion is from 3-130 degrees. She has rrqc-kw-yupmetxy tenderness over both medial and lateral joint [...] the patient more than half of this octp-jz-ciqn conversation shyla Not available 06/02/2022 16:18:45 02/18/2025 02/18/2025 84-year-old fema le presents for evaluation of bilateral knees. She has a history of longstanding knee pain from osteoarthritis, getting progressively worse. She has done physical therapy and previously had cortisone injections last of which was in 2023. Those worked well for her. She has a history of bilateral knee scopes in the past.She also has history of a Review of systems patient questionnaire Physical exam: BMI 39.9. She has antalgic gait. Range of motion 5-120. Stable ligaments X-rays were reviewed, demonstrating left TKA in place. severe degenerative changes with ldys-ir-bjkp joint space narrowing, osteophytes, sclerosis on the right left TKA. He has arthritis of the right knee which is increasingly painful. We discussed a repeat cortisone injection since previous ones worked well for her. She wanted proceed with that and tolerated well. We will follow up as needed. [email or web address] Not available 02/23/2025 17:02:42 Plan of Treatment Reminders Order Date Submit Date Provider Last Modified By Organization Details Last Modified Time Details Appointments None recorded. Lab None recorded. Referral None recorded. Procedures injection/a spiration joint/bursa (PROC) 2024 025 aura [email or web address] In-Office Order, Internal Use Only DO Not Attach Compendium DO Not Attach Compendium, Do Not Delete/merge, [id number] 5 15:36:35 injection/a spiration joint/bursa (PROC) - in office procedure, administere d by provider 2022 023 [email or web address] In-Office Order, Internal Use Only DO Not Attach Compendium DO Not Attach Compendium, Do Not Delete/merge, [id number] 3 14:54:28 Surgeries None recorded. Imaging None recorded. Medication Orders bupivacaine HCl 0.5 % (5 mg/mL) injection solution 2024 025 [email or web address] [facility][id number], [address] [place], [address], 5 14:32:28 triamcinolo ne acetonide 40 mg/mL suspension for injection 2024 025 [email or web address] [facility] #[id number], [address] [place], [address], 5 14:32:28 Kenalog 10 mg/mL suspension for injection 2022 023 [email or web address] [facility] #[id number], [address] [place], [address], 5 15:11:19 ropivacaine (PF) 5 mg/mL (0.5 %) injection solution 2022 023 [email or web address] [facility] #[id number], [address] [place], [address], 15:12:39 Patient TargetsNo targets recorded. Patient InstructionsNo instructions recorded. Reason for Referral None Reported. Results Created Date Observation Date Name Description Value Unit Range Abnormal Flag Note LastModifiedBy Organization Detail LastModifiedTime 02/26/20 21 XR, knee No observ ation record ed. [id number] [address], [place], [address], 05/10/2022 13:55:15 Result Notes None recorded. Problems Name Problem SNOMED Code Status Onset Date Resolution Date Notes Provider Name and Address Organization Details Recorded Time Knee pain Active Not Available [facility] 3 13:52:17 Enthesopat hy of knee 60391033 Active Not Available [facility] 3 13:52:17 Osteoarthr itis 226891714 Active 2021 Not Available [facility] 3 13:52:17 Pain of bilateral knee regions 1636229636477 02 Active 2024 [place] Ohara, ATC L null, [employer] 5 15:34:11 Problem Notes None recorded. Procedures Surgical History Date Name Laterality Status Provider Name and Address Organization Details Recorded Time 025 Ortho - Cortisone Injection completed Oren Aj MD [address] [place] [address], [place], [address], [employer] 02/23/2025 17:02:48 biopsy of breast completed Not Available [facility] 05/10/2022 13:51:47 cardiac catheterization completed Not Available [facility] 05/10/2022 13:51:47 repair of meniscus completed Not Available [facility] 05/10/2022 13:51:47 hysterectomy completed Not Available [facility] 05/10/2022 13:51:47 Sinus Surgery completed Not Available [facility] 05/10/2022 13:51:47 total knee replacement completed Irlanda Garcia RN [facility] 02/18/2025 14:42:16 biopsy of lung completed Andrzej Christianson [facility] 06/02/2022 15:20:06 Cataract Surgery completed Andrzej Christianson [facility] 06/02/2022 15:20:16 anal fissurectomy completed Andrzej Christianson Rosalie [facility] 06/02/2022 15:20:29 Hemorrhoidectomy completed Andrzej Christianson [facility] 06/02/2022 15:20:36 Cholecystectomy completed Andrzej Christianson [facility] 06/02/2022 15:20:52 Imaging Results None recorded. Procedure Notes None recorded. Medical Equipment None Reported. Allergies Allergen ID Allergen Name Allergen Category Reaction Reaction Severity Criticality Documentation Date Start Date Code Code System Note Provider Name and Address Organization Details Recorded Time 97560 adhesive tape environme nt,medica tion rash Not available Not available 05/10/2022 surgi andrey tape Not Available [facility] 13:55:14 Medications Name Sig Start Date Stop Date Status Note LastModified by Organization Details LastModified Time amoxicillin 500 mg capsule TAKE 4 CAPSULES BY MOUTH 1 HOUR PRIOR TO APPT active Not Available Not Available No t Available furosemide 40 mg tablet TAKE 2 TABLETS BY MOUTH DAILY 02/18 completed Not Available Not Available Not Available clonidine HCl 0.1 mg tablet TAKE 1 TABLET BY MOUTH EVERY DAY 02/18 completed Not Available Not Available Not Available prednisone 10 mg tablet TAKE 4 [...] Available metoprolol tartrate 100 mg tablet TAKE 1 TABLET BY MOUTH NIGHTLY IN ADDITION TO THE 50MG TWICE DAILY DOSE 02/18 completed Not Available Not Available Not Available hydrocodone 5 mg-acetamin ophen 325 mg tablet TAKE 1 TABLET BY MOUTH EVERY 8 HOURS NEEDED FOR PAIN active Not Available Not Available No t Available sotalol 80 mg tablet TAKE 1 TABLET BY MOUTH EVERY 12 HOURS. active Not Available Not Available No t Available sucralfate 1 gram tablet 1 G ORALLY THREE TIMES A DAY 02/18 completed Not Available Not Available Not Available bupivacaine HCl 0.5 % (5 mg/mL) injection solution Take 3 mL by injection route. 2024 active Not Available Not Available Not Avai lable prednisone 20 mg tablet TAKE 2 TABLETS BY MOUTH EVERY DAY 02/18 completed Not Available Not Available Not Available alendronate 70 mg tablet TAKE 1 TABLET BY MOUTH ONCE WEEKLY active Not Available Not Available No t Available hydralazine 25 mg tablet TAKE 1 TABLET BY MOUTH THREE TIMES A DAY active Not Available Not Available No t Available omeprazole 40 mg capsule,del ayed release TAKE 1 CAPSULE BY MOUTH EVERY DAY active Not Available Not Available No t Available acyclovir 800 mg tablet TAKE 1 TABLET BY MOUTH 5 TIMES DAILY FOR 3 DAYS WHILE AWAKE 02/18 completed Not Available Not Available Not Available levothyroxi ne 75 mcg tablet TAKE 1 TABLET BY MOUTH DAILY 02/25 completed Not Available Not Available Not Available levothyroxi ne 88 mcg tablet TAKE 1 TABLET BY MOUTH EVERY DAY active Not Available Not Available No t Available clonidine HCl 0.2 mg tablet TAKE 1 TABLET BY MOUTH DAILY. active Not Available Not Available No t Available amoxicillin 875 mg tablet TAKE 1 TABLET BY MOUTH EVERY 12 HOURS 02/15 completed Not Available Not Available Not Available alprazolam 0.25 mg tablet TAKE 1 TABLET BY MOUTH TWICE A DAY NEEDED FOR ANXIETY active Not Available Not Available No t Available warfarin 6 mg tablet TAKE 1 TABLET DAILY 6 DAYS A WEEK OR DIRECTED BY PROVIDER active Not Available Not Available No t Available Kenalog 10 mg/mL suspension for injection Take 2 mL by injection route. 02/18 completed [facility]: 0003- 0494- 20 Not Available Not Available Not Available amlodipine 10 mg tablet TAKE 1 TABLET BY MOUTH EVERY DAY active Not Available Not Available No t Available triamcinolo ne acetonide 40 mg/mL suspension for injection Take 1 mL by injection route. 2024 active Not Available Not Available Not Avai lable clotrimazol e-betametha sone 1 %-0.05 % topical cream APPLY TO AFFECTED AREA TWICE A DAY (AM&PM)FO R 2 WEEKS 06/02 completed Not Available Not Available Not Available irbesartan 300 mg-hydrochl orothiazide 12.5 mg tablet 05/02 completed Not Available Not Available Not Available warfarin 2 mg tablet TAKE 6MG 6 DAYS A WEEK AND 4MG 1 DAY A WEEK OR DIRECTED BY PHYSICIAN . active Not Available Not Available No t Available guanfacine 1 mg tablet TAKE 1 TABLET BY MOUTH AT BEDTIME 06/02 completed Not Available Not Available Not Available metoprolol tartrate 50 mg tablet TAKE 1 TABLET BY MOUTH THREE TIMES A DAY 02/18 completed Not Available Not Available Not Available Xylocaine 20 mg/mL (2 %) injection solution In office injection administe red by the provider 06/02 completed Not Available Not Available Not Available hydralazine 50 mg tablet TAKE 1 TABLET BY MOUTH THREE TIMES A DAY active Not Available Not Available No t Available loteprednol etabonate 0.5 % eye drops,suspe nsion PLEASE SEE ATTACHED FOR DETAILED DIRECTION S 06/02 completed Not Available Not Available Not Available albuterol sulfate HFA 90 mcg/actuati on aerosol inhaler 1 - 2 PUFF INHALED EVERY 4 - 6 HOURS NEEDED FOR SHORTNESS OF BREATH OR WHEEZING active Not Available Not Available No t Available cefdinir 300 mg capsule TAKE 1 CAP BY MOUTH EVERY 12 HOURS FOR 10 DAYS 06/02 completed Not Available Not Available Not Available fluticasone propionate 50 mcg/actuati on nasal spray,suspe nsion SHAKE THEN INSTILL 2 SPRAYS INTO EACH NOSTRIL TWICE A DAY 02/18 completed Not Available Not Available Not Available irbesartan 300 mg tablet TAKE 1 [...] tablet,kory yed release Take by oral route. 02/18 completed Not Available Not Available Not Available nitrofurant oin monohydrate /macrocryst als 100 mg capsule TAKE 1 CAPSULE BY MOUTH EVERY 12 HOURS FOR 5 DAYS MUST TAKE WITH A MEAL OR FOOD active Not Available Not Available No t Available trospium 20 mg tablet TAKE 1 TABLET BY MOUTH TWICE A DAY 02/18 completed Not Available Not Available Not Available milk thistle 02/18 completed Not Available Not Available Not Available potassium acetate 02/18 completed Not Available Not Available Not Available zinc take one tablet by mouth everyday 02/18 completed Not Available Not Available Not Available Aspir-81 02/18 completed Not Available Not Available Not Available cholecalcif rosa m (vitamin D3) 02/18 completed Not Available Not Available Not Available Metamucil 06/02 completed Not Available Not Available Not Available multivitami n 02/18 completed Not Available Not Available Not Available lidocaine (PF) 10 mg/mL (1 %) injection solution In office injection administe red by the provider 02/25 completed [facility]: 0409- 4276- 17 Not Available Not Available Not Available lidocaine (PF) 5 mg/mL (0.5 %) injection solution In office injection administe red by the provider 06/02 completed Not Available Not Available Not Available hydrochloro thiazide 12.5 mg tablet TK 1 T PO QD 05/02 completed Not Available Not Available Not Available budesonide- formoterol HFA 80 mcg-4.5 mcg/actuati on aerosol inhaler INHALE 2 PUFFS BY MOUTH EVERY 12 HOURS. RINSE MOUTH AND SPIT OUT AFTER USE 2024 active Not Available Not Available Not Avai lable ropivacaine (PF) 5 mg/mL (0.5 %) injection solution Take 3 mL by injection route. 02/18 completed Not Available Not Available Not Available Fluzone High-Dose 2019-20 (PF) 180 mcg/0.5 mL intramuscul ar syringe ADM 0.5ML IM UTD 05/02 completed Not Available Not Available Not Available Vitals Date Recorded Body height Provider Name an d Address Organization Details Last Updated DateTime 06/01/2021 154.94 cm Not Available [facility] 3 13:52:03 Date Recorded Body height Body mass index (BMI) Body weight Provider Name and Address Organization Details Last Updated DateTime 06/02/2022 154.94 cm 42.3 kg/m2 807987.69 g [facility] [place] Helveta [facility] 06/02/2022 15:16:40 Date Recorded Body height Provider Name an d Address Organization Details Last Updated DateTime 09/09/2021 154.94 cm Not Available [facility] 3 13:52:03 Date Recorded Body height Body mass index (BMI) Body weight Pain severity - 0-10 verbal numeric rating [Score] - Reported Provider Name and Address Organization Details Last Updated DateTime 02/18/2025 154.94 cm 39.9 kg/m2 99656.99 g 9 Irlanda Garcia RN [place] [employer] 02/18/2025 14:39:30 Date Recorded Body mass index (BMI) Body height Body weight Provider Name and Address Organization Details Last Updated DateTime 02/25/2021 41.8 kg/m2 154.94 cm 443863.91 g Not Available [facility] 05/10/2022 13:52:03 Social History None recorded. Functional Status Question Answer Note LastModified by Organizat ion Details LastModified Time What is your level of alcohol consumption? None [id number] Information not available 05/10/2022 Mental Status None recorded. Family History Relationship Description Onset Age of this Age Resolved Age Notes LastModified by Organization Details LastModified Time Unspecified Relation Hypertensive disorder [id number] Not available 05/10/2022 13:51:47 Unspecified Relation Sleep apnea [id number] Not available 05/10/2022 13:51:47 Unspecified Relation Sarcoidosis [id number] Not available 05/10/2022 13:51:47 Unspecified Relation Pulmonary hypertension [id number] Not available 05/10/2022 13:51:48 Mother Cerebrovascu lar accident [email or web address] Not available 15:19:11 Son Myocardial infarction [email or web address] Not available 02/18 14:41:34 Medical History Condition Response ARTHRITIS Y GERD/NAUSEA Y ATRIAL FIBRILLATION Y SLEEP APNEA Y HEART DISEASE/HEART PROBLEMS Y OSTEOPOROSIS Y URINARY/BLADDER/KIDNEY PROBLEMS Y CORONARY ARTERY DISEASE (CAD) Y LUNG DISEASE/DISORDER Y COPD Y HYPERTENSION Y Gynecological HistoryNo gynecological history recorded. Obstetrics History GPAL:G 0 P 0 0 0 0 Past Encounters Encounter ID Performer Location Encounter Start Date Encounter Closed Date Diagnosis/Indication Diagnosis SNOMED-CT Code Diagnosis ICD10 Code Diagnosis IMO Codes Diagnosis Note [id number] Travis Mercedes MD [facility] [address] [place] [address] 02/25/2021 00:00:00 02/25/2021 15:40:28 [id number] Travis Mercedes MD [facility] [address] [place] [address] 06/01/2021 00:00:00 06/01/2021 14:59:08 [id number] Travis Mercedes MD [facility] [address] [place] [address] 09/09/2021 00:00:00 09/09/2021 11:09:16 [id number] Travis Mercedes MD [facility] [address] [place] [address] 06/02/2022 14:48:50 06/02/2022 16:35:34 Osteoarthritis 376574238 M17.11 [id number] Oren Aj MD [facility] [place] [facility] [address] [place] [address] 02/18/2025 14:14:39 02/18/2025 15:39:57 Pain of bilateral knee regions 3388659750 99964 M25.561 M25.562 [id number] Health Concerns Section Related Observation LastModified by Organization Detai ls LastModified Time None Recorded Concern Status LastModified by Organization Details LastModified Time None Recorded Advance Directives Directive None Recorded Payers Insurance Date Sequence Insurance Name Policy Number Policy Feliz Covered Member ID Feliz Member ID Guarantor Name 02/25/2025 1 [employer] - PRIME (MEDICARE REPLACEMENT/ ADVANTAGE - HMO) [id number] Glenna Almendarez [id number] Glenna Almendarez OBGyn Episode No OBEpisode recorded.
--- OUTSIDE RECORDS SUMMARY | 2025-03-03 12:23 | XMS_ITS | Encounter Summary ---
Author Organization [facility] Address [address] [place] [address] Care Team Providers Care Sewer Pipe Press Operator Name Role Phone Unavailable Primary Care Provider Unavailabl e Encounter Details Date Type Department Care Team (Late st Contact Info) Description 10/16/2024 Lab Requisition [facility] - DermPath Lab [address] [place] [id number] Jorge Kwan MD [address] [place] [address] Social History Tobacco Use Types [...] AM CDT) Case Report Dermatopathology Report Case: [id number] Authorizing Provider: Jorge Kwan MD Collected: 10/15/2024 12:00 AM Ordering Location: [facility] - Received: 10/16/2024 07:21 AM DermPath Lab [...] characteristic determined by the Dermatopathology Laboratory at [facility], directed by Dr. Ken Plata. These tests need not be, and therefore are not, approved by the [place] Food and Drug Administration. The tests are used for clinical purposes. Billing Codes Specimen Charges Stain Charges 27249 1 2:32 PM CDT DERMATOPATHOLOGY LABORATORY Embedded Images 2:32 PM CDT DERMATOPATHOLOGY LABORATORY Pathology/Cytolog y TISSUE SPECIMEN FROM SKIN / Unknown 10/15/2024 10/16/2024 7:21 AM CDT Jorge Kwan MD LAB - PATHOLOGY/CYTOLOGY ORDERAB LES Final Result DERMATOPATHOLOGY LABORATORY [facility] - Department of Dermatology [address] [place] [address], [facility] [phone] documented in this encounter Visit Diagnoses Not on filedocumented in this encounter
--- OUTSIDE RECORDS SUMMARY | 2025-03-03 12:23 | XMS_ITS | Clinical Summary ---
Author Organization [facility] Address [address] [place] [address] Care Team Providers Care Wet End Tester Name Role Phone Unavailable Primary Care Provider [...] 75+ series) 2013 COVID-19 Vaccine ( - 2024-2 6 season) 2024 Influenza Adult (#1) 2024 Hepatitis A Vaccines Aged Out No long er eligible based on patient's age to complete this topic Meningococcal B Vaccine Aged Out No l onger eligible based on patient's age to complete this topic Meningococcal Vaccine Aged Out No magda james eligible based on patient's age to complete this topic RSV Immunizations Under 20 Months Aged Out No longer eligible based on patient's age to complete this topic
--- OUTSIDE RECORDS SUMMARY | 2025-03-03 12:23 | XMS_ITS | Continuity of Care Document ---
Author Organization [place] - [facility] [employer] [facility] Address [address] [place] [address] Care Team Providers Care Plumbing Assembler Installer Name Role Phone JAIME CORDOVA Primary Care Provider [phone] JAIME CORDOVA Referring Provider [phone] Assessment Encounter Date Assessment Date Assessment LastModified by Organization Details LastModified Time 02/18/2025 02/18/2025 84-year-old female presents for evaluation of bilateral knees. She [...] TKA in place. severe degenerative changes with [id number] joint space narrowing, osteophytes, sclerosis on the right left TKA. He has arthritis of the right knee which is increasingly painful. We discussed a repeat cortisone injection since previous ones worked well for her. She wanted proceed with that and tolerated well. We will follow up as needed. [email or web address] Not available 02/23/2025 17:02:42 Plan of Treatment Reminders Order Date Submit Date Provider Last Modified By Organization Details Last Modified Time Details Appointments None recorded. Lab None recorded. Referral None recorded. Procedures injection/a spiration joint/bursa (PROC) 2024 025 [email or web address] In-Office Order, Internal Use Only DO Not Attach Compendium DO Not Attach Compendium, Do Not Delete/merge, [address] 15:36:35 Surgeries None recorded. Imaging None recorded. Medication Orders bupivacaine HCl 0.5 % (5 mg/mL) injection solution [id number], [address] [place], [address], 14:32:28 triamcinolo ne acetonide 40 mg/mL suspension for injection [address], [address] [place], [address], 14:32:28 Patient TargetsNo targets recorded. Patient InstructionsNo instructions recorded. Reason for Referral None Reported. Problems Name Problem SNOMED Code Status Onset Date Resolution Date Notes Provider Name and Address Organization Details Recorded Time Knee pain Active Not Available [facility] 13:52:17 Enthesopat hy of knee 59145537 Active Not Available [facility] 13:52:17 Osteoarthr itis 539291195 Active 2021 Not Available [facility] 13:52:17 Pain of bilateral knee regions 8056360472333 02 Active 2024 [place] Oh[place], ATC L [place], [place] [address] [facility] [place] 15:34:11 Problem Notes None recorded. Procedures Surgical History Date Name Laterality Status Provider Name and Address Organization Details Recorded Time Ortho - Cortisone Injection completed Oren Aj MD [address] [place] [address], [id number], [employer] 02/23/2025 17:02:48 biopsy of breast completed Not Available [facility] 05/10/2022 13:51:47 cardiac catheterization completed Not Available [facility] 05/10/2022 13:51:47 repair of meniscus completed Not Available [facility] 05/10/2022 13:51:47 hysterectomy completed Not Available [facility] 05/10/2022 13:51:47 Sinus Surgery completed Not Available [facility] 05/10/2022 13:51:47 total knee replacement completed Irlanda Garcia RN [facility] [employer] [facility] 02/18/2025 14:42:16 biopsy of lung completed Andrzej Christianson [facility] 06/02/2022 15:20:06 Cataract Surgery completed Andrzej Christianson [facility] 06/02/2022 15:20:16 anal fissurectomy completed Andrzej Christianson [facility] 06/02/2022 15:20:29 Hemorrhoidectomy completed Andrzej Christianson [facility] 06/02/2022 15:20:36 Cholecystectomy completed Andrzej Christianson [facility] 06/02/2022 15:20:52 Imaging Results None recorded. Procedure Notes None recorded. Medical Equipment None Reported. Allergies Allergen ID Allergen Name Allergen Category Reaction Reaction Severity Criticality Documentation Date Start Date Code Code System Note Provider Name and Address Organization Details Recorded Time 90438 adhesive tape environme nt,medica tion rash Not available Not available 05/10/2022 surgi andrey tape Not Available [facility] 13:55:14 Medications Name Sig Start [...] 2 mL by injection route. 02/18 completed [facility]: 0003- 0494- 20 Not Available Not Available [...] administe red by the provider 02/25 completed [facility]: 0409- 4276- 17 Not Available Not Available [...] Not Available Vitals Date Recorded Body height Body mass index (BMI) Body weight Pain severity - 0-10 verbal numeric rating [Score] - Reported Provider Name and Address Organization Details Last Updated DateTime 02/18/2025 154.94 cm 39.9 kg/m2 86085.99 g 9 Irlanda Garcia RN [place] [facility] 02/18/2025 14:39:30 Social History None recorded. Functional Status Question Answer Note LastModified by Organizat ion Details LastModified Time What is your level of alcohol consumption? None [id number] Information not available 05/10/2022 Mental Status None recorded. Family History Relationship Description Onset Age of this Age Resolved Age Notes LastModified by Organization Details LastModified Time Unspecified Relation Hypertensive disorder [id number] Not available 05/10/2022 13:51:47 Unspecified Relation Sleep apnea [id number] Not available 05/10/2022 13:51:47 Unspecified Relation Sarcoidosis [id number].800 [id number] Not available 05/10/2022 13:51:47 Unspecified Relation Pulmonary hypertension [id number].227 [id number] Not available 05/10/2022 13:51:48 Mother Cerebrovascu lar accident [email or web address] Not available 15:19:11 Son Myocardial infarction [email or web address] Not available 02/18 14:41:34 Medical History Condition Response ARTHRITIS Y SLEEP APNEA Y HEART DISEASE/HEART PROBLEMS Y LUNG DISEASE/DISORDER Y HYPERTENSION Y COPD Y GERD/NAUSEA Y ATRIAL FIBRILLATION Y OSTEOPOROSIS Y URINARY/BLADDER/KIDNEY PROBLEMS Y CORONARY ARTERY DISEASE (CAD) Y Gynecological HistoryNo gynecological history recorded. Obstetrics History GPAL:G 0 P 0 0 0 0 Past Encounters Encounter ID Performer Location Encounter Start Date Encounter Closed Date Diagnosis/Indication Diagnosis SNOMED-CT Code Diagnosis ICD10 Code Diagnosis IMO Codes Diagnosis Note [id number] Oren Aj MD [facility] [address] [place] [address] 02/18/2025 14:14:39 02/18/2025 15:39:57 Pain of bilateral knee regions 9332100223 35076 M25.561 M25.562 [id number] Health Concerns Section Related Observation LastModified by Organization Detai ls LastModified Time None Recorded Concern Status LastModified by Organization Details LastModified Time None Recorded Payers Encounter Date Sequence Insurance Name Policy Number Policy Feliz Covered Member ID Feliz Member ID Guarantor Name 02/18/2025 1 [employer] - PRIME (MEDICARE REPLACEMENT/ ADVANTAGE - HMO) [id number] Glenna Almendarez [id number] Glenna Almendarez OBGyn Episode No OBEpisode recorded.
--- OUTSIDE RECORDS SUMMARY | 2025-03-03 12:23 | XMS_ITS | Clinical Summary ---
Author Organization [facility] Address [address] [place] [address] Care Team Providers Care Cashier And Salesperson Name Role Phone Unavailable Primary Care Provider Unavailabl e Source Comments [facility],non-owned Affiliates and Associated Physician Practices is amultiple site organization consisting of ambulatory clinics and hospital sitesin [place], [place] and [place]. This disclosure is being madepursuant to the Care Everywhere program and may not contain all information available regarding this patient. Last updated 17.[facility] Social History Tobacco Use Types Packs/Day Years [...] CALENDAR YEAR 2024 COVID-19 VACCINE (1 - 2024-2 6 season) 2024 INFLUENZA VACCINE (#1) 2024 HEPATITIS [...] on patient's age to complete this topic Insurance [employer] MEDICARE ADV SELF PAY NO INSURANCE Member Subscriber Plan / Payer (Ef fective for All Dates) Name:Glenna Whitehead Member ID:Not on file Relation to Subscriber:Not on file Name:GLENNA WHITEHEAD Subscriber ID:Not on file (Home) Address: [address] [place] [id number] Payer ID:Not on file Group ID:Not on file Type:Self Pay Address: [place], [place]
--- OUTSIDE RECORDS SUMMARY | 2025-03-03 12:23 | XMS_ITS | Encounter Summary ---
Author Organization [facility] Healthcare Address [address] [place] [address] Care Team Providers Care Ophthalmic Technician Apprentice Name Role Phone Tru Benites MD Primary Care Provider [phone] [phone] Gordy Flowers POURER BULL LADLE Unavailable Encounter Details Date Type Department Care Team (Late st Contact Info) Description 03/14/2024 Orders Only [facility] Health Information Management [address] [place] [address] Scanning, Provider Social History Tobacco Use Types Packs/Day Years Used Date Smoking Tobacco: Never Smokeless Tobacco: Never Alcohol Use Standard Drinks/Week Comments Not Currently 0 (1 standard drink = 0.6 oz pur e alcohol) Comments Unknown Sex and Gender Information Value Date Recorded Sex Assigned at Not on file Legal Sex Female 2:35 AM SPRAYER LEATHER Gender Identity Not on file Sexual Orientation [...] on filedocumented in this encounter Care Teams Ophthalmic Technician Apprentice Relationship Specialty Start Date End Date Tru Benites MD PCP - General Family Practice 09/05/22 Gordy Flowers NP [address] [facility] [address] [place] [address] Nurse Practitioner 11/04/24 documented as of this encounter
[2025-03-03 13:05] VITALS: BP 144/82; PULSE 67; RESP 26; O2SAT 99
--- OUTSIDE RECORDS SUMMARY | 2025-03-03 13:18 | XMS_ITS | Clinical Summary ---
Author Organization [facility] Address [address] [place] [address] Care Team Providers Care Laboratory Tester Name Role Phone Unavailable Primary Care Provider Unavailabl e Source Comments [facility] [employer],non-owned Affiliates and Associated Physician Practices is amultiple site organization consisting of ambulatory clinics and hospital sitesin [place], [place], [place]. This disclosure is being madepursuant to the Care Everywhere program and may not contain all information available regarding this patient. Last updated 17.[facility] [employer] Social History Tobacco Use Types Packs/Day Years [...] WHITEHEAD Subscriber ID:Not on file (Home) Address: [address] [place] [id number] Payer ID:Not on file Group ID:Not on file Type:Self Pay Address: [place], [place]
--- OUTSIDE RECORDS SUMMARY | 2025-03-03 13:18 | XMS_ITS | Clinical Summary ---
Author Organization [facility] [address] Address [address] [place] [address] Care Team Providers Care Fuse Assembler Name Role Phone Tru Benites MD Primary Care Provider [phone] [phone] Gordy Flowers NP Unavailable Allergies Active Allergy [...] (COUMADIN) 2 mg tabletIndication s:Paroxysmal atrial fibrillation (HCC),nursing home current use of 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 therapy Take 6mg 6 days a week and 4mg 1 day a week or as directed by physician. 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 LVH (left ventricular hypertrophy) 12/20/2022 Paroxysmal atrial fibrillation 11/30/2022 nursing home current use of 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 therapy 0 11/30/2022 [...] Type Department Care Team Description 02/24/2025 Telephone [facility] Cardiology [address] [place] [address] Eddie Bennett MD 02/04/2025 Telephone [facility] Cardiology [address] [place] [address] [place] [phone] Eddie Bennett MD 02/02/2025 Telephone [facility] Cardiology [address] [place] [address] [place] [phone] Yaima Rossi NP Hypertension 01/28/2025 Anticoagulation Visit [place] [address] [place] [phone] Beatriz Guerra RN Atrial fibrillation, unspecified type (HCC) (Primary Dx); nursing home (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 12/25/2024 Anticoagulation Visit [place] [address] [place] [phone] Beatriz Guerra RN Atrial fibrillation, unspecified type (HCC) (Primary Dx); 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 12/18/2024 1:00 PM CDT Office Visit [place] [address] [place] [phone] Yaima Rossi NP Paroxysmal atrial fibrillation (HCC); Essential hypertension; Sarcoidosis; 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 12/09/2024 Telephone [place] [address] [place] [phone] Eddie Bennett MD cancel mail order from Last 3 [...] on file Legal Sex Female 2:35 AM CAMPAIGN MANAGEMENT SENIOR MANAGER Gender Identity Not on file Sexual [...] Diagnosis Comments PROTIME-INR Routine 01/27/2025 11:57 AM CAMPAIGN MANAGEMENT SENIOR MANAGER Paroxysmal atrial fibrillation (HCC) 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 PROTIME-INR Routine 12/24/2024 10:52 AM CDT Paroxysmal atrial fibrillation (HCC) nursing home current use of 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 therapy from Last 3 Months Results * (ABNORMAL) Protime-INR (01/27/2025 11:57 AM CAMPAIGN MANAGEMENT SENIOR MANAGER) INR 2.4(H) WhereoscopeWilver Julian Comment: Reference Range 0.9-1.1 Moderate-intensity Warfarin Therapy 2.0-3.0 Higher-intensity Warfarin Therapy 3.0-4.0 PT 24.1(H) 9.0 - 11.5 sec [employer] t Eliel Comment: For additional information, please refer to http://Pantry.NextG Networks/faq/FSP851 (This link is being provided for informational/ educational purposes only.) Blood 01/27/2025 11:5 7 AM CAMPAIGN MANAGEMENT SENIOR MANAGER 01/27/2025 11:58 AM CAMPAIGN MANAGEMENT SENIOR MANAGER Yaima Olivo Enid CARTOGRAPHY PROFESSOR LAB BLOOD ORDERABLES Meg l Result Performing Organization Address [facility] Co de Phone Number [facility] [address] [place] [address] * (ABNORMAL) Protime-INR (12/24/2024 10:52 AM CDT) INR 2.7(H) [employer] darien Julian Comment: Reference Range 0.9-1.1 Moderate-intensity Warfarin Therapy 2.0-3.0 Higher-intensity Warfarin Therapy 3.0-4.0 PT 26.8(H) 9.0 - 11.5 sec [employer] darien Julian Comment: For additional information, please refer to http://UGE/faq/LGT008 (This link is being provided for informational/ educational purposes only.) Blood 12/24/2024 10:5 2 AM CDT 12/24/2024 10:53 AM CDT Yaima Rossi NP LAB BLOOD ORDERABLES Meg l Result Performing Organization Address [facility] Co de Phone Number Graph[facility]Saint [facility] [address] [place] [address] from Last 3 Months Insurance AETNA MEDICARE GOLD MEDICARE [facility] MEDICARE [facility] Care Teams Fuse Assembler Relationship Specialty Start Date End Date Tru Benites MD PCP - General Family Practice 09/05/22 Gordy Flowers NP [address] [place] [address] Nurse Practitioner 11/04/24
--- OUTSIDE RECORDS SUMMARY | 2025-03-03 13:18 | XMS_ITS | Clinical Summary ---
Author Organization [facility] Care Team Providers Care Keno Dealer Name Role Phone Unavailable Primary Care Provider [...]
--- OUTSIDE RECORDS SUMMARY | 2025-03-03 13:18 | XMS_ITS | Encounter Summary ---
Author Organization [facility] Address [address] [place] [address] Care Team Providers Care Closing Coordinator Name Role Phone Unavailable Primary Care Provider Unavailabl e Encounter Details Date Type Department Care Team (Late st Contact Info) Description 10/16/2024 Lab Requisition [facility] - DermPath Lab [address] [place] [phone] Jorge Kwan MD [address] [place] [address] Social History Tobacco Use Types [...] AM CDT) Case Report Dermatopathology Report Case: [id number] Authorizing Provider: Jorge Kwan MD Collected: 10/15/2024 12:00 AM Ordering Location: [facility] - Received: 10/16/2024 07:21 AM DermPath Lab [...] characteristic determined by the Dermatopathology Laboratory at [facility], directed by Dr. Ken Plata. These tests need not be, and therefore are not, approved by the [place] Food and Drug Administration. The tests are used for clinical purposes. Billing Codes Specimen Charges Stain Charges 37866 1 2:32 PM CDT DERMATOPATHOLOGY LABORATORY Embedded Images 2:32 PM CDT DERMATOPATHOLOGY LABORATORY Pathology/Cytolog y TISSUE SPECIMEN FROM SKIN / Unknown 10/15/2024 10/16/2024 7:21 AM CDT Jorge Kwan MD LAB - PATHOLOGY/CYTOLOGY ORDERAB LES Final Result DERMATOPATHOLOGY LABORATORY [facility] - Department of Dermatology [address] [place] [address], [facility] [phone] documented in this encounter Visit Diagnoses Not on filedocumented in this encounter
--- OUTSIDE RECORDS SUMMARY | 2025-03-03 13:18 | XMS_ITS | Encounter Summary ---
Author Organization [facility] Healthcare Address [address] [place] [address] Care Team Providers Care Loader Magazine Grinder Name Role Phone Tru Benites MD Primary Care Provider [phone] [phone] Gordy Flowers GLOBAL TECHNICAL WRITER Unavailable Encounter Details Date Type Department Care Team (Late st Contact Info) Description 03/14/2024 Orders Only [facility] Health Information Management [address] [place] [address] Scanning, Provider Social History Tobacco Use Types Packs/Day Years Used Date Smoking Tobacco: Never Smokeless Tobacco: Never Alcohol Use Standard Drinks/Week Comments Not Currently 0 (1 standard drink = 0.6 oz pur e alcohol) Comments Unknown Sex and Gender Information Value Date Recorded Sex Assigned at Not on file Legal Sex Female 2:35 AM CAKE FORMER Gender Identity Not on file Sexual Orientation [...] on filedocumented in this encounter Care Teams Loader Magazine Grinder Relationship Specialty Start Date End Date Tru Benites MD PCP - General Family Practice 09/05/22 Gordy Flowers NP [address] [facility] [address] [place] [address] Nurse Practitioner 11/04/24 documented as of this encounter
--- OUTSIDE RECORDS SUMMARY | 2025-03-03 13:18 | XMS_ITS | Encounter Summary ---
Author Organization [facility] Healthcare Address [address] [place] [address] Care Team Providers Care Chief Guard Name Role Phone Tru Benites MD Primary Care Provider [phone] [phone] Gordy Flowers ABRASIVE GRINDER Unavailable Encounter Details Date Type Department Care Team (Late st Contact Info) Description 10/02/2024 Orders Only [facility] Health Information Management [address] [place] [address] Scanning, Provider Social History Tobacco Use Types Packs/Day Years Used Date Smoking Tobacco: Never Smokeless Tobacco: Never Alcohol Use Standard Drinks/Week Comments Not Currently 0 (1 standard drink = 0.6 oz pur e alcohol) Comments Unknown Sex and Gender Information Value Date Recorded Sex Assigned at Not on file Legal Sex Female 2:35 AM GUIDE ESCORT Gender Identity Not on file Sexual Orientation [...] on filedocumented in this encounter Care Teams Chief Guard Relationship Specialty Start Date End Date Tru Benites MD PCP - General Family Practice 09/05/22 Gordy Flowers NP [address] [place] [address] Nurse Practitioner 11/04/24 documented as of this encounter
[2025-03-03] MEDS: PROCHLORPERAZINE EDISYLATE 10 MG/2 ML VIAL IV PUSH (13:41)
[2025-03-03] MEDS: dexAMETHasone SOD PHOS INJ 10 MG/ML 1 ML VIAL IV PUSH (13:41)
--- NOTE | 2025-03-03 13:54 | ED.GENADULT ---
HPI - General Adult General Chief complaint: Headache Stated complaint: FLORES, eyes hurting x1wk Time Seen by Provider: 03/03/25 12:53 History of Present Illness HPI narrative: 84-year-old female presented to the emergency department for evaluation for worsening headache over the last few days. Patient states that she has been having intermittent headache that has been getting worse. Patient states she does have close follow up with Cardiology regarding her blood pressures. Patient felt that her blood pressures had not been well controlled as of recently. Patient is on Coumadin. Patient does report a prior history of headaches. Patient does report a prior history of sinus infection. Related Data Home Medications ?Medication ?Instructions ?Recorded ?Confirmed ?Last Taken ?Type multivitamin 1 tablet BYMOUTH DAILY 02/11/19 02/23/25 10/01/24 08:00 History 1 cholecalciferol (vitamin D3) 125 125 mcg PO DAILY 05/29/22 02/23/25 10/02/24 08:00 History mcg (5,000 unit) capsule 125 mcg cinnamon bark 500 mg capsule 500 mg PO DAILY 05/29/22 02/23/25 10/01/24 08:00 History (Cinnamon) 500 mg garlic 1,000 mg capsule 1,000 mg PO DAILY 05/29/22 02/23/25 10/02/24 08:00 History 1,000 mg quercetin 500 mg capsule 500 mg PO DAILY 05/29/22 02/23/25 10/01/24 08:00 History 500 mg vitamin B complex (B 1 tablet PO DAILY 05/29/22 02/23/25 10/01/24 08:00 History Complex-Vitamin B12 tablet) 1 tablet milk thistle 175 mg tablet 500 mg PO DAILY 07/11/23 02/23/25 10/02/24 08:00 History 175 mg acetaminophen 500 mg tablet 500 mg PO .am PRN pain (scale 07/18/24 02/23/25 10/02/24 09:00 History score 1-3) 500 mg warfarin 2 mg tablet 6 mg PO .COMPLEX 10/01/24 02/23/25 09/28/24 08:00 History 2 mg warfarin 4 mg tablet 4 mg PO .COMPLEX 10/01/24 02/23/25 10/02/24 08:00 History 4 mg clonidine HCl 0.1 mg tablet mg PO 02/02/25 02/23/25 Unknown History hydralazine 25 mg tablet 75 mg PO 02/02/25 02/23/25 Unknown History Allergies Allergy/AdvReac Type Severity Reaction Status Date / Time adhesive tape Allergy Severe RASH Verified 03/03/25 12:22 levofloxacin AdvReac Mild Nausea and Verified 03/03/25 12:22 Vomiting Review of Systems Review of Systems: All systems reviewed & are unremarkable except as noted in HPI and below PMFSH Past Medical History Medical History Abdominal pain Wears hearing aid in both ears Left arm pain Racing heart beat Sarcoidosis Diagnosed 2002 after transbronchial biopsy, has never undergone tx. In remission. Pulmonary HTN CPAP (continuous positive airway pressure) dependence Sleep apnea Sarcoidosis Hiatal hernia Fatty liver COPD (chronic obstructive pulmonary disease) Anxiety Hypothyroid Osteoporosis Arthritis UTI (urinary tract infection) GI bleed GERD (gastroesophageal reflux disease) IBS (irritable bowel syndrome) Diverticulosis HTN (hypertension) Hyperlipidemia Sinus problem Cataract Surgical History Surgical History H/O colonoscopy H/O cataract extraction History of arthroplasty of left knee H/O arthroscopy of right knee H/O dilation and curettage H/O: hysterectomy H/O breast biopsy Hx of cholecystectomy History of appendectomy History of cardiac cath H/O sinus surgery Hx of tonsillectomy Family History Family History Mother Cerebrovascular accident, Onset Age: 86 Family history of cardiovascular disease, Onset Age: 86 Sibling Family history of cardiovascular disease History of heart bypass surgery, Onset Age: 75 Social History Social History Social History: Has a son Smoking status: Never smoker Second hand tobacco smoke exposure: Yes Alcohol intake: never Substance use: never Substance use type: does not use Lack of Transportation: YES Lack of Food: Never True Current Housing: I Have Housing Concerned About Future Housing: No Difficulty Paying Gas/Electric Bills: No Difficulty Paying for Meds: No Currently Unemployed: No Education: High School Diploma/GED Difficulty w/ Childcare or Family Care: No Living arrangements: with family Gender identity (if verbalized by the patient): Female Spiritual care concerns: No Agree to blood products: Yes Exam Narrative: APPEARANCE: Uncomfortable appearing HEAD: normocephalic, atraumatic. EYES: PERRLA/EOMI, conjunctivae clear. NOSE: Normal no drainage EARS:TMS clear with good light reflex. THROAT: Pharynx clear, no exudate. NECK: Supple. No adenopathy, no masses. RESPIRATORY: Airway patent, respirations nonlabored. Clear to auscultation bilaterally, no rales, rhonchi, wheezing. CARDIOVASCULAR: Regular rate and rhythm without murmurs rubs or gallops. ABDOMINAL: Soft, nontender, nondistended, normal bowel sounds MUSCULOSKELETAL: Moves all extremities. Strength/ROM intact, No edema, No calf tenderness. NEURO: Alert. Cranial nerves II through XII intact. Good gait. Good coordination SKIN: Warm, dry. Normal Color Course Vital Signs Vital signs: Vital Signs Temperature 98.2 F 03/03/25 12:23 Pulse Rate 79 03/03/25 12:23 Respiratory Rate 16 03/03/25 12:23 Blood Pressure 146/64 H 03/03/25 12:23 Pulse Oximetry 96 03/03/25 12:23 Oxygen Delivery Room Air 03/03/25 12:23 Temperature 97.8 F 03/03/25 16:31 Pulse Rate 73 03/03/25 16:31 Respiratory Rate 19 03/03/25 16:31 Blood Pressure 143/67 H 03/03/25 16:31 Pulse Oximetry 100 03/03/25 16:31 Oxygen Delivery Non-Rebreather Mask 03/03/25 15:38 Oxygen Flow Rate 15 03/03/25 15:38 [facility] Narrative Medical decision making narrative: 84-year-old female presents emergency department for evaluation for headache. Patient does describe some pain behind her left eye. Patient has no left temporal tenderness. Patient is afebrile with a leukocytosis and a stable hemoglobin. INR is elevated at 4.6 but patient does take Coumadin. Patient was advised to hold her Coumadin tonight when she takes it at nighttime. Patient will have contact with her cardiology office in the morning to decide whether to hold her Coumadin longer. Head CT was negative for acute intracranial abnormality. Patient was treated with IV Compazine, IV Benadryl, dexamethasone, IV morphine and Mag sulfate. On re-evaluation patient states she does feel improved. Patient family updated on results of the workup they are comfortable plan for discharge and close follow-up. Differential Diagnosis Differential Diagnosis: Subdural hematoma, subarachnoid hemorrhage, cluster headache, migraine, hypertensive crisis Lab Data MDM Lab Attestation statement: I personally reviewed the patient's lab results. 03/03/25 14:12 03/03/25 14:12 Labs: Lab Results 03/03/25 Range/Units 14:12 WBC 6.1 (4.5-10.0) K/mm3 RBC 4.22 (4.2-5.4) M/mm3 Hgb 12.4 (12.0-15.0) g/dL Hct 37.8 (37.0-47.0) % MCV 89.6 (80-100) fl MCH 29.4 (26-34) pg MCHC 32.8 (32-36) g/dl RDW 16.0 H (11.5-14.5) % Plt Count 233 (150-375) k/mm3 MPV 10.8 H (7.4-10.4) fl Immature Gran % (Auto) 0.5 (0-0.5) % Neut % (Auto) 58.7 (45.5-73.1) % Lymph % (Auto) 24.8 (18.3-44.2) % [place] % (Auto) 13.7 H (2.6-8.5) % Eos % (Auto) 1.5 (0-4.4) % Baso % (Auto) 0.8 (0.2-1.2) % Lymph # (Auto) 1.52 (0.9-3.2) K/mm3 [place] # (Auto) 0.8 H (0.1-0.6) K/mm3 Eos # (Auto) 0.1 (0-0.3) K/mm3 Baso # (Auto) 0.1 (0.0-0.1) K/mm3 Abs Immat Gran (auto) 0.03 (0.00-0.031) K/mm3 Absolute Neuts (auto) 3.6 (1.3-6.7) K/mm3 Absolute Nucleated RBC 0.000 (0.0-0.012) K/mm3 Nucleated RBC % 0.0 (0.0-0.2) % PT 41.4 H (11.1-14.7) Seconds INR 4.6 APTT 40.8 H (22.3-36.8) Seconds Sodium 137 (137-145) mmol/L Potassium 3.8 (3.4-5.0) mmol/L Chloride 108 H (98-107) mmol/L Carbon Dioxide 20 L (22-30) mmol/L Anion Gap 9 (4-12) mmol/L BUN 9 (7-17) mg/dL Creatinine 0.76 (0.7-1.0) mg/dL Estim Creat Clear Calc 47 ml/min Estimated GFR > 60 (59 - ) Glucose 102 (65-110) mg/dL Calcium 9.5 (8.4-10.2) mg/dL Total Bilirubin 0.8 (0.2-1.3) mg/dL AST 29 (14-36) U/L ALT 25 (6-35) U/L Alkaline Phosphatase 71 (38-126) U/L Total Protein 6.8 (6.3-8.2) g/dL Albumin 3.9 (3.5-5.1) g/dL Imaging Data Radiologist's impression: ITS Impressions Head CT 03/03/25 13:53 IMPRESSION: 1. No acute intracranial findings. Discharge Plan Discharge Clinical Impression: Headache Patient Disposition: Home Condition: Stable Instructions: Antibiotic Form, Cluster Headache (ED) Additional Instructions: Have close follow-up with your primary care physician. Tylenol for pain control. If you have any worsening symptoms then please call or return to the emergency department Patient Language: Malagasy Prescriptions: No Action milk thistle 175 mg tablet 500 mg PO DAILY Rx Instructions: give with meal/snack lidocaine 5 % cream 1 applic topical TID PRN (Reason: pain) Qty: 30 0RF Rx Instructions: do not apply to open blisters cholecalciferol (vitamin D3) 125 mcg (5,000 unit) capsule 125 mcg PO DAILY vitamin B complex [B Complex-Vitamin B12] Tablet 1 tablet PO DAILY quercetin 500 mg capsule 500 mg PO DAILY garlic 1,000 mg capsule 1,000 mg PO DAILY cinnamon bark [Cinnamon] 500 mg capsule 500 mg PO DAILY warfarin 4 mg tablet 4 mg PO .COMPLEX Rx Instructions: 4 mg orally on SUNDAY clonidine HCl 0.1 mg tablet PO hydralazine 25 mg tablet 75 mg PO Patient Comments: 75mg Morning 75mg Afternoon 100mg Night prednisone 20 mg tablet 40 mg PO DAILY Qty: 10 0RF hydrocodone-acetaminophen 5-325 mg tablet 1 tablet PO Q8H PRN (Reason: pain) Qty: 20 0RF multivitamin 1 tablet BYMOUTH DAILY acetaminophen 500 mg tablet 500 mg PO .am PRN (Reason: pain (scale score 1-3)) warfarin 2 mg tablet 6 mg PO .COMPLEX Rx Instructions: 6 mg orally on SUNDAY, SUNDAY, SUNDAY, SUNDAY, SUNDAY, SUNDAY sotalol 80 mg Tablet 80 mg PO Q12HR Qty: 60 0RF nitrofurantoin monohyd/m-cryst [Macrobid] 100 mg capsule 100 mg PO Q12H 5 Days Qty: 10 0RF Rx Instructions: must administer with a meal/food furosemide 40 mg tablet See Rx Instructions .ROUTE .COMPLEX Qty: 180 1RF Dose Instruction: TAKE 2 TABLETS BY MOUTH DAILY Rx Instructions: TAKE 2 TABLETS BY MOUTH DAILY alendronate 70 mg tablet See Rx Instructions .ROUTE .COMPLEX Qty: 12 4RF Dose Instruction: TAKE 1 TABLET BY MOUTH ONCE WEEKLY Rx Instructions: TAKE 1 TABLET BY MOUTH ONCE WEEKLY rosuvastatin 10 mg tablet See Rx Instructions .ROUTE .COMPLEX Qty: 100 1RF Dose Instruction: TAKE 1 TABLET BY MOUTH EVERY DAY Rx Instructions: TAKE 1 TABLET BY MOUTH EVERY DAY levothyroxine 88 mcg tablet 88 mcg PO DAILY Qty: 90 1RF irbesartan 300 mg tablet See Rx Instructions .ROUTE .COMPLEX Qty: 100 1RF Dose Instruction: TAKE 1 TABLET BY MOUTH EVERY DAY Rx Instructions: TAKE 1 TABLET BY MOUTH EVERY DAY amlodipine 10 mg tablet 10 mg PO DAILY Qty: 90 1RF sucralfate 1 gram tablet 1 g PO TID Qty: 90 3RF albuterol sulfate 90 mcg/actuation HFA aerosol inhaler See Rx Instructions .ROUTE .COMPLEX Qty: 8.5 2RF Dose Instruction: 1 - 2 PUFF INHALED EVERY 4 - 6 HOURS NEEDED FOR SHORTNESS OF BREATH OR WHEEZING Rx Instructions: 1 - 2 PUFF INHALED EVERY 4 - 6 HOURS NEEDED FOR SHORTNESS OF BREATH OR WHEEZING alprazolam 0.25 mg tablet 0.25 mg PO BID PRN (Reason: anxiety) Qty: 60 0RF omeprazole 40 mg capsule,delayed release(DR/EC) See Rx Instructions .ROUTE .COMPLEX Qty: 90 2RF Dose Instruction: TAKE 1 CAPSULE BY MOUTH EVERY DAY Rx Instructions: TAKE 1 CAPSULE BY MOUTH EVERY DAY Follow-up/Referrals: Tru Benites MD [Primary Care Provider, Family Practice]
[2025-03-03 14:00] VITALS: BP 129/80; PULSE 70; RESP 18; O2SAT 99
[2025-03-03] MEDS: MAGNESIUM SULF 1 GM/D5W 100 ML 1 GM/100 ML BAG IVPB (14:10)
[2025-03-03 14:29] LABS: Hematocrit 37.8 % (37.0-47.0); Hemoglobin 12.4 g/dL (12.0-15.0); Immature Granulocyte Percent A 0.5 % (0-0.5); Lymphocytes Absolute Auto 1.52 K/mm3 (0.9-3.2); Mean Corpuscular HGB Conc 32.8 g/dl (32-36); Mean Corpuscular Hemoglobin 29.4 pg (26-34); Mean Corpuscular Volume 89.6 fl (80-100); Nucleated Red Blood Cells Absolute Auto 0.000 K/mm3 (0.0-0.012); Nucleated Red Blood Cells Perc 0.0 % (0.0-0.2); Platelet Count Result 233 k/mm3 (150-375); Red Blood Count 4.22 M/mm3 (4.2-5.4); White Blood Count 6.1 K/mm3 (4.5-10.0)
[2025-03-03 14:39] LABS: Alanine Aminotransferase 25 U/L (6-35); Albumin Level 3.9 g/dL (3.5-5.1); Alkaline Phosphatase 71 U/L (38-126); Anion Gap 9 mmol/L (4-12); Aspartate Amino Transferase 29 U/L (14-36); Bilirubin,Total 0.8 mg/dL (0.2-1.3); Blood Urea Nitrogen 9 mg/dL (7-17); Calcium 9.5 mg/dL (8.4-10.2); Carbon Dioxide 20 mmol/L (22-30); Chloride 108 mmol/L (98-107); Estimated CRCL calculation 47 ml/min; Estimated Glomerular Filt Rate > 60; Glucose 102 mg/dL (65-110); Potassium 3.8 mmol/L (3.4-5.0); Sodium 137 mmol/L (137-145); Total Protein 6.8 g/dL (6.3-8.2)
[2025-03-03 14:49] LABS: INR 4.6; Partial Thromboplastin Time 40.8 Seconds (22.3-36.8); Prothrombin Time 41.4 Seconds (11.1-14.7)
[2025-03-03 15:00] VITALS: BP 150/74; PULSE 71; RESP 18; O2SAT 100
[2025-03-03] MEDS: MORPHINE SULFATE (*CRX) 4 MG/ML INJ 2 MG IV PUSH (15:34)
[2025-03-03 15:38] VITALS: O2SAT 100
[2025-03-03 16:31] VITALS: BP 143/67; PULSE 73; RESP 19; TEMP 36.6; O2SAT 100
== END 2025-03-03 16:32 | disposition home or self-care (01) ==
PROVIDERS: Emergency Provider Emergency Medicine; PCP Family Medicine
DX: R51.9 Headache, unspecified (principal); I10 Essential (primary) hypertension; I27.20 Pulmonary hypertension, unspecified; J44.9 Chronic obstructive pulmonary disease, unspecified; E03.9 Hypothyroidism, unspecified; E78.5 Hyperlipidemia, unspecified; M19.90 Unspecified osteoarthritis, unspecified site; K44.9 Diaphragmatic hernia without obstruction or gangrene; K21.9 Gastro-esophageal reflux disease without esophagitis; K58.9 Irritable bowel syndrome, unspecified; G47.30 Sleep apnea, unspecified; F41.9 Anxiety disorder, unspecified; Z87.440 Personal history of urinary (tract) infections; Z98.49 Cataract extraction status, unspecified eye; Z90.710 Acquired absence of both cervix and uterus; Z90.49 Acquired absence of other specified parts of digestive tract; Z77.22 Contact with and (suspected) exposure to environmental tobacco smoke (acute) (chronic); Z79.01 Long term (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; Z79.899 Other long term (current) drug therapy
CPT/HCPCS: 36415; 70450; 80053; 85025; 85610; 85730; 96365; 96375; 99284; J0780; J1100; J1200; J2270; J3475